=== PATIENT | male | born 1945 | race Caucasian/White ===

== ENCOUNTER 2021-11-28 20:03 | Inpatient (IN) ==
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
[2021-11-28] MEDS ORDERED: VANCOMYCIN 1,000 MG in 0.9 % SODIUM CHLORIDE 250 ML IV ONE (21:25)
[2021-11-28] MEDS ORDERED: cefTRIAXone 1 GM VIAL IV ONE (21:25)
[2021-11-28 22:46] LABS: Basophils # (Auto) 0.02 K/mcL (0.00-0.30); Basophils % (Auto) 0.3 % (0.0-2.0); Eosinophils # (Auto) 0 K/mcL (0.00-0.70); Eosinophils % (Auto) 0 % (0.0-7.0); Hematocrit 35.8 % (40.1-51.0); Hemoglobin 11.6 g/dL (13.7-17.5); Lymphocytes % (Auto) 8.4 % (15.5-49.0); Mean Corpuscular HGB Conc 32.4 g/dL (31.0-36.0); Mean Platelet Volume 10.3 fL (7.4-10.4); Monocytes # (Auto) 0.51 K/mcL (0.10-0.90); Monocytes % (Auto) 7.2 % (1.0-12.0); Neutrophils % (Auto) 84.1 % (38.0-78.0); Platelet Count 191 K/mcL (140-440); RBC 3.77 M/mcL (4.63-6.08); Red Cell Distribution Width 15.8 % (11.5-14.5); WBC 7.1 K/mcL (4.5-11.0)
[2021-11-28 23:06] LABS: ALT/SGPT 47 U/L (<40); AST/SGOT 50 U/L (<40); Albumin/Globulin Ratio 0.9 (1.0-2.3); Alkaline Phosphatase 73 U/L (39-117); Bilirubin,Total 0.8 mg/dL (0.1-1.0); Blood Urea Nitrogen 54 mg/dL (8-23); Calcium 9.2 mg/dL (8.6-10.4); Carbon Dioxide 27 mmol/L (22-30); Chloride 104 mmol/L (96-108); Globulin 3.5 gm/dL (2.2-3.7); Glomerular Filtration Rate 38; Glucose 123 mg/dL (70-105)
[2021-11-28] MEDS ORDERED: ONDANSETRON 4 MG/2 ML VIAL IV PRN (23:50)
[2021-11-28] MEDS ORDERED: ACETAMINOPHEN 325 MG TABLET PO PRN (23:50)
[2021-11-29] MEDS: 0.9 % SODIUM CHLORIDE 10 ML SYRINGE IV SCH ×5 (05:57→20:57)
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
[2021-11-29] MEDS ORDERED: POTASSIUM CHLORIDE 20 MEQ TABLET PO PRN ×2 (06:25)
[2021-11-29] MEDS ORDERED: ACETAMINOPHEN 325 MG TABLET PO PRN (06:25)
[2021-11-29] MEDS ORDERED: ONDANSETRON 4 MG/2 ML VIAL IV PRN (06:25)
[2021-11-29] MEDS ORDERED: SENNOSIDES 1 TABLET PO PRN (06:25)
[2021-11-29] MEDS ORDERED: VANCOMYCIN PER PHARMACY IV SCH (06:25)
[2021-11-29] MEDS ORDERED: MAGNESIUM SULFATE 2 GM/50 ML BAG IV PRN (06:25)
[2021-11-29] MEDS ORDERED: IPRATROPIUM/ALBUTEROL 3 ML AMPUL.NEB NEB PRN (06:25)
[2021-11-29] MEDS ORDERED: METOCLOPRAMIDE 10 MG/2 ML VIAL IV PRN (06:25)
[2021-11-29] MEDS ORDERED: morphine 4 MG/ML VIAL IV PRN (06:25)
[2021-11-29] MEDS ORDERED: POTASSIUM CHLORIDE 40 MEQ in DEXTROSE 5% IN WATER 500 ML IV PRN (06:25)
[2021-11-29] MEDS ORDERED: 0.9 % SODIUM CHLORIDE 1,500 ML IV ONE (06:27)
[2021-11-29] MEDS ORDERED: METOPROLOL TARTRATE 5 MG/5 ML VIAL IV PRN (06:30)
[2021-11-29] MEDS ORDERED: POLYETHYLENE GLYCOL 3350 17 GM PACKET PO SCH (06:30)
[2021-11-29 07:48] LABS: Hemoglobin A1C 5.5 % Hgb (4.0-6.0)
[2021-11-29 08:42] LABS: Anisocytosis 1+ (None Seen); Band Neutrophils % 1 % (0-10); Lymphocytes % 7 % (15-49); Monocytes % (Manual) 12 % (1-12); Platelet Estimate NORMAL (Normal); RBC Morphology ABNORMAL (Normal); Segmented Neutrophils % 80 % (38-78)
[2021-11-29] MEDS ORDERED: LEVOTHYROXINE SODIUM 175 MCG TABLET PO SCH (09:00)
[2021-11-29] MEDS: cefTRIAXone 2 GM in DEXTROSE 5% IN WATER 50 ML IV SCH (09:28)
[2021-11-29] MEDS: LACTOBACILLUS 1 CAPSULE PO SCH (09:32)
[2021-11-29] MEDS: DOCUSATE SODIUM 100 MG CAPSULE PO SCH ×2 (09:36→20:43)
[2021-11-29] MEDS: METOPROLOL SUCCINATE 50 MG TAB.XL.24H PO SCH (09:37)
[2021-11-29] MEDS: DILTIAZEM 240 MG CAP.XL.24H PO SCH (09:37)
[2021-11-29] MEDS: APIXABAN 5 MG TABLET PO SCH ×2 (09:37→20:43)
[2021-11-29] MEDS: LIDOCAINE PATCH TOPICAL SCH (09:37)
[2021-11-29] MEDS: LEVOTHYROXINE 150 MCG TABLET PO SCH (09:42)
[2021-11-29] MEDS: SIMVASTATIN 20 MG TABLET PO SCH (10:19)
[2021-11-29] MEDS: morphine 30 MG TAB.SR.12H PO SCH ×3 (10:27→20:43)
[2021-11-29] MEDS ORDERED: VANCOMYCIN 1,500 MG in 0.9 % SODIUM CHLORIDE 500 ML IV SCH (11:00)
[2021-11-29] MEDS: AMMONIUM LACTATE 12% TOPICAL SCH (11:17)
[2021-11-30] MEDS: 0.9 % SODIUM CHLORIDE 10 ML SYRINGE IV SCH ×5 (05:39→21:05)
[2021-11-30 05:57] LABS: Basophils # (Auto) 0.03 K/mcL (0.00-0.30); Basophils % (Auto) 0.5 % (0.0-2.0); Eosinophils # (Auto) 0.18 K/mcL (0.00-0.70); Eosinophils % (Auto) 2.9 % (0.0-7.0); Hematocrit 35.3 % (40.1-51.0); Hemoglobin 10.9 g/dL (13.7-17.5); Lymphocytes # (Auto) 0.91 K/mcL (1.50-4.80); Lymphocytes % (Auto) 14.7 % (15.5-49.0); Mean Cell Volume 95.4 fL (80.0-100.0); Mean Corpuscular HGB Conc 30.9 g/dL (31.0-36.0); Mean Platelet Volume 9.9 fL (7.4-10.4); Monocytes # (Auto) 0.55 K/mcL (0.10-0.90); Monocytes % (Auto) 8.9 % (1.0-12.0); Platelet Count 165 K/mcL (140-440); Red Cell Distribution Width 15.8 % (11.5-14.5); WBC 6.2 K/mcL (4.5-11.0)
[2021-11-30 06:27] LABS: ALT/SGPT 32 U/L (<40); AST/SGOT 23 U/L (<40); Albumin 2.7 gm/dL (3.2-5.2); Albumin/Globulin Ratio 0.9 (1.0-2.3); Alkaline Phosphatase 64 U/L (39-117); Bilirubin,Direct 0.3 mg/dL (<0.3); Bilirubin,Total 0.9 mg/dL (0.1-1.0); Blood Urea Nitrogen 18 mg/dL (8-23); Calcium 8.8 mg/dL (8.6-10.4); Carbon Dioxide 24 mmol/L (22-30); Chloride 109 mmol/L (96-108); Globulin 2.9 gm/dL (2.2-3.7); Glomerular Filtration Rate 87; Glucose 90 mg/dL (70-105); Lactate Dehydrogenase 131 U/L (135-225); Phosphorous 2.6 mg/dL (2.5-4.5); Triglycerides 52 mg/dL (<150); Uric Acid 5.5 mg/dL (2.5-8.0)
--- NOTE | 2021-11-30 07:22 | Internal Med Progress Note ---
SUBJECTIVE Subjective Patient information: Note initiated : 11/30/21 at 7:20 am Service Date, if different from initiated Date: [] Patient: Medardo Curry 76 y/o M admitted on 11/29/21 for oozing skin graft. Chief Complaint: [] Interval history: History of present illness: Mr. Curry is a 76 year old M Presents to the ED with redness of his left leg and clear liquid oozing from her recent skin graft placed yesterday. This was done by Dr. Herr who talked to ED provider. Patient says that after the procedure started developing some redness near his ankle. This did progress to increased swelling and redness and warmth. Given the appearance of cellulitis patient was started on IV antibiotics. In the ED was also found to have acute kidney injury. 11/30 No overnight event or new complaints. Continue IV antibiotics. Awaiting Dr. Herr recommendations. Review of Systems: denies headache/fever/chills/nausea/vomiting/chest or abdominal pain/cough/dyspnea/diarrhea. Otherwise see above. Constitutional Vitals: Vital Signs Temp Pulse Resp BP Pulse Ox 97.4 F 84 16 134/76 98 11/30/21 04:08 11/30/21 04:08 11/30/21 04:08 11/30/21 04:08 11/30/21 04:08 Period Temp Pulse Resp BP Sys/Estrada Pulse Ox Last 24 Hr 97.2 F-98.7 F 77-121 16-18 117-134/63-81 95-99 Intake and Output 11/29/21 11/30/21 11/30/21 21:59 05:59 13:59 Intake Total 1518 240 Output Total 650 450 Balance 868 -210 Weight 93.213 kg Intake & Output: Intake & Output 11/29/21 11/30/21 11/30/21 21:59 05:59 13:59 Intake Total 1518 240 Output Total 650 450 Balance 868 -210 Weight 93.213 kg Intake: IV 1418 Sodium Chloride 0.9% 1,500 ml @ 1418 175 mls/hr IV .[id number] ONE Rx#: [id number] Oral 100 240 Output: Void Amount 650 450 Other: Meal Dinner Percent of Meal Consumed 10 Feeding Ability Independent Urine Appearance Clear Clear Urine Color Dark Yellow Dark Mikki Urine Odor Normal Normal Exam: General: Alert, Awake, No acute Distress Eyes/N/T: EOMI, , Head/Neck: neck supple, CV: RRR, No murmurs, Pulm: Clear b/l, no wheezing/rhonchi/rales Abd: soft, nontender, +BS x4 Ext: no clubbing/cyanosis, mild chronic b/l LE edema. LLE with dressing in place, erythema from suarez to ankle and warmth - with some improvement. Neuro: Alert, no focal deficits, moves all extremities, Skin: warm/dry OBJ DATA Labs CBC & Chem 7: 11/30/21 05:19 11/30/21 05:19 Labs: Abnormal Lab Results 11/30/21 11/30/21 11/28/21 05:19 05:19 21:50 RBC 3.70 L Hgb 10.9 L Hct 35.3 L MCHC 30.9 L RDW 15.8 H Neut % (Auto) Lymph % (Auto) 14.7 L Lymph # (Auto) 0.91 L Seg Neutrophils % 80 H Lymphocytes % 7 L RBC Morphology Abnormal A Anisocytosis 1+ A Chloride 109 H Anion Gap BUN Creatinine Glucose Direct Bilirubin 0.3 H AST ALT Lactate Dehydrogenase 131 L Total Protein 5.6 L Albumin 2.7 L Albumin/Globulin Ratio 0.9 L 11/28/21 11/28/21 21:50 21:50 RBC 3.77 L Hgb 11.6 L Hct 35.8 L MCHC RDW 15.8 H Neut % (Auto) 84.1 H Lymph % (Auto) 8.4 L Lymph # (Auto) 0.60 L Seg Neutrophils % Lymphocytes % RBC Morphology Anisocytosis Chloride Anion Gap 7.0 L BUN 54 H Creatinine 1.7 H Glucose 123 H Direct Bilirubin AST 50 H ALT 47 H Lactate Dehydrogenase Total Protein Albumin 3.0 L Albumin/Globulin Ratio 0.9 L Meds: Medications Acetaminophen (Acetaminophen 325 Mg Tablet) 650 mg PO Q6HP PRN; Protocol PRN Reason: Per Pain Protocol/Fever > 101 Acetaminophen (Acetaminophen 325 Mg Tablet) 650 mg PO Q6HP PRN; Protocol PRN Reason: Per Pain Protocol/Fever > 101 Albuterol/Ipratropium (Ipratropium/Albuterol 3 Ml Ampul.Neb) 3 ml NEB Q4HP PRN PRN Reason: Shortness Of Breath Apixaban (Apixaban 5 Mg Tablet) 5 mg PO BID [facility] Last Admin: 11/29/21 20:43 Dose: 5 mg Documented by: Diltiazem HCl (Diltiazem 240 Mg Cap.Xl.24h) 240 mg PO QDAY [facility] Last Admin: 11/29/21 09:37 Dose: 240 mg Documented by: Docusate Sodium (Docusate Sodium 100 Mg Capsule) 100 mg PO BID [facility] Last Admin: 11/29/21 20:43 Dose: 100 mg Documented by: Potassium Chloride 40 meq/ (Dextrose) 520 mls @ 130 mls/hr IV UD PRN PRN Reason: Potassium < 3 Magnesium Sulfate (Magnesium Sulfate) 2 gm in 50 mls @ 50 mls/hr IV UD PRN PRN Reason: Magnesium </= 1.6 Ceftriaxone Sodium 2 gm/ (Dextrose) 50 mls @ 100 mls/hr IV Q24H [facility]; Protocol Last Infusion: 11/29/21 09:58 Dose: Infused Documented by: Lactobacillus Rhamnosus (Lactobacillus 1 Capsule) 1 cap PO QAM [facility] Last Admin: 11/29/21 09:32 Dose: 1 cap Documented by: Levothyroxine Sodium (Levothyroxine 150 Mcg Tablet) 150 mcg PO Q48H [facility] Last Admin: 11/29/21 09:42 Dose: 150 mcg Documented by: Lidocaine (Lidocaine Patch) 1 patch TOPICAL QDAY [facility] Last Admin: 11/29/21 09:37 Dose: 1 patch Documented by: Metoclopramide HCl (Metoclopramide 10 Mg/2 Ml Vial) 10 mg IV Q6HP PRN PRN Reason: Nausea And Vomiting Metoprolol Succinate (Metoprolol Succinate 50 Mg Tab.Xl.24h) 50 mg PO QDAY [facility] Last Admin: 11/29/21 09:37 Dose: 50 mg Documented by: Metoprolol Tartrate (Metoprolol Tartrate 5 Mg/5 Ml Vial) 5 mg IV Q2HP PRN PRN Reason: Tachyarrhythmias HR>110 Morphine Sulfate (Morphine 30 Mg Tab.Sr.12h) 60 mg PO TID [facility] Last Admin: 11/29/21 20:43 Dose: Not Given Documented by: Morphine Sulfate (Morphine 4 Mg/Ml Vial) 0 mg IV Q3HP PRN PRN Reason: Pain Ondansetron HCl (Ondansetron 4 Mg/2 Ml Vial) 4 mg IV Q4HP PRN; Protocol PRN Reason: Nausea And Vomiting Ondansetron HCl (Ondansetron 4 Mg/2 Ml Vial) 4 mg IV Q4HP PRN PRN Reason: Nausea And Vomiting Ammonium Lactate 12 (% Cream) 1 dose TOPICAL DAILY [facility] Last Admin: 11/29/21 11:17 Dose: Not Given Documented by: Polyethylene Glycol (Polyethylene Glycol 3350 17 Gm Packet) 17 gm PO DAILYP [facility] Potassium Chloride (Potassium Chloride 20 Meq Tablet) 40 meq PO UD PRN PRN Reason: Potssium is 3-3.5 Potassium Chloride (Potassium Chloride 20 Meq Tablet) 40 meq PO UD PRN PRN Reason: Potassium < 3 Senna (Sennosides 1 Tablet) 2 tab PO DAILYP PRN PRN Reason: Constipation Simvastatin (Simvastatin 20 Mg Tablet) 20 mg PO QDAY [facility] Last Admin: 11/29/21 10:19 Dose: 20 mg Documented by: Sodium Chloride (0.9 % Sodium Chloride 10 Ml Syringe) 10 ml IV Q8 [facility] Last Admin: 11/30/21 05:39 Dose: 10 ml Documented by: Sodium Chloride (0.9 % Sodium Chloride 10 Ml Syringe) 10 ml IV Q8 [facility] Last Admin: 11/30/21 05:46 Dose: Not Given Documented by: A/P Narrative A/P Narrative: A: *LLE Cellulitis around recent skin graft: *SHEREE on CKD III?: improved *chronic Afib: on apixaban, Dilt/BB *h/o CVA: on ASA/statin *h/o mod : follows with cardiology *Hypothyroidism: *Chronic pain: P: -Rocephin, pending cx's and MRSA screen neg -awaiting Dr. Hendrickson for further direction -s/p IVF, f/u renal fxn -cont home ASA/Apixaban/statin -cont home Dilt/BB -tele, clarify asa -pt/ot -ppx: apixaban Time Spent With Patient Time: Total time spent is greater than 50% in coordination of care (as documented) at patient's floor/unit and/or counseling patient: Total time spent with greater than 50% in coordination of care (as documented) at patient's floor/unit and/or counseling patient:: 25 - 35 minutes QUALITY VTE Deep Vein Thrombosis/Pulmonary Embolism Present on Admission: No
[2021-11-30] MEDS ORDERED: ASPIRIN 325 MG ENTERIC COATED TABLET PO SCH (09:00)
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
[2021-11-30] MEDS: DOCUSATE SODIUM 100 MG CAPSULE PO SCH ×2 (09:49→21:04)
[2021-11-30] MEDS: APIXABAN 5 MG TABLET PO SCH ×2 (09:49→21:04)
[2021-11-30] MEDS: LACTOBACILLUS 1 CAPSULE PO SCH (09:49)
[2021-11-30] MEDS: METOPROLOL SUCCINATE 50 MG TAB.XL.24H PO SCH (09:49)
[2021-11-30] MEDS: SIMVASTATIN 20 MG TABLET PO SCH (09:49)
[2021-11-30] MEDS: DILTIAZEM 240 MG CAP.XL.24H PO SCH (09:49)
--- OUTSIDE RECORDS SUMMARY | 2021-11-30 10:10 | External Medical Summary | Encounter Summary ---
:1945 Author Organization [facility] Address [address] [place] [id number] Care Team Providers Name Role Phone DE JESUSMALKAON Primary Care Provider Unavailable Insurance Providers: All historical and current Section Date Range: From patient's date of to the date document was created.This section includes the names of all active insurance providers for the patient. Insurance Type of Plan Start of End of Group Member Insurance Policy P atient's Provider Coverage Name Policy Policy Number ID Provider's Esteban's Relationship Coverage Coverage Telephone Name to Policy Number Esteban MEDICARE MEDICARE PART Dec 11, PART A [id number] DEONTE, PATIENT (WNR) (M) A [id number] [place] MEDICARE MEDICARE PART Dec 11, PART B [id number] DEONTE, PATIENT (WNR) (M) B [id number] [place] MEDICARE MEDICARE PART Dec 11, PART A [id number] [phone] LEMAST ER, PATIENT (WNR) (M) A [id number] 56A [id number] [place] MEDICARE MEDICARE PART Dec 11, PART B [id number] LEMAST ER, PATIENT (WNR) (M) B [id number] 56A [id number] [place] MEDICARE MEDICARE PART Dec 11, PART A [id number] [phone] LEMAST ER, PATIENT (WNR) (M) A 1995 227 RICHARD MEDICARE MEDICARE PART Dec 11, PART B [id number] [phone] LEMAST ER, PATIENT (WNR) (M) B [id number] [place] MEDICARE MEDICARE PART Apr 13, PART A [id number] DEONTE, PATIENT (WNR) (M) A [id number] [place] MEDICARE MEDICARE PART Apr 13, PART B [id number] DEONTE, PATIENT (WNR) (M) B [id number] [place] -FO [place] November 04, TFL [id number] [phone], PATIENT R-LIFE RE-FO [id number] CHELS[place] R-LIF E -FO [place] Dec 11, [id number] [phone] MERLY STER, PATIENT R-LIFE WNR RE-FO [id number] -[id number] [place] R-LIF FE E -FO [place] Jun 13, T[place] [id number] [phone], PATIENT R-LIFE WNR RE [id number] CHELS[place] FOR LIFE ZZWPS [place] Jun 09, STANDAR [id number] [phone] DEONTE , PATIENT TRIWEST RE 2001 [id number] CHELS[place] Selected Encounter This section includes the information on record at [place] for the Encounter. Date/Time Encounter Type Encounter Description Reason Provider Source Dec 09, 2020 10:06 Outpatient Encounter [facility] CONSULT IHE Encounter Template Text not used by CO Plan of Treatment: Future Appointments (+ 6 months) and Future Tests (+/- 45 days) The Plan of Treatment section includes future care activities for the patient from all [place] treatmentfacilities. This section includes future appointments and future orders which are active, pending orscheduled.Future Appointments This section includes appointments that were scheduled to occur 6 months from the date of the Encounter, up to a maximum of 20 appointments. The data comes from all [place] treatment facilities. Appointment Date/Time Appointment Type Appointment Facili ty Name Dec 30, 2020 10:30 AM AMBULATORY - MEDICINE [facility] Jan 08, 2021 11:00 AM AMBULATORY - MEDICINE [facility] Mar 05, 2021 11:30 AM AMBULATORY - MEDICINE [facility] Mar 05, 2021 12:00 PM AMBULATORY - MEDICINE [facility] Mar 12, 2021 01:00 PM AMBULATORY - MEDICINE [facility] Apr 02, 2021 11:00 AM AMBULATORY - MEDICINE [facility] ULLOA [facility] Apr 22, 2021 11:30 AM AMBULATORY - MEDICINE [facility] May 05, 2021 09:30 AM AMBULATORY - PSYCHIATRY SUNITA SALAS [facility] May 22, 2021 09:00 AM AMBULATORY - MEDICINE SUNITA ULLOA [facility] Active, Pending, and Scheduled Orders This section includes a listing of several types of active, pending, and scheduled orders, including clinic medications orders, diagnostic test orders, procedure orders and consult orders; where the start date of the order is 45 days before the date of the Encounter or 45 days after the date of the Encounter. The data comes from all [place] treatment facilities. Test Date/Time Test Type Test Details Facility Name Jan 07, 2021 03:46 PM Consult Order [facility] Guillaume [facility] Mold Injector's Choice Lab Results: +/- 30 days of the encounter This section includes the Chemistry and Hematology Lab Results on record with CO for the patient. Radiology Reports and Pathology Reports are provided separately, in subsequent sections.Lab Results This section contains the Chemistry/Hematology Results that were resulted 30 days before or 30 daysafter the date of the Encounter. Date/Time Source Result Type Result - Unit Interpretation Reference Range Comment Dec 30, 2020 10:38 [facility] THYROID STIMULATING Speci men Type: SERUM AM HORMONE No comment enter ed. Ordering Provid er: LG DE JESUS Report Released Date/Time: Dec 14, 2020 02:26 PM Reporting Lab: [facility] [address] [place] [address] Performing Lab: [facility] Guillaume [facility] [place] [address] THYROID STIMULATING HORMONE 16.6 H 0. 300-4.25 Social History: Smoking Status (Most current) and Tobacco Use (All prior to encounter date) This section includes the most current, and the historical, smoking and tobacco-related health factors from the [place] facility where the Encounter took place.Current Smoking Status This section includes the most current smoking, or tobacco-related health factor, from the [place] facility where the Encounter took place. Date/Time Current Smoking Status Comment Facility Sep 04, 2017 06:40 PM TOBACCO SCREEN COMPLETED Kapil DREW KatherineKadi [facility] 7 hrs Tobacco Use History This section includes a history of the smoking, or tobacco- related health factors, that were collected on or before the date of the Encounter. The data comes from the [facility] where the Encounter took place. Date/Time Smoking Status/Tobacco Use Comment [facility] Sep 04, 2017 06:40 PM TOBACCO SCREEN COMPLETED Kapil DREW Guillaume [facility] 7 hrs May 15, 2007 09:55 AM QUIT TOBACCO >7 YEARS AGO SUNITA Guillaume [facility] Feb 12, 1999 10:18 AM TOBACCO PRODUCTS USER (NO) SUNITA Guillaume [facility] Feb 14, 1998 01:00 AM TOBACCO PRODUCTS USER (NO) SUNITA Guillaume [facility] Dec 04, 1997 01:01 AM TOBACCO PRODUCTS USER (NO) SUNITA Guillaume [facility] Encounter Notes: All associated encounter notes This section contains the clinical notes associated to the Encounter. Date/Time Encounter Note(s) Provider Source Dec 09, 2020 10:06 ADMINISTRATIVE NOTE: KAUSHIK GUZMAN III, AM LOCAL TITLE: TELEPHONE CONTACT CALL CENTER [facility] STANDARD TITLE: ADMINISTRATIVE NOTE DATE OF NOTE: DEC 09, 2020@10:06:53 ENTRY DATE: DEC 09, 2020@10:09 AUTHOR: KAUSHIK GUZMAN III EXP COSIGNER: URGENCY: STATUS: COMPLETED The following identifiers were used to verify th is patient: . SSN. The patient, CHELSY CLEMONS ([phone]) called the call center. Contact Type of call: V20 PACT MSG. Comments: [facility] is requesting a return call to discuss b elow medication. LEVOTHYROXINE Demographics verified. Author: KAUSHIK GUZMAN III Evaluation/Management Code: HC PRO PHONE CALL 5- 10 MIN ([id number]). Starting at: 12/09/2020 @ 10:06:53 AM Ending at: 12/09/2020 @ 10:08:50 AM Length: 1 minutes. Caller Area: [address] Chief Complaint: Not applicable to call. Caller Response: V20 RETURN CALL Caller/[facility] verbalize understanding; acknowle dges message. Patient's Email Address: [email or web address] Class Code: Other specified counseling. /karen/ KAUSHIK GUZMAN III/GHASSAN Murphy 20 call center Signed: 12/09/2020 10:09 Receipt Acknowledged By: * AWAITING SIGNATURE * ERWIN JACOBSEN S
--- OUTSIDE RECORDS SUMMARY | 2021-11-30 10:10 | External Medical Summary | Continuity of Care Document ---
:1945 Author Organization [facility] Care Team Providers Name Role Phone [facility] Unavailable Unavailable Problems Combined list of problems from Department of Defense and Veterans Affairs facilities. It does not include entries that were removed or entered in error. Problem Status Onset Problem Date of Comments Source Date Type Resolution Difficulty walking completed Diagnosis 6 87 in room 022 Sunita Haley [facility] Well adult completed Diagnosis [id number] [facility] Ankle Active Condition Ambulatory instability(Confir 016 P harmacy med) Ankle instability Active Condition [facility] [address] Active Condition [address] Simmons fibrillation(Deoni 013 [place]<br/ >[facility] rmed)2 xysmal A fib controlled with diltiazem XL 240mg daily<br/&gt ;small PFO or ASD flow
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 Pharmacy intervertebral disc(Confirmed) OSTEOARTHROS Active Condition Ambulat ory NOS-PELVIS(Confirm P harmacy ed) Dystrophic Active Condition Ambulator y Toenails (ICD-9-CM P harmacy 735.8)(Confirmed) Hip Active Condition Ambulatory pain(Confirmed) Phar makayla Hyperlipidemia(Con Active Condition A mbulatory firmed) Pharmacy Hypothyroidism Active Condition Ambul atory (SNOMED CT Pharmacy [id number])(Confirme d) Ingrowing Active Condition Ambulatory Nail(Confirmed) Phar makayla Male sex hormones Active Condition Am bulatory low(Confirmed) Pharm acy MYOPIA(Confirmed) Active Condition Am bulatory Pharmacy Treatment Active Condition Ambulatory Compliance Problem P harmacy * (ICD-9-CM V62.6)(Confirmed) Onychomycosis(Conf Active Condition A mbulatory irmed) Pharmacy OSTEOARTHROS Active Condition Ambulat ory NOS-UNSPEC(Confirm P harmacy ed) Pain in left Active Condition Ambulat ory knee(Confirmed) Phar makayla Peripheral Active Condition 05/2015 NO Ambul atory vascular signficant PAD Pharm acy disease(Confirmed) right or le ft, 5 DENAE left 1.24
DENAE R pressures not measurable with extensive calcifications<b r/>R DENAE not calculated noncompressable veins
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 Iliac 2.5cm repeat US 10/24/12 Apr 25, 2014 Entered By: LG HICKEY Comment: left common iliac artery Benign essential Active Condition MARLEEN Guillaume hypertension WAINWRI GHT (SNOMED CT [facility] [id number]) Allred of toe Active Condition SUNITA MKadi [facility] Coronary Active Condition Jun 12, 2020 [facility] atherosclerosis Entered By: LG KRUSE Comment: 2006 60-70% RC narrowing and 50% LAD Degeneration of Active Condition [facility] lumbar [facility] intervertebral disc Dystrophia unguium Active Condition J DREW MurphyKadi [facility] History of Active Condition Aug 14, 2010 MARLEEN Guillaume colonoscopy En[facility]: [facility] Comment: Colonoscopy 02/2010 dr Mclain repeat 5 yrs Sep 20, 2019 Entered By: LG HICKEY Comment: colonoscopy 04/13/2017 diverticulosis no polyps repeat in 7-10 yrs [place] Hyperlipidemia Active Condition [facility] Hypothyroidism Active Condition KIMBERLY ORLIN MurphyKadi [facility] Hypothyroidism Active Condition KIMBELRY MurphyKadi (SNOMED CT [facility] T [id number]) [facility] Male sex hormones Active Condition [facility] low [facility] Onychomycosis Active Condition KIMBERLYAlexandre HARPER Markell [facility] Open wound of left Active Condition L [facility] lower leg CLINIC Osteoarthritis Active Condition NEVA ORLIN MurphyKadi [facility] Osteoarthritis of Active Condition Dec 07, 2 021 [facility] hip Entered By: LG WHELAN Comment: avascular necrosis right hip/ femur following service injury and infections OSTEOARTHROS Active Condition [facility] NOS-UNSPEC TAFF [facility] Pain in left knee Active Condition [facility] Peripheral Active Condition Aug 31, 2015 [facility] vascular disease Entered By: LG MORELAND Comment: 05/2015 NO signficant PAD right or left, DENAE left 1.24 Aug 31, 2015 Entered By: LG HICKEY Comment: DENAE R pressures not measurable with extensive calcifications Aug 31, 2015 Entered By: LG HICKEY Comment: R DENAE not calculated noncompressable veins Aug 31, 2015 Entered By: LG HICKEY Comment: [facility] MYOPIA Inactive Condition CYMRAES JEFFERSON ([facility] ) PRESBYOPIA Inactive Condition CYMRAES JEFFERSON ([facility] ) Diagnosis: active Diagnosis SUNITA Guillaume ICD-10-CM Z74.1 ANGELINE ULLOA Need for [facility] assistance with personal carewith Provider Comments: Need for Assistance with Personal Care Diagnosis: active Diagnosis [facility] ICD-10-CM Z71.9 CLIN IC Counseling, unspecifiedwith Provider Comments: Counseling, unspecified Diagnosis: active Diagnosis SUNITA Guillaume ICD-10-CM Z51.81 NADIA NWRIGHT Encounter for [facility] therapeutic drug level monitoringwith Provider Comments: Encounter for Therapeutic Drug Level Monitoring Diagnosis: active Diagnosis [facility] ICD-10-CM I73.9 CLIN IC Peripheral vascular disease, unspecifiedwith Provider Comments: Peripheral vascular disease ([facility] [id number]) Diagnosis: active Diagnosis SUNITA Guillaume ICD-10-CM M16.51 NADIA NWRIGHT Unilateral [facility] post-traumatic osteoarthritis, right hipwith Provider Comments: Unilateral Post-Traumatic Osteoarthritis, right Hip Diagnosis: active Diagnosis [facility] ICD-10-CM I73.9 CLIN IC Peripheral vascular disease, unspecifiedwith Provider Comments: Peripheral Vascular Disease, Unspecified Diagnosis: active Diagnosis [facility] ICD-10-CM Z71.9 CLIN IC Counseling, unspecifiedwith Provider Comments: Counseling,Unspec Diagnosis: active Diagnosis [facility] ICD-10-CM E03.9 CLIN IC Hypothyroidism, unspecifiedwith Provider Comments: Hypothyroidism, unspecified Diagnosis: active Diagnosis [facility] ICD-10-CM M16.9 CLIN IC Osteoarthritis of hip, unspecifiedwith Provider Comments: Osteoarthritis of hip ([facility] [id number]) Diagnosis: active Diagnosis [facility] ICD-10-CM M25.562 CL INIC Pain in left kneewith Provider Comments: Pain in left knee ([facility] [id number]) Diagnosis: active Diagnosis [facility] ICD-10-CM M19.90 CLI MITCHELL Unspecified osteoarthritis, unspecified sitewith Provider Comments: Osteoarthritis ([facility] [id number]) Diagnosis: active Diagnosis [place] [facility] ICD-10-CM E29.1 [facility] Testicular CENTER hypofunctionwith Provider Comments: Testicular Hypofunction Diagnosis: active Diagnosis [facility] ICD-10-CM M25.373 CL INIC Other instability, unspecified anklewith Provider Comments: Ankle instability ([facility] [id number]) Medications Combined list of outpatient medications from Department of Defense and Veterans Affairs facilities. Medications provided include 1) outpatient medications from the last 15 months, and 2) patient-reported medications. Medication Details Route Status Patient Prescription Prescription Last Ordering Order Source Instructions Expires Number Dispense Provider Date Date Ammonium APPLY A Discont 11/12/2021 [id number] HICKEY, 0 09/07/ [place] Lactate SMALL inued 2 2021 [place] (Lac-Hydrin [place] [facility] ) Cream 12% TO Topical AFFECTED AREA TWICE A DAY NEEDED FOR DRY CRACKED SKIN TO HANDS Ammonium APPLY A 11/12/2021 [id number] HICKEY, 0 11/11/ [place] Lactate SMALL 1 2020 [place] (Lac-Hydrin [facility] [facility] ) Cream 12% TO Topical AFFECTED AREA TWICE A DAY NEEDED FOR DRY CRACKED SKIN TO HANDS AMMONIUM Topica Discont 09/02/2017 Amb ulat LACTATE 12% Topical, BID, APPLY A SMALL AMOUNT TO AFFECTED AREA TWICE A DAY NEEDED FOR DRY CRACKED SKIN TO HANDS, 0 total refill(s), Physician Stop l (on inued ory CREAM the Pharmac skin) y AMMONIUM APPLY A TOPICA DISCONT 11/12/2021 [id number] DERECK HICKEY 11/11/ [place] LACTATE 12% SMALL L INUED 2 2020 N [facility] CREAM,TOP AMOUNT CLINIC TO AFFECTED AREA TWICE A DAY NEEDED FOR DRY CRACKED SKIN TO HANDS ammonium Discont 10/26/2021 Ambu lat lactate 12% See dose instructions in com ments, # 140 g, 2 total refill(s), Acute, GERSON [Not active] inued ory topical Pharmac cream y ammonium Topica Ordered Ambulat lactate 12% 1 application, Topical, BID, PRN dry skin, APPLY A SMALL AMOUNT TO AFFECTED AREA TWICE A DAY NEEDED FOR DRY CRACKED SKIN TO HANDS, # 385 g, 3 total refill(s), Maintenance, 1 application Topical BID,P l (on ory topical RN:dry skin,Instr:APPLY A SMALL AMOUNT TO AFFECT... the Pharmac cream skin) y APIXABAN 5 TAKE ONE Discont 10/17/2021 [id number] RUPERTO , 09/07/ [place] MG ORAL TAB TABLET inued 2 2021 [place] BY MOUTH [facility] TWICE A DAY DO NOT TAKE WITH WARFARIN , NOTIFY DOCTOR OF ANY SIGNS OF BLEEDING apixaban 5 Complet 10/14/2021 Am bulat mg oral 5 MG BY MOUTH TWICE A DAY, # 180 EA, 1 total refill(s), Acute, GERSON [Federal Rx: #180 last filled 08/07/21] ed ory tablet Pharmac y apixaban 5 Oral Ordered Ambulat mg oral 1 tab(s), Oral, BID, for str birgit prevention, do not take with warfarin, do not take with Motrin, Aleve or any other nonsteroidal medications, notify provider of any signs of bleeding as directed on packa (given ory tablet ge labeling, # 180 tab(s), 1 total refill(s), Ma... by Pharmac mouth) y APIXABAN Oral Complet 04/10/2020 Ambu lat 5MG TAB 5 mg, Oral, BID, TAKE ONE TA BLET BY MOUTH TWICE A DAY FOR 30 DAYS DO NOT TAKE WITH WARFARIN - NOTIFY DOCTOR OF ANY SIGNS OF BLEEDING, 0 total refill(s) (given ed ory by Pharmac mouth) y APIXABAN Oral Discont 09/02/2017 Ambu lat 5MG TAB 5 mg, Oral, BID, TAKE ONE TA BLET BY MOUTH TWICE A DAY DO NOT TAKE WITH WARFARIN, NOTIFY DOCTOR OF ANY SIGNS OF BLEEDING, 0 total refill(s), Physician Stop (given inued ory by Pharmac mouth) y APIXABAN TAKE ONE ORAL DISCONT 10/17/2021 [id number] DERECK HICKEY 10/17/ LANE 5MG TAB TABLET INUED 2 ION E 2020 N M. BY MOUTH [place] TWICE A GHT DAY DO [facility] NOT TAKE WITH WARFARIN , NOTIFY DOCTOR OF ANY SIGNS OF BLEEDING aspirin 81 Oral Ordered Ambulat mg oral 1 tab(s), Oral, Daily, # 90 tab(s), 3 total refill(s), Maintenance, 1 tab(s) Oral Daily, Pharmacy: [facility] [Federal Rx: #120 last filled 10/27/21] (given ory delayed by Pharmac release mouth) y tablet aspirin 81 Discont 10/26/2021 Am bulat mg oral See dose instructions in com ments, # 120 EA, 2 total refill(s), Acute, GERSON [Not active] inued ory delayed Pharmac release y tablet ASPIRIN TAKE ONE ORAL DISCONT 04/27/2022 [id number] ALIYAH HICKEY 04/27/ [place] 81MG TAB,EC TABLET INUED 1 ION E 2020 N [place] BY MOUTH CLINIC EVERY DAY DR MARTINEZ . TAKE WITH APIXABAN ASPIRIN EC TAKE ONE Discont 04/27/2022 [id number] RUPERTO , 09/07/ [place] (U/D) 81 MG TABLET inued 1 2021 [place] ORAL TBEC BY MOUTH [facility] EVERY DAY DR MARTINEZ . TAKE WITH APIXABAN carboxymeth INSTILL 08/19/2021 [id number] HICKEY , a ylcel 0.5% 1 DROP 1 2020 [place] EYE DROP [2 IN EACH [facility] X15ML] EYE FOUR TIMES A DAY NEEDED FOR DRY EYES CARBOXYMETH INSTILL OPHTHA 08/19/2021 [id number] SM ITH,MAR [place] YLCELLULOSE 1 DROP LMIC 1 2020 N [place] NA 0.5% IN EACH CLINIC (PF) EYE FOUR SOLN,OPH,0. TIMES A 4ML DAY NEEDED FOR DRY EYES CARBOXYMETH Complet 04/10/2020 A mbulat YLCELLULOSE EACH EYE, QID, INSTILL 1 SALAS P IN EACH EYE FOUR TIMES A DAY NEEDED FOR DRY EYES, 0 total refill(s) ed ory NA Pharmac 0.5%(PF)OP y [place] CARBOXYMETH Discont 09/02/2017 A mbulat YLCELLULOSE EACH EYE, QID, INSTILL 1 SALAS P IN EACH EYE FOUR TIMES A DAY NEEDED FOR DRY EYES, 0 total refill(s), Physician Stop inued ory NA Pharmac 0.5%(PF)OP y [place] cholecalcif Take 1 Active 10/26/2022 [id number] Ruperto , 200CRNR (VIT D3) tablet 2 2021 2,000 UNIT by mouth ORAL TAB daily cholecalcif TAKE ONE Discont 08/11/2022 [id number] ARIE H, 09/07/ [place] (VIT D3) TABLET inued 2 2021 [place] 2,000 UNIT BY MOUTH [facility] ORAL TAB EVERY DAY FOR VITAMIN D SUPPLEME NT CHOLECALCIF Oral Discont 10/26/2021 A mbulat 50MCG 50 mcg, Oral, Daily, TAKE ON E TABLET BY MOUTH EVERY DAY FOR VITAMIN D SUPPLEMENT, 0 total refill(s) (given inued ory (D3-2,000UN by Pharmac IT) TAB mouth) y cholecalcif Oral Discont 10/26/2021 A mbulat kayy 50 mcg 50 MCG, Oral, Daily, # 100 E A, 2 total refill(s), Acute, GERSON [Not active] (given inued ory (1999 intl by Pharmac units) oral mouth) y tablet cholecalcif Oral Ordered Ambula t kayy 50 mcg 50 MCG, Oral, Daily, # 100 t ab(s), 3 total refill(s), Maintenance, 50 MCG Oral Daily, Pharmacy: [facility] [Federal Rx: #100 last filled 11/12/21] (given ory (2000 intl by Pharmac units) oral mouth) y tablet CHOLECALCIF TAKE ONE ORAL DISCONT 08/11/2022 [id number] [facility],AUG 13/ [place] KAYY 50MCG TABLET INUED 2 ION E 2021 N [place] (2,000UNIT) BY MOUTH CLINI C TAB EVERY DAY FOR VITAMIN D SUPPLEME NT diclofenac Topica Ordered Ambula t 1% topical 4 g, Topical, QID, PRN pain (mild), APPLY 2-4 GRAMS DIRECTED TO AFFECTED AREA FOUR TIMES A DAY NEEDED FOR PAIN * LIMIT DAILY DOSE TO 8 GRAMS TO UPPER BODY AND 16 GRAMS TO LOWER BODY FOR JOINT PAIN l (on ory gel , # 100 g, 3 total refill(s), Maintenance, 4 g... the Pharmac skin) y DICLOFENAC Topica Discont 10/26/2021 A mbulat NA 1% TOP Topical, QID, APPLY 2-4 GRAM S DIRECTED TO AFFECTED AREA FOUR TIMES A DAY NEEDED FOR PAIN * LIMIT DAILY DOSE TO 8 GRAMS TO UPPER BODY AND 16 GRAMS TO LOWER BODY FOR JOINT PAIN, 0 total refill(s) l (on inued ory GEL the Pharmac skin) y DILTIAZEM TAKE ONE ORAL 07/09/2021 [id number] HICKEY ,AUG 13/ [place] (EQV-TIAZAC CAPSULE 1 ION E 2020 N [place] AB4) 240MG BY MOUTH CLINIC 24HR CAP AT BEDTIME TO LOWER BLOOD PRESURE AND FOR HEART DILTIAZEM Oral Discont 08/08/2018 Amb ulat (EQV-TIAZAC 240 mg, Oral, every day at b edtime, TAKE ONE CAPSULE BY MOUTH AT BEDTIME TO LOWER BLOOD PRESURE AND FOR HEART CHANGE DOSE DR MATTHEWS, 0 total refill(s), Physician Stop (given inued ory ) 240MG by Pharmac 24HR CAP mouth) y dilTIAZem Complet 07/06/2021 Amb ulat 240 mg/24 See dose instructions in com ments, # 90 EA, 0 total refill(s), Acute, GERSON [Not filled] ed ory hours oral Pharmac capsule, y extended release dilTIAZem Oral Ordered Ambulat 240 mg/24 240 mg, Oral, every day at b edtime, TAKE ONE CAPSULE BY MOUTH AT BEDTIME TO LOWER BLOOD PRESURE AND FOR HEART, # 90 tab(s), 3 total refill(s), Maintenance, 240 mg Oral every day at bedtime,Instr:TAKE ON (given ory hours oral E CAPSULE BY MOUTH AT BEDTIME TO LOWER BLOOD PRE... by Pharmac tablet, mouth) y extended release Diltiazem Dissolve Active 10/26/2022 [id number] Ruperto , CRNR Hydrochlori and 2 Lg 2021 de, 24 Hr drink 1 Capsule capful Extended (17g) of Release 240 powder mg Oral in 4 to 8 ounces of liquid once daily Diltiazem 1 daily Active 10/26/2022 [id number] Ruperto, CRNR Hydrochlori to 2 2021 de, 24 Hr administ Capsule er Extended testoste Release 240 shilpi mg Oral Diltiazem 1 daily Active 10/26/2022 [id number] Ruperto, 200CRNR Hydrochlori to draw 2 2021 de, 24 Hr up Capsule testoste Extended shilpi Release 240 mg Oral Diltiazem TAKE ONE Active 10/26/2022 [id number] Ruperto , 200CRNR Hydrochlori CAPSULE 2 2021 de, 24 Hr BY MOUTH Capsule EVERY Extended DAY FOR Release 240 STOMACH mg Oral ACID, TAKE ONE-HALF HOUR PRIOR TO MEAL TO REDUCE RISKOF GI BLEED WITH INTERMIT TENT IBUPROFE N USE Diltiazem Take 1 Active 10/26/2022 [id number] Hickey, CRNR Hydrochlori capsule 2 2021 de, 24 Hr by mouth Capsule at Extended bedtime Release 240 TO LOWER mg Oral BLOOD PRESURE and for heart Diltiazem 1 As Active 10/26/2022 [id number] Hickey, 0 200CRNR Hydrochlori Directed 2 2021 de, 24 Hr for Capsule testoste Extended shilpi Release 240 mg Oral Diltiazem TAKE ONE 07/09/2021 [id number] HICKEY, 07/12/ [place] Hydrochlori CAPSULE 1 2021 [place] de, 24 Hr BY MOUTH [facility] Capsule AT Extended BEDTIME Release 240 TO LOWER mg Oral BLOOD PRESURE AND FOR HEART DOXYCYCLINE Active [id number] DIA, 11/19 / Pharmac HYCLATE 1 2020 y Data (doxycyclin Transac e hyclate), tion 100 MG, Service CAPSULE, Facilit ORAL, y AMNEAL PHARMACE, 50 ea. BOTTLE FLUZONE Active [id number] ROTHFUSZ, 03/30/ Pharmac HIGH-DOSE 1 2020 y Data QUAD Transac tion (influenza Service virus Facilit vaccine y quadrival split (65 yr up)/PF), 240MCG/0.7, SYRINGE, INTRAMUSC, SANOFI-PAST EUR, .7 ml SYRINGE HYDROCODONE Active [id number] OZERAN, 07/01 / Pharmac -ACETAMINOP 2 2021 y Data HEN Transac (HYDROCODON tion E/ACETAMINO Service PHEN), Facilit 10MG-325MG, y TABLET, ORAL, M[place]OD T PH, 100 ea. BOTTLE HYDROCORTIS Topica Complet 04/10/2020 Ambulat ONE 2.5% Topical, BID, APPLY A SMALL AMOUNT TO AFFECTED AREA ONE TO TWO TIMES A DAY NEEDED TO LESIONS / AVOID EYES, 0 total refill(s) l (on ed ory OINT the Pharmac skin) y HYDROCORTIS Topica Discont 09/02/2017 Ambulat ONE 2.5% Topical, BID, APPLY A SMALL AMOUNT TO AFFECTED AREA ONE TO TWO TIMES A DAY NEEDED TO LESIONS / AVOID EYES, 0 total refill(s), Physician Stop l (on inued ory OINT the Pharmac skin) y IBUPROFEN Take one Active 10/26/2022 [id number] Ruperto , 200CRNR (U/D) 600 and 2 Lg 2022 MG ORAL TAB one-half tablets by mouth daily . Increase d dosage IBUPROFEN Take 1 Active 10/26/2022 [id number] Ruperto, 200CRNR (U/D) 600 tablet 2 Lg 2022 MG ORAL TAB by mouth daily IBUPROFEN Apply 2 Active 10/26/2022 [id number] Ruperto, 200CRNR (U/D) 600 to 4 2 Lg 2022 MG ORAL TAB grams on affected area topicall y four times a day as needed for pain (mild) LIMIT DAILY DOSE TO 8 GRAMS TO UPPER BODY AND 16 GRAMS TO LOWER BODY FOR JOINT PAIN IBUPROFEN Apply 1 Active 10/26/2022 [id number] Ruperto, 200CRNR (U/D) 600 patch 2 Lg 2022 MG ORAL TAB topicall y on affected area daily IBUPROFEN Apply a Active 10/26/2022 [id number] Ruperto, 200CRNR (U/D) 600 small 2 Lg 2022 MG ORAL TAB amount on affected area topicall y two times a day as needed for dry CRACKED SKIN TO HANDS IBUPROFEN Take 1 Active 10/26/2022 [id number] Ruperto, 200CRNR (U/D) 600 tablet 2 Lg 2022 MG ORAL TAB by mouth As Directed up to four times a day with food as needed for pain . DECREASE USE WHEN NOT IN PAIN. ibuprofen Oral Discont 11/02/2021 Amb ulat 600 mg oral 1 tab(s), Oral, As Directed, TAKE ONE TABLET BY MOUTH DIRECTED UP TO 4 TIMES DAILY FOR PAIN TAKE WITH FOOD DECREASE USE WHEN NOT IN PAIN., # 90 tab(s), 3 total refill(s), Maintenance, 1 (given inued ory tablet tab(s) Oral As Directed,Instr:TAKE ONE TABLET B... by Pharmac mouth) y IBUPROFEN Oral Discont 02/27/2018 Amb ulat 600MG TAB Oral, As Directed, TAKE ONE TABLET BY MOUTH DIRECTED UP TO 4 TIMES DAILY FOR PAIN TAKE WITH FOOD , 0 total refill(s), Physician Stop (given inued ory by Pharmac mouth) y levothyroxi Oral Ordered 05/05/2022 A mbulat ne 175 MCG, Oral, Daily, # 90 E A, 3 total refill(s), Hard Stop, GERSON [Federal Rx: #90 last filled 11/01/21] (given ory (Synthroid) by Pharmac 175 mcg mouth) y tablet LEVOTHYROXI Oral Complet 04/10/2020 A mbulat NE NA 0.137 mg, Oral, Daily, TAKE ONE TABLET BY MOUTH EVERY DAY FOR THYROID, 0 total refill(s) (given ed ory (SYNTHROID) by Pharmac 137MCG TAB mouth) y LEVOTHYROXI Oral Discont 10/03/2018 A mbulat NE NA 0.137 mg, Oral, Daily, TAKE ONE TABLET BY MOUTH EVERY DAY FOR THYROID, 0 total refill(s), Physician Stop (given inued ory (SYNTHROID) by Pharmac 137MCG TAB mouth) y LEVOTHYROXI TAKE ONE ORAL DISCONT 01/09/2022 [id number] S DERECK STONE 01/08/ [place] NE NA TABLET INUED 1 ION E 2020 N [place] 150MCG TAB BY MOUTH CLINIC (SYNTHROID) EVERY DAY FOR THYROID LEVOTHYROXI TAKE ONE ORAL DISCONT 03/13/2022 [id number] S DERECK STONE 03/13/ [place] NE NA TABLET INUE 1 ION E 2020 N [place] 175MCG TAB BY MOUTH CLINIC (SYNTHROID) EVERY DAY FOR THYROID LEVOTHYROXI TAKE ONE ORAL DISCONT 05/08/2022 [id number] DERECK HICKEY 06/01/ [place] NE NA TABLET INUED 1 ION E 2020 N [place] 175MCG TAB BY MOUTH CLINIC (SYNTHROID) EVERY DAY FOR THYROID Lidocaine APPLY 1 Discont 07/11/2022 [id number] RUPERTO 09/07/ Shaheed (Lidoderm PATCH TO inued 2 LG E 2021 [place] Eq.) SKIN [facility] Transdermal EVERY System 5% DAY (FOR Topical 12 HOURS ON, FOLLOWED BY 12 HOURS OFF) FOR PAIN FOR KNEE PAIN Lidocaine APPLY 1 Active 07/11/2022 [id number] HICKEY, 0 [place] (Lidoderm PATCH TO 2 LG E 2021 [place] Eq.) SKIN [facility] Transdermal EVERY System 5% DAY (FOR Topical 12 HOURS ON, FOLLOWED BY 12 HOURS OFF) FOR PAIN FOR KNEE PAIN Lidocaine APPLY 1 Discont 09/07/2021 [id number] HICKEY, [place] (Lidoderm PATCH TO inued 1 LG E 2021 [place] Eq.) SKIN [facility] Transdermal EVERY System 5% DAY (FOR Topical 12 HOURS ON, FOLLOWED BY 12 HOURS OFF) FOR PAIN FOR KNEE PAIN LIDOCAINE TransD Discont 10/26/2021 Am bulat 5% PATCH TransDermal, Daily, APPLY 1 PATCH TO SKIN EVERY DAY (FOR 12 HOURS ON, FOLLOWED BY 12 HOURS OFF) FOR PAIN FOR KNEE PAIN, 0 total refill(s) ermal inued ory (apply Pharmac on the y skin) LIDOCAINE APPLY 1 TRANSD DISCONT 09/07/2021 [id number] [facility],AUG 13/ [place] 5% PATCH PATCH TO ERMAL INUE 1 ION E 2020 N [place] SKIN CLINIC EVERY DAY (FOR 12 HOURS ON, FOLLOWED BY 12 HOURS OFF) FOR PAIN FOR KNEE PAIN LIDOCAINE APPLY 1 TRANSD DISCONT 07/11/2022 [id number] [facility],AUG 11/ [place] 5% PATCH PATCH TO ERMAL INUED 2 ION E 2021 N [place] SKIN CLINIC EVERY DAY (FOR 12 HOURS ON, FOLLOWED BY 12 HOURS OFF) FOR PAIN FOR KNEE PAIN lidocaine Topica Ordered Ambulat 5% topical 1 patch(es), Topical, Daily, # 60 patch(es), 3 total refill(s), Maintenance, 1 patch(es) Topical Daily, Pharmacy: [facility] [Federal Rx: #60 last filled 10/27/21] l (on ory film the Pharmac skin) y lidocaine Discont 10/26/2021 Amb ulat 5% topical See dose instructions in com ments, # 60 EA, 2 total refill(s), Acute, GERSON [Not active] inued ory film Pharmac y metoprolol TAKE ONE Active 04/30/2022 [id number] Arie h, 200CRNR succ (U/D) TABLET 1 2021 50 MG ORAL BY MOUTH TB24 EVERY DAY DR MARTINEZ HEART RATE CONTROL, ATRIAL FIB. MONITOR BLOOD PRESSURE /PULSE, BRING TO [facility] metoprolol TAKE ONE Discont 05/03/2022 [id number] HICKEY , 09/07/ [place] succ (U/D) TABLET inued 1 2021 [place] 50 MG ORAL BY MOUTH [facility] TB24 EVERY DAY [address] MARTINEZ HEART RATE CONTROL, ATRIAL FIB. MONITOR BLOOD PRESSURE /PULSE, BRING TO [facility] METOPROLOL Active [id number] MICHELLE, 03/18/ Pharmac SUCCINATE 2020 y Data (metoprolol Transac succinate), tion 50 MG, TAB Service ER 24H, Facilit ORAL, y [facility], 100 ea. BOTTLE metoprolol Oral Discont 10/26/2021 Am bulat succinate 50 MG, Oral, Daily, # 90 tab (s), 3 total refill(s), Maintenance, 50 MG Oral Daily, Pharmacy: [facility] [Not active] (given inued ory 50 mg oral by Pharmac tablet, mouth) y extended release metoprolol Oral Ordered Ambulat succinate 1 and 1/2 tablets, Oral, Melva ly, Increased dosage, # 135 tab(s), 3 total refill(s), Maintenance, 1 and 1/2 tablets Oral Daily,Instr:Increased dosage, Pharmacy: [facility] [Federal Rx: #135 last filled 10/27/21] (given ory 50 mg oral by Pharmac tablet, mouth) y extended release METOPROLOL TAKE ONE ORAL DISCONT 05/03/2022 [id number] ,AUG 21/ [place] SUCCINATE TABLET INUED 2020 N [place] 50MG TAB,SA BY MOUTH CLINI C EVERY DAY DR MARTINEZ HEART RATE CONTROL, ATRIAL FIB. MONITOR BLOOD PRESSURE /PULSE, BRING TO [facility] GIST metoprolol Oral Discont 10/26/2021 Am bulat succinate 50 MG, Oral, Daily, # 90 EA, 3 total refill(s), Hard Stop, GERSON [Not active] (given inued ory ER 50 mg/24 by Pharmac hour tablet mouth) y MORPHINE TAKE ONE ORAL ACTIVE HICKEY,AUG 20/ [place] SO4 60MG TABLET ION E 2019 N [place] TAB,SA,UD BY MOUTH CLINIC THREE TIMES A DAY MORPHINE Active [id number] OZERAN, 10/11/ P harmac SULFATE 2 2021 y Data (MORPHINE Transac SULFATE), tion 60MG, Service TABLET SA, Facilit ORAL, y [facility], 100 ea. BOTTLE MORPHINE Active [id number] OZERAN, 11/15/ P harmac SULFATE 2 2021 y Data (MORPHINE Transac SULFATE), tion 60MG, Service TABLET SA, Facilit ORAL, y [facility], 100 ea. BOTTLE MORPHINE Active [id number] OZERAN, P harmac SULFATE 2 2021 y Data (MORPHINE Transac SULFATE), tion 60MG, Service TABLET SA, Facilit ORAL, y [facility], 100 ea. BOTTLE MORPHINE Active [id number] OZERAN, P harmac SULFATE 2 2021 y Data (MORPHINE Transac SULFATE), tion 60MG, Service TABLET SA, Facilit ORAL, y [facility], 100 ea. BOTTLE MORPHINE Active [id number] OZERAN, P harmac SULFATE 2 2021 y Data (MORPHINE Transac SULFATE), tion 60MG, Service TABLET SA, Facilit ORAL, y [facility], 100 ea. BOTTLE MORPHINE Active [id number] OZERAN, 04/11/ P harmac SULFATE 1 2020 y Data (MORPHINE Transac SULFATE), tion 60MG, Service TABLET SA, Facilit ORAL, y [facility], 100 ea. BOTTLE MORPHINE Active [id number] OZERAN, 06/09/ P harmac SULFATE 1 2020 y Data (MORPHINE Transac SULFATE), tion 60MG, Service TABLET SA, Facilit ORAL, y [facility], 100 ea. BOTTLE MORPHINE Active [id number] OZERAN, 07/17/ P harmac SULFATE 1 2021 y Data (MORPHINE Transac SULFATE), tion 60MG, Service TABLET SA, Facilit ORAL, y [facility], 100 ea. BOTTLE MORPHINE Active [id number] OZERAN, harmac SULFATE 1 2020 y Data (MORPHINE Transac SULFATE), tion 60MG, Service TABLET SA, Facilit ORAL, y [facility], 100 ea. BOTTLE MORPHINE Active [id number] OZERAN, P harmac SULFATE 1 2020 y Data (MORPHINE Transac SULFATE), tion 60MG, Service TABLET SA, Facilit ORAL, y [facility], 100 ea. BOTTLE MORPHINE Active [id number] OZERAN, P harmac SULFATE 1 2020 y Data (MORPHINE Transac SULFATE), tion 60MG, Service TABLET SA, Facilit ORAL, y [facility], 100 ea. BOTTLE MORPHINE Active [id number] OZERAN, P harmac SULFATE 1 2020 y Data (MORPHINE Transac SULFATE), tion 60MG, Service TABLET SA, Facilit ORAL, y [facility], 100 ea. BOTTLE MORPHINE Active [id number] OZERAN, P harmac SULFATE 1 2020 y Data (MORPHINE Transac SULFATE), tion 60MG, Service TABLET SA, Facilit ORAL, y [facility], 100 ea. BOTTLE MORPHINE Active [id number] OZERAN, harmac SULFATE 1 2020 y Data (MORPHINE Transac SULFATE), tion 60MG, Service TABLET SA, Facilit ORAL, y [facility], 100 ea. BOTTLE MULTIVITAMI TAKE ONE ORAL ACTIVE ELIGIO JEWELL 03/16/ LANE [place] TABLET RA L R N 2005 N M. W/MINERALS BY MOUTH WAINWR I TAB EVERY T DAY [facility] NEEDLE 18G Complet 04/10/2020 Am bulat 1.5IN MISCELLANEOUS, every 2 wk, U SE 1 NEEDLE EVERY OTHER WEEK, 0 total refill(s) ed ory Pharmac y NEEDLE 18G Discont 07/13/2017 Am bulat 1.5IN MISCELLANEOUS, every 2 wk, U SE 1 NEEDLE EVERY OTHER WEEK, 0 total refill(s), Physician Stop inued ory Pharmac y needle 18g Not Ordered Ambulat 1in 1 EA, N/A, Daily, # 6 EA, 3 total refill(s), Maintenance, to draw up medication, Supply, [facility] [[facility] Rx: #6 last filled 10/28/21] Applic ory able Pharmac y NEEDLE 22G Discont 11/02/2021 Am bulat 1.5IN MISCELLANEOUS, every 2 wk, USE NEEDLE EV GADIEL OTHER WEEK, 0 total refill(s) inued ory Pharmac y NEEDLE 22G Complet 04/10/2020 Am bulat 1.5IN MISCELLANEOUS, every 2 wk, USE NEEDLE EV GADIEL OTHER WEEK, 0 total refill(s) ed ory Pharmac y needle 22g Not Ordered Ambulat 1in 1 EA, N/A, Daily, # 6 EA, 3 total refill(s), Maintenance, Supply, Route to [facility] [Federal Rx: #6 last filled 10/28/21] Applic ory able Pharmac y NO NON-VA USE NOT ACTIVE Stephanie DAVILA STO MEDICATION DIGESTIV APPLIC JOSÉ 2017 N V A MISCELLANEO E [facility] ENZYMES ONE CAPSULE EVERY DAY ocular Complet 08/16/2021 Ambula t lubricant See dose instructions in com ments, # 360 EA, 1 total refill(s), Acute, GERSON [Not filled] ed ory ophthalmic Pharmac solution y omeprazole Oral Ordered Ambulat 20 mg oral 20 mg, Oral, Daily, TAKE ONE CAPSULE BY MOUTH EVERY DAY FOR STOMACH ACID, TAKE ONE-HALF HOUR PRIOR TO MEAL TO REDUCE RISK OF GI BLEED WITH INTERMITTENT IBUPROFEN USE, # 90 tab(s), 3 total refill(s), Lucy (given ory delayed ntenance, 20 mg Oral Daily,Instr:TAKE ONE CAPSU... by Pharmac release mouth) y tablet OMEPRAZOLE Oral Discont 10/26/2021 Am bulat 20MG EC CAP 20 mg, Oral, Daily, TAKE ONE CAPSULE BY MOUTH EVERY DAY FOR STOMACH ACID, TAKE ONE-HALF HOUR PRIOR TO MEAL TO REDUCE RISK OF GI BLEED WITH INTERMITTENT IBUPROFEN USE, 0 total refill(s) (given inued ory by Pharmac mouth) y PFIZER Active [id number] ROTHFUSZ, harmac COVID-19 2020 y Data VACCINE Transac (EUA) tion (COVID-19 Service vaccine, Facilit mRNA, y [id number], LNP-S ([employer] [place])/PF ), 30 MCG/0.3, VIAL, INTRAMUSC, PFIZER MANUFACT, 1.8 ml VIAL PFIZER Active [id number] KIRA, 01/14/ Ph armac COVID-19 1 2020 y Data VACCINE Transac (EUA) tion (COVID-19 Service vaccine, Facilit mRNA, y [id number], LNP-S (Pfizer)/PF ), 30 MCG/0.3, VIAL, INTRAMUSC, PFIZER MANUFACT, 1.8 ml VIAL polyethylen Discont 10/17/2021 A mbulat e glycol See Instructions, Dissolve a nd drink 1 capful (17g) of powder in 4 to 8 ounces of liquid once daily, # 510 g, 1 total refill(s), Maintenance, 17 gm daily or adjust as needed, Service Connected, Dissolve inued ory 3350 oral and drink 1 capful (17g) of powder in 4 to 8 ou... Pharmac powder for y reconstitut ion polyethylen Complet 08/14/2021 A mbulat e glycol See dose instructions in com ments, # 476 g, 1 total refill(s), Acute, GERSON [Not filled] ed ory 3350 oral Pharmac powder for y reconstitut ion polyethylen Oral Ordered Ambula t e glycol 17 g, Oral, Daily, # 3,350 g , 3 total refill(s), Maintenance, 17 gm daily or adjust as needed, Service Connected, 17 g Oral Daily, Pharmacy: [facility] [Not filled] (given ory 3350 oral by Pharmac powder for mouth) y reconstitut ion POLYETHYLEN Oral Discont 08/15/2018 A mbulat E GLYCOL Oral, every day at bedtime, DISSOLVE 17 GRAMS (ONE MEASURE) IN LIQUID AND DRINK BY MOUTH AT BEDTIME, 0 total refill(s), Physician Stop (given in ued ory 3350 PDR by Pharmac (MIRALAX) mouth) y POLYETHYLEN DISSOLVE ORAL DISCONT 08/17/2021 [id number] DERECK HICKEY MAIKTO E GLYCOL 17 GRAMS INUE 1 ION E 2020 N [place] 3350 (ONE CLINIC PWDR,ORAL MEASURE) IN LIQUID AND DRINK BY MOUTH AT BEDTIME POLYETHYLEN DISSOLVE ORAL 08/17/2021 [id number] S MITH,MAR 01/28/ [place] E GLYCOL 17 GRAMS 2 ION E 2020 N [place] 3350 (ONE CLINIC PWDR,ORAL MEASURE) IN LIQUID AND DRINK BY MOUTH AT BEDTIME FOR CONSTIPA TION PRAVASTATIN TAKE ONE Active 06/27/2022 [id number] MARLEEN ES, 11/02/ 200CRNR 40 MG ORAL TABLET 2 2021 TAB BY MOUTH EVERY NIGHT FOR CHOLESTE ROL *DOSE INCREASE JUNE 2021. PRAVASTATIN TAKE ONE Discont 06/30/2022 [id number] ESTELLA S, 09/07/ [place] 40 MG ORAL TABLET inued 2 ELEAZAR T 2021 [place] TAB BY MOUTH [facility] EVERY NIGHT FOR CHOLESTE ROL *DOSE INCREASE JUNE 2021. PRAVASTATIN TAKE Active 05/03/2022 [id number] RUPERTO, 1 07/12/ [place] 40 MG ORAL ONE-HALF 1 LG E [address] [place] TAB TABLET [facility] BY MOUTH EACH EVENING FOR CHOLESTE ROL DR MARTINEZ CARDIOLO GY pravastatin Ordered 06/27/2022 A mbulat 40 mg See dose instructions in com [employer]s, # 90 EA, 3 total refill(s), Hard Stop, GERSON [Federal Rx: #90 last filled 10/30/21] ory tablet Pharmac y PRAVASTATIN TAKE ORAL DISCONT 05/03/2022 [id number] Katherine HICKEY AR 05/04/ [place] NA 40MG TAB ONE-HALF INUE 1 ION E 2020 N [place] TABLET CLINIC BY MOUTH EACH EVENING FOR CHOLESTE ROL DR MARTINEZ CARDIOLO GY PRAVASTATIN TAKE ONE ORAL DISCONT 06/30/2022 [id number] JEIMY LIU 07/02/ SUSH[place] NA 40MG TAB TABLET INUED 2 ID T 2021 N M. BY MOUTH WAINWRI EVERY GHT NIGHT [facility] FOR CHOLESTE ROL *DOSE INCREASE JUNE 2021. PRAVASTATIN Active [id number] JEIMY MARTINEZ / Pharmac SODIUM 1 ID 2020 y Data (PRAVASTATI Transac N SODIUM), tion 20 MG, Service TABLET, Facilit ORAL, y JAY, 1000 ea. BOTTLE PRAVASTATIN Active [id number] JEIMY MARTINEZ / Pharmac SODIUM 2 ID 2021 y Data (PRAVASTATI Transac N SODIUM), tion 20 MG, Service TABLET, Facilit ORAL, y AVKARE, 1000 ea. BOTTLE PRAVASTATIN Active [id number] MARTINEZ,JEIMY / Pharmac SODIUM 2 ID 2021 y Data (PRAVASTATI Transac N SODIUM), tion 20 MG, Service TABLET, Facilit ORAL, y AVKARE, 1000 ea. BOTTLE PRAVASTATIN Active [id number] MARTINEZ,JEIMY / Pharmac SODIUM 2 ID 2021 y Data (PRAVASTATI Transac N SODIUM), tion 20 MG, Service TABLET, Facilit ORAL, y AVKARE, 1000 ea. BOTTLE SO-PEG Dissolve Active 09/13/2022 [id number] Hickey, 0 200CRNR 3350-BOWEL and 2 Lg 2021 2,TWO PART drink 1 PREP--PO SO capful (17g) of powder in 4 to 8 ounces of liquid by mouth once daily. May adjust as needed as directed for bowel movement s SO-PEG Dissolve Active 09/13/2022 [id number] Hickey, 0 09/14/ 200CRNR 3350-BOWEL and 2 Lg 2021 2,TWO PART drink 1 PREP--PO SO capful (17g) of powder in 4 to 8 ounces of liquid by mouth once daily. May adjust as needed as directed for bowel movement s SO-PEG DISSOLVE 08/17/2021 [id number] RUPERTO, / [place] 3350-BOWEL 17 GRAMS 2 LG2021 [place] 2,TWO PART (ONE [facility] PREP--PO SO MEASURE) IN LIQUID AND DRINK BY MOUTH AT BEDTIME FOR CONSTIPA TION SYRINGE Discont 11/02/2021 Ambul at 2.5-3ML MISCELLANEOUS, As Directed, USE 1 SYRINGE DIRECTED, 0 total refill(s) inued ory LUER LOCK Pharmac TIP y SYRINGE Complet 04/10/2020 Ambul at 2.5-3ML MISCELLANEOUS, As Directed, USE 1 SYRINGE DIRECTED, 0 total refill(s) ed ory LUER LOCK Pharmac TIP y syringe Not Ordered Ambulat luer lock 1 EA, N/A, As Directed, # 6 EA, 3 total refill(s), Maintenance, Supply, [facility] [Federal Rx: #6 last filled 10/28/21] Applic ory tip 2.5-3ml able Pharmac y TESTOSTERON IntraM Discont 11/02/2021 Ambulat E CYP IntraMuscular, every 2 wk, I NJECT 200MG (1ML) INTRAMUSCULARLY EVERY 2 WEEKS FOR SUPPLEMENT, 0 total refill(s) uscula inued ory 200MG/ML r (in Pharmac 1ML IN a y OIL muscle ) TESTOSTERON IntraM Complet 04/10/2020 Ambulat E CYP IntraMuscular, every 2 wk, I NJECT 200MG (1ML) INTRAMUSCULARLY EVERY 2 WEEKS FOR SUPPLEMENT, 0 total refill(s) uscula ed ory 200MG/ML r (in Pharmac 1ML IN a y OIL muscle ) testosteron IntraM Ordered Ambul at e cypionate 1 mL, IntraMuscular, every 2 wk, # 2 mL, 5 total refill(s), Maintenance, 1 mL IntraMuscular every 2 wk, Pharmacy: [facility] [Federal Rx: #2 last filled 11/16/21] uscula ory 200 mg/mL r (in Pharmac intramuscul a y ar solution muscle ) Testosteron Inject Active 04/24/2022 [id number] Ruperto , 200CRNR e Cypionate 1mL 2 2021 200mg/mL, intramus Injection cularly every 2 weeks. Testosteron Inject Active 04/24/2022 [id number] Ruperto , 200CRNR e Cypionate 1mL 2 2021 200mg/mL, intramus Injection cularly every 2 weeks. ZOLPIDEM TAKE ORAL ACTIVE ISMA LOW TO TARTRATE 10MG BY CARMEN Seals 2019 N [place] 10MG TAB MOUTH AT CLINIC BEDTIME Allergies, Adverse Reactions, Alerts Combined list of allergies from Department of Defense and Veterans Affairs facilities. It does not include entries that were removed or entered in error. Substance Category Reaction Severity Reaction Status Date Comments S ource type Reported ATORVASTATIN Propensity Muscle Propensity active SUNITA to adverse pain to adverse 2 M. reactions reactions WAIN WRIG to drug to drug [facility] (finding) (finding) atorvastatin Drug Muscle <not Drug Active Amb ulato allergy pain entered> allergy ry (finding) Pharma cy Atorvastatin Drug Myalgias Drug active [facility] Calcium allergy allergy 2 [facility] Immunizations Combined list of available immunizations from the Department of Defense and Veterans Affairs facilities. 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 [facility] influenza, 03/26/ AMINTASZ, () Not infl uenza DoD high-dose, 2020 Given , quadrivalent high-do se , quadrival ent COVID-19, 01/26/ [facility], Pfizer Not COVI D-19, DoD mRNA, LNP-S, 2020 Manufacturing Given mRNA, PF, 30 [place] LNP-S, mcg/0.3 mL (PFR) PF, 30 dose mcg/0.3 mL dose COVID-19 2 complet SUSHIL NATHA (PFIZER), 2020 ed N M. MRNA, LNP-S, W AINWRI PF, 30 GHT MCG/0.3 ML VAM C DOSE COVID-19, 01/05/ [place], Pfizer Not COVID -19, DoD mRNA, LNP-S, 2020 Manufacturing Given mRNA, PF, 30 [place] LNP-S, mcg/0.3 mL (PFR) PF, 30 dose mcg/0.3 mL dose COVID-19 1 complet SUSHIL NATHA (PFIZER), 2020 ed N M. MRNA, LNP-S, W AINWRI PF, 30 GHT MCG/0.3 ML VAM C DOSE Influenza 02/19/ FREDY, () Not Influ kristian DoD vaccine, 2019 Given vaccine, quadrivalent, armen kodak adjuvanted ent, adjuvante d Tdap AMINTASPauline, () Not Tdap DoD 2019 Given INFLUENZA, complet JONATHA UNSPECIFIED 2019 ed N [place]. [place] IN[facility] influenza complet Result Ambulat virus 2018 ed Comment: orSunil wu inactivated s y INFLUENZA, complet Triston SHERMAN UNSPECIFIED 2019 ed s N M. [facility] Influenza, 02/05/ APPERSON, () Not Infl uenza DoD high dose 2019 Given , high seasonal dose seasonal zoster 03/09/ LYON, () Not zoster DoD recombinant 2018 Given recombin a nt influenza complet Result Ambulat virus 2018 ed Comment: ory vaccine, Ronaldo-On Phar mac inactivated Pharmacy y INFLUENZA, complet Ronaldo-On JONATHA UNSPECIFIED 2017 ed Pharmacy N M. [facility] zoster 09/20/ KADI CARDOZA () Not zost er [facility] recombinant 2018 LL Given recombin a nt influenza complet influen za Ambulat virus 2016 ed virus ory vaccine, vaccine, Ph armac inactivated inactiva t y ed INFLUENZA, complet JONATHA UNSPECIFIED 2016 ed N M. [facility] Influenza, 03/07/ MIKEY MALONE () Not Influenza DoD high dose 2017 Given , high seasonal dose seasonal pneumococcal complet pneu mococ Ambulat polysaccharid 2017 ed freddy ory e, 23 valent polysac ch Pharmac aride, 23 y valent PNEUMOCOCCAL complet JONATHA POLYSACCHARID 2017 ed N M. E PPV23 [facility] influenza complet influen za Ambulat virus 2015 ed virus ory vaccine, vaccine, Ph armac inactivated inactiva t y ed INFLUENZA, complet JONATHA UNSPECIFIED 2015 ed N [facility] Influenza, 03/08/ KIRA, () Not Influ kristian DoD high dose 2014 Given , high seasonal dose seasonal Pneumococcal , () Not Pne umococ DoD conjugate PCV 2014 Given freddy 13 conjugate PCV 13 influenza complet Result Ambulat virus 2014 ed Comment: ory vaccine, sunil P harmac inactivated 's y pneumococcal complet Resu lt Ambulat 13-valent 2014 ed Comment: o ry conjugate Pt will Ph armac (PCV13) obtain y records FLU,3 YRS complet nathen on JONATHA (HISTORICAL) 2014 ed 's N [facility] PNEUMOCOCCAL complet Pt w ill JONATHA CONJUGATE PCV 2014 ed obtain N M. 13 records WAINWR I [facility] INFLUENZA, complet JONATHA SEASONAL, 2013 ed N M. INJECTABLE, [place] [facility] G HT FREE [facility] influenza, complet influe nza Ambulat seasonal, 2013 ed , ory injectable-pf season al, Pharmac injectabl y e-pf FLU,3 YRS complet L [place] (HISTORICAL) 2012 ed N [facility] INFLUENZA, complet [place] SEASONAL, 2012 ed [place] INJECTABLE, CL INIC PRESERVATIVE FREE influenza complet influen za Ambulat virus 2012 ed virus ory vaccine, vaccine, Ph armac inactivated inactiva t y ed influenza, complet influe nza Ambulat seasonal, 2012 ed , ory injectable-pf season al, Pharmac injectabl y e-pf FLU,3 YRS complet L EWIST[place] (HISTORICAL) 2011 ed N [facility] TDAP complet MAIK TO 2011 ed N [facility] tetanus, complet tetanus, Ambulat diphtheria, 2011 ed diphther i ory acellular a, Phar mac pertu is acellular y pertussis influenza complet influen za Ambulat virus 2011 ed virus ory vaccine, vaccine, Ph armac inactivated inactiva t y ed influenza complet influen za Ambulat virus 2010 ed virus ory vaccine, vaccine, Ph armac inactivated inactiva t y ed INFLUENZA complet J ONATHA VACCINE 2010 ed N M. (HISTORICAL) W AINWRI [facility] influenza complet influen za Ambulat virus 2008 ed virus ory vaccine, vaccine, Ph armac inactivated inactiva t y ed INFLUENZA, complet JONATHA UNSPECIFIED 2008 ed N [facility] influenza complet influen za Ambulat virus 2007 ed virus ory vaccine, vaccine, Ph armac inactivated inactiva t y ed INFLUENZA, complet JONATHA UNSPECIFIED 2007 ed N [facility] zoster 1 01/16/ Unknown, [id number] 121 Merck (MSD) complet z jessie [facility] vaccine, live 2008 Provider ed vac cine, live influenza complet influen za Ambulat virus 2007 ed virus ory vaccine, vaccine, Ph armac inactivated inactiva t y ed INFLUENZA, complet JONATHA UNSPECIFIED 2006 ed N [facility] influenza complet influen za Ambulat virus 2005 ed virus ory vaccine, vaccine, Ph armac inactivated inactiva t y ed FLU,3 YRS complet J ONATHA (HISTORICAL) 2005 ed N M[facility] FLU,3 YRS 04/05/ MANDO VIEIRA R 88 complet JONATHA (HISTORICAL) 2004 R N ed N M[facility] influenza complet influen za Ambulat virus 2004 ed virus ory vaccine, vaccine, Ph armac inactivated inactiva t y ed FLU,3 YRS 04/01/ RAMESH HICKS 88 complet JONATHA (HISTORICAL) 2003 EE M ed N M[facility] influenza complet influen za Ambulat virus 2003 ed virus ory vaccine, vaccine, Ph armac inactivated inactiva t y ed pneumococcal complet pneu mococ Ambulat vaccine, 2001 ed freddy ory unspecified vaccine, Pharmac unspecifi y ed PNEUMOCOCCAL, complet JONATHA UNSPECIFIED 2001 ed N [facility] FLU,3 YRS 04/03/ RADHA DEJESUS R 88 complet [place] (HISTORICAL) 2001 ed N [facility] influenza complet influen za Ambulat virus 2001 ed virus ory vaccine, vaccine, Ph armac inactivated inactiva t y ed pneumococcal complet pneu mococ Ambulat vaccine, 2001 ed freddy ory unspecified vaccine, Pharmac unspecifi y ed PNEUMOCOCCAL, complet loc al JONATHA UNSPECIFIED 2001 ed N [facility] FLU,3 YRS 04/06/ SANTHOSH JEWELL L 88 complet JONATHA (HISTORICAL) 1999 R N ed N M[facility] influenza complet influen za Ambulat virus 1999 ed virus ory vaccine, vaccine, Ph armac inactivated inactiva t y ed influenza complet influen za Ambulat virus 1996 ed virus ory vaccine, vaccine, Ph armac inactivated inactiva t y ed INFLUENZA, complet JONATHA UNSPECIFIED 1996 ed N [facility] Td(adult) complet Td(adul t) Ambulat unspecified 1989 ed unspecif i ory formulation ed Ph armac formulati y on TD(ADULT) complet J ONATHA UNSPECIFIED 1989 ed N [facility] Td(adult) complet Td(adul t) Ambulat unspecified 1988 ed unspecif i ory formulation ed Ph armac formulati y on TD(ADULT) complet J ONATHA UNSPECIFIED 1988 ed N [facility] Results Combined list of recent chemistry, hematology and other laboratory results from Department of Defense and Veterans Affairs, ranging from 15 months to all on record, depending upon the facility. Order Results Value Reference Date Interpretation Specimen Commen ts Source Name Range Chemistr PSA Total 1.550 0.000 - 10/19 N Ambul ator y ng/mL 4.000 /2021 y Pharmacy Chemistr LDL Direct 81 mg/dL 0 - 129 10/19 N Amb ulator y /2021 y Pharmacy Chemistr Vitamin 571 232 - 1245 10/19 N Result Ambu lator y B12 pg/mL /2021 Comment: y High doses Pharm acy of Biotin supplements (>5 mg/day) may falsely increase result. Test specimens should be collected at least 8 hrs after last ingestion of high dose biotin. Chemistr Magnesium 2.2 1.6 - 2.6 / N Amb ulator y Lvl mg/dL /2021 y Pharmacy Chemistr Ur Creat 77.3 40.0 - 05 N Ambula tor y mg/dL 278.0 /2021 y Pharmacy Chemistr Ur 3.7 10/19 Ambulat or y Microalbum mg/dL /2021 y in Pharmacy Chemistr Ur 47.9 0.0 - 30.0 05/ H Ambu lator y Microalb/U mg/gCr /2021 y r Creat Pharmacy Ratio Chemistr ProBNP 2637 0 - 124 05/09 H Result Ambulat or y pg/mL /2021 Comment: y High doses Pharm acy of Biotin supplements (>5 mg/day) may falsely decrease result. Test specimens should be collected at least 8 hours after the last ingestion of high dose biotin. Chemistr Glucose 99 mg/dL 71 - 109 05/ N Ambul ator y Lvl /2021 Pharmacy Chemistr BUN 20 mg/dL 7 - 23 05/ N Ambula tor y /2021 Pharmacy Chemistr Sodium 142 131 - 142 05/ N Ambul ator y mmol/L /2021 Pharmacy Chemistr Potassium 4.2 3.6 - 5.4 05/ N Amb ulator y Lvl mmol/L /2021 Pharmacy Chemistr Chloride 104 95 - 108 05/ N Ambul ator y mmol/L /2021 Pharmacy Chemistr CO2 25 21 - 32 05/ N Ambulat or y mmol/L /2021 Pharmacy Chemistr AGAP 17 7 - 21 05/ N Ambulat or y mmol/L /2021 Pharmacy Chemistr Creatinine 0.9 0.7 - 1.2 05/ N Am bulator y Level mg/dL /2021 Pharmacy Chemistr Calcium 9.6 8.4 - 10.5 05/ N Ambu lator y mg/dL /2021 Pharmacy Chemistr ALT 15 U/L 9 - 57 05/ N Ambulat or y /2021 Pharmacy Chemistr AST 21 U/L 14 - 44 05/ N Ambulat or y Pharmacy Chemistr Bilirubin 0.9 0.2 - 1.3 05/ N Amb ulator y Total mg/dL /2021 Pharmacy Chemistr Alk Phos 90 U/L 45 - 129 05/ N Ambul ator y /2021 Pharmacy Chemistr Albumin 4.1 g/dL 3.8 - 5.2 05/ N Ambu lator y /2021 Pharmacy Chemistr Protein 6.9 g/dL 5.8 - 7.9 05/ N Ambu lator y Total /2021 Pharmacy Chemistr Globulin 2.8 g/dL 1.5 - 3.2 05/ N Amb ulator y Pharmacy Chemistr Cholestero 142 05/ N Ambu lator y l Total mg/dL /2022 y Pharmacy Chemistr HDL 51 mg/dL 10/19 N Ambula tor y Cholestero /2021 y l Pharmacy Chemistr Triglyceri 53 mg/dL 10/19 N Amb ulator y yordan /2021 y Pharmacy Chemistr Non-HDL 91 mg/dL 10/19 N Ambula tor y Cholestero /2021 y l Pharmacy Chemistr Hemoglobin 5.7 % 0.0 - 5.6 / H Am bulator y A1c /2021 y Pharmacy Chemistr TSH 1.590 0.300 - 10/19 N Ambulat or y m[iU]/mL 4.250 /2021 y Pharmacy Chemistr Vitamin D 45 ng/mL 30 - 100 10/19 N Result Amb ulator y 25 OH /2021 Comment: y High doses Pharm acy of Biotin supplements (>5 mg/day) may falsely increase result. Test specimens should be collected at least 8 hrs after last ingestion of high dose biotin. Chemistr eGFR CKD 89 10/19 L Ambula tor y EPI mL/min/ y .73m2 Pharmacy Hematolo Differenti Manual 10/19 N Ambu lator gy al? (10/19/21 1:33 PM) /2021 y Pharmacy Hematolo WBC 6.5 3.0 - 10.6 10/19 N Ambu lator gy K/mcL /2021 y Pharmacy Hematolo RBC 4.01 3.86 - 10/19 N Ambulat or gy x10^6/mc 5.79143 /2021 y L Pharmacy Hematolo Hemoglobin 12.0 11.8 - 10/19 N Ambu lator gy g/dL 17.1 /2021 y Pharmacy Hematolo Hematocrit 37.1 % 36.0 - 10/19 N Ambu lator gy 51.0 /2021 y Pharmacy Hematolo MCV 92.5 fL 81.0 - 10/19 N Ambulat or gy 102.0 /2021 y Pharmacy Hematolo MCH 29.9 pg 27.0 - 10/19 N Ambulat or gy 31.0 /2021 y Pharmacy Hematolo MCHC 32.3 32.0 - 10/19 N Ambulat or gy g/dL 36.0 /2021 y Pharmacy Hematolo RDW CV 13.8 % 11.2 - 10/19 N Ambulat or gy 16.2 /2021 y Pharmacy Hematolo Platelets 159 150 - 400 10/19 N Amb ulator gy K/mcL /2021 y Pharmacy Hematolo RBC Morph Normal / N Ambul ator gy (10/19/21 1:33 PM) /2021 Pharmacy Hematolo PLT Adequate / N Ambula tor gy Estimate (10/19/21 1:33 PM) /2021 Pharmacy Hematolo Segs Man 76 % 40 - 74 05/ H Ambula tor gy /2021 y Pharmacy Hematolo Band Man 0 % 0 - 9 05/ N Ambula tor gy /2021 y Pharmacy Hematolo Lymph Man 18 % 15 - 42 05/09 N Ambul ator gy /2021 y Pharmacy Hematolo [place] Man 5 % 4 - 13 05/ N Ambula tor gy /2021 y Pharmacy Hematolo Eos Man 1 % 0 - 7 05/ N Ambulat or gy /2021 y Pharmacy Hematolo Neut Abs 4.9 1.2 - 7.0 / N Ambu lator gy Man K/mcL /2021 y Pharmacy Hematolo Lymph Abs 1.2 0.6 - 3.4 10/19 N Amb ulator gy Man K/mcL /2021 y Pharmacy Hematolo [place] Abs 0.3 0.2 - 1.0 05/ N Ambu lator gy Man K/mcL /2021 y Pharmacy Hematolo Eos Abs 0.1 0.0 - 0.5 05 N Ambul ator gy Man K/mcL /2021 y Pharmacy Urinalys UA Glucose Negative 10/19 N Amb ulator is (10/19/21 1:33 PM) /2021 Pharmacy Urinalys UA Protein 10 mg/dL 10/19 A Amb ulator is /2021 Pharmacy Urinal[facility] UA Bili Negative 10/19 N Ambula tor is (10/19/21 1:33 PM) /2021 Pharmacy Urinalys UA Normal 10/19 N Ambulat or is Urobilinog (10/19/21 1:33 PM) /2021 en Pharmacy Urinalys UA pH 6.0 10/19 N Ambulat or is (10/19/21 1:33 PM) /2021 Pharmacy Urinalys UA Blood 3+ 10/19 A Ambula tor is *ABN* /2021 y (10/19/21 1:33 PM) Pharmacy Urinal[facility] UA Ketones Negative 10/19 N Amb ulator is (10/19/21 1:33 PM) /2021 Pharmacy Ur[facility] UA Nitrite Negative 10/19 N Amb ulator is (10/19/21 1:33 PM) /2021 Pharmacy Ur[facility] UA Leuk Negative 10/19 N Ambula tor is Esterase (10/19/21 1:33 PM) /2021 Pharmacy [facility] UA Clarity Clear 10/19 N Ambu lator is (10/19/21 1:33 PM) /2021 Pharmacy Ur[facility] UA Spec 1.017 1.003 - 10/19 N Ambulat or is [place] 1.030 /2021 Pharmacy Urinalys UA Color Yellow 10/19 N Ambula tor is (10/19/21 1:33 PM) /2021 Pharmacy Urinal[facility] UA RBC 165 /HPF 0 - 3 05/09 H Ambula tor is /2021 Pharmacy Urinalys UA WBC 3 /HPF 0 - 4 10/19 N Ambulat or is /2021 Pharmacy Urinalys UA None 10/19 N Ambulat or is Bacteria (10/19/21 1:33 PM) /2021 Pharmacy Ur[facility] UA Epi <1 /HPF 0 - 4 10/19 N Ambulat or is Squam /2021 Pharmacy Urinalys UA Mucous Rare 10/19 N Ambul ator is (10/19/21 1:33 PM) /2021 Pharmacy Urinalys UA Ca Ox Few 10/19 N Ambula tor is Crystal (10/19/21 1:33 PM) /2021 Pharmacy BNP, NATRIURETI 1926 0 - 124 03/05 H Specimen Type : SERUM LEWISTON NT-PRO C pg/mL /2020 Comment: High d oses of Biotin supplements (>5 mg/day) may falsely decrease Total PSA, Free PSA, Pro-BNP, AFP, C-Peptide and Ferritin results. Test specimens should be collected at least 8 hours [facility] PEPTIDE.B after the last ingestion of high dose biotin. CAUTION REGARDING BNP, NT-PRO: This is an N-Terminal ProBNP assay. While csf-O-Gogpnmer BNP assays have roughly the same predictive power for accessing hear PROHORMONE t failure, re ference ranges are different and results obtained between the two assays cannot be used interchangeably. N-TERMINAL Ordering Pro vider: LG HICKEY [MASS/VOLU Report Relea sed Date/Time: Jan 10, 2021 10:40 PM ME] IN Reporting Lab: SUNITA Guillaume [facility] SERUM OR [address] [facility] [address] PLASMA Performing Lab: SUNITA Guillaume [address] [facility] NONA HOSPITALZoey [place] [facility] [address] CBC & LEUKOCYTES 6.4 3.0 - 10.6 03/05 Specimen T ype: BLOOD GIL MORPHOLO [#/VOLUME] /2020 No comment e ntered. [facility] GY (WITH IN BLOOD Ordering Prov ider: LG HICKEY DIFF) BY Report Released Date/Time: Jan 10, 2021 10:40 PM AUTOMATED Reporting Lab : SUNITA Guillaume [facility] COUNT [address] [place] [address] NOELLE [place] [facility] [address] Performing Lab: SUNITA Guillaume [address] [place] [facility] [address] CBC & ERYTHROCYT 4.45 3.86 - 03/05 Specimen Type : BLOOD LEWISTON MORPHOLO ES 5.70 /2020 No comment ente red. [facility] GY (WITH [#/VOLUME] Ordering Pr ovider: LG HICKEY DIFF) IN BLOOD Report Release d Date/Time: Jan 10, 2021 10:40 PM BY Reporting Lab: SUNITA Guillaume [facility] AUTOMATED [address] [place] [address] COUNT Performing Lab: SUNITA Guillaume [address] [facility] NOELLE [place] [facility] [address] CBC & HEMOGLOBIN 13.6 11.8 - 03/05 Specimen Type : BLOOD LEWISTON MORPHOLO [MASS/VOLU g/dL 17.1 /2020 No comment e ntered. [facility] GY (WITH ME] IN Ordering Provi vasu: LG HICKEY) BLOOD Report Released Date/Time: Jan 10, 2021 10:40 PM Reporting Lab: SUNITA Guillaume [address] [place] [facility] [address] Performing Lab: SUNITA Guillaume [address] [place] [address] CBC & HEMATOCRIT 43.1 36 - 51 03/05 Specimen Type : BLOOD LEWISTON MORPHOLO [VOLUME /2020 No comment ente red. [facility] GY (WITH FRACTION] Ordering Pro vider: LG HICKEY) OF BLOOD Report Release d Date/Time: Jan 10, 2021 10:40 PM BY Reporting Lab: SUNITA Guillaume [facility] AUTOMATED [address] [place] [address] [place] [address] COUNT Performing Lab: SUNITA Guillaume [address] [place] [address] CBC & MCV 96.9 fL 81 - 102 03/05 Specimen Type: BLOOD LEWISTON MORPHOLO [ENTITIC /2020 No comment ent ered. [facility] GY (WITH VOLUME] BY Ordering Pr ovider: LG HICKEY) AUTOMATED Report Releas ed Date/Time: Jan 10, 2021 10:40 PM COUNT Reporting Lab: SUNITA Guillaume [address] Madhavi [facility] [address] Performing Lab: SUNITA Guillaume [address] NOELLE [facility] [address] CBC & MCH 30.6 pg 27 - 31 03/05 Specimen Type: B LOOD GIL MORPHOLO [ENTITIC /2020 No comment ent ered. [facility] GY (WITH MASS] BY Ordering Prov ider: LG HICKEY) AUTOMATED Report Releas ed Date/Time: Jan 10, 2021 10:40 PM COUNT Reporting Lab: SUNITA Guillaume [address] Madhavi [facility] [address] Performing Lab: SUNITA Guillaume [address] [place] [facility] [address] CBC & MCHC 31.6 32 - 36 03/05 L Specimen Type: B LOOD LEWISTON MORPHOLO [MASS/VOLU g/dL /2020 No comment e ntered. [facility] GY (WITH ME] BY Ordering Provi vasu: HICKEY,LG E DIFF) AUTOMATED Report Releas ed Date/Time: Jan 10, 2021 10:40 PM COUNT Reporting Lab: SUNITA Guillaume [address] [facility] [address] Performing Lab: SUNITA Guillaume [address] [facility] [address] CBC & PLATELETS 157 150 - 400 03/05 Specimen Typ e: BLOOD LEWISTON MORPHOLO [#/VOLUME] /2020 No comment e ntered. [facility] GY (WITH IN BLOOD Ordering Prov ider: LG HICKEY DIFF) BY Report Released Date/Time: Jan 10, 2021 10:40 PM AUTOMATED Reporting Lab : SUNITA Guillaume [facility] COUNT [facility] D NOELLE [place] [facility] [address] Performing Lab: SUNITA Guillaume [address]WRHCA [address] [facility] NON[facility] HOSPITALZoey [facility] [address] CBC & ERYTHROCYT 13.9 11.2 - 03/05 Specimen Type : BLOOD LEWISTON MORPHOLO E 16.2 No comment ente red. [facility] GY (WITH DISTRIBUTI Ordering Pr ovider: LG HICKEY E DIFF) ON WIDTH Report Release d Date/Time: Jan 10, 2021 10:40 PM [RATIO] BY Reporting La b: SUNITA Guillaume [facility] AUTOMATED [address] AMANUEL [facility] [address] COUNT Performing Lab: SUNITA Guillaume [address] [place]ELLE [place] [facility] [address] CBC & NEUTROPHIL 74.8 44 - 74 03/05 H Specimen Type : BLOOD LEWISTON MORPHOLO S/100 /2020 No comment ente red. [facility] GY (WITH LEUKOCYTES Ordering Pr ovider: LG HICKEY E DIFF) IN BLOOD Report Release d Date/Time: Jan 10, 2021 10:40 PM BY Reporting Lab: SUNITA Guillaume [facility] AUTOMATED [address] AMANUEL [facility] [address] COUNT Performing Lab: SUNITA Guillaume [place] [address] [place] [facility]ENTERZ[facility]ey [facility] [address] CBC & LYMPHOCYTE 17.1 15 - 42 03/05 Specimen Type : BLOOD LEWISSUSAN MORPHOLO S/ No comment ente red. [facility] G[facility] (WITH LEUKOCYTES Ordering Pr ovider: HICKEY,LG E DIFF) IN BLOOD Report Release d Date/Time: Jan 10, 2021 10:40 PM BY Reporting Lab: SUNITA Guillaume [facility] AUTOMATED [address] [facility] [address] COUNT Performing Lab: SUNITA Guillaume [address] [facility] [address] CBC & MONOCYTES/ 6.5 4 - 13 03/05 Specimen Type : BLOOD LEWISTON MORPHOLO No comment ente red. [facility] GY (WITH LEUKOCYTES Ordering Pr ovider: HICKEY,LG E DIFF) IN BLOOD Report Release d Date/Time: Jan 10, 2021 10:40 PM BY Reporting Lab: SUNITA Guillaume [place] [facility] AUTOMATED [facility]BEJaeger [facility] [address] COUNT Performing Lab: SUNITA Guillaume [address] [facility] [address] CBC & EOSINOPHIL 0.3 0 - 7 03/05 Specimen Type : BLOOD LEWISSUSAN MORPHOLO No comment ente red. [facility] GY (WITH LEUKOCYTES Ordering Pr ovider: HICKEYLG E DIFF) IN BLOOD Report Release d Date/Time: Jan 10, 2021 10:40 PM BY Reporting Lab: SUNITA Guillaume [facility] AUTOMATED [facility] TRIBEJaeger [facility] [address] COUNT Performing Lab: SUNITA Guillaume [address] [facility] [address] CBC & BASOPHILS/ 0.8 0 - 2 03/05 Specimen Type : BLOOD LEWISTON MORPHOLO No comment ente red. [facility] GY (WITH LEUKOCYTES Ordering Pr ovider: HICKEY,LG E DIFF) IN BLOOD Report Release d Date/Time: Jan 10, 2021 10:40 PM BY Reporting Lab: SUNITA Guillaume [facility] AUTOMATED [address] [facility] [address] COUNT Performing Lab: SUNITA Guillaume [place] [address] [address] [address] Madhavi [facility] [address] CBC & NEUTROPHIL 4.8 1.2 - 7.0 03/05 Specimen Ty pe: BLOOD LEWISTON MORPHOLO S No comment ente red. [facility] GY (WITH [#/VOLUME] Ordering Pr ovider: LG HICKEY DIFF) IN BLOOD Report Release d Date/Time: Jan 10, 2021 10:40 PM BY Reporting Lab: SUNITA Guillaume [facility] AUTOMATED [address] [place]HE[place] [facility] [address] COUNT Performing Lab: SUNITA Guillaume [address] [place]ELLE [place] [facility] [address] CBC & LYMPHOCYTE 1.1 0.6 - 3.4 03/05 Specimen Ty pe: BLOOD LEWISTON MORPHOLO No comment ente red. [facility] GY (WITH [#/VOLUME] Ordering Pr ovider: LG HICKEY DIFF) IN BLOOD Report Release d Date/Time: Jan 10, 2021 10:40 PM BY Reporting Lab: SUNITA Guillaume [facility] AUTOMATED [address] [facility] SHAHEED [facility] [address] COUNT Performing Lab: SUNITA Guillaume [address] [place] [facility] [address] CBC & MONOCYTES 0.4 0.2 - 1.0 03/05 Specimen Typ e: BLOOD LEWISTON MORPHOLO [#/VOLUME] /2020 No comment e ntered. [facility] GY (WITH IN BLOOD Ordering Prov ider: LG HICKEY DIFF) BY Report Released Date/Time: Jan 10, 2021 10:40 PM AUTOMATED Reporting Lab : SUNITA Guillaume [facility] COUNT [address] Madhavi [facility] [address] Performing Lab: SUNITA Guillaume [address] [place] [facility] [address] CBC & EOSINOPHIL 0.0 0.0 - 0.5 03/05 Specimen Ty pe: BLOOD LEWISTON MORPHOLO No comment ente red. [facility] GY (WITH [#/VOLUME] Ordering Pr ovider: HICKEY,LG E DIFF) IN BLOOD Report Release d Date/Time: Jan 10, 2021 10:40 PM BY Reporting Lab: SUNITA Guillaume [facility] AUTOMATED [address] [place] [address] COUNT Performing Lab: SUNITA Guillaume [facility] [address] [place] [address] CBC & BASOPHILS 0.1 0.0 - 0.2 03/05 Specimen Typ e: BLOOD LEWISTON MORPHOLO [#/VOLUME] /2020 No comment e ntered. [facility] GY (WITH IN BLOOD Ordering Prov ider: HICKEY,LG E DIFF) BY Report Released Date/Time: Jan 10, 2021 10:40 PM AUTOMATED Reporting Lab : SUNITA Guillaume [facility] COUNT [address] Madhavi [facility] [address] Performing Lab: SUNITA Guillaume [facility] [address] [place] [facility] [address] CBC & IMMATURE 0.5 0 - 0.9 03/05 Specimen Type: BLOOD LEWISTON MORPHOLO GRANULOCYT /2020 No comment e ntered. [facility] GY (WITH ES/100 Ordering Provi vasu: HICKEY,LG E DIFF) LEUKOCYTES Report Relea sed Date/Time: Jan 10, 2021 10:40 PM IN BLOOD Reporting Lab: SUNITA Guillaume [facility] BY [address] [place] [facility] [address] AUTOMATED Performing La b: SUNITA Guillaume [facility] COUNT [address] Madhavi [facility] [address] CBC & IMMATURE 0.03 0 - 0.07 03/05 Specimen Type: BLOOD LEWISTON MORPHOLO GRANULOCYT /2020 No comment e ntered. [facility] GY (WITH ES Ordering Provi vasu: HICKEY,LG E DIFF) [#/VOLUME] Report Relea sed Date/Time: Jan 10, 2021 10:40 PM IN BLOOD Reporting Lab: SUNITA Guillaume [facility] BY [address] [place] [facility] [address] AUTOMATED Performing La b: SUNITA KatherineKadi [facility] COUNT [facility] [place] [address] COMPREHE GLUCOSE 137 71 - 109 03/05 H Specimen Type: SERUM LEWISTON NSIVE [MASS/VOLU mg/dL /2020 No comment en tered. [facility] ME] IN Ordering Provi vasu: LG HICKEY PANEL SERUM OR Report Release d Date/Time: Jan 10, 2021 10:40 PM PLASMA Reporting Lab: SUNITA KatherineKadi [address] [place] [address] Performing Lab: SUNITA Guillaume [address] [place] [place] [address] COMPREHE UREA 29 mg/dL 7 - 23 H Specimen Type: SERUM [place] NSIVE NITROGEN /2020 No comment ente red. [facility] [MASS/VOLU Ordering Pr ovider: LG HICKEY PANEL ME] IN Report Released Date/Time: Jan 10, 2021 10:40 PM SERUM OR Reporting Lab: SUNITA KatherineKadi [address] [place] [address] Performing Lab: SUNITA Guillaume [address] [place] [address] COMPREHE CREATININE 1.2 .7 - 1.2 03/05 Specimen Ty pe: SERUM LEWISTON NSIVE [MASS/VOLU mg/dL /2020 No comment en tered. [facility] ME] IN Ordering Provi vasu: LG HICKEY PANEL SERUM OR Report Release d Date/Time: Jan 10, 2021 10:40 PM PLASMA Reporting Lab: SUNITA KatherineKadi [address] [place] [address] Performing Lab: SUNITA Guillaume [address] [place] [address] COMPREHE SODIUM 145 131 - 142 03/05 H Specimen Type : SERUM LE[place]ISTON NSIVE [MOLES/VOL mmol/L /2020 No comment en tered. [facility] UME] IN Ordering Provi vasu: LG HICKEY PANEL SERUM OR Report Release d Date/Time: Jan 10, 2021 10:40 PM PLASMA Reporting Lab: SUNITA Guillaume [address] [place] [facility] [address] Performing Lab: SUNITA Guillaume [address] [place] [facility] [address] COMPREHE POTASSIUM 4.6 3.6 - 5.4 03/05 Specimen Ty pe: SERUM LEWISTON NSIVE [MOLES/VOL mmol/L /2020 No comment en tered. [facility] METABOLI UME] IN Ordering Provi vasu: LG HICKEY PANEL SERUM OR Report Release d Date/Time: Jan 10, 2021 10:40 PM PLASMA Reporting Lab: SUNITA Guillaume [address] [place] [facility] [address] Performing Lab: SUNITA Guillaume [address] [place] [facility] [address] COMPREHE CHLORIDE 107 95 - 108 03/05 Specimen Type : SERUM LEWISTON NSIVE [MOLES/VOL mmol/L /2020 No comment en tered. [facility] METABOLI UME] IN Ordering Provi vasu: LG HICKEY PANEL SERUM OR Report Release d Date/Time: Jan 10, 2021 10:40 PM PLASMA Reporting Lab: SUNITA Guillaume [address] [place] [facility] [address] Performing Lab: SUNITA Guillaume [address] [place] [address] COMPREHE CARBON 28 21 - 32 03/05 Specimen Type: SERUM LEWISTON NSIVE DIOXIDE, mmol/L /2020 No comment ente red. [facility] METABOLI TOTAL Ordering Provi vasu: LG HICKEY PANEL [MOLES/VOL Report Relea sed Date/Time: Jan 10, 2021 10:40 PM UME] IN Reporting Lab: SUNITA Guillaume [facility] SERUM OR [address] [place] [address] SHAHE[place] [facility] [address] PLASMA Performing Lab: SUNITA Guillaume [address] [place] [address] COMPREHE CALCIUM 9.7 8.4 - 10.5 03/05 Specimen Typ e: SERUM LEWISTON NSIVE [MASS/VOLU mg/dL /2020 No comment en tered. [facility] METABOLI ME] IN Ordering Provi vasu: LG HICKEY PANEL SERUM OR Report Release d Date/Time: Jan 10, 2021 10:40 PM PLASMA Reporting Lab: SUNITA Guillaume [address] [place] [address] Performing Lab: SUNITA Guillaume [address] [place] [address] COMPREHE PROTEIN 7.0 g/dL 5.8 - 7.9 03/05 Specimen Typ e: SERUM LEWISTON NSIVE [MASS/VOLU /2020 No comment en tered. [facility] METABOLI [place]] IN Ordering Provi vasu: LG HICKEY PANEL SERUM OR Report Release d Date/Time: Jan 10, 2021 10:40 PM PLASMA Reporting Lab: SUNITA Guillaume [address] [place] [address] Performing Lab: SUNITA Guillaume [address] [place] [address] COMPREHE ALBUMIN 4.1 g/dL 3.8 - 5.2 03/05 Specimen Typ e: SERUM LEWISTON NSIVE [MASS/VOLU /2020 No comment en tered. [facility] METABOLI UT] IN Ordering Provi vasu: LG HICKEY PANEL SERUM OR Report Release d Date/Time: Jan 10, 2021 10:40 PM PLASMA Reporting Lab: SUNITA Guillaume [address] [place] [address] Performing Lab: SUNITA Guillaume [address] [place] [place] [address] COMPREHE GLOBULIN 2.9 g/dL 1.5 - 3.2 03/05 Specimen Ty pe: SERUM LEWISTON NSIVE [MASS/VOLU /2020 No comment en tered. [facility] ME] IN Ordering Provi vasu: LG HICKEY PANEL SERUM Report Released Date/Time: Jan 10, 2021 10:40 PM Reporting Lab: SUNITA Guillaume [address] [address] Performing Lab: SUNITA Guillaume [address] [address] COMPREHE ASPARTATE 22 U/L 14 - 44 03/05 Specimen Type : SERUM LEWISTON NSIVE AMINOTRANS /2020 No comment en tered. [facility] METABOLI FERASE Ordering Provi vasu: LG HICKEY PANEL [ENZYMATIC Report Relea sed Date/Time: Jan 10, 2021 10:40 PM ACTIVITY/V Reporting La b: SUNITA Guillaume [facility] OLUME] IN [address] [place] [address] SERUM OR Performing Lab : SUNITA Guillaume [facility] PLASMA [address] [place] [address] COMPREHE ALANINE 14 U/L 9 - 57 03/05 Specimen Type: SERUM LE[place]ISTON NSIVE AMINOTRANS /2020 No comment en tered. [facility] METABOLI FERASE Ordering Provi vasu: LG HICKEY PANEL [ENZYMATIC Report Relea sed Date/Time: Jan 10, 2021 10:40 PM ACTIVITY/V Reporting La b: SUNITA Guillaume [facility] OLUME] IN [address] [place] [address] SERUM OR Performing Lab : SUNITA Guillaume [facility] PLASMA [address] [place] [address] COMPREHE ALKALINE 82 U/L 45 - 129 03/05 Specimen Type : SERUM LE[place]IST[place] NSIVE PHOSPHATAS No comment en tered. [facility] E Ordering Provi vasu: LG HICKEY PANEL [ENZYMATIC Report Relea sed Date/Time: Jan 10, 2021 10:40 PM ACTIVITY/V Reporting La b: SUNITA Guillaume [facility] OLUME] IN [address] [place] [address] SERUM OR Performing Lab : SUNITA KatherineKadi [facility] PLASMA [address] [facility]SM[facility]LE[facility] [place] [facility] [address] COMPREHE BILIRUBIN. 0.8 0.2 - 1.3 03/05 Specimen T ype: SERUM LEWISTON NSIVE TOTAL mg/dL /2020 No comment enter ed. [facility] METABOLI [MASS/VOLU Ordering Pr ovider: LG HICKEY PANEL ME] IN Report Released Date/Time: Jan 10, 2021 10:40 PM SERUM OR Reporting Lab: SUNITA Guillaume [facility] PLASMA [address] [facility] [place] [facility] [address] Performing Lab: SUNITA Guillaume [address] [place] [facility] [address] COMPREHE GLOMERULAR 59.2 60 03/05 L Specimen Typ e: SERUM LEWISTON NSIVE FILTRATION mL/min/{ /2020 No comment e ntered. [facility] METABOLI RATE/1.73 1.73_m2} Ordering Pr ovider: LG HICKEY PANEL SQ Report Released Date/Time: Jan 10, 2021 10:40 PM HAYLEY Reporting La b: SUNITA Guillaume [facility] D [VOLUME [address] [facility] [address] RATE/AREA] Performing L ab: SUNITA Guillaume [facility] IN SERUM [address] [facility] [address] OR PLASMA BY CREATININE -BASED FORMULA (MDRD) COMPREHE ANION GAP 15 7 - 21 03/05 Specimen Type : SERUM [place] NSIVE 4 IN SERUM mmol/L /2020 No comment en tered. [facility] METABOLI OR PLASMA Ordering Pro vider: LG HICKEY PANEL Report Released Date/Time: Jan 10, 2021 10:40 PM Reporting Lab: SUNITA Guillaume [address] NOELLE SKELTON [facility] [address] Performing Lab: SUNITA Guillaume [address] [facility] [address] COMPREHE GLOMERULAR 59 90 03/05 L Specimen Typ e: SERUM [place] NSIVE FILTRATION mL/min/{ /2020 No comment e ntered. [facility] MET[place]I RATE/1.73 1.73_m2} Ordering Pr ovider: LG HICKEY PANEL SQ Report Released Date/Time: Jan 10, 2021 10:40 PM [place] Reporting La b: SUNITA M. [facility] D [VOLUME [address] [facility] [address] RATE/AREA] Performing L ab: SUNITA MKadi [facility] IN SERUM, [address] [place] [id number] PLASMA OR BLOOD BY CREATININE -BASED FORMULA (CKD-EPI) THYROID THYROTROPI 10.7 0.300 - 03/05 H Specimen Type : SERUM [place] STIMULAT N 4. No comment ente red. [facility] ING [UNITS/VOL Ordering Pro vider: LG HICKEY HORMONE UME] IN Report Released Date/Time: Jan 10, 2021 10:40 PM SERUM OR Reporting Lab: SUNITA MKadi [facility] PLASMA [address] [place], [place] [address] [facility] [address] Performing Lab: SUNITA KatherineKadi [address] [address] THYROID THYROTROPI 16.6 0.300 - 12/30 H Specimen Type : SERUM [place] STIMULAT N 4. No comment ente red. [facility] ING [UNITS/VOL Ordering Pro vider: LG HICKEY HORMONE UME] IN Report Released Date/Time: Dec 14, 2020 02:26 PM SERUM OR Reporting Lab: SUNITA KatherineKadi [facility] PLASMA [address] [place], [place] [address] [facility] [address] Performing Lab: SUNITA KatherineKadi [address] [address] INTERPAT ERYTHROCYT 4 mm/h 0 - 15 10/17 Specimen Typ e: BLOOD [place] H E /2020 No comment enter ed. [facility] SEDIMENT SEDIMENTAT Ordering Pr ovider: JOHN COOLEY ATION ION RATE Report Release d Date/Time: October 17, 2020 11:14 AM RATE BY Reporting Lab: SUNITA Guillaume [facility] JAREDINHAN [place] [phone] METHOD Performing Lab: SUNITA Guillaume [facility] ; [place] [address] MAGNESIU MAGNESIUM 2.2 1.6 - 2.6 10/17 Specimen Ty pe: SERUM [place] M [MASS/VOLU mg/dL /2020 Comment: Hig h doses of Biotin supplements (>5 mg/day) may falsely increase Vitamin B-12, Vitamin D (25OH), Free T4, and Folate results. Test specimens should be collected at least 8 hrs after [facility] CLINIC UT] IN st ingestion of high dose biotin. High doses of Biotin supplements (>5 mg/day) may falsely decrease Total PSA, Free PSA, Pro-BNP, AFP, C-Peptide and Ferritin results. Test specimens should be col SERUM OR lected at least 8 hours after the last ingestion of high dose biotin. CAUTION REGARDING BNP, NT-PRO: This is an N-Terminal ProBNP assay. While ngc-T-Drgpyszj BNP assays have roughly the same predictive PLASMA power for access ing heart failure, reference ranges are different and results obtained between the two assays cannot be used interchangeably. Significantly decreased CRP values may be obtained from samp les taken from p atients who have been treated with carboxypenicillines. LDL Direct Adult Reference Range: Optimal <100 mg/dL Near optimal/above optimal 100-129 mg/dL Borderline high 130-159 mg/dL High 160-189 mg /dL Very High 190 mg/dL Note that non-fasting results may be slightly lower than fasting results. Ordering Provid er: LG HICKEY Report Released Date/Time: Oct 05, 2020 10:52 PM Reporting Lab: SUNITA [address] Madhavi [place] [address] Performing Lab: SUNITA Guillaume [address] [place] [address] PSA WITH PROSTATE 3.39 0 - 4.00 10/17 Specimen Type : SERUM [place] FREE PSA SPECIFIC ng/mL /2020 Comment: High doses of Biotin supplements (>5 mg/day) may falsely increase Vitamin B-12, Vitamin D (25OH), Free T4, and Folate results. Test specimens should be collected at least 8 hrs after la [facility] st ingestion of high dose biotin. High doses of Biotin supplements (>5 mg/day) may falsely decrease Total PSA, Free PSA, Pro-BNP, AFP, C-Peptide and Ferritin results. Test specimens should be col [MASS/VOLU lected at adelina st 8 hours after the last ingestion of high dose biotin. CAUTION REGARDING BNP, NT-PRO: This is an N-Terminal ProBNP assay. While kqu-F-Fshzeyvp BNP assays have roughly the same predictive ME] IN power for access ing heart failure, reference ranges are different and results obtained between the two assays cannot be used interchangeably. Significantly decreased CRP values may be obtained from samp SERUM OR les taken from patients who have been treated with carboxypenicillines. LDL Direct Adult Reference Range: Optimal <100 mg/dL Near optimal/above optimal 100-129 mg/dL Borderline high 130-159 mg/dL PLASMA High 160-189 mg /dL Very High 190 mg/dL Note that non-fasting results may be slightly lower than fasting results. Ordering Provid er: LG HICKEY Report Released Date/Time: Oct 05, 2020 10:52 PM Reporting Lab: SUNITA COLEMAN[address] [facility] [address] Performing Lab: SUNITA Guillaume [address] [facility] [address] VITAMIN COBALAMIN 465 150 - 4472 10/17 Specimen Ty pe: SERUM [place] B-12 (VITAMIN pg/mL /2020 Comment: High doses of Biotin supplements (>5 mg/day) may falsely increase Vitamin B-12, Vitamin D (25OH), Free T4, and Folate results. Test specimens should be collected at least 8 hrs after last ingestion of high dose biotin. [facility] B12) Ordering Provid er: LG HICKEY [MASS/VOLU Report Relea sed Date/Time: Oct 05, 2020 10:52 PM ME] IN Reporting Lab: SUNITA Guillaume [facility] SERUM OR [address] [place] [address] SHAHEED [facility] [address] PLASMA Performing Lab: SUNITA Guillaume [address] [place] [address] VITAMIN 25-HYDROXY 31.8 30.0 - 100 10/17 Specimen T ype: SERUM [place] D VITAMIN D3 ng/mL /2020 Comment: Hig h doses of Biotin supplements (>5 mg/day) may falsely increase Vitamin B-12, Vitamin D (25OH), Free T4, and Folate results. Test specimens should be collected at least [address] [facility] (25-HYDR [MASS/VOLU st ingestion of high dose biotin. High doses of Biotin supplements (>5 mg/day) may falsely decrease Total PSA, Free PSA, Pro-BNP, AFP, C-Peptide and Ferritin results. Test specimens should be col OXY) ME] IN lected at least 8 hours after the last ingestion of high dose biotin. CAUTION REGARDING BNP, NT-PRO: This is an N-Terminal ProBNP assay. While sko-Z-Rjwlbeyp BNP assays have roughly the same predictive SERUM OR power for acces sing heart failure, reference ranges are different and results obtained between the two assays cannot be used interchangeably. Significantly decreased CRP values may be obtained from samp PLASMA les taken from p atients who have been treated with carboxypenicillines. LDL Direct Adult Reference Range: Optimal <100 mg/dL Near optimal/above optimal 100-129 mg/dL Borderline high 130-159 mg/dL High 160-189 mg /dL Very High 190 mg/dL Note that non-fasting results may be slightly lower than fasting results. Ordering Provid er: LG HICKEY Report Released Date/Time: Oct 05, 2020 10:52 PM Reporting Lab: SUNITA Guillaume [address] [place] [address] Performing Lab: SUNITA Guillaume [address] [place] [address] Vital Signs Combined list of inpatient and outpatient Vital Signs from Department of Defense and Veterans Affairs, ranging from 12 months to all on record, depending upon the facility. Vital Sign Value Date Comments Source Systolic Blood Pressure 119mm[Hg] 10/26/2021 [facility] 20:[facility]:00 Diastolic Blood Pressure 80mm[Hg] 10/26/2021 [facility] 20:[facility]:00 Mean Arterial Pressure, 93mm[Hg] 10/26/2021 [facility] Cuff 20:34:00 Peripheral Pulse Rate 89bpm 10/26/2021 [facility] 20:34:00 Respiratory Rate 16br/min 10/26/2021 [facility] 20:34:00 Temperature Temporal 37Cel 10/26/2021 [facility] Artery 20:34:00 BP Site 10/26/2021 [facility]ulatory [facility] makayla 20:34:00 Blood Pressure Manual 10/26/2021 [facility] 20:34:00 Systolic Blood Pressure 128mm[Hg] 09/29/2018 [facility] 20:31:25 Diastolic Blood Pressure 79mm[Hg] 09/29/2018 [facility] 20:31:25 Systolic Blood Pressure 138mm[Hg] 04/21/2011 [facility] 18:45:16 Diastolic Blood Pressure 71mm[Hg] 04/21/2011 [facility] 18:45:16 Systolic Blood Pressure 106mm[Hg] 06/04/2013 [facility] 22:29:03 Diastolic Blood Pressure 63mm[Hg] 06/04/2013 [facility] 22:29:03 Systolic Blood Pressure 137mm[Hg] 04/26/2012 [facility] 20:52:52 Diastolic Blood Pressure 78mm[Hg] 04/26/2012 [facility] 20:52:52 Systolic Blood Pressure 125mm[Hg] 08/17/2016 [facility] 18:02:13 Diastolic Blood Pressure 74mm[Hg] 08/17/2016 [facility] 18:02:13 Systolic Blood Pressure 114mm[Hg] 08/05/2015 [facility] 20:53:22 Diastolic Blood Pressure 76mm[Hg] 08/05/2015 [facility] 20:53:22 Systolic Blood Pressure 108mm[Hg] 06/17/2014 [facility] 18:30:55 Diastolic Blood Pressure 70mm[Hg] 06/17/2014 [facility] 18:30:55 Systolic Blood Pressure 151mm[Hg] 08/24/2019 [facility] 19:37:24 Diastolic Blood Pressure 88mm[Hg] 08/24/2019 [facility] 19:37:24 Systolic Blood Pressure 137mm[Hg] 09/02/2017 [facility] 21:08:31 Diastolic Blood Pressure 73mm[Hg] 09/02/2017 [facility] 21:08:31 SYSTOLIC BLOOD PRESSURE 134 04/22/2021 [facility] [place] [facility] 11:35:35 DIASTOLIC BLOOD PRESSURE 75 04/22/2021 [facility] [place] [facility] 11:35:35 PULSE OXIMETRY 95% 04/22/2021 [facility] 11:35:35 PAIN 7 04/22/2021 [facility] [place] 11:35:35 HEIGHT 76 04/22/2021 [facility] [place] 11:35:35 TEMPERATURE 97.1 04/22/2021 [facility] [place] 11:35:35 PULSE 93 04/22/2021 [facility] [place] 11:35:35 RESPIRATION 16 04/22/2021 [facility] [place] 11:35:35 Encounters Combined list of: 1) Encounters from Department of Veterans Affairs facilities going back up to the last 18 months, not all VA inpatient encounters are included; 2) Encounters from the Department of [facility] facilities going back up to 280 months. Location Location Encounter Encounter Reason Attending ADM [place] Stat us Disposition Source Details Type Number For Provider Date Date Visit Outpatient [id number]/[id number] CARL YULISSA Encounter [id number] [place] [facility] Outpatient 76612-9.06/07 CARL YULISSA Encounter [id number] [place] [facility] Outpatient 66156-306/07 CARL YULISSA Encounter [id number] /2019 [place] [facility] Outpatient [id number] 07/11 CARL YULISSA Encounter [id number] [place] [facility] Outpatient [id number] 07/15 CARL YULISSA Encounter [id number] [place] [facility] Outpatient 13724-0.68 08/26 CARL YULISSA Encounter [id number] [place] [facility] Outpatient [id number] 10/05 CARL YULISSA En[facility] [id number] [facility] 76373-0.10/14 CARL YULISSA Encounter [id number] [place] [facility] Outpatient 71567-810/28 CARL YULISSA Encounter [id number] [place] [facility] Outpatient 80312-3.10/29 CARL YULISSA Encounter [id number] N Makrell [facility] OFFICE O/P 17930-6 Diagnos HICKEYMALKA 10/29 [place] EST [place] [id number] is: ON E N [place] 40-54 MIN 7 ICD-10- CLINIC CM M16.9 Osteoar thritis of hip, unspeci fied
with Provide r Comment s: Osteoar thritis of hip ([facility] [id number] 02) CASE 27570-5 Tootie FRAUSTO,[facility] 10/29 [place] MANAGEMENT [id number] is: ELIZABETH A N [place] 6 ICD-10- CLINIC CM M25.373 Other instabi lity, unspeci fied ankle<b r/>with Provide r Comment s: Ankle instabi lity ([facility] [id number]) Outpatient 88719-010/30 CARL YULISSA Encounter [id number] N Markell [facility] Outpatient 52335-6. 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
with Provide r Comment s: Osteoar thritis ([facility] [id number] 06) HC PRO [id number] Diagnos JETT,[facility] 11/07 L [place] PHONE CALL [id number] is: ELIZABETH A N VA 21-30 MIN 0 ICD-10- CLINIC CM I73.9 Periphe ral vascula r disease , unspeci fied
with Provide r Comment s: Periphe ral vascula r disease (SCT [id number] 06) Outpatient [id number] 11/11 CARL YULISSA Encounter [id number] [facility] 74308-8.68 11/13 CARL YULISSA Encounter [id number] N Markell [facility] Outpatient 98959-2.11/13 CARL YULISSA Encounter [id number] /2021 N Markell [facility] CASE 67026-6 ASHLEY Lauren 11/14 [place] MANAGEMENT [id number] is: ELIZABETH N [place] 8 ICD-10- CLINIC CM M25.562 Pain in left knee
with Provide r Comment s: Pain in left knee ([facility] [id number] 2) Outpatient 59773-0.11/17 CARL YULISSA Encounter [id number] N Markell [facility] Outpatient 33637-9 MALKA Tran 12/04 [place] Encounter [id number] is: ON N [place] 48 ICD-10- CLINIC CM M16.9 Osteoar thritis of hip, unspeci fied
with Provide r Comment s: Osteoar thritis of hip (SCT [id number] 02) Outpatient 05428-3.12/09 CRAL YULISSA Encounter [id number] N Markell [facility] 46557-7.68 12/10 CARL YULISSA Encounter [id number] N Markell [facility] Outpatient 51960-3.12/14 CARL YULISSA Encounter [id number] N Markell [facility] 39158-3.68 01/05 CARL YULISSA Encounter [id number] N [facility] 65835-6. Diagnos MALKA HICKEY 01/08 [place] Encounter [id number] is: ON N [place] 25 ICD-10- CLINIC CM E03.9 Hypothy roidism , unspeci fied
with Provide r Comment s: Hypothy roidism , unspeci fied Outpatient 96949-001/26 CARL YULISSA Encounter [id number] N M. WAINWRI T [facility] Outpatient 21375-001/27 CARL YULISSA Encounter [id number] N Markell COLEMANINWRI T [facility] Outpatient 06084-7 Diagnos RAMSEY, 01/29 JONATHA Encounter [id number] is: ROSELYN /2020 N M . ICD-10- WAINWRI CM GHT Z74.1 [facility] Need for assista nce with persona l care
with Provide r Comment s: Need for Assista nce with Persona l Care Outpatient 05680-6.68 Diagnos RAMSEY, 01/29 JONATHA Encounter [id number] is: ROSELYN /2020 N M . ICD-10- WAINWRI CM GHT Z74.1 [facility] Need for assista nce with persona l care
with Provide r Comment s: Need for Assista nce with Persona l Care Outpatient 56760-0.68 Diagnos RAMSEY, 01/31 JONAT Encounter [id number] is: ROSELYN N M . ICD-10- WAINWRI CM GHT Z74.1 [facility] Need for assista nce with persona l care
with Provide r Comment s: Need for Assista nce with Persona l Care Outpatient 38852-302/24 CARL YULISSA Encounter [id number] N Katherine. 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
with Provide r Comment s: Director Employee Safety And Health ing,Uns pec Outpatient 93310-803/10 CARL YULISSA Encounter [id number] N Markell COLEMANMUKUND [facility] Outpatient 11129-2 Diagnos MALKA HICKEY 03/12 [place] Encounter [id number] is: ON N [place] 19 ICD-10- CLINIC CM I73.9 Periphe ral vascula r disease , unspeci fied
with Provide r Comment s: Periphe ral Vascula r Disease , Unspeci fied Outpatient 20987-503/13 CARL YULISSA Encounter [id number] N Markell COLEMANMUKUND [facility] Outpatient 08397-203/16 CARL YULISSA Encounter [id number] N Markell COLEMANMUKUND [facility] Outpatient 74878-804/01 CARL YULISSA Encounter [id number] N Markell [facility] 97651-604/02 CARL YULISSA Encounter [id number] N Markell [facility] PT EVAL 91593-3 Diagnos MARIELATRACY 04/02 JONATHA HIGH [id number] is: E N M. COMPLEX 45 ICD-10- WAINWRI MIN CM GHT M16.51 [facility] Unilate ral post-tr aumatic osteoar thritis , right hip<br/ >with Provide r Comment s: Unilate ral Post-Tr aumatic Osteoar thritis , right Hip Outpatient 20616-704/07 CARL YULISSA Encounter [id number] N Markell [facility] Outpatient 62917-804/20 CARL YULISSA Encounter [id number] N Markell COCO [facility] OFFICE O/P 32612-9 Diagnos MALKA HICKEY 04/22 [place] [id number] is: ON N [place] 40-54 MIN 20 ICD-10- CLINIC CM I73.9 Periphe ral vascula r disease , unspeci fied
with Provide r Comment s: Periphe ral vascula r disease (SCT [id number] 06) HC PRO 30980-7.68 Diagnos MARIA ELENA FRAIRE 04/24 J ONATHA PHONE CALL [id number] is: GRACY N N M . 5-10 MIN ICD-10- WAINWRI CM GHT Z51.81 [facility] Encount er for therape utic drug level monitor ing<br/ >with Provide r Comment s: Encount er for Therape utic Drug Level Monitor ing Outpatient 04/30 CARL YULISSA Encounter [id number] N M. WAINWRI T [facility] Outpatient Diagnos ROXY, 05/01 JONATHA Encounter [id number] is: ROSELYN N M . ICD-10- WAINWRI CM T Z74.1 [facility] Need for assista nce with persona l care
with Provide r Comment s: Need for Assista nce with Persona l Care Outpatient 05/02 CARL YULISSA Encounter [id number] N KatherineKadi WAINWRI T [facility] Outpatient Diagnos ROXY, 05/04 JONATHA Encounter [id number] is: ROSELYN N M . ICD-10- WAINWRI CM T Z74.1 [facility] Need for assista nce with persona l care
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
with Provide r Comment s: Need for Assista nce with Persona l Care Outpatient 24924-505/22 CARL YULISSA Encounter [id number] [place] Guillaume [facility] Outpatient 15497-005/26 CARL YULISSA Encounter [id number] [place] Guillaume [facility] Outpatient 60678-606/29 CARL YULISSA Encounter [id number] [place] Guillaume [facility] Outpatient 59865-3.68 08/10 CARL YULISSA Encounter [id number] Austin Guillaume [facility] Between [id number] 10/17 10/16 Discharge [id number] Visit /2021 Disposition: [place] [facility] Between [id number] Other 10/19 10/19 Discharge 687GB Visit specifi /2021 Disposition: Maik to ed Home or Self n ID [place] health Care Clinic status Between [id number] Difficu 10/28 10/28 Discharge 687 Visit lty in /2021 Disposition: Jonath a walking Home or Self n M , not Care Ndmukund [facility] Between [id number] 11/02 11/02 Discharge 687 Visit /2021 Disposition: Jonatha Home or Self n M Care Ndinwri t [facility] Between [id number] 11/05 11/05 Discharge 687 Visit /2021 Disposition: Jonatha Home [facility] Procedures Combined list of: 1) Procedures from Department of Veterans Affairs facilities going back up to the last 18 months, not all VA non-surgical procedures are included; 2) All procedures from the Department of Defense facilities. Procedure Procedure Type Code Date Perfomer Comments Sourc e No data available [facility] Pharmacy for this section Social History Combined list of available smoking, tobacco, and other social history from Department of Defense andVeterans Affairs facilities. Social History Type Response Date Comment Source Tobacco smoking VA-TOBACCO FORMER 10/29/2020 [facility] NHIS USER History of tobacco VA-TOBACCO QUIT 15 10/29/2020 [facility] use YRS OR MORE History of tobacco VA-TOBACCO FORMER 09/29/2018 [facility] use USER History of tobacco TOBACCO SCREEN 09/04/2017 7 hrs JODARBY COLEMANINWRIGHT use COMPLETED [facility] History of tobacco TOBACCO SCREEN 09/02/2017 [facility] use COMPLETED History of tobacco QUIT TOBACCO >7 YEARS 05/15/2007 SUNITAESTUARDO COLEMANINWRIGHT use AGO [facility] History of tobacco TOBACCO PRODUCTS USER 02/12/1999 SUNITA Markell [facility] use (NO) [facility] History of tobacco TOBACCO PRODUCTS USER 02/14/1998 SUNITA COLEMANINWRIGHT use (NO) [facility] History of tobacco TOBACCO PRODUCTS USER 12/04/1997 SUNITA Markell [place] use (NO) [facility] This section is an [facility] empty social history section. Never-cigarette user Never-cigarette user Ambulatory Pharmacy Cigarette use:. Cigarette use:. Never-other tobacco Never-other tobacco user (not cigarettes) user (not cigarettes) Other Tobacco use:. Other Tobacco use:. Assessment and Plan Combined list of future care activities from Department of Defense and Veterans Affairs facilities (e.g., assessment and plan notes, appointments, orders, and referrals). Additional future care activities may be listed in the Plan of Care section. 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 Low testosterone restart testosterone [id number] week F/U l ab Ordered: needle 22g 1in(needle 22g 1 in), 1 EA, N/A, Daily, # 6 EA, 3 total refill(s), Maintenance, Supply, [facility] [Not filled] Orders: Follow Up - [facility] - Ordered -- 10/26/2021 13:25:32 PDT, 10/26/2021 13:25:3 2 PDT, 6 MONTH FOLLOW UP Future Appointments Appointment Date: 04/21/2022 04:00:00 PM Scheduled Provider: Location: 687 Lab Appointment Type: Lab Visit Appointment Date: 04/28/2022 04:00:00 PM Scheduled Provider: Lg Hickey NP Location: 687GB PC Appointment Type: PC Established Patient Future Scheduled TestsLabora toryTestosterone, Total, Free and Bioavailable, and SHBG VAPS 04/28/22CBC w/ Diff 04/28/22CBC w/ Diff 10/26/21Comprehensive Metabolic Panel 04/28/22Comprehensive Metabolic Panel 10/26/21Patient CareFollow Up - [facility] 04/28/22 Functional Status Combined list of recent functional and cognitive assessments recorded at Department of Defense and Veterans Affairs (VA).VA Functional Eddy Measurement (FIM) Scale: 1 = Total Assistance (Subject = 0% +), 2 = Maximal Assistance (Subject = 25% +), 3 = Moderate Assistance (Subject = 50% +), 4 = Mi nimal Assistance (Subject = 75% +), 5 = Supervision, 6 = Modified Eddy (Device), 7 = Complete Eddy (Timely, Safely). Assessment Source Assessment Type Assessment Assessment Assessmen t Date/Time Skill Score Details No data available for this section
--- OUTSIDE RECORDS SUMMARY | 2021-11-30 10:10 | External Medical Summary | Encounter Summary ---
:1945 Author Organization [facility] Address [address] [place] [address] [id number] Care Team Providers Name Role Phone LG DE JESUS Primary Care Provider Unavailable Insurance Providers: All [...] MEDICARE MEDICARE PART Dec 11, PART A [id number] DEONTE, PATIENT (WNR) (M) A [id number] [place] MEDICARE MEDICARE PART Dec 11, PART B [id number] DEONTE, PATIENT (WNR) (M) B [id number] [id number] [place] MEDICARE MEDICARE PART Dec 11, PART A [id number] [phone] LEMAST ER, PATIENT (WNR) (M) A 1995 [id number] 227 [place] MEDICARE MEDICARE PART Dec 11, PART B [id number] LEMAST ER, PATIENT (WNR) (M) B 1995 [id number] 227 [place] MEDICARE MEDICARE PART Dec 11, PART A [id number] [phone] LEMAST ER, PATIENT (WNR) (M) A [id number] [place] MEDICARE MEDICARE PART Dec 11, PART B [id number] [phone] LEMAST ER, PATIENT (WNR) (M) B 1995 [id number] [place] MEDICARE MEDICARE PART Apr 13, PART A [id number] DEONTE, PATIENT (WNR) (M) A 1982 56A [id number] [place] MEDICARE MEDICARE PART Apr 13, PART B [id number] DEONTE, PATIENT (WNR) (M) B [id number] [id number] [place] -FO [place] November 04, TFL [id number] [phone], PATIENT R-LIFE RE-FO 2014 56 404 CHELYS R-LIF E -FO [place] Dec 11, [id number] [phone] MERLY STER, PATIENT R-LIFE WNR RE-FO 2014 -FORLI 56 404 [place] R-LIF FE E -FO [place] Jun 13, TFL [id number] [phone], PATIENT R-LIFE WNR RE 2000 56 [id number] [place] FOR LIFE ZZWPS [place] Jun 09, STANDAR [id number] [phone] DEONTE , PATIENT TRIWEST RE 2001 D [id number] 378 [place] Selected Encounter This section includes the information on record at [place] for the Encounter. Date/Time Encounter Type Encounter Reason Provider Source Description Dec 04, 2020 Outpatient TELEPHONE ICD-10-CM M16.9 LG DE JESUS 10:30 AM Encounter PRIMARY CARE Osteoarthritis of E hip, unspecified with Provider Comments: Osteoarthritis of hip ([facility] [id number]) IHE Encounter Template Text not used by [place] Assessments - Encounter Diagnoses This section includes the primary and secondary diagnoses documented for the Encounter. Date/Time Primary/Secondary Diagnosis Name Provider Source Diagnosis Dec 04, 2020 PRIMARY Osteoarthritis of LG DE JESUS [place] 10:30 AM hip, unspecified CLINIC Dec 04, 2020 SECONDARY Other instability, LG DE JESUS N [place] 10:30 AM unspecified ankle CLINIC Dec 04, 2020 SECONDARY Peripheral vascular [place]US [place] 10:30 AM disease, unspecified CLINIC Plan of Treatment: Future Appointments (+ 6 months) and Future Tests (+/- 45 days) The Plan of Treatment section includes future care activities for the patient from all [place] treatment[place]. This section includes future appointments and future orders which are active, pending orscheduled.Future Appointments This section includes appointments that were scheduled to occur 6 months from the date of the Encounter, up to a maximum of 20 appointments. The data comes from all [facility]. Appointment Date/Time Appointment Type Appointment Facili ty Name Dec 30, 2020 10:30 AM [facility]ORY [facility] Jan 08, 2021 11:00 AM [facility]ORY [facility] Mar 05, 2021 11:30 AM [facility] Mar 05, 2021 12:00 PM [facility] Mar 12, 2021 01:00 PM [facility] Apr 02, 2021 11:00 AM AMBULATORY - MEDICINE [facility] ULLOA [facility] Apr 22, 2021 11:30 AM [facility] May 05, 2021 09:30 AM AMBULATORY - PSYCHIATRY SUNITA SALAS [facility] May 22, 2021 09:00 AM AMBULATORY - MEDICINE SUNITA ULLOA [facility] Active, Pending, and Scheduled Orders This section includes a listing of several types of active, pending, and scheduled orders, including clinic medications orders, diagnostic test orders, procedure orders and consult orders; where the start date of the order is 45 days before the date of the Encounter or 45 days after the date of the Encounter. The data comes from all [facility]. Test Date/Time Test Type Test Details Facility Name Jan 07, 2021 03:46 PM Consult Order COMMUNITY CARE-DENTAL CARL SEO [facility] Apprentice [employer] Lab Results: +/- 30 days of the encounter This section includes the Chemistry and Hematology Lab Results on record with [place] for the patient. Radiology Reports and Pathology Reports are provided separately, in subsequent sections.Lab Results This section contains the Chemistry/Hematology Results that were resulted 30 days before or 30 daysafter the date of the Encounter. Date/Time Source Result Type Result - Unit Interpretation Reference Range Comment Dec 30, 2020 10:38 [facility] THYROID STIMULATING Speci men Type: SERUM AM HORMONE No comment enter ed. Ordering Provid er: LG DE JESUS Report Released Date/Time: Dec 14, 2020 02:26 PM Reporting Lab: [facility] SEO [facility] [address] [place] [address] Performing Lab: SUNITA SEO [address] [place] [address] THYROID STIMULATING HORMONE 16.6 H 0. 300-4.25 Social History: Smoking Status (Most current) and Tobacco Use (All prior to encounter date) This section includes the most current, and the historical, smoking and tobacco-related health factors from the [place] facility where the Encounter took place.Current Smoking Status This section includes the most current smoking, or tobacco-related health factor, from the [facility] where the Encounter took place. Date/Time Current Smoking Status Comment Facility October 29, 2020 01:30 PM [place]-TOBACCO FORMER USER [facility] Tobacco Use History This section includes a history of the smoking, or tobacco- related health factors, that were collected on or before the date of the Encounter. The data comes from the [place] facility where the Encounter took place. Date/Time Smoking Status/Tobacco Use Comment [facility] October 29, 2020 01:30 PM [place]-TOBACCO QUIT 15 YRS OR MORE [facility] Sep 29, 2018 01:32 PM VA-TOBACCO FORMER USER [facility] Sep 29, 2018 01:32 PM VA-TOBACCO QUIT 15 YRS OR MORE [facility] Sep 02, 2017 02:13 PM QUIT TOBACCO >7 YEARS AGO [facility] Sep 02, 2017 02:13 PM TOBACCO SCREEN COMPLETED [facility] Encounter Notes: All associated encounter notes This section contains the clinical notes associated to the Encounter. Date/Time Encounter Note(s) Provider Source Dec 04, 2020 10:30 TELEPHONE ENCOUNTER NOTE: LG DE JESUS [facility] LOCAL TITLE: TELEPHONE NOTE STANDARD TITLE: TELEPHONE ENCOUNTER NOTE DATE OF NOTE: DEC 04, 2020@10:30 ENTRY DATE: DEC 07, 2020@16:46:25 AUTHOR: LG DE JESUS EXP COSIGNER: URGENCY: STATUS: COMPLETED DEC 07, 2020 Patient identification is confirmed by full name , date of and social security number prior to interview and examinati on. 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 Respiratory: Denies: shortness of breath, cough, hemoptysis, sputum production, painful breathing or wheezing. 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 2) APIXABAN 5MG TAB TAKE ONE TABLET BY MOUTH TWI CE A DAY ACTIVE DO NOT TAKE WITH WARFARIN, NOTIFY DOCTOR OF A [place] SIGNS OF BLEEDING 3) CARBOXYMETHYLCELLULOSE NA 0.5%(PF)OP CLIFFORD INST ILL 1 ACTIVE DROP IN EACH EYE FOUR TIMES A DAY NEEDED FOR DRY EYES 4) DILTIAZEM (EQV-TIAZAC) 240MG 24HR CAP TAKE ON E ACTIVE CAPSULE BY MOUTH AT BEDTIME TO LOWER BLOOD PRES URE AND FOR HEART 5) LIDOCAINE 5% PATCH APPLY 1 PATCH TO SKIN EVER Y DAY ACTIVE (FOR 12 HOURS ON, FOLLOWED BY 12 HOURS OFF) FOR PAIN FOR KNEE PAIN 6) NEEDLE 18G 1.5IN USE 1 NEEDLE EVERY OTHER WEE K ACTIVE 7) NEEDLE 22G 1.5IN USE NEEDLE EVERY OTHER WEEK ACTIVE 8) POLYETHYLENE GLYCOL 3350 PDR (MIRALAX) DISSOL VE 17 ACTIVE GRAMS (ONE MEASURE) IN LIQUID AND DRINK BY MOUT H AT BEDTIME Active Non-VA Medications Status 1) Non-VA LEVOTHYROXINE NA (SYNTHROID) 150MCG TA B 150MCG ACTIVE BY MOUTH EVERY DAY 2) Non-VA MORPHINE SO4 60MG TAB,SA,UD 60MG BY MO [facility] ACTIVE THREE TIMES A DAY 3) Non-VA MULTIVITAMIN/MINERALS THERAPEUT CAP/TA B 1 ACTIVE TABLET BY MOUTH EVERY DAY 4) Non-VA NO NON-VA MEDICATION MISCELLANEOUS DIG ESTIVE ACTIVE ENZYMES ONE CAPSULE EVERY DAY 5) Non-VA ZOLPIDEM TARTRATE 10MG TAB 10MG BY OPAL TH AT ACTIVE BEDTIME 13 Total Medications ALLERGIES: ATORVASTATIN ASSESSMENT: Medication Reconciliation done and Med list/teac kath document given to patient All recent labs and radiology reports were revie wed with the patient, copy of all labs provided and all questions answ ered. Patient demonstrated good understanding. Reviewed patient's life goals. Visit Diagnoses/Plan: osteoarthritis and avascular degeneration right hip/ femur prosthetic consult boots reorder Follow-up visit in 04/2021 30 min /karen/ Lg PARKER Nurse Practitioner Signed: 12/07/2020 16:51
--- OUTSIDE RECORDS SUMMARY | 2021-11-30 10:10 | External Medical Summary | Encounter Summary ---
:1945 Author Organization [facility] Address [address] [place] [id number] Care Team Providers Name Role Phone DE [...] MEDICARE MEDICARE PART Dec 11, PART A [id number] DEONTE, PATIENT (WNR) (M) A [id number] [place] MEDICARE MEDICARE PART Dec 11, PART B [id number] DEOTNE, PATIENT (WNR) (M) B 1995 [id number] 8431 [place] MEDICARE MEDICARE PART Dec 11, PART A [id number] [phone] LEMAST ER, PATIENT (WNR) (M) A 1995 56A 227 [place] MEDICARE MEDICARE PART Dec 11, PART B [id number] LEMAST ER, PATIENT (WNR) (M) B [id number] 56A 227 [place] MEDICARE MEDICARE PART Dec 11, PART A [id number] [phone] LEMAST ER, PATIENT (WNR) (M) A 1995 227 [place] MEDICARE MEDICARE PART Dec 11, PART B [id number] [phone] LEMAST ER, PATIENT (WNR) (M) B [id number] [place] MEDICARE MEDICARE PART Apr 13, PART A [id number] DEONTE, PATIENT (WNR) (M) A [id number] [id number] [place] MEDICARE MEDICARE PART Apr 13, PART B [id number] DEONTE, PATIENT (WNR) (M) B [id number] [id number] [place] -FO [place] November 04, TFL [id number] [phone], PATIENT R-LIFE RE-FO 2014 56 [id number] [place] R-LIF E -FO [place] Dec 11, [id number] [phone] MERLY STER, PATIENT R-LIFE WNR RE-FO 2014 -FORLI 56 404 [place] R-LIF FE E -FO [place] Jun 13, TFL [id number] [phone], PATIENT R-LIFE WNR RE 2000 56 404 [place] FOR LIFE ZZWPS [place] Jun 09, STANDAR [id number] [phone] DEONTE , PATIENT TRIWEST RE 2001 D [id number] 378 [place] Selected Encounter This section includes the information on record at [place] for the Encounter. Date/Time Encounter Type Encounter Description Reason Provider Source Dec 10, 2020 12:31 Outpatient Encounter COMMUNITY CARE PM CONSULT IHE Encounter Template Text not used by [place] Plan of Treatment: Future Appointments (+ 6 months) and Future Tests (+/- 45 days) The Plan of Treatment section includes future care activities for the patient from all [place] treatmentfacilities. This section includes future appointments and future orders which are active, pending orscheduled.Future Appointments This section includes appointments that were scheduled to occur 6 months from the date of the Encounter, up to a maximum of 20 appointments. The data comes from all [place] treatment facilities. Appointment Date/Time Appointment Type Appointment Facili ty Name Dec 30, 2020 10:30 AM AMBULATORY - MEDICINE [facility] Jan 08, 2021 11:00 AM AMBULATORY - MEDICINE [facility] Mar 05, 2021 11:30 AM AMBULATORY - MEDICINE [facility] Mar 05, 2021 12:00 PM AMBULATORY - MEDICINE [facility] Mar 12, 2021 01:00 PM AMBULATORY - MEDICINE [facility] Apr 02, 2021 11:00 AM AMBULATORY - MEDICINE SUNITA ULLOA [facility] Apr 22, 2021 11:30 AM AMBULATORY - MEDICINE [facility] CL[facility] IC May 05, 2021 09:30 AM AMBULATORY - PSYCHIATRY SUNITA SALAS [facility] May 22, 2021 09:00 AM AMBULATORY - MEDICINE SUNITA ULLOA [facility] Active, Pending, and Scheduled Orders This section includes a listing of several types of active, pending, and scheduled orders, including clinic medications orders, diagnostic test orders, procedure orders and consult orders; where the start date of the order is 45 days before the date of the Encounter or 45 days after the date of the Encounter. The data comes from all [place] treatment facilities. Test Date/Time Test Type Test Details Facility Name Jan 07, 2021 03:46 PM Consult Order COMMUNITY [facility]-DENTAL CARL Guillaume [facility] Steel [employer] Lab Results: +/- 30 days of the encounter This section includes the Chemistry and Hematology Lab Results on record with [place] for the patient. Radiology Reports and Pathology Reports are provided separately, in subsequent sections.Lab Results This section contains the Chemistry/Hematology Results that were resulted 30 days before or 30 daysafter the date of the Encounter. Date/Time Source Result Type Result - Unit Interpretation Reference Range Comment Dec 30, 2020 10:38 [facility] THYROID STIMULATING Speci men Type: SERUM AM HORMONE No comment enter ed. Ordering Provid er: LG DE JESUS Report Released Date/Time: Dec 14, 2020 02:26 PM Reporting Lab: SUNITA MCCALL[address] [place] [address] Performing Lab: SUNITA Guillaume [place] [place] [address] THYROID STIMULATING HORMONE 16.6 H 0. 300-4.25 Social History: Smoking Status (Most current) and Tobacco Use (All prior to encounter date) This section includes the most current, and the historical, smoking and tobacco-related health factors from the [place] facility where the Encounter took place.Current Smoking Status This section includes the most current smoking, or tobacco-related health factor, from the [place] facility where the Encounter took place. Date/Time Current Smoking Status Comment Facility Sep 04, 2017 06:40 PM TOBACCO SCREEN COMPLETED Kapil Guillaume [facility] 7 hrs Tobacco Use History This section includes a history of the smoking, or tobacco- related health factors, that were collected on or before the date of the Encounter. The data comes from the [facility] where the Encounter took place. Date/Time Smoking Status/Tobacco Use Comment [facility] Sep 04, 2017 06:40 PM TOBACCO SCREEN COMPLETED Kapil Guillaume [place] [facility] [facility] 7 hrs May 15, 2007 09:55 AM QUIT TOBACCO >7 YEARS AGO SUNITA SEO [facility] Feb 12, 1999 10:18 AM TOBACCO PRODUCTS USER (NO) SUNITA SEO [facility] Feb 14, 1998 01:00 AM TOBACCO PRODUCTS USER (NO) SUNITA SEO [facility] Dec 04, 1997 01:01 AM TOBACCO PRODUCTS USER (NO) SUNITA Guillaume [facility] Encounter Notes: All associated encounter notes This section contains the clinical notes associated to the Encounter. Date/Time Encounter Note(s) Provider Source Dec 10, 2020 12:31 PM TEAM TELEPHONE ENCOUNTER NOTE: ERWIN JACOBSEN LOCAL TITLE: CARE MANAGEMENT TELEPHONE NOTE [facility] STANDARD TITLE: TEAM TELEPHONE ENCOUNTER NOTE DATE OF NOTE: DEC 10, 2020@12:31 ENTRY DATE: DEC 10, 2020@12:31:23 AUTHOR: ERWIN JACOBSEN EXP COSIGNER: URGENCY: STATUS: COMPLETED call to vet see prev note vet states, recent talk with brittany jama what she wanted me to do with the levothyroxine, keep taking or not and a t what dose? advised did not see anything about this in her note, will send to her for review and recommendation. /karen/ ERWIN JACOBSEN RN Signed: 12/10/2020 12:32 Receipt Acknowledged By: * AWAITING SIGNATURE * LG DE JESUS
--- OUTSIDE RECORDS SUMMARY | 2021-11-30 10:10 | External Medical Summary | Encounter Summary ---
:1945 Author Organization [facility] Address [address] [place] [address] Care Team Providers Name Role Phone HICKEYMALKAON Primary Care Provider Unavailable Insurance Providers: All [...] MEDICARE MEDICARE PART Dec 11, PART A [id number] DEONTE, PATIENT (WNR) (M) A 1995 [id number] 8431 [place] MEDICARE MEDICARE PART Dec 11, PART B [id number] DEONTE, PATIENT (WNR) (M) B 1996 56A 8431 [place] MEDICARE MEDICARE PART Dec 11, PART A [id number] [phone] LEMAST ER, PATIENT (WNR) (M) A 1995 56A 227 [place] MEDICARE MEDICARE PART Dec 11, PART B [id number] LEMAST ER, PATIENT (WNR) (M) B 1996 56A 227 [place] MEDICARE MEDICARE PART Dec 11, PART A [id number] [phone] LEMAST ER, PATIENT (WNR) (M) A 1996 227 RICHARD MEDICARE MEDICARE PART Dec 11, PART B [id number] [phone] LEMAST ER, PATIENT (WNR) (M) B 1996 227 [place] MEDICARE MEDICARE PART Apr 13, PART A [id number] [phone] DEONTE, PATIENT (WNR) (M) A 1983 56A 1213 [place] MEDICARE MEDICARE PART Apr 13, PART B [id number] DEONTE, PATIENT (WNR) (M) B 1983 56A 1213 [place] -FO TRICA November 04, TFL [id number] [phone], PATIENT R-LIFE RE-FO 2014 56 404 CHELS[place] R-LIF E -FO TR[place] Dec 11, [id number] [phone] MERLY STER, PATIENT R-LIFE WNR RE-FO 2014 -FORLI 56 404 [place] R-LIF FE E -FO TRICA Jun 13, TFL [id number] [phone], PATIENT R-LIFE WNR RE 2000 56 404 CHELS[place] FOR LIFE ZZWPS TRICA Jun 09, STANDAR [id number] [phone] DEONTE , PATIENT TRIWEST RE 2001 D 56 378 [place] Selected Encounter This section includes the information on record at [place] for the Encounter. Date/Time Encounter Type Encounter Description Reason Provider Source Dec 14, 2020 02:18 Outpatient Encounter PRIMARY CARE/MEDICINE PM IHE Encounter Template Text not used by MA Plan of Treatment: Future Appointments (+ 6 months) and Future Tests (+/- 45 days) The Plan of Treatment section includes future care activities for the patient from all MA treatmentfacilities. This section includes future appointments and future orders which are active, pending orscheduled.Future Appointments This section includes appointments that were scheduled to occur 6 months from the date of the Encounter, up to a maximum of 20 appointments. The data comes from all MA treatment facilities. Appointment Date/Time Appointment Type Appointment Facili ty Name Dec 30, 2020 10:30 AM AMBULATORY - MEDICINE [facility] Jan 08, 2021 11:00 AM AMBULATORY - MEDICINE [facility] Mar 05, 2021 11:30 AM AMBULATORY - MEDICINE [facility] Mar 05, 2021 12:00 PM AMBULATORY - MEDICINE [facility] Mar 12, 2021 01:00 PM AMBULATORY - MEDICINE [facility] Apr 02, 2021 11:00 AM AMBULATORY - MEDICINE SUNITA ULLOA [facility] Apr 22, 2021 11:30 AM AMBULATORY - MEDICINE [facility] May 05, 2021 09:30 AM AMBULATORY - PSYCHIATRY SUNITA SALAS [facility] May 22, 2021 09:00 AM AMBULATORY - MEDICINE SUNITA ULLOA [facility] Active, Pending, and Scheduled Orders This section includes a listing of several types of active, pending, and scheduled orders, including clinic medications orders, diagnostic test orders, procedure orders and consult orders; where the start date of the order is 45 days before the date of the Encounter or 45 days after the date of the Encounter. The data comes from all MA treatment facilities. Test Date/Time Test Type Test Details Facility Name Jan 07, 2021 03:46 PM Consult Order [facility] Lab Results: +/- 30 days of the encounter This section includes the Chemistry and Hematology Lab Results on record with MA for the patient. Radiology Reports and Pathology Reports are provided separately, in subsequent sections.Lab Results This section contains the Chemistry/Hematology Results that were resulted 30 days before or 30 daysafter the date of the Encounter. Date/Time Source Result Type Result - Unit Interpretation Reference Range Comment Dec 30, 2020 10:38 [facility] THYROID STIMULATING Speci men Type: SERUM AM HORMONE No comment enter ed. Ordering Provid er: LG HICKEY Report Released Date/Time: Dec 14, 2020 02:26 PM Reporting Lab: SUNITA MCCALL[address] [place] [address] Performing Lab: SUNITA MARCUS[address] [place] [address] THYROID STIMULATING HORMONE 16.6 H 0. 300-4.25 Social History: Smoking Status (Most current) and Tobacco Use (All prior to encounter date) This section includes the most current, and the historical, smoking and tobacco-related health factors from the [place] facility where the Encounter took place.Current Smoking Status This section includes the most current smoking, or tobacco-related health factor, from the [place] facility where the Encounter took place. Date/Time Current Smoking Status Comment Facility Sep 04, 2017 06:40 PM TOBACCO SCREEN COMPLETED Kapil Guillaume [facility] 7 hrs Tobacco Use History This section includes a history of the smoking, or tobacco- related health factors, that were collected on or before the date of the Encounter. The data comes from the [place] facility where the Encounter took place. Date/Time Smoking Status/Tobacco Use Comment Paola rojas Sep 04, 2017 06:40 PM TOBACCO SCREEN COMPLETED Kapil Guillaume [facility] 7 hrs May 15, 2007 09:55 AM QUIT TOBACCO >7 YEARS AGO SUNITA Guillaume [facility] Feb 12, 1999 10:18 AM TOBACCO PRODUCTS USER (NO) SUNITA Guillaume [facility] Feb 14, 1998 01:00 AM TOBACCO PRODUCTS USER (NO) SUNITA Guillaume [facility] Dec 04, 1997 01:01 AM TOBACCO PRODUCTS USER (NO) SUNITA Guillaume [facility] Encounter Notes: All associated encounter notes This section contains the clinical notes associated to the Encounter. Date/Time Encounter Note(s) Provider Source Dec 14, 2020 02:19 PM TELEPHONE ENCOUNTER NOTE: LG HICKEY [facility] LOCAL TITLE: TELEPHONE NOTE STANDARD TITLE: TELEPHONE ENCOUNTER NOTE DATE OF NOTE: DEC 14, 2020@14:19 ENTRY DATE: DEC 14, 2020@14:19:46 AUTHOR: LG HICKEY EXP COSIGNER: URGENCY: STATUS: COMPLETED TELEPHONE NOTE Has ADDENDA Patient Telephone call to ID name/per day. Reviewed TSH level. He states Chantelle Hickey had increased levothyroxine to 150 mcg daily about 3 months ago. He has not had a repeat TSH. He would like to have levothyroxin e ordered through the [place]. Reviewed endocrinology consu lt with risks and recommendation for possible lower dose testosterone if having increased fatigue. Plan repeat TSH and adjust or [facility] But will call if increased fatigue for l ower dose testosterone. Letter sent to that for review /karen/ Lg PARKER Nurse Practitioner Signed: 12/14/2020 14:22 12/14/2020 ADDENDUM STATUS: COMPLETED Please set up lab nonfasting TSH and tele visit following week of 12/16/2020 if possible /es/ Lg PARKER Nurse Practitioner Signed: 12/14/2020 14:23 Receipt Acknowledged By: * AWAITING SIGNATURE * CAGLEVIRGINIE Dec 14, 2020 02:18 PM PHYSICIAN LETTERS: LG HICKEY [facility] LOCAL TITLE: PHYSICIAN LETTER STANDARD TITLE: PHYSICIAN LETTERS DATE OF NOTE: DEC 14, 2020@14:18 ENTRY DATE: DEC 14, 2020@14:18:14 AUTHOR: LG HICKEY EXP COSIGNER: URGENCY: STATUS: COMPLETED PHYSICIAN LETTER Has ADDENDA [place] [facility] [address] [place] [address] DEC 14, 2020 CHELSY CLEMONS [address], [place] [address] Dear CHELSY CLEMONS: The results of your recent tests have been revie wed. The purpose of this letter is to share those results and the provide r's recommendations with you. This was the letter we discussed. Call if increa sed fatigue for possible starting lower dosage testosterone REMOTE R ESULTS MARLEN Document from: [facility] Associated on: November 03, 2020@16:46:51 LOCAL TITLE: NON-VISIT CONSULT REPORT STANDARD TITLE: E & M NOTE DATE OF NOTE: NOVEMBER 03, 2020@15:57 ENTRY DATE: NOVEMBER 03, 2020@15:57:18 AUTHOR: XOCHITL ARCHER EXP COSIGNER: AMBAR ROSENTHAL URGENCY: STATUS: COMPLETED Non-face to face medical consultative discussion and review (21-30 minutes) BEGINNING NARRATIVE: My medical opinion is based upon a review of e medical record and information provided to me by the velasquez dang provider. It does not include a personal examination of t he patient. REASON FOR REQUEST / CHIEF COMPLAINT: Etta has been [facility] inj [facility] ( possibly longer not sure. 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 Thrombosis risk or not? Last level 7.0 see previous levels fluctuate. Cu rrnelty 200mcg eveyr 2 weeks, do need updated lab. REVIEW: 75yo man with above described comorbidities 10/2020 PSA 3.39 (inc from 1.6 2013, 2.2 2017, 2.7 2019) Hgb 15.2 Hct 46.3% (ranged 44-49% since 2013; was 53% in 2012) RECOMMENDATION: Benefits and risks of testosterone replacement t herapy must be considered for each patient. The primary risk of T replacement is erythrocyto sis. We recommend ensuring patients are not smoking and are fully treated for LICO when giving testosterone therapy. If hct is >54%, the endocrine society says to hold Testosterone therapy and restart at lower dose once hct has lowered ( we aim for <48%). In this patient, with numerous vascular comorbidities, m ay want to keep hct <50% to reduce viscosity and risk of occlusion. Risk of erythroctosis can be reduced by using a lower dose of T, either 100 mg q2w or 50 mg IM weekly. The risk of DVT/VTE is debated, as this was initially though t to correlate with degree of erythrocytosis; however, there have been reports of DVT/PE without erythrocytosis. In one study 39/40 men had undia gnosed hypercoagulable condition. Therefore, family history of VTE is i mportant when considering risk/benefit of T therapy. Cardiovascular risk in older men treated with te stosterone therapy remains unclear, pending larger stud ies. Villisca-analysis has not shown clear increased CVD risk and TEAAM trial (308 men >=60) show ed no increase in carotid intima-media thickness and CAC scores in those treate d with 3 years gel vs placeo; however, some smaller studies (Testosterone trials, 788 m en, JONNATHAN study, retrospective studies) have shown increase d risk. The absolute increased risk in these studies (reported as ~5 events per 1000 patient years) h as not generally changed practice of prescribing testosterone replacement in men who have DOCUMENTED hypogonadism. We do hold melanie tosterone around CVD events for at least 6 months or wait this long to initiate following an event. PCP should discuss these ris ks with patient. Could certainly trial 100mg IM q2w or 50mg IM weekly to see if he notices any diffe rence in fatigue and sexual function, as these doses wou ld be associated with lower risk of erythrocytosis. Notably, his PSA has also ri sen while on therapy. Should have prostate exam and discuss possible risk of prostate cancer with T replacement therapy. Continue annual PSA and hold Testosterone with r eferral to urology if >4 and would check hct every 6 months in this p atient with multiple comorbidities and hold Testosterone if Hct >50% and reduce dose wh en restarting. SUMMARY - discuss above risks/benefits with patient - discuss trial of lower dose testosterone repla cement - monitor PSA annually - monitor HCT q6m, ensure not smoking and using CPAP if indicated Please do not addend or comm ent on this consult, as it will be missed. Instead, place another consult if additional questions. This consult was discussed w [facility] attending filer and sander, Dr. Cueva. I spent 30 minutes reviewing this chart and disc ussing the case with the attending. /karen/ Xochitl Archer M.D. Fellow, Endocrinology Signed: 11/03/2020 15:59 /karen/ Ambar Cueva M.D. Endocrinology Attending Cosigned: 11/03/2020 16:46 Thank you AARTI Ross [facility] [address] [place] [address] /karen/ Lg PARKER Nurse Practitioner Signed: 12/14/2020 14:19 Receipt Acknowledged By: 12/16/2020 11:35 /karen/ VIRGINIE BRAR 12/16/2020 ADDENDUM STATUS: COMPLETED Printed letter, put into outgoing interoffice geeta gonzalez for Shaheed [place] to apply postage. /karen/ VIRGINIE BRAR Signed: 12/16/2020 11:35
--- OUTSIDE RECORDS SUMMARY | 2021-11-30 10:10 | External Medical Summary | Encounter Summary ---
:1945 Author Organization [facility] rs Address [address] [place] [id number] Care Team Providers Name Role Phone LG [...] MEDICARE MEDICARE PART Dec 11, PART A [id number] DEONTE, PATIENT (WNR) (M) A 1995 56A 8431 [place] MEDICARE MEDICARE PART Dec 11, PART B [id number] DEONTE, PATIENT (WNR) (M) B 1996 56A 8431 [place] MEDICARE MEDICARE PART Dec 11, PART A [id number] LEMAST ER, PATIENT (WNR) (M) A 1995 56A 227 [place] MEDICARE MEDICARE PART Dec 11, PART B [id number] LEMAST ER, PATIENT (WNR) (M) B 1996 56A 227 [place] MEDICARE MEDICARE PART Dec 11, PART A [id number] LEMAST ER, PATIENT (WNR) (M) A [id number] 227 RICHARD MEDICARE MEDICARE PART Dec 11, PART B [id number] [phone] LEMAST ER, PATIENT (WNR) (M) B [id number] 227 [place] MEDICARE MEDICARE PART Apr 13, PART A [id number] DEONTE, PATIENT (WNR) (M) A 1983 56A 1213 [place] MEDICARE MEDICARE PART Apr 13, PART B [id number] DEONTE, PATIENT (WNR) (M) B 1983 56A 1213 [place] -FO TRICA November 04, TFL [id number] [phone], PATIENT R-LIFE RE-FO 2014 56 404 [place] R-LIF E -FO [place] Dec 11, [id number] [phone] MERLY STER, PATIENT R-LIFE WNR RE-FO 2014 -FOR-LI 56 404 [place] R-LIF FE E -FO TR[place] Jun 13, TFL [id number] [phone], PATIENT R-LIFE WNR RE 2000 56 404 [place] FOR LIFE ZZWPS [place] Jun 09, STANDAR [id number] [phone] DEONTE , PATIENT TRIWEST RE 2001 D 56 378 [place] Selected Encounter This section includes the information on record at [place] for the Encounter. Date/Time Encounter Type Encounter Description Reason Provider Source IHE Encounter Template Text not used by [place]
--- OUTSIDE RECORDS SUMMARY | 2021-11-30 10:11 | External Medical Summary | Encounter Summary ---
:1945 [facility] Address [address] [place] [address] Care Team Providers Name Role Phone LG [...] MEDICARE MEDICARE PART Dec 11, PART A [id number] DEONTE, PATIENT (WNR) (M) A 1995 56A 8431 [place] MEDICARE MEDICARE PART Dec 11, PART B [id number] DEONTE, PATIENT (WNR) (M) B 1995 56A 8431 [place] MEDICARE MEDICARE PART Dec 11, PART A [id number] [phone] LEMAST ER, PATIENT (WNR) (M) A 1995 56A 227 [place] MEDICARE MEDICARE PART Dec 11, PART B [id number] LEMAST ER, PATIENT (WNR) (M) B 1995 56A 227 [place] MEDICARE MEDICARE PART Dec 11, PART A [id number] LEMAST ER, PATIENT (WNR) (M) A 1996 227 RICHARD MEDICARE MEDICARE PART Dec 11, PART B [id number] [phone] LEMAST ER, PATIENT (WNR) (M) B 1996 227 [place] MEDICARE MEDICARE PART Apr 13, PART A [id number] DEONTE, PATIENT (WNR) (M) A 1982 56A 1213 [place] MEDICARE MEDICARE PART Apr 13, PART B [id number] DEONTE, PATIENT (WNR) (M) B 1983 56A 1213 [place] -FO TRICA November 04, TFL [id number] [phone], PATIENT R-LIFE RE-FO 2014 56 404 [place] R-LIF E -FO [place] Dec 11, [id number] [phone] MERLY STER, PATIENT R-LIFE WNR RE-FO 2014 -FORLI 56 404 [place] R-LIF FE E -FO TR[place] Jun 13, TFL [id number] [phone], PATIENT R-LIFE WNR RE 2000 56 404 CHELS[place] FOR LIFE ZZWPS [place] Jun 09, STANDAR [id number] [phone] DEONTE , PATIENT TRIWEST RE 2001 D 56 378 [place] Selected Encounter This section includes the information on record at [place] for the Encounter. Date/Time Encounter Type Encounter Description Reason Provider Source Jan 27, 2021 03:09 Outpatient Encounter [facility] CONSULT PM CLINIC IHE Encounter Template Text not used by ND Plan of Treatment: Future Appointments (+ 6 months) and Future Tests (+/- 45 days) The Plan of Treatment section includes future care activities for the patient from all [place] treatmentfacilities. This section includes future appointments and future orders which are active, pending orscheduled.Future Appointments This section includes appointments that were scheduled to occur 6 months from the date of the Encounter, up to a maximum of 20 appointments. The data comes from all [place] treatment facilities. Appointment Date/Time Appointment Type Appointment Facili ty Name Mar 05, 2021 11:30 AM AMBULATORY - MEDICINE [facility] Mar 05, 2021 12:00 PM AMBULATORY - MEDICINE [facility] Mar 12, 2021 01:00 PM AMBULATORY - MEDICINE [facility] Apr 02, 2021 11:00 AM AMBULATORY - MEDICINE SUNITA ULLOA [facility] Apr 22, 2021 11:30 AM AMBULATORY - MEDICINE [facility] May 05, 2021 09:30 AM AMBULATORY - PSYCHIATRY [facility]ITA [facility]MAN [facility] May 22, 2021 09:00 AM AMBULATORY - MEDICINE SUNITA [facility] Jun 29, 2021 08:00 AM AMBULATORY - NONE SUNITA MCCALL [facility] Active, Pending, and Scheduled Orders This section includes a listing of several types of active, pending, and scheduled orders, including clinic medications orders, diagnostic test orders, procedure orders and consult orders; where the start date of the order is 45 days before the date of the Encounter or 45 days after the date of the Encounter. The data comes from all [place] treatment facilities. Test Date/Time Test Type Test Details Facility Name Jan 07, 2021 03:46 PM Consult Order [facility] CARL KAPADIA Cons [facility] Hair Spring Winder's Choice Mar 06, 2021 12:00 AM Laboratory - Chemistry EXPANDED URINE DRUG [facility] Order SCREEN URINE SP Mar 06, 2021 12:00 AM Laboratory - Chemistry ND OPIATE PANEL WIT H [facility] Order NALOXONE URINE SP Mar 06, 2021 12:00 AM Laboratory - Chemistry URINALYSIS (IRIS) L [facility] Order URINE SP Lab Results: +/- 30 days of the encounter This section includes the Chemistry and Hematology Lab Results [facility] with [facility] for [facility]. Radiology Reports and Pathology Reports are provided separately, in subsequent sections.Lab Results This section contains the Chemistry/Hematology Results that were resulted 30 days before or 30 daysafter the date of the Encounter. Date/Time Source Result Type Result - Unit Interpretation Reference Range Comment Dec 30, 2020 10:38 [facility] THYROID STIMULATING Speci men Type: SERUM AM HORMONE No comment enter ed. Ordering Provid er: LG DE JESUS Report Released Date/Time: Dec 14, 2020 02:26 PM Reporting Lab: SUNITA Guillaume [address] [place] [address] Performing Lab: SUNITA Guillaume [address] [place] [address] THYROID STIMULATING HORMONE 16.6 H 0. 300-4.25 Social History: Smoking Status (Most current) and Tobacco Use (All prior to encounter date) This section includes the most current, and the historical, smoking and tobacco-related health factors from the [place] facility where the Encounter took place.Current Smoking Status This section includes the most current smoking, or tobacco-related health factor, from the [place] facility where the Encounter took place. Date/Time Current Smoking Status Comment Facility Sep 04, 2017 06:40 PM TOBACCO SCREEN COMPLETED Kapil Guillaume [facility] 7 hrs Tobacco Use History This section includes a history of the smoking, or tobacco- related health factors, that were collected on or before the date of the Encounter. The data comes from the [place] facility where the Encounter took place. Date/Time Smoking Status/Tobacco Use Comment [facility] Sep 04, 2017 06:40 PM TOBACCO SCREEN COMPLETED Kapil SEO [facility] 7 hrs May 15, 2007 09:55 AM QUIT TOBACCO >7 YEARS AGO SUNITA COLEMANINWRIGHT [facility] Feb 12, 1999 10:18 AM TOBACCO PRODUCTS USER (NO) SUNITA SEO [facility] Feb 14, 1998 01:00 AM TOBACCO PRODUCTS USER (NO) SUNITA SEO [facility] Dec 04, 1997 01:01 AM TOBACCO PRODUCTS USER (NO) SUNITA Guillaume [facility] Encounter Notes: All associated encounter notes This section contains the clinical notes associated to the Encounter. Date/Time Encounter Note(s) Provider Source Jan 27, 2021 03:09 PM [facility] CONSULT: JAZMIN GOODRICH LOCAL TITLE: GERIATRIC CARE CONSULTATION NOTE [facility] STANDARD TITLE: GEC CONSULT DATE OF NOTE: JAN 27, 2021@15:09 ENTRY DATE: JAN 27, 2021@15:10:03 AUTHOR: JAZMIN GOODRICH EXP COSIGNER: URGENCY: STATUS: COMPLETED CHELSY CLEMONS is a 75 year old, Eligibility: SERVICE CONNECTED 50% to 100% VERIF IED Total S/C %: 80 LIMITED FLEXION OF KNEE 10% S/C TRAUMATIC ARTHRITIS 10% S/C TRAUMATIC ARTHRITIS 10% S/C SHORTENING OF BONE IN LOWER LEG 60% S/C TINNITUS 10% S/C IMPAIRED HEARING 0% S/C TENDON INFLAMMATION 10% S/C OSTEOMYELITIS 10% S/C PRIORITY GROUP 1 referred for reconsideration of the foll owing programs/services: (see See addendum by H/MANAGER LOCAL Coordinator to [facility] Consult note on 01/23/2021 for details to this reconsideration request): HOMEMAKER/HOME HEALTH AIDE PROGRAM RESPITE The Home & Community Based Service Interdiscipli nary Team (HCBS/IT) Disciplines present at meeting: GEM Coordinator [facility] Coordinator/Geriatric Hair [facility]/Purchased Skilled/VD-HCBS Coordinator Respite and Homemaker/Home Health Aide Coordina tor (H/MANAGER LOCAL) Student Admissions Clerk ResidentialDiaphragm Builder The 's record including problem list; act juventino medications; recent labs, consults, and notes including the ([facility]) Geriatri c and Extended Care referral were reviewed on 01/27/2021. Based upon this info rmation the HCBS/IT is in agreement with the reconsideration request: HOMEMAKER/HOME HEALTH AIDE: The meets criteria for the program. A c onsult will be placed. RESPITE: The meets criteria for the program. A c onsult will be placed. Flagging PCP/NCM and participating HCBS/IT graham rs. /es/ JAZMIN WHITESIDE Clinical Classified Ad Taker Signed: 01/27/2021 15:14
--- OUTSIDE RECORDS SUMMARY | 2021-11-30 10:12 | External Medical Summary | Encounter Summary ---
:1945 Author Organization [facility] Address [address] [place] [address] 89[address] Care Team Providers Name Role Phone DE [...] MEDICARE MEDICARE PART Dec 11, PART A [id number] DEONTE, PATIENT (WNR) (M) A [id number] [id number] [place] MEDICARE MEDICARE PART Dec 11, PART B [id number] DEONTE, PATIENT (WNR) (M) B 1996 56A [id number] [place] MEDICARE MEDICARE PART Dec 11, PART A [id number] [phone] LEMAST ER, PATIENT (WNR) (M) A 1995 56A 227 [place] MEDICARE MEDICARE PART Dec 11, PART B [id number] LEMAST ER, PATIENT (WNR) (M) B 1996 56A 227 [place] MEDICARE MEDICARE PART Dec 11, PART A [id number] [phone] LEMAST ER, PATIENT (WNR) (M) A 1996 227 RICHARD MEDICARE MEDICARE PART Dec 11, PART B [id number] [phone] LEMAST ER, PATIENT (WNR) (M) B [id number] [place] MEDICARE MEDICARE PART Apr 13, PART A [id number] DEONTE, PATIENT (WNR) (M) A 1983 56A [id number] [place] MEDICARE MEDICARE PART Apr 13, PART B [id number] DEONTE, PATIENT (WNR) (M) B [id number] [id number] [place] -FO [place] November 04, TFL [id number] [phone], PATIENT R-LIFE RE-FO 2014 56 404 [place] R-LIF E -FO [place] Dec 11, [id number] [phone] MERLY STER, PATIENT R-LIFE WNR RE-FO 2014 -FORLI 56 404 [place] R-LIF FE E -FO [place] Jun 13, TFL [id number] [phone], PATIENT R-LIFE WNR RE 2000 56 404 [place] FOR LIFE ZZWPS [place] Jun 09, STANDAR [id number] [phone] DEONTE , PATIENT TRIWEST RE 2001 D [id number] [place] Selected Encounter This section includes the information on record at PA for the Encounter. Date/Time Encounter Type Encounter Description Reason Provider Source Feb 24, 2021 03:01 Outpatient Encounter TELEPHONE/ANCILLARY PM IHE Encounter Template Text not used by PA Plan of Treatment: Future Appointments (+ 6 months) and Future Tests (+/- 45 days) The Plan of Treatment section includes future care activities for the patient from all PA treatmentfacilities. This section includes future appointments and future orders which are active, pending orscheduled.Future Appointments This section includes appointments that were scheduled to occur 6 months from the date of the Encounter, up to a maximum of 20 appointments. The data comes from all PA treatment facilities. Appointment Date/Time Appointment Type Appointment Facili ty Name Mar 05, 2021 11:30 AM AMBULATORY - MEDICINE [facility] Mar 05, 2021 12:00 PM AMBULATORY - MEDICINE [facility] Mar 12, 2021 01:00 PM AMBULATORY - MEDICINE [facility] Apr 02, 2021 11:00 AM AMBULATORY - MEDICINE SUNITA ULLOA [facility] Apr 22, 2021 11:30 AM AMBULATORY - MEDICINE [facility] May 05, 2021 09:30 AM AMBULATORY - PSYCHIATRY SUNITA SALAS [facility] May 22, 2021 09:00 AM AMBULATORY - MEDICINE SUNITA ULLOA [facility] Jun 29, 2021 08:00 AM AMBULATORY - NONE SUNITA GUNTER [facility] Active, Pending, and Scheduled Orders This section includes a listing of several types of active, pending, and scheduled orders, including clinic medications orders, diagnostic test orders, procedure orders and consult orders; where the start date of the order is 45 days before the date of the Encounter or 45 days after the date of the Encounter. The data comes from all PA treatment facilities. Test Date/Time Test Type Test Details Facility Name Mar 06, 2021 12:00 AM Laboratory - Chemistry EXPANDED URINE DRUG [facility] Order SCREEN URINE SP Mar 06, 2021 12:00 AM Laboratory - Chemistry PA OPIATE PANEL WIT H [facility] Order NALOXONE URINE SP Mar 06, 2021 12:00 AM Laboratory - Chemistry URINALYSIS (IRIS) L [facility] Order URINE SP Lab Results: +/- 30 days of the encounter This section includes the Chemistry and Hematology Lab Results on record with PA for the patient. Radiology Reports and Pathology Reports are provided separately, in subsequent sections.Lab Results This section contains the Chemistry/Hematology Results that were resulted 30 days before or 30 daysafter the date of the Encounter. Date/Time Source Result Type Result - Unit Interpretation Reference Range Comment Mar 05, 2021 11:27 AM [facility] BNP, NT-PRO Specim en Type: SERUM Comment: High d oses of Biotin supplements (>5 mg/day) may falsely decrease Total PSA, Free PSA, Pro-BNP, AFP, C-Peptide and Ferritin results. Test specimens should be collected at least 8 hours afte r the last inges tion of high dose biotin. CAUTION REGARDING BNP, NT-PRO: This is an N-Terminal ProBNP assay. While txy-G-Fiecaiio BNP assays have roughly the same predictive power for accessing heart fa ilure, reference ranges are different and results obtained between the two assays cannot be used interchangeably. Ordering Provid er: LG DE JEUSS Report Released Date/Time: Jan 10, 2021 10:40 PM Reporting Lab: SUNITA [address] [place] [address] Performing Lab: SUNITA GUNTER[address] [place] [address] BNP, NT-PRO 1926 pg/mL H 0-124 Mar 05, 2021 11:27 [facility] CBC & MORPHOLOGY (WITH Sp ecimen Type: BLOOD AM DIFF) No comment enter ed. Ordering Provid er: LG DE JESUS Report Released Date/Time: Jan 10, 2021 10:40 PM Reporting Lab: SUNITA GUNTER[address] [place] [address] Performing Lab: SUNITA Guillaume [address] [place] [address] WBC (TOTAL WBC COUNT) 6.4 3.0-10.6 RBC 4.45 3.86-5.70 HEMOGLOBIN 13.6 g/dL 11.8-17.1 HCT 43.1 36-51 MCV 96.9 fL 81-102 MCH 30.6 pg 27-31 MCHC 31.6 g/dL L 32-36 PLT 157 150-400 RDW 13.9 11.2-16.2 NEUT % 74.8 H 44-74 LYMP % 17.1 15-42 MONO % 6.5 4-13 EOS % 0.3 0-7 BASO % 0.8 0-2 NEUTROPHILS, ABSOLUTE 4.8 1.2-7.0 LYMPHOCYTES, ABSOLUTE 1.1 0.6-3.4 MONOCYTES, ABSOLUTE 0.4 0.2-1.0 EOSINOPHILS, ABSOLUTE 0.0 0.0-0.5 BASOPHILS, ABSOLUTE 0.1 0.0-0.2 IMMATURE GRANULOCYTE % 0.5 0-0.9 IMMATURE GRANULOCYTES, ABSOLUTE 0.03 0-0.07 Mar 05, 2021 11:27 [facility] THYROID STIMULATING Speci men Type: SERUM AM HORMONE No comment enter ed. Ordering Provid er: LG DE JESUS Report Released Date/Time: Jan 10, 2021 10:40 PM Reporting Lab: SUNITA Guillaume [address] [place] [address] Performing Lab: SUNITA [place] [address] [place] [address] THYROID STIMULATING HORMONE 10.7 H 0. 300-4.25 Mar 05, 2021 [facility] COMPREHENSIVE METABOLIC Spec imen Type: SERUM 11:27 AM PANEL No comment enter ed. Ordering Provid er: LG DE JESUS Report Released Date/Time: Jan 10, 2021 10:40 PM Reporting Lab: [facility] [place] [address] [place] [address] Performing Lab: [facility] [place] [address] [place] [address] GLUCOSE 137 mg/dL H 71-109 BUN/UREA (BLOOD UREA NITROGEN) 29 mg/dL H 7-23 CREATININE, SERUM 1.2 mg/dL .7-1.2 SODIUM 145 mmol/L H 131-142 POTASSIUM 4.6 mmol/L 3.6-5.4 CHLORIDE 107 mmol/L 95-108 CARBON DIOXIDE 28 mmol/L 21-32 CALCIUM 9.7 mg/dL 8.4-10.5 TOTAL PROTEIN 7.0 g/dL 5.8-7.9 ALBUMIN 4.1 g/dL 3.8-5.2 GLOBULIN 2.9 g/dL 1.5-3.2 AST/SGOT 22 U/L 14-44 ALT/SGPT 14 U/L 9-57 ALKALINE PHOSPHATASE 82 U/L 45-129 TOTAL BILIRUBIN 0.8 mg/dL 0.2-1.3 GFR ESTIMATION 59.2 mL/min/{1.73_m2} L >60 ANION GAP 15 mmol/L 7-21 GFR ESTIMATION (CKD-EPI) 59 mL/min/{1.73_m2} L >90 Social History: Smoking Status (Most current) and Tobacco Use (All prior to encounter date) This section includes the most current, and the historical, smoking and tobacco-related health factors from the PA facility where the Encounter took place.Current Smoking Status This section includes the most current smoking, or tobacco-related health factor, from the PA facility where the Encounter took place. Date/Time Current Smoking Status Comment Facility Sep 04, 2017 06:40 PM TOBACCO SCREEN COMPLETED J DREW [facility] 7 hrs Tobacco Use History This section includes a history of the smoking, or tobacco- related health factors, that were collected on or before the date of the Encounter. The data comes from the PA facility where the Encounter took place. Date/Time Smoking Status/Tobacco Use Comment Paola veronica Sep 04, 2017 06:40 PM TOBACCO SCREEN COMPLETED Kapil DREW KatherineKadi [facility] 7 hrs May 15, 2007 09:55 AM QUIT TOBACCO >7 YEARS AGO SUNITA Guillaume [facility] Feb 12, 1999 10:18 AM TOBACCO PRODUCTS USER (NO) [facility] Feb 14, 1998 01:00 AM TOBACCO PRODUCTS USER (NO) [facility] Dec 04, 1997 01:01 AM TOBACCO PRODUCTS USER (NO) SUNITA Guillaume [facility] Encounter Notes: All associated encounter notes This section contains the clinical notes associated to the Encounter. Date/Time Encounter Note(s) Provider Source Feb 24, 2021 03:05 PM PHARMACY LETTERS: RAFIQ ORTA LOCAL TITLE: ANTICOAGULATION LETTER [facility] STANDARD TITLE: PHARMACY LETTERS DATE OF NOTE: FEB 24, 2021@15:05 ENTRY DATE: FEB 24, 2021@15:05:55 AUTHOR: RAFIQ ORTA EXP COSIGNER: URGENCY: STATUS: COMPLETED [facility] [address] [place] [address] [place] [address] CHELSY CLEMONS [address], [place] [address] Dear CHELSY CLEMONS, You are prescribed the blood thinner APIXABAN (E liquis). Our records show you are more than four weeks lat e for a refill. This medication must be taken twice a day. Not taking this medication as pre scribed can leave you at a higher risk of stroke and/or life-threatening blood clots. [facility] call the [facility] if you have questions about your blood thinner. Our clinic phone hunter gonzalez is [phone]. If your provider has taken you off your blood thinner, please let us know. You can order refills by calling , select option 1 for pharmacy and then press 1 for refill/renew. You will need your prescription number. Please report any changes to your APIXABAN presc ription or any planned interruptions in therapy (e.g. surgery). Sincerely, [facility] Cli harriet [address] [place] [address] ; Call 911 for UNCONTROLLABLE bleeding, head injur y or fall. Call 911 for any signs of a stroke (weakness on one side of your body, facial droop, slurred speech). Report signs of bleeding to a [facility] Nurse at , press option 1 for primary care. /karen/ RAFIQ ORTA Clinical workforce development program director Anticoagulation Signed: 02/24/2021 15:06
--- OUTSIDE RECORDS SUMMARY | 2021-11-30 10:12 | External Medical Summary | Encounter Summary ---
:1945 Author Organization [facility] Address [address] [place] [address] Care Team Providers Name Role Phone LG [...] MEDICARE MEDICARE PART Dec 11, PART A [id number] DEONTE, PATIENT (WNR) (M) A 1995 56A [id number] [place] MEDICARE MEDICARE PART Dec 11, PART B [id number] DEONTE, PATIENT (WNR) (M) B 1996 56A 8431 [place] MEDICARE MEDICARE PART Dec 11, PART A [id number] [phone] LEMAST ER, PATIENT (WNR) (M) A 1995 56A 227 [place] MEDICARE MEDICARE PART Dec 11, PART B [id number] LEMAST ER, PATIENT (WNR) (M) B 1995 56A 227 [place] MEDICARE MEDICARE PART Dec 11, PART A [id number] [phone] LEMAST ER, PATIENT (WNR) (M) A 1996 227 [place] MEDICARE MEDICARE PART Dec 11, PART B [id number] [phone] LEMAST ER, PATIENT (WNR) (M) B 1996 227 [place] MEDICARE MEDICARE PART Apr 13, PART A [id number] DEONTE, PATIENT (WNR) (M) A 1982 56A 1213 [place] MEDICARE MEDICARE PART Apr 13, PART B [id number] DEONTE, PATIENT (WNR) (M) B [id number] 56A 1213 [place] -FO [place]ICA November 04, TFL [id number] [phone], PATIENT R-LIFE RE-FO 2014 56 404 [place] R-LIF E -FO [place] Dec 11, [id number] [phone] MERLY STER, PATIENT R-LIFE WNR RE-FO 2014 -FORLI 56 404 [place] R-LIF FE E -FO [place] Jun 13, TFL [id number] [phone], PATIENT R-LIFE WNR RE 2000 56 404 [place] FOR LIFE ZZWPS [place] Jun 09, STANDAR [id number] [phone] DEONTE , PATIENT TRIWEST RE 2001 D [id number] [place] Selected Encounter This section includes the information on record at NE for the Encounter. Date/Time Encounter Type Encounter Reason Provider Source Description Jan 31, 2021 Outpatient TELEPHONE/GERIATR ICD-10-CM Z74.1 Caden RAMSEY LBE 12:23 PM Encounter ICS Need for RTO assistance with personal care with Provider Comments: Need for Assistance with Personal Care IHE Encounter Template Text not used by [facility] Assessments - Encounter Diagnoses This section includes the primary and secondary diagnoses documented for the Encounter. Date/Time Primary/Secondary Diagnosis Name Provider Source Diagnosis Jan 31, 2021 PRIMARY Need for EMIR RAMSEY 12:23 PM assistance with RTO GABBI Beard [facility] [place] Plan of Treatment: Future Appointments (+ 6 [...] 20 appointments. The data comes from all NE treatment [facility]. Appointment Date/Time Appointment Type Appointment Facili ty Name Mar 05, 2021 11:30 AM AMBULATORY - MEDICINE [facility] Mar 05, 2021 12:00 PM AMBULATORY - MEDICINE [facility] Mar 12, 2021 01:00 PM AMBULATORY - MEDICINE [facility] Apr 02, 2021 11:00 AM AMBULATORY - MEDICINE SUNITA MARCUS [facility] Apr 22, 2021 11:30 AM AMBULATORY - MEDICINE [facility] May 05, 2021 09:30 AM AMBULATORY - PSYCHIATRY SUNITA SALAS [facility] May 22, 2021 09:00 AM AMBULATORY - MEDICINE SUNITA ULLOA [facility] Jun 29, 2021 08:00 AM AMBULATORY - NONE SUNITA [facility] Active, Pending, and Scheduled Orders This section includes a listing of several types of active, pending, and scheduled orders, including clinic medications orders, diagnostic test orders, procedure orders and consult orders; where the start date of the order is 45 days before the date of the Encounter or 45 days after the date of the Encounter. The data comes from all [facility]. Test Date/Time Test Type Test Details Facility Name Jan 07, 2021 03:46 PM Consult Order COMMUNITY CARE-DENTAL CARL Loza [facility] Auditor In Charge's Choice Mar 06, 2021 12:00 AM Laboratory - Chemistry EXPANDED URINE DRUG [facility] Order SCREEN URINE SP Mar 06, 2021 12:00 AM Laboratory - Chemistry [facility] OPIATE PANEL WIT H [facility] Order NALOXONE URINE SP Mar 06, 2021 12:00 AM Laboratory - Chemistry URINALYSIS (IRIS) L [facility] Order URINE SP Social History: Smoking Status (Most current) and Tobacco Use (All prior to encounter date) This section includes the most current, and the historical, smoking and tobacco-related health factors from the NE facility where the Encounter took place.Current Smoking Status This section includes the most current smoking, or tobacco-related health factor, from the NE facility where the Encounter took place. Date/Time Current Smoking Status Comment Facility Sep 04, 2017 06:40 PM TOBACCO SCREEN COMPLETED Kapil Guillaume [facility] 7 hrs Tobacco Use History This section includes a history of the smoking, or tobacco- related health factors, that were collected on or before the date of the Encounter. The data comes from the NE facility where the Encounter took place. Date/Time Smoking Status/Tobacco Use Comment Paola veronica Sep 04, 2017 06:40 PM TOBACCO SCREEN COMPLETED Kapil RUSSELL Markell SEO [facility] 7 hrs May 15, 2007 09:55 AM QUIT TOBACCO >7 YEARS AGO SUNITA SEO [facility] Feb 12, 1999 10:18 AM TOBACCO PRODUCTS USER (NO) SUNITA SEO [facility] Feb 14, 1998 01:00 AM TOBACCO PRODUCTS USER (NO) SUNITA SEO [facility] Dec 04, 1997 01:01 AM TOBACCO PRODUCTS USER (NO) SUNITA Guillaume [facility] Encounter Notes: All associated encounter notes This section contains the clinical notes associated to the Encounter. Date/Time Encounter Note(s) Provider Source Jan 31, 2021 12:23 PM HOME HEALTH NOTE: ROSELYN RAMSEY LOCAL TITLE: HOMEMAKER HOME HEALTH AIDE NOTE [facility] STANDARD TITLE: HOME HEALTH NOTE DATE OF NOTE: JAN 31, 2021@12:23 ENTRY DATE: JAN 31, 2021@12:23:54 AUTHOR: ROSELYN RAMSEY EXP COSIGNER: URGENCY: STATUS: COMPLETED O AND M SUPERVISOR Coordinator contacted the [place] at the [facility] [place] number listed on file. The [place]'s spouse, Micheline Curry, identified apple Bolandan by SSN & Date of . The spouse of the declined O AND M SUPERVISOR & Respite care Services at this time. The geriatric social worker informed the spouse of apple bolandan about the two community care consults. The spouse appreciated the outreach and clearly explaining the program but at this time she is a ssistance with all ADL'S and IADL for the [place]. The sp ouse said, "maybe in the future but for right now I am doing that for him." The geriatric social worker did in solange the 's spouse to consider O AND M SUPERVISOR and Respite in the future due to th e [place]'s health concerns. The spouse did express interest in skilled nursi ng and wound care. The geriatric social worker explained that contacting the PACT Team w ould be the best course of action for that. The geriatric social worker did also prov cody information on the Home Based Primary Care Program. The spouse expressed interest in the recieving healthcare services in the home due to limited mobility. Plan: Cancel Care in the Com mmunity Homemaker/Home Health Aide and Respite Care Consult. /karen/ Roselyn Ramsey LMSW-Clinical H/DAMASO [place] Hydraulic Press Operator Signed: 01/31/2021 12:29
--- OUTSIDE RECORDS SUMMARY | 2021-11-30 10:12 | External Medical Summary | Encounter Summary ---
:1945 Author Organization [facility] Address [address] [place] [address] [id number] Care Team Providers Name Role Phone LG [...] MEDICARE MEDICARE PART Dec 11, PART A [id number] DEONTE, PATIENT (WNR) (M) A [id number] [place] MEDICARE MEDICARE PART Dec 11, PART B [id number] DEONTE, PATIENT (WNR) (M) B [id number] [id number] [place] MEDICARE MEDICARE PART Dec 11, PART A [id number] LEMAST ER, PATIENT (WNR) (M) A 1995 [id number] 227 [place] MEDICARE MEDICARE PART Dec 11, PART B [id number] L[place] ER, PATIENT (WNR) (M) B [id number] 227 [place] MEDICARE MEDICARE PART Dec 11, PART A [id number] [phone] LEM[place] ER, PATIENT (WNR) (M) A [id number] [place] MEDICARE MEDICARE PART Dec 11, PART B [id number] [phone] LEMAST ER, PATIENT (WNR) (M) B [id number] [place] MEDICARE MEDICARE PART Apr 13, PART A [id number] DEONTE, PATIENT (WNR) (M) A [id number] [id number] [place] MEDICARE MEDICARE PART Apr 13, PART B [id number] DEONTE, PATIENT (WNR) (M) B [id number] [id number] [place] -FO [place] November 04, T[place] [id number] [phone], PATIENT R-LIFE RE-FO 2014 56 404 [place] R-LIF E -FO [place] Dec 11, [id number] [phone] MERLY STER, PATIENT R-LIFE WNR RE-FO 2014 -FORLI 56 404 [place] R-LIF FE E -FO [place] Jun 13, TFL [id number] [phone], PATIENT R-LIFE WNR RE 2000 56 404 [place] FOR LIFE ZZWPS [place]ICA Jun 09, STANDAR [id number] [phone] DEONTE , PATIENT TRIWEST RE 2001 D [id number] [place] Selected Encounter This section includes the information on record at OR for the Encounter. Date/Time Encounter Type Encounter Reason Provider Source Description Mar 05, 2021 OFFICE O/P EST PRIMARY ICD-10-CM Z71.9 ERWIN JACOBSEN 12:00 PM MINIMAL PROB CARE/MEDICINE Counseling, unspecified with Provider Comments: Counseling,Unspec IHE Encounter Template Text not used by OR Assessments - Encounter Diagnoses This section includes the primary and secondary diagnoses documented for the Encounter. Date/Time Primary/Secondary Diagnosis Name Provider Source Diagnosis Mar 05, 2021 PRIMARY CounselingANN-MARIE SHERRI S [facility] 11:31 AM unspecified CLINIC Plan of Treatment: Future Appointments (+ 6 months) and Future Tests (+/- 45 days) The Plan of Treatment section includes future care activities for the patient from all OR treatmentfacilities. This section includes future appointments and future orders which are active, pending orscheduled.Future Appointments This section includes appointments that were scheduled to occur 6 months from the date of the Encounter, up to a maximum of 20 appointments. The data comes from all OR treatment facilities. Appointment Date/Time Appointment Type Appointment Facili ty Name Mar 12, 2021 01:00 PM AMBULATORY - MEDICINE [facility] Apr 02, 2021 11:00 AM AMBULATORY - MEDICINE [facility]ITA ULLOA [facility] Apr 22, 2021 11:30 AM AMBULATORY - MEDICINE [facility] May 05, 2021 09:30 AM AMBULATORY - PSYCHIATRY SUNITA Guillaume JARED SALAS [facility] May 22, 2021 09:00 AM AMBULATORY - MEDICINE SUNITAORLIN ULLOA [facility] Jun 29, 2021 08:00 AM AMBULATORY - NONE [facility] Active, Pending, and Scheduled Orders This section includes a listing of several types of active, pending, and scheduled orders, including clinic medications orders, diagnostic test orders, procedure orders and consult orders; where the start date of the order is 45 days before the date of the Encounter or 45 days after the date of the Encounter. The data comes from all [facility]. Test Date/Time Test Type Test Details Facility Name Mar 06, 2021 12:00 AM Laboratory - Chemistry EXPANDED URINE DRUG [facility] Order SCREEN URINE SP Mar 06, 2021 12:00 AM Laboratory - Chemistry OR OPIATE PANEL WIT H [facility] Order NALOXONE URINE SP Mar 06, 2021 12:00 AM Laboratory - Chemistry URINALYSIS (IRIS) [facility] Order URINE SP Lab Results: +/- 30 [...] Range Comment Mar 05, 2021 11:27 AM [facility] BNP, NT-PRO Specim en Type: SERUM Comment: High d oses of Biotin supplements (>5 mg/day) may falsely decrease Total PSA, Free PSA, Pro-BNP, AFP, C-Peptide and Ferritin results. Test specimens should be collected at least 8 hours afte r the last inges tion of high dose biotin. CAUTION REGARDING BNP, NT-PRO: This is an N-Terminal ProBNP assay. While tcn-E-Lcmyoeft BNP assays have roughly the same predictive power for accessing heart fa ilure, reference ranges are different and results obtained between the two assays cannot be used interchangeably. Ordering Provid er: LG DEJ ESUS Report Released Date/Time: Jan 10, 2021 10:40 PM Reporting Lab: SUNITA Guillaume [address] [place] [address] Performing Lab: SUNITA Guillaume [address] [place] [address] BNP, NT-PRO 1926 pg/mL H 0-124 Mar 05, 2021 11:27 [facility] CBC & MORPHOLOGY (WITH Sp ecimen Type: BLOOD AM DIFF) No comment enter ed. Ordering Provid er: LG DE JESUS Report Released Date/Time: Jan 10, 2021 10:40 PM Reporting Lab: SUNITA Guillaume [address] [place] [address] Performing Lab: SUNITA Guillaume [address] [place] [address] WBC (TOTAL WBC COUNT) 6.4 3.0-10.6 RBC [...] ABSOLUTE 0.03 0-0.07 Mar 05, 2021 11:27 [facility] THYROID STIMULATING Speci men Type: SERUM AM HORMONE No comment enter ed. Ordering Provid er: LG DE JESUS Report Released Date/Time: Jan 10, 2021 10:40 PM Reporting Lab: SUNITA SEO [address] [address] [place] [address] Performing Lab: SUNITA COLEMAN[address] [place] [address] THYROID STIMULATING HORMONE 10.7 H 0. 300-4.25 Mar 05, 2021 [facility] COMPREHENSIVE METABOLIC Spec imen Type: SERUM 11:27 AM PANEL No comment enter ed. Ordering Provid er: LG DE JESUS Report Released Date/Time: Jan 10, 2021 10:40 PM Reporting Lab: SUNITA SEO [address] [place] [address] [place] [address] Performing Lab: SUNITA MCCALL[address] [place] [address] GLUCOSE 137 mg/dL H 71-109 BUN/UREA (BLOOD [...] smoking and tobacco-related health factors from the OR facility where the Encounter took place.Current Smoking Status This section includes the most current smoking, or tobacco-related health factor, from the OR facility where the Encounter took place. Date/Time Current Smoking Status Comment Facility October 29, 2020 01:30 PM VA-TOBACCO FORMER USER [facility] Tobacco Use History This section includes a history of the smoking, or tobacco- related health factors, that were collected on or before the date of the Encounter. The data comes from the OR facility where the Encounter took place. Date/Time Smoking Status/Tobacco Use Comment [facility] it October 29, 2020 01:30 PM VA-TOBACCO QUIT 15 YRS OR MORE [facility] Sep 29, 2018 01:32 PM VA-TOBACCO FORMER USER [facility] Sep 29, 2018 01:32 PM VA-TOBACCO QUIT 15 YRS OR MORE [facility] Sep 02, 2017 02:13 PM QUIT TOBACCO >7 YEARS AGO [facility] Sep 02, 2017 02:13 PM TOBACCO SCREEN COMPLETED Stephanie [facility] Encounter Notes: All associated encounter notes This section contains the clinical notes associated to the Encounter. Date/Time Encounter Note(s) Provider Source Mar 05, 2021 11:30 AM CARE MANAGEMENT NOTE: ERWIN JACOBSEN [facility] LOCAL TITLE: CARE MANAGEMENT NOTE STANDARD TITLE: CARE MANAGEMENT NOTE DATE OF NOTE: MAR 05, 2021@11:30 ENTRY DATE: MAR 05, 2021@11:30:13 AUTHOR: ERWIN JACOBSEN EXP COSIGNER: URGENCY: STATUS: COMPLETED spoke with vet, advised he will actually need to have a podiatry consult to evaluate for his boots. vet agrees. consult placed and held for sig. /karen/ ERWIN JACOBSEN RN Signed: 03/05/2021 11:31
--- OUTSIDE RECORDS SUMMARY | 2021-11-30 10:12 | External Medical Summary | Encounter Summary ---
:1945 Author Organization [facility] Address [address] [place] [address] [id number] Care Team Providers Name Role Phone LG [...] MEDICARE MEDICARE PART Dec 11, PART A [id number] DEONTE, PATIENT (WNR) (M) A 1995 [id number] [id number] [place] MEDICARE MEDICARE PART Dec 11, PART A [id number] L[place] ER, PATIENT (WNR) (M) A 1995 [id number] 227 [place] MEDICARE MEDICARE PART Dec 11, PART B [id number] L[place] ER, PATIENT (WNR) (M) B 1995 56A 227 [place] MEDICARE MEDICARE PART Dec 11, PART A [id number] [place] ER, PATIENT (WNR) (M) A [id number] [place] MEDICARE MEDICARE PART Dec 11, PART B [id number] DEONTE, PATIENT (WNR) (M) B 1995 56A [id number] [place] MEDICARE MEDICARE PART Dec 11, PART B [id number] [phone] LEM[place] ER, PATIENT (WNR) (M) B [id number] [place] MEDICARE MEDICARE PART Apr 13, PART A [id number] DEONTE, PATIENT (WNR) (M) A 1982 56A 1213 [place] MEDICARE MEDICARE PART Apr 13, PART B [id number] DEONTE, PATIENT (WNR) (M) B [id number] 56A 1213 [place] -FO [place] November 04, T[place] [id number] [phone], PATIENT R-LIFE RE-FO 2014 56 404 [place] R-LIF E -FO [place] Dec 11, [id number] [phone] MERLY STER, PATIENT R-LIFE WNR RE-FO 2014 -FORLI 56 404 [place] R-LIF FE E -FO [place] Jun 13, TFL [id number] [phone], PATIENT R-LIFE WNR RE 2000 56 404 [place] FOR LIFE ZZWPS [place] Jun 09, STANDAR [id number] [phone] DEONTE , PATIENT TRIWEST RE 2001 D 56 378 [place] Selected Encounter This section includes the information on record at [place] for the Encounter. Date/Time Encounter Type Encounter Description Reason Provider Source Feb 27, 2021 11:40 Outpatient Encounter [facility] CONSULT IHE Encounter Template Text not used by [place] Plan of Treatment: Future Appointments (+ 6 months) and Future Tests (+/- 45 days) The Plan of Treatment section includes future care activities for the patient from all [place] treatmentfacilities. This section includes future appointments and future orders which are active, pending orscheduled.Future Appointments This section includes appointments that were scheduled to occur 6 months from the date of the Encounter, up to a maximum of 20 appointments. The data comes from all [place] treatment facilities. Appointment Date/Time Appointment Type Appointment Facili ty Name Mar 05, 2021 11:30 AM AMBULATORY - MEDICINE [facility] Mar 05, 2021 12:00 PM AMBULATORY - MEDICINE [facility] Mar 12, 2021 01:00 PM AMBULATORY - MEDICINE [facility] Apr 02, 2021 11:00 AM AMBULATORY - MEDICINE SUNITA ULLOA [facility] Apr 22, 2021 11:30 AM AMBULATORY - MEDICINE [facility] May 05, 2021 09:30 AM AMBULATORY - PSYCHIATRY SUNITA SALAS [facility] May 22, 2021 09:00 AM AMBULATORY - MEDICINE SUNITA ULLOA [facility] Jun 29, 2021 08:00 AM AMBULATORY - NONE SUNITA MCCALL [facility] Active, Pending, and Scheduled Orders This section includes a listing of several types of active, pending, and scheduled orders, including clinic medications orders, diagnostic test orders, procedure orders and consult orders; where the start date of the order is 45 days before the date of the Encounter or 45 days after the date of the Encounter. The data comes from all [place] treatment facilities. Test Date/Time Test Type Test Details Facility Name Mar 06, 2021 12:00 AM Laboratory - Chemistry EXPANDED URINE DRUG [facility] Order SCREEN URINE SP Mar 06, 2021 12:00 AM Laboratory - Chemistry [place] OPIATE PANEL WIT H [facility] Order NALOXONE URINE SP Mar 06, 2021 12:00 AM Laboratory - Chemistry URINALYSIS (IRIS) [facility] Order URINE SP Lab Results: +/- 30 days of the encounter This section includes the Chemistry and Hematology Lab Results on record with [place] for the patient. Radiology Reports and Pathology Reports are provided separately, in subsequent sections.Lab Results This section contains the Chemistry/Hematology Results that were resulted 30 days before or 30 daysafter the date of the Encounter. Date/Time Source Result Type Result - Unit Interpretation Reference Range Comment Mar 05, 2021 11:27 AM [facility] BNP, NT-PRO Specim en Type: SERUM Comment: High d oses of Biotin supplements (>5 mg/day) may falsely decrease Total PSA, Free PSA, Pro-BNP, AFP, C-Peptide and Ferritin results. Test specimens should be collected at least 8 hours afte r the last inges tion of high dose biotin. CAUTION REGARDING BNP, NT-PRO: This is an N-Terminal ProBNP assay. While esc-P-Zyyfmoao BNP assays have roughly the same predictive power for accessing heart fa ilure, reference ranges are different and results obtained between the two assays cannot be used interchangeably. Ordering Provid er: LG DE JESUS Report Released Date/Time: Jan 10, 2021 10:40 PM Reporting Lab: SUNITA M. [address] [place] [address] Performing Lab: SUNITA MCCALL[address] [place] [address] BNP, NT-PRO 1926 pg/mL H 0-124 Mar 05, 2021 11:27 [facility] CBC & MORPHOLOGY (WITH Sp ecimen Type: BLOOD AM DIFF) No comment enter ed. Ordering Provid er: LG DE JESUS Report Released Date/Time: Jan 10, 2021 10:40 PM Reporting Lab: SUNITA MCCALL[address] [place] [address] Performing Lab: SUNITA Guillaume [address] [place] [address] WBC (TOTAL WBC COUNT) 6.4 3.0-10.6 RBC [...] ABSOLUTE 0.03 0-0.07 Mar 05, 2021 11:27 [facility] THYROID STIMULATING Speci men Type: SERUM AM HORMONE No comment enter ed. Ordering Provid er: LG DE JESUS Report Released Date/Time: Jan 10, 2021 10:40 PM Reporting Lab: SUNITA Guillaume [address] [place] [address] Performing Lab: SUNITA SEO [address] [address] [place] [address] THYROID STIMULATING HORMONE 10.7 H 0. 300-4.25 Mar 05, 2021 [facility] COMPREHENSIVE METABOLIC Spec imen Type: SERUM 11:27 AM PANEL No comment enter ed. Ordering Provid er: LG DE JESUS Report Released Date/Time: Jan 10, 2021 10:40 PM Reporting Lab: [facility] SEO [address] [address] [place] [address] Performing Lab: SUNITA SEO [place] [address] [place] [address] GLUCOSE 137 mg/dL H 71-109 BUN/UREA (BLOOD [...] smoking and tobacco-related health factors from the [place] facility where the Encounter took place.Current Smoking Status This section includes the most current smoking, or tobacco-related health factor, from the [place] facility where the Encounter took place. Date/Time Current Smoking Status Comment Facility Sep 04, 2017 06:40 PM TOBACCO SCREEN COMPLETED J DREW [facility] 7 hrs Tobacco Use History This section includes a history of the smoking, or tobacco- related health factors, that were collected on or before the date of the Encounter. The data comes from the [place] facility where the Encounter took place. Date/Time Smoking Status/Tobacco Use Comment Paola veronica Sep 04, 2017 06:40 PM TOBACCO SCREEN COMPLETED Kapil ANTHONYDESIRAE MurphyKadi [facility] 7 hrs May 15, 2007 09:55 AM QUIT TOBACCO >7 YEARS AGO SUNITA COLEMANINWRIGHT [facility] Feb 12, 1999 10:18 AM TOBACCO PRODUCTS USER (NO) [facility] Feb 14, 1998 01:00 AM TOBACCO PRODUCTS USER (NO) SUNITA SEO [facility] Dec 04, 1997 01:01 AM TOBACCO PRODUCTS USER (NO) [facility] Encounter Notes: All associated encounter notes This section contains the clinical notes associated to the Encounter. Date/Time Encounter Note(s) Provider Source Feb 27, 2021 11:40 AM ADMINISTRATIVE NOTE: SWETA MACKAY LOCAL TITLE: TELEPHONE CONTACT CALL CENTER [facility] STANDARD TITLE: ADMINISTRATIVE NOTE DATE OF NOTE: FEB 27, 2021@11:40:40 ENTRY DATE: FEB 27, 2021@11:47:06 AUTHOR: SWETA MACKAY EXP COSIGNER: URGENCY: STATUS: COMPLETED TELEPHONE CONTACT CALL CENTER ADMIN Has ADD ENDA The following identifiers were used to verify th is patient: . SSN. The patient, CHELSY CLEMONS ([id number]) called the call center. Contact Type of call: 0 PACT MSG. Comments: request C/B to see if the reques t for boots was turned into [employer] so he can pick them up in [place], [place]. Author: SWETA MACKAY Evaluation/Management Code: HC PRO PHONE CALL 5- 10 MIN ([id number]). Starting at: 02/27/2021 @ 11:40:40 AM Ending at: 02/27/2021 @ 11:46:35 AM Length: 5 minutes. Caller Area: [address] Chief Complaint: Not applicable to call. Caller Response: V20 RETURN CALL Caller/[place] verbalize understanding; acknowle dges message. Patient's Email Address: [email or web address] Class Code: Other specified counseling. /karen/ SWETA MACKAY MSA [facility] CENTER Signed: 02/27/2021 11:47 Receipt Acknowledged By: 02/27/2021 15:33 /karen/ Madhavi SOTO MSA 02/27/2021 ADDENDUM STATUS: COMPLETED [place] scheduled for foot exam. /karen/ Madhavi SOTO MSA Signed: 02/27/2021 15:34
--- OUTSIDE RECORDS SUMMARY | 2021-11-30 10:13 | External Medical Summary | Encounter Summary ---
:1945 Author Organization [facility] Address [address] [place] [address] 309[address] Care Team Providers Name Role Phone LG [...] MEDICARE MEDICARE PART Dec 11, PART A [id number] DEONTE, PATIENT (WNR) (M) A [id number] [id number] [place] MEDICARE MEDICARE PART Dec 11, PART B [id number] DEONTE, PATIENT (WNR) (M) B [id number] 56A 8431 [place] MEDICARE MEDICARE PART Dec 11, PART A [id number] [phone] LEMAST ER, PATIENT (WNR) (M) A 1995 56A 227 [place] MEDICARE MEDICARE PART Dec 11, PART B [id number] LEMAST ER, PATIENT (WNR) (M) B 1996 56A 227 [place] MEDICARE MEDICARE PART Dec 11, PART A [id number] [phone] LEMAST ER, PATIENT (WNR) (M) A 1996 [id number] 227 [place] MEDICARE MEDICARE PART Dec 11, PART B [id number] [phone] LEMAST ER, PATIENT (WNR) (M) B 1996 [id number] 227 [place] MEDICARE MEDICARE PART Apr 13, PART A [id number] DEONTE, PATIENT (WNR) (M) A 1982 56A 1213 [place] MEDICARE MEDICARE PART Apr 13, PART B [id number] DEONTE, PATIENT (WNR) (M) B [id number] 56A [id number] [place] -FO TRICA November 04, TFL [id number] [phone], PATIENT R-LIFE RE-FO 2014 56 404 [place] R-LIF E -FO [place] Dec 11, [id number] [phone] MERLY STER, PATIENT R-LIFE WNR RE-FO 2014 -FORLI 56 404 [place] R-LIF FE E -FO TR[place] Jun 13, TFL [id number] [phone], PATIENT R-LIFE WNR RE 2000 56 404 [place] FOR LIFE ZZWPS [place] Jun 09, STANDAR [id number] [phone] DEONTE , PATIENT TRIWEST RE 2001 D [id number] 378 [place] Selected Encounter This section includes the information on record at [place] for the Encounter. Date/Time Encounter Type Encounter Reason Provider Source Description Jan 08, 2021 Outpatient TELEPHONE PRIMARY ICD-10-CM E03.9 TEN DE JESUS 11:00 AM Encounter CARE Hypothyroidism, E unspecified with Provider Comments: Hypothyroidism, unspecified IHE Encounter Template Text not used by [place] Assessments - Encounter Diagnoses This section includes the primary and secondary diagnoses documented for the Encounter. Date/Time Primary/Secondary Diagnosis Name Provider Source Diagnosis Jan 08, 2021 PRIMARY Hypothyroidism, LG DE JESUS A 11:00 AM unspecified CLINIC Jan 08, 2021 SECONDARY Osteoarthritis of LG DE JESUS [place] 11:00 AM hip, unspecified CLINIC Plan of Treatment: Future Appointments [...] 20 appointments. The data comes from all [facility]. Appointment Date/Time Appointment Type Appointment Facili ty Name Mar 05, 2021 11:30 AM AMBULATORY - MEDICINE [facility] Mar 05, 2021 12:00 PM AMBULATORY - MEDICINE [facility] Mar 12, 2021 01:00 PM AMBULATORY - MEDICINE [facility] Apr 02, 2021 11:00 AM AMBULATORY - MEDICINE SUNITA ULLOA [facility] Apr 22, 2021 11:30 AM AMBULATORY - MEDICINE [facility] May 05, 2021 09:30 AM AMBULATORY - PSYCHIATRY SUNITA SALAS [facility] May 22, 2021 09:00 AM AMBULATORY - MEDICINE SUNITA ULLOA [facility] Jun 29, 2021 08:00 AM AMBULATORY - NONE SUNITA MCCALL [facility] Active, Pending, and Scheduled Orders This section includes a listing of several types of active, pending, and scheduled orders, including clinic medications orders, diagnostic test orders, procedure orders and consult orders; where the start date of the order is 45 days before the date of the Encounter or 45 days after the date of the Encounter. The data comes from all [facility]. Test Date/Time Test Type Test Details Facility Name Jan 07, 2021 03:46 PM Consult Order COMMUNITY CARE-DENTAL CARL SEO [facility] Disability Advocate's Choice Lab Results: +/- 30 days of the encounter This section includes the Chemistry and Hematology Lab Results on record with [place] for the patient. Radiology Reports and Pathology Reports are provided separately, in subsequent sections.Lab Results This section contains the Chemistry/Hematology Results that were resulted 30 days before or 30 daysafter the date of the Encounter. Date/Time Source Result Type Result - Unit Interpretation Reference Range Comment Dec 30, 2020 10:38 [facility] THYROID STIMULATING Speci men Type: SERUM AM HORMONE No comment enter ed. Ordering Provid er: LG DE JESUS Report Released Date/Time: Dec 14, 2020 02:26 PM Reporting Lab: SUNITA SEO [place] [address] GABBI COLE[place] [id number] Performing Lab: [facility] [place] [address] G[place]LE[place] [id number] THYROID STIMULATING HORMONE 16.6 H 0. 300-4.25 Social History: Smoking Status (Most current) and Tobacco Use (All prior to encounter date) This section includes the most current, and the historical, smoking and tobacco-related health factors from the [facility] where the Encounter took place.Current Smoking Status This section includes the most current smoking, or tobacco-related health factor, from the [place] facility where the Encounter took place. Date/Time Current Smoking Status Comment Facility October 29, 2020 01:30 PM VA-TOBACCO FORMER USER [facility] Tobacco Use History This section includes a history of the smoking, or tobacco- related health factors, that were collected on or before the date of the Encounter. The data comes from the [facility] where the Encounter took place. Date/Time Smoking Status/Tobacco Use Comment [facility] October 29, 2020 01:30 PM VA-TOBACCO QUIT 15 YRS OR MORE [facility] Sep 29, 2018 01:32 PM VA-TOBACCO FORMER USER [facility] Sep 29, 2018 01:32 PM VA-TOBACCO QUIT 15 YRS OR MORE [facility] Sep 02, 2017 02:13 PM QUIT TOBACCO >7 YEARS AGO [facility] Sep 02, 2017 02:13 PM TOBACCO SCREEN COMPLETED [facility] Encounter Notes: All associated encounter notes This section contains the clinical notes associated to the Encounter. Date/Time Encounter Note(s) Provider Source Jan 06, 2021 10:00 TELEPHONE ENCOUNTER NOTE: LG DE JESUS [facility] PM LOCAL TITLE: TELEPHONE NOTE STANDARD TITLE: TELEPHONE ENCOUNTER NOTE DATE OF NOTE: JAN 06, 2021@22:00 ENTRY DATE: JAN 10, 2021@22:26:58 AUTHOR: LG DE JESUS EXP COSIGNER: URGENCY: STATUS: COMPLETED JAN 10, 2021 Patient identification is confirmed by full name , date of and social security number prior to interview and examinati on. tele visit CC/HPI SUBJECTIVE: Laurel is a 75 year old MALE who pr esents with TSH 16.6 states he was taking her 50 mcg pill re assessment but had run out of medications States has not heard about caregiver services th rough [facility]. Consult placed and awarded 6 to 8 hours/week but that had declined. States he did not understand services involved. 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 Cardiovascular: Denies: Chest pain, orthopnea, paroxysmal noctu rnal dyspnea, palpitations, syncope, dizziness, or edema. C/O: Heart disease dyspnea with exertion atrial fibrillation Respiratory: Denies: shortness of breath, cough, hemoptysis, sputum production, painful breathing or wheezing. Musculoskeletal: Denies: Stiffness, weakness, swollen/painful jhony ints, trauma, muscle aches or cramping. C/O: Severe right hip pain with severe degenera tion and necrosis hip joint transfers only from wheelchair Skin: Denies: Rash, bruising, itching, dryness, new o r changing moles, lesions or hair or nail changes. 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 09/12/2019 DERECK DE JESUS Pain in left knee M25.562 08/26/2019 TEN DE JESUS Degeneration of lumbar intervertebr 09/04/2017 LG WHITNEY Osteoarthritis of hip M16.9 12/07/2020 DERECK DE JESUS Ankle instability M25.373, Onset 01 10/29/2020 ROSANA HEREDIA Peripheral vascular disease I73.9 08/31/2015 [facility] LG LARSON Hyperlipidemia E78.5 08/05/2015 LG DE JESUS Coronary atherosclerosis I25.10 06/12/2020 LG DE JESUS 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 2) APIXABAN 5MG [...] BLOOD PRES URE AND FOR HEART 5) LEVOTHYROXINE NA (SYNTHROID) 150MCG TAB TAKE ONE ACTIVE TABLET BY MOUTH EVERY DAY FOR THYROID 6) LIDOCAINE 5% PATCH APPLY 1 PATCH TO SKIN EVER Y DAY ACTIVE (FOR 12 HOURS ON, FOLLOWED BY 12 HOURS OFF) FOR PAIN FOR KNEE PAIN 7) NEEDLE 18G 1.5IN USE 1 NEEDLE EVERY OTHER WEE K ACTIVE 8) NEEDLE 22G 1.5IN USE NEEDLE EVERY OTHER WEEK ACTIVE 9) POLYETHYLENE GLYCOL 3350 PDR (MIRALAX) DISSOL VE 17 ACTIVE (S) GRAMS (ONE MEASURE) IN LIQUID AND DRINK BY MOUT H AT BEDTIME Active Non-VA Medications Status 1) Non-VA LEVOTHYROXINE NA (SYNTHROID) 150MCG TA B 150MCG ACTIVE BY MOUTH EVERY DAY 2) Non-VA MORPHINE SO4 60MG TAB,SA,UD 60MG BY MO UT ACTIVE THREE TIMES A DAY 3) Non-VA MULTIVITAMIN/MINERALS THERAPEUT CAP/TA B 1 ACTIVE TABLET BY MOUTH EVERY DAY 4) Non-VA NO NON-VA MEDICATION MISCELLANEOUS DIG ESTIVE ACTIVE ENZYMES ONE CAPSULE EVERY DAY 5) Non-VA ZOLPIDEM TARTRATE 10MG TAB 10MG BY OPAL TH AT ACTIVE BEDTIME 14 Total Medications ALLERGIES: ATORVASTATIN ASSESSMENT: Medication Reconciliation done and Med list/teac kath document given to patient All recent labs and radiology reports were revie wed with the patient, copy of all labs provided and all questions answ ered. Patient demonstrated good understanding. Reviewed patient's life goals. Visit Diagnoses/Plan: Hypothyroid restart levothyroxine 150 mcg daily repeat lab in 2 months Right hip degeneration Caregiver services recement caregiver knee Follow-up visit in 2 months 20 min visit Laurel is now wanting to start homemaker home h ealth aide services and respite as soon as possible. Teaching given rela jayy to services and is in need please contact and set up. GEC was complete d. Let me know if additional orders are needed to restart care he had declined services previously in November 2020. /karen/ Lg PARKER Nurse Practitioner Signed: 01/10/2021 22:37 Receipt Acknowledged By: * AWAITING SIGNATURE * DEVIN ROMERO
--- OUTSIDE RECORDS SUMMARY | 2021-11-30 10:13 | External Medical Summary | Encounter Summary ---
:1945 Author Organization [facility] Address [address] [place] [address] 58778 Care Team Providers Name Role Phone LG [...] MEDICARE MEDICARE PART Dec 11, PART A [id number] DEONTE, PATIENT (WNR) (M) A 1995 56A 8431 [place] MEDICARE MEDICARE PART Dec 11, PART B [id number] DEONTE, PATIENT (WNR) (M) B 1996 56A 8431 [place] MEDICARE MEDICARE PART Dec 11, PART A [id number] [phone] LEMAST ER, PATIENT (WNR) (M) A 1995 56A 227 [place] MEDICARE MEDICARE PART Dec 11, PART B [id number] LEMAST ER, PATIENT (WNR) (M) B 1995 56A 227 [place] MEDICARE MEDICARE PART Dec 11, PART A [id number] LEMAST ER, PATIENT (WNR) (M) A 1996 227 [place] MEDICARE MEDICARE PART Dec 11, PART B [id number] [phone] LEMAST ER, PATIENT (WNR) (M) B 1996 227 [place] MEDICARE MEDICARE PART Apr 13, PART A [id number] DEONTE, PATIENT (WNR) (M) A 1982 56A 1213 [place] MEDICARE MEDICARE PART Apr 13, PART B [id number] DEONTE, PATIENT (WNR) (M) B 1983 56A 1213 [place] -FO TRICA November 04, TFL [id number] [phone], PATIENT R-LIFE RE-FO 2014 56 404 [place] R-LIF E -FO [place] Dec 11, [id number] [phone] MERLY STER, PATIENT R-LIFE WNR RE-FO 2014 -FORLI 56 404 [place] R-LIF FE E -FO [place] Jun 13, TFL [id number] [phone], PATIENT R-LIFE WNR RE 2000 56 404 [place] FOR LIFE ZZWPS [place] Jun 09, STANDAR [id number] [phone] DEONTE , PATIENT TRIWEST RE 2001 D [id number] 378 [place] Selected Encounter This section includes the information on record at [place] for the Encounter. Date/Time Encounter Type Encounter Reason Provider Source Description Jan 29, 2021 Outpatient SHERINE PROB CONSULT ICD-10-CM Z74.1 Caden RAMSEY 11:11 AM Encounter CLINIC Need for RTO assistance with personal care with Provider Comments: Need for Assistance with Personal Care IHE Encounter Template Text not used by [facility] Assessments - Encounter Diagnoses This section includes the primary and secondary diagnoses documented for the Encounter. Date/Time Primary/Secondary Diagnosis Name Provider Source Diagnosis Jan 29, 2021 PRIMARY Need for EMIR RAMSEY 11:11 AM assistance with RTO ALAKANUK Kisha [facility] personal care Plan of Treatment: Future Appointments [...] The data comes from all [place] treatment [facility]. Appointment Date/Time Appointment Type Appointment Facili ty Name Mar 05, 2021 11:30 AM AMBULATORY - MEDICINE [facility] Mar 05, 2021 12:00 PM AMBULATORY - MEDICINE [facility] Mar 12, 2021 01:00 PM AMBULATORY - MEDICINE [facility] Apr 02, 2021 11:00 AM AMBULATORY - MEDICINE SUNITA MARCUS [facility] Apr 22, 2021 11:30 AM AMBULATORY - MEDICINE [facility] May 05, 2021 09:30 AM AMBULATORY - PSYCHIATRY SUNITA SALAS [facility] May 22, 2021 09:00 AM AMBULATORY - MEDICINE SUNITA ULLOA [facility] Jun 29, 2021 08:00 AM AMBULATORY - NONE SUNITA MCCALL [facility] Active, Pending, and Scheduled Orders This section includes a listing of several types of active, pending, and scheduled orders, including clinic medications orders, diagnostic test orders, procedure orders and consult orders; where the start date of the order is 45 days before the date of the Encounter or 45 days after the date of the Encounter. The data comes from all [facility]. Test Date/Time Test Type Test Details Facility Name Jan 07, 2021 03:46 PM Consult Order COMMUNITY CARE-DENTAL CARL Loza [facility] Inspector Rough Castings's Choice Mar 06, 2021 12:00 AM Laboratory - Chemistry EXPANDED URINE DRUG [facility] Order SCREEN URINE SP Mar 06, 2021 12:00 AM Laboratory - Chemistry VA OPIATE PANEL WIT H [facility] Order NALOXONE URINE SP Mar 06, 2021 12:00 AM Laboratory - Chemistry URINALYSIS (IRIS) L [facility] Order URINE SP Social History: Smoking Status [...] TOBACCO SCREEN COMPLETED Kapil Guillaume [facility] 7 hrs Tobacco Use History This section includes a history of the smoking, or tobacco- related health factors, that were collected on or before the date of the Encounter. The data comes from the [place] facility where the Encounter took place. Date/Time Smoking Status/Tobacco Use Comment Paola veronica Sep 04, 2017 06:40 PM TOBACCO SCREEN COMPLETED Kapil SEO [facility] 7 hrs May 15, 2007 09:55 AM QUIT TOBACCO >7 YEARS AGO SUNITA SEO [facility] Feb 12, 1999 10:18 AM TOBACCO PRODUCTS USER (NO) SUNITA SEO [facility] Feb 14, 1998 01:00 AM TOBACCO PRODUCTS USER (NO) SUNITA SEO [facility] Dec 04, 1997 01:01 AM TOBACCO PRODUCTS USER (NO) SUNITA SEO [facility] Encounter Notes: All associated encounter notes This section contains the clinical notes associated to the Encounter. Date/Time Encounter Note(s) Provider Source Jan 29, 2021 11:16 AM HOME HEALTH NOTE: ROSELYN RAMSEY LOCAL TITLE: HOMEMAKER HOME HEALTH AIDE NOTE [facility] STANDARD TITLE: HOME HEALTH NOTE DATE OF NOTE: JAN 29, 2021@11:16 ENTRY DATE: JAN 29, 2021@11:16:34 AUTHOR: ROSELYN RAMSEY EXP COSIGNER: URGENCY: STATUS: COMPLETED January 29, 2021 [address]TE [address] [place] [address] Dear Mr. Curry, Our records indicate that your primary c are provider newly referred you to the Homemaker Home Health Aide (H/BLANKER PRESS OPERATOR) and Respite C are Program. We attempted to contact you by telephone on 2020 to confirm your interest and discuss admissions into the H/BLANKER PRESS OPERATOR a nd Respite Care programs. Please contact us during office hours of Tuesday through Tuesday 8:00 a.m. to 4:30 p.m. at ext. [phone] o r ext. [phone] (closed on federal holidays) if you are still interested in H-BLANKER PRESS OPERATOR and Respite Care services. If we do not hear from you by 2020, you must re-apply by contacting your primary care provider for a n ew H-BLANKER PRESS OPERATOR and Respite Care referral. Sincerely, Roselyn Ramsey LMSW Community Health Coordinator Homemaker Home Health Aide - Respite Care Progr macie /karen/ Roselyn Ramsey LMSW-Clinical H/BLANKER PRESS OPERATOR Roaster Helper Signed: 01/29/2021 11:17
--- OUTSIDE RECORDS SUMMARY | 2021-11-30 10:13 | External Medical Summary | Encounter Summary ---
:1945 Author Organization [facility] Address [address] [place] [address] 21369 Care Team Providers Name Role Phone LG [...] MEDICARE MEDICARE PART Dec 11, PART A [id number] DEONTE, PATIENT (WNR) (M) A 1995 56A [id number] [place] MEDICARE MEDICARE PART Dec 11, PART B [id number] DEONTE, PATIENT (WNR) (M) B 1995 56A 8431 [place] MEDICARE MEDICARE PART Dec 11, PART A [id number] [phone] LEMAST ER, PATIENT (WNR) (M) A 1995 56A 227 [place] MEDICARE MEDICARE PART Dec 11, PART B [id number] LEMAST ER, PATIENT (WNR) (M) B 1995 56A 227 [place] MEDICARE MEDICARE PART Dec 11, PART A [id number] [phone] LEMAST ER, PATIENT (WNR) (M) A 1996 227 [place] MEDICARE MEDICARE PART Dec 11, PART B [id number] [phone] LEMAST ER, PATIENT (WNR) (M) B 1996 227 [place] MEDICARE MEDICARE PART Apr 13, PART A [id number] DEONTE, PATIENT (WNR) (M) A 1982 56A 1213 [place] MEDICARE MEDICARE PART Apr 13, PART B [id number] DEONTE, PATIENT (WNR) (M) B 1982 56A 1213 [place] -FO TRICA November 04, TFL [id number] [phone], PATIENT R-LIFE RE-FO 2014 56 404 [place] R-LIF E -FO [place] Dec 11, [id number] [phone] MERLY STER, PATIENT R-LIFE WNR RE-FO 2014 -FORLI 56 404 [place] R-LIF FE E -FO [place] Jun 13, TFL [id number] [phone], PATIENT R-LIFE WNR RE 2000 56 404 [place] FOR LIFE ZZWPS [place] Jun 09, STANDAR [id number] [phone] DEONTE , PATIENT TRIWEST RE 2001 D [id number] 378 [place] Selected Encounter This section includes the information on record at [place] for the Encounter. Date/Time Encounter Type Encounter Reason Provider Source Description Jan 29, 2021 Outpatient TELEPHONE/GERIATR ICD-10-CM Z74.1 Caden RAMSEY LBE 11:11 AM Encounter ICS Need for RTO assistance with personal care with Provider Comments: Need for Assistance with Personal Care IHE Encounter Template Text not used by [facility] Assessments - Encounter Diagnoses This section includes the primary and secondary diagnoses documented for the Encounter. Date/Time Primary/Secondary Diagnosis Name Provider Source Diagnosis Jan 29, 2021 PRIMARY Need for EMIR RAMSEY 11:11 AM assistance with RTO GABBI Beard [facility] personal care Plan of Treatment: Future Appointments [...] 20 appointments. The data comes from all [place] treatment [facility]. Appointment Date/Time Appointment Type Appointment Facili ty Name Mar 05, 2021 11:30 AM AMBULATORY - MEDICINE [facility] Mar 05, 2021 12:00 PM AMBULATORY - MEDICINE [facility] Mar 12, 2021 01:00 PM AMBULATORY - MEDICINE [facility] Apr 02, 2021 11:00 AM AMBULATORY - MEDICINE SUNITA MARCUS [facility] Apr 22, 2021 11:30 AM AMBULATORY - MEDICINE [facility] May 05, 2021 09:30 AM AMBULATORY - PSYCHIATRY SUNITA SALAS [facility] May 22, 2021 09:00 AM AMBULATORY - MEDICINE SUNITA ULLOA [facility] Jun 29, 2021 08:00 AM AMBULATORY - NONE SUNITA MCCALL [facility] Active, Pending, and Scheduled Orders This section includes a listing of several types of active, pending, and scheduled orders, including clinic medications orders, diagnostic test orders, procedure orders and consult orders; where the start date of the order is 45 days before the date of the Encounter or 45 days after the date of the Encounter. The data comes from all [facility]. Test Date/Time Test Type Test Details Facility Name Jan 07, 2021 03:46 PM Consult Order COMMUNITY CARE-DENTAL CARL Loza [facility] Small Engine Trainer's Choice Mar 06, 2021 12:00 AM Laboratory - Chemistry EXPANDED URINE DRUG [facility] Order SCREEN URINE SP Mar 06, 2021 12:00 AM Laboratory - Chemistry VA OPIATE PANEL WIT H [facility] Order NALOXONE URINE SP Mar 06, 2021 12:00 AM Laboratory - Chemistry URINALYSIS (IRIS) L [facility] Order URINE SP Social History: Smoking Status (Most current) and Tobacco Use (All prior to encounter date) This section includes the most current, and the historical, smoking and tobacco-related health factors from the [place] facility where the Encounter took place.Current Smoking Status This section includes the most current smoking, or tobacco-related health factor, from the [place] facility where the Encounter took place. Date/Time Current Smoking Status Comment Facility Sep 04, 2017 06:40 PM TOBACCO SCREEN COMPLETED Kapil Guillaume [facility] 7 hrs Tobacco Use History This section includes a history of the smoking, or tobacco- related health factors, that were collected on or before the date of the Encounter. The data comes from the [place] facility where the Encounter took place. Date/Time Smoking Status/Tobacco Use Comment Paola rojasy Sep 04, 2017 06:40 PM TOBACCO SCREEN COMPLETED Kapil Guillaume [place] [facility] 7 hrs May 15, 2007 09:55 AM QUIT TOBACCO >7 YEARS AGO SUNITA SEO [facility] Feb 12, 1999 10:18 AM TOBACCO PRODUCTS USER (NO) SUNITA SEO [facility] Feb 14, 1998 01:00 AM TOBACCO PRODUCTS USER (NO) SUNITA SEO [facility] Dec 04, 1997 01:01 AM TOBACCO PRODUCTS USER (NO) SUNITA Guillaume [facility] Encounter Notes: All associated encounter notes This section contains the clinical notes associated to the Encounter. Date/Time Encounter Note(s) Provider Source Jan 29, 2021 11:11 AM HOME HEALTH NOTE: THANG RAMSEY [place] LOCAL TITLE: HOMEMAKER HOME HEALTH AIDE NOTE [facility] STANDARD TITLE: HOME HEALTH NOTE DATE OF NOTE: JAN 29, 2021@11:11 ENTRY DATE: JAN 29, 2021@11:11:39 AUTHOR: THANG RAMSEY EXP COSIGNER: URGENCY: STATUS: COMPLETED ANIMAL PATHOLOGY TEACHER [employer] Faculty Member contacted at phone number listed on file regarding ANIMAL PATHOLOGY TEACHER services. Real Estate Services Coordinator left HIPAA complaint message. Plan: Follow up with regarding ANIMAL PATHOLOGY TEACHER Servi allison and Case Mix Index Tool. /karen/ Thang Ramsey LMSW-Clinical H/ANIMAL PATHOLOGY TEACHER [employer] Faculty Member Signed: 01/29/2021 11:13
--- OUTSIDE RECORDS SUMMARY | 2021-11-30 10:14 | External Medical Summary | Encounter Summary ---
:1945 Author Organization [facility] Address [address] [place] [address] 35787 Care Team Providers Name Role Phone DE [...] MEDICARE MEDICARE PART Dec 11, PART A [id number] DEONTE, PATIENT (WNR) (M) A [id number] [place] MEDICARE MEDICARE PART Dec 11, PART B [id number] DEONTE, PATIENT (WNR) (M) B 1996 56A 8431 [place] MEDICARE MEDICARE PART Dec 11, PART A [id number] [phone] LEMAST ER, PATIENT (WNR) (M) A 1995 56A 227 [place] MEDICARE MEDICARE PART Dec 11, PART B [id number] LEMAST ER, PATIENT (WNR) (M) B 1996 56A 227 [place] MEDICARE MEDICARE PART Dec 11, PART A [id number] [phone] LEMAST ER, PATIENT (WNR) (M) A 1996 227 RICHARD MEDICARE MEDICARE PART Dec 11, PART B [id number] [phone] LEMAST ER, PATIENT (WNR) (M) B [id number] [place] MEDICARE MEDICARE PART Apr 13, PART A [id number] DEONTE, PATIENT (WNR) (M) A 1982 56A 1213 [place] MEDICARE MEDICARE PART Apr 13, PART B [id number] DEONTE, PATIENT (WNR) (M) B [id number] 56A [id number] [place] -FO TRICA November 04, TFL [id number], PATIENT R-LIFE RE-FO 2014 56 404 [place] R-LIF E -FO TRICA Dec 11, [id number] [phone] [address], PATIENT R-LIFE WNR RE-FO 2014 -FORLI 56 404 [place] R-LIF FE E -FO TRICA Jun 13, TFL [id number] [phone], PATIENT R-LIFE WNR RE 2000 56 404 [place] FOR LIFE ZZWPS TRICA Jun 09, STANDAR [id number] [phone] DEONTE , PATIENT TRIWEST RE 2001 D [id number] 378 [place] Selected Encounter This section includes the information on record at [place] for the Encounter. Date/Time Encounter Type Encounter Description Reason Provider Source Mar 10, 2021 11:24 Outpatient Encounter [facility] Encounter Template Text not used by [place] Plan of Treatment: Future Appointments (+ 6 months) and Future Tests (+/- 45 days) The Plan of Treatment section includes future care activities for the patient from all [place] treatmentfacilities. This section includes future appointments and future orders which are active, pending orscheduled.Future Appointments This section includes appointments that were scheduled to occur 6 months from the date of the Encounter, up to a maximum of 20 appointments. The data comes from all [place] treatment facilities. Appointment Date/Time Appointment Type Appointment Facili ty Name Mar 12, 2021 01:00 PM AMBULATORY - MEDICINE [facility] Apr 02, 2021 11:00 AM AMBULATORY - MEDICINE SUNITA ULLOA [facility] Apr 22, 2021 11:30 AM AMBULATORY - MEDICINE [facility] May 05, 2021 09:30 AM AMBULATORY - PSYCHIATRY SUNITA SALAS [facility] May 22, 2021 09:00 AM AMBULATORY - MEDICINE SUNITA KatherineKadi LULOA [facility] Jun 29, 2021 08:00 AM AMBULAT[facility] - NONE [facility] Active, Pending, and Scheduled Orders This section includes a listing of several types of active, pending, and scheduled orders, including clinic medications orders, diagnostic test orders, procedure orders and consult orders; where the start date of the order is 45 days before the date of the Encounter or 45 days after the date of the Encounter. The data comes from all [place] treatment facilities. Test Date/Time Test Type Test Details Facility Name Mar 06, 2021 12:00 AM Laboratory - Chemistry EXPANDED URINE DRUG [facility] Order SCREEN URINE SP Mar 06, 2021 12:00 AM Laboratory - Chemistry [place] OPIATE PANEL WIT H [facility] Order NALOXONE URINE SP Mar 06, 2021 12:00 AM Laboratory - Chemistry URINALYSIS (IRIS) L [facility] Order URINE SP Lab Results: +/- 30 days of the encounter This section includes the Chemistry and Hematology Lab Results on record with [place] for the patient. Radiology Reports and Pathology Reports are provided separately, in subsequent sections.Lab Results This section contains the Chemistry/Hematology Results that were resulted 30 days before or 30 daysafter the date of the Encounter. Date/Time Source Result Type Result - Unit Interpretation Reference Range Comment Mar 05, 2021 11:27 AM [facility] BNP, NT-PRO Specim en Type: SERUM Comment: High d oses of Biotin supplements (>5 mg/day) may falsely decrease Total PSA, Free PSA, Pro-BNP, AFP, C-Peptide and Ferritin results. Test specimens should be collected at least 8 hours afte r the last inges tion of high dose biotin. CAUTION REGARDING BNP, NT-PRO: This is an N-Terminal ProBNP assay. While qvt-L-Jpgilypx BNP assays have roughly the same predictive power for accessing heart fa ilure, reference ranges are different and results obtained between the two assays cannot be used interchangeably. Ordering Provid er: LG DE JESUS Report Released Date/Time: Jan 10, 2021 10:40 PM Reporting Lab: SUNITA SEO [facility] [address] [place] [address] Performing Lab: SUNITA M. [address] [place] [address] BNP, NT-PRO 1926 pg/mL H 0-124 Mar 05, 2021 11:27 [facility] CBC & MORPHOLOGY (WITH Sp ecimen Type: BLOOD AM DIFF) No comment enter ed. Ordering Provid er: LG DE JESUS Report Released Date/Time: Jan 10, 2021 10:40 PM Reporting Lab: SUNITA CO[address]INWR[address] [address] Performing Lab: SUNITA MCCALL[address] [address] WBC (TOTAL WBC COUNT) 6.4 3.0-10.6 RBC [...] ABSOLUTE 0.03 0-0.07 Mar 05, 2021 11:27 [facility] THYROID STIMULATING Speci men Type: SERUM AM HORMONE No comment enter ed. Ordering Provid er: LG DE JESUS Report Released Date/Time: Jan 10, 2021 10:40 PM Reporting Lab: SUNITA Guillaume [address] [place] [address] Performing Lab: SUNITA Guillaume [address] [place] [address] THYROID STIMULATING HORMONE 10.7 H 0. 300-4.25 Mar 05, 2021 [facility] COMPREHENSIVE METABOLIC Spec imen Type: SERUM 11:27 AM PANEL No comment enter ed. Ordering Provid er: LG DE JESUS Report Released Date/Time: Jan 10, 2021 10:40 PM Reporting Lab: SUNITA COLEMANINWR[address] [place] [address] Performing Lab: SUNITA [address]ARCUS[address] [place] [address] GLUCOSE 137 mg/dL H 71-109 BUN/UREA (BLOOD [...] smoking and tobacco-related health factors from the [place] facility where the Encounter took place.Current Smoking Status This section includes the most current smoking, or tobacco-related health factor, from the [place] facility where the Encounter took place. Date/Time Current Smoking Status Comment Facility Sep 04, 2017 06:40 PM TOBACCO SCREEN COMPLETED J DREW Guillaume [facility] 7 hrs Tobacco Use History This section includes a history of the smoking, or tobacco- related health factors, that were collected on or before the date of the Encounter. The data comes from the [place] facility where the Encounter took place. Date/Time Smoking Status/Tobacco Use Comment Paola veronica Sep 04, 2017 06:40 PM TOBACCO SCREEN COMPLETED Kapil MurphyKadi [facility] 7 hrs May 15, 2007 09:55 AM QUIT TOBACCO >7 YEARS AGO [facility] Guillaume [facility] Feb 12, 1999 10:18 AM TOBACCO PRODUCTS USER (NO) [facility] Guillaume [facility] Feb 14, 1998 01:00 AM TOBACCO PRODUCTS USER (NO) SUNITA KatherineKadi [facility] Dec 04, 1997 01:01 AM TOBACCO PRODUCTS USER (NO) USNITA Guillaume [facility] Encounter Notes: All associated encounter notes This section contains the clinical notes associated to the Encounter. Date/Time Encounter Note(s) Provider Source Mar 10, 2021 11:24 ADMINISTRATIVE NOTE: VIOLETTE RODRÍGUEZ AM LOCAL TITLE: TELEPHONE CONTACT CALL CENTER [facility] STANDARD TITLE: ADMINISTRATIVE NOTE DATE OF NOTE: MAR 10, 2021@11:24:06 ENTRY DATE: MAR 10, 2021@11:25:18 AUTHOR: VIOLETTE RODRÍGUEZ EXP COSIGNER: URGENCY: STATUS: COMPLETED TELEPHONE CONTACT CALL CENTER ADMIN Has ADD ENDA The following identifiers were used to verify th is patient: . SSN. The patient, CHELSY CLEMONS ([phone]) called the call center. Contact Type of call: V20 PACT MSG. Comments: is requesting a c/b to discuss getting a new electric wheelchair. Thank You. Author: NICOLE RODRÍGUEZ Evaluation/Management Code: HC PRO PHONE CALL 5- 10 MIN ([id number]). Starting at: 03/10/2021 @ 11:24:06 AM Ending at: 03/10/2021 @ 11:24:47 AM Length: 0 minutes. Caller Area: [address] Chief Complaint: Not applicable to call. Caller Response: V20 RETURN CALL Caller/ verbalize understanding; acknowle dges message. Patient's Email Address: [email or web address] Class Code: Other specified counseling. /karen/ NICOLE LORENZO 20 CALL CENTER Signed: 03/10/2021 11:25 Receipt Acknowledged By: 03/10/2021 15:26 /karen/ ERWIN JACOBSEN RN 03/10/2021 ADDENDUM STATUS: COMPLETED FWD TO [facility] TO PLEASE SCHEDULE A NCM TELE APPT TO DISCUSS NEED FOR NEW WHEEL CHAIR. /karen/ ERWIN JACOBSEN RN Signed: 03/10/2021 15:35 03/12/2021 ADDENDUM STATUS: COMPLETED ignore above. per schedule vet is schedu led to see pcp already. ncm not needed /zachery JACOBSEN RN Signed: 03/12/2021 15:14
--- OUTSIDE RECORDS SUMMARY | 2021-11-30 10:14 | External Medical Summary | Encounter Summary ---
:1945 Author Organization [facility] Address [address] [place] [address] 36738 Care Team Providers Name Role Phone DE [...] MEDICARE MEDICARE PART Dec 11, PART A [id number] DEONTE, PATIENT (WNR) (M) A 1995 [id number] [id number] [place] MEDICARE MEDICARE PART Dec 11, PART B [id number] DEONTE, PATIENT (WNR) (M) B 1996 56A 8431 [place] MEDICARE MEDICARE PART Dec 11, PART A [id number] [phone] LEMAST ER, PATIENT (WNR) (M) A 1995 56A 227 [place] MEDICARE MEDICARE PART Dec 11, PART B [id number] LEMAST ER, PATIENT (WNR) (M) B 1995 56A 227 [place] MEDICARE MEDICARE PART Dec 11, PART A [id number] [phone] LEMAST ER, PATIENT (WNR) (M) A 1996 227 RICHARD MEDICARE MEDICARE PART Dec 11, PART B [id number] [phone] LEMAST ER, PATIENT (WNR) (M) B [id number] [place] MEDICARE MEDICARE PART Apr 13, PART A [id number] DEONTE, PATIENT (WNR) (M) A 1982 56A 1213 [place] MEDICARE MEDICARE PART Apr 13, PART B [id number] DEONTE, PATIENT (WNR) (M) B [id number] 56A 1213 [place] -FO TRICA November 04, TFL [id number], PATIENT R-LIFE RE-FO 2014 56 [id number] [place] R-LIF E -FO [place] Dec 11, [id number] [address]ER, PATIENT R-LIFE WNR RE-FO 2014 -FORLI 56 404 [place] R-LIF FE E -FO [place] Jun 13, TFL [id number] [phone], PATIENT R-LIFE WNR RE 2000 56 404 [place] FOR LIFE ZZWPS [place] Jun 09, STANDAR [id number] [phone] DEONTE , PATIENT TRIWEST RE 2001 D 56 378 [place] Selected Encounter This section includes the information on record at [place] for the Encounter. Date/Time Encounter Type Encounter Description Reason Provider Source Mar 13, 2021 04:29 Outpatient Encounter PRIMARY CARE/MEDICINE PM [facility] Encounter Template Text not used by [place] Plan of Treatment: Future Appointments (+ 6 months) and Future Tests (+/- 45 days) The Plan of Treatment section includes future care activities for the patient from all [place] treatmentfacilities. This section includes future appointments and future orders which are active, pending orscheduled.Future Appointments This section includes appointments that were scheduled to occur 6 months from the date of the Encounter, up to a maximum of 20 appointments. The data comes from all [place] treatment facilities. Appointment Date/Time Appointment Type Appointment Facili ty Name Apr 02, 2021 11:00 AM AMBULATORY - MEDICINE SUNITA ULLOA [facility] Apr 22, 2021 11:30 AM AMBULATORY - MEDICINE [facility] May 05, 2021 09:30 AM AMBULATORY - PSYCHIATRY SUNITA SALAS [facility] May 22, 2021 09:00 AM AMBULATORY - MEDICINE SUNITA ULLOA [facility] Jun 29, 2021 08:00 AM AMBULATORY - NONE [facility] Active, Pending, and Scheduled Orders This section includes a listing of several types of active, pending, and scheduled orders, including clinic medications orders, diagnostic test orders, procedure orders and consult orders; where the start date of the order is 45 days before the date of the Encounter or 45 days after the date of the Encounter. The data comes from all [place] treatment facilities. Test Date/Time Test Type Test Details Facility Name Mar 06, 2021 12:00 AM Laboratory - Chemistry EXPANDED URINE DRUG [facility] Order SCREEN URINE SP Mar 06, 2021 12:00 AM Laboratory - Chemistry [place] OPIATE PANEL WIT H [facility] Order NALOXONE URINE SP Mar 06, 2021 12:00 AM Laboratory - Chemistry URINALYSIS (IRIS) L [facility] Order URINE SP Lab Results: +/- 30 days of the encounter This section includes the Chemistry and Hematology Lab Results on record with [place] for the patient. Radiology Reports and Pathology Reports are provided separately, in subsequent sections.Lab Results This section contains the Chemistry/Hematology Results that were resulted 30 days before or 30 daysafter the date of the Encounter. Date/Time Source Result Type Result - Unit Interpretation Reference Range Comment Mar 05, 2021 11:27 AM [facility] BNP, NT-PRO Specim en Type: SERUM Comment: High d oses of Biotin supplements (>5 mg/day) may falsely decrease Total PSA, Free PSA, Pro-BNP, AFP, C-Peptide and Ferritin results. Test specimens should be collected at least 8 hours afte r the last inges tion of high dose biotin. CAUTION REGARDING BNP, NT-PRO: This is an N-Terminal ProBNP assay. While igk-G-Tlsshqov BNP assays have roughly the same predictive power for accessing heart fa ilure, reference ranges are different and results obtained between the two assays cannot be used interchangeably. Ordering Provid er: LG DE JESUS Report Released Date/Time: Jan 10, 2021 10:40 PM Reporting Lab: SUNITA SEO [address] [place] [address] Performing Lab: SUNITA SEO [address] [place] [address] BNP, NT-PRO 1926 pg/mL H 0-124 Mar 05, 2021 11:27 [facility] CBC & MORPHOLOGY (WITH Sp ecimen Type: BLOOD AM DIFF) No comment enter ed. Ordering Provid er: LG DE JESUS Report Released Date/Time: Jan 10, 2021 10:40 PM Reporting Lab: SUNITA SEO [place] [address] [place] [address] Performing Lab: SUNITA MCCALL[address] [place] [address] WBC (TOTAL WBC COUNT) 6.4 3.0-10.6 RBC [...] ABSOLUTE 0.03 0-0.07 Mar 05, 2021 11:27 [facility] THYROID STIMULATING Speci men Type: SERUM AM HORMONE No comment enter ed. Ordering Provid er: LG DE JESUS Report Released Date/Time: Jan 10, 2021 10:40 PM Reporting Lab: SUNITA MCCALL[address] [place] [address] Performing Lab: SUNITA [place] [address] [place] [address] THYROID STIMULATING HORMONE 10.7 H 0. 300-4.25 Mar 05, 2021 [facility] COMPREHENSIVE METABOLIC Spec imen Type: SERUM 11:27 AM PANEL No comment enter ed. Ordering Provid er: LG DE JESUS Report Released Date/Time: Jan 10, 2021 10:40 PM Reporting Lab: SUNITA COLEMAN[address] [place] [address] Performing Lab: SUNITA Guillaume [place] [address] GLUCOSE 137 mg/dL H 71-109 BUN/UREA (BLOOD [...] smoking and tobacco-related health factors from the [facility] where the Encounter took place.Current Smoking Status This section includes the most current smoking, or tobacco-related health factor, from the [place] facility where the Encounter took place. Date/Time Current Smoking Status Comment Facility Sep 04, 2017 06:40 PM TOBACCO SCREEN COMPLETED Kapil Guillaume [facility] 7 hrs Tobacco Use History This section includes a history of the smoking, or tobacco- related health factors, that were collected on or before the date of the Encounter. The data comes from the [place] facility where the Encounter took place. Date/Time [...] USER (NO) SUNITA Guillaume [facility] Dec 04, 1997 01:01 AM TOBACCO PRODUCTS USER (NO) SUNITA MKadi [facility] Encounter Notes: All associated encounter notes This section contains the clinical notes associated to the Encounter. Date/Time Encounter Note(s) Provider Source Mar 13, 2021 04:29 PM [facility] SHOW [facility] NO SHOW NOTE STANDARD TITLE: NO SHOW NOTE DATE OF NOTE: MAR 13, 2021@16:29 ENTRY DATE: MAR 13, 2021@16:29:53 AUTHOR: DANN ZHONG EXP COSIGNER: URGENCY: STATUS: COMPLETED NO SHOW NOTE Has ADDENDA Pt was a no-call, no-show for scheduled appt. Th is HT waited 20 minutes past appt time. Will forward to [facility] and provider for further evaluation. /zachery ZHONG HT/Scribe Signed: 03/13/2021 16:30 Receipt Acknowledged By: 03/16/2021 09:29 /karen/ LEO DIAZ [facility] 03/16/2021 ADDENDUM STATUS: COMPLETED Called [place] to reschedule No-Show, he states that he had a TELEPHONE appt with Lg. /zachery DIAZ [facility]SA Signed: 03/16/2021 09:32 Receipt Acknowledged By: * AWAITING SIGNATURE * ERWIN JACOBSEN 03/16/2021 10:08 /zachery BOLAÑOS/Scribe 03/16/2021 ADDENDUM STATUS: COMPLETED I conversed with provider as to the nature of the visit on 03/13/21, as pt just had a telephone visit 03/12/21. Pt was to come i nto clinic for face to face appointment as provider need ed to do a foot exam to be able to finish DM consult for shoes/boots. /es/ DANN BOLAÑOS/Makenzie Signed: 03/16/2021 10:11 03/16/2021 ADDENDUM STATUS: COMPLETED please contact and reschedule FTF week o f 04/06/2021 for complete foot exam to order boots with PVD. If week is full then sched ule week following. /es/ Lg PARKER Nurse Practitioner Signed: 03/16/2021 22:23 Receipt Acknowledged By: 03/17/2021 13:18 /karen/ STEVENSON [employer]AND [employer]ING MANAGER FLOAT for CONSTANTINE Murphy BRITTANY 03/17/2021 ADDENDUM STATUS: COMPLETED LEFT MESSAGE TO SCHEDULE FOR F/U APPT [facility] POLICE RECORDS CLERK /karen/ TSEVENSON RAND [employer]ER[employer] LEASING MANAGER FLOAT Signed: 03/17/2021 13:19
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
--- OUTSIDE RECORDS SUMMARY | 2021-11-30 10:19 | External Medical Summary | Encounter Summary ---
:1945 Author Organization [facility] Address [address] [place] [address] Care Team Providers Name Role Phone DE [...] MEDICARE MEDICARE PART Dec 11, PART A [id number] DEONTE, PATIENT (WNR) (M) A [id number] [place] MEDICARE MEDICARE PART Dec 11, PART B [id number] DEONTE, PATIENT (WNR) (M) B [id number] 8431 [place] MEDICARE MEDICARE PART Dec 11, PART A [id number] [phone] LEMAST ER, PATIENT (WNR) (M) A 1995 56A 227 [place] MEDICARE MEDICARE PART Dec 11, PART B [id number] LEM[place] ER, PATIENT (WNR) (M) B 1995 56A 227 [place] MEDICARE MEDICARE PART Dec 11, PART A [id number] [phone] LEM[place] ER, PATIENT (WNR) (M) A 1995 227 [place] MEDICARE MEDICARE PART Dec 11, PART B [id number] [phone] LEMAST ER, PATIENT (WNR) (M) B [id number] [place] MEDICARE MEDICARE PART Apr 13, PART A [id number] DEONTE, PATIENT (WNR) (M) A [id number] [id number] [place] MEDICARE MEDICARE PART Apr 13, PART B [id number] DEONTE, PATIENT (WNR) (M) B [id number] 1213 [place] -FO [place] November 04, T[place] [id number] [phone], PATIENT R-LIFE RE-FO 2014 56 404 [place] R-LIF E -FO [place] Dec 11, [id number] [phone] MERLY STER, PATIENT R-LIFE WNR RE-FO 2014 -FORLI 56 404 [place] R-LIF FE E -FO [place] Jun 13, TFL [id number] [phone], PATIENT R-LIFE WNR RE 2000 56 404 [place] FOR LIFE ZZWPS [place] Jun 09, STANDAR [id number] [phone] DEONTE , PATIENT TRIWEST RE 2001 D 56 378 [place] Selected Encounter This section includes the information on record at [place] for the Encounter. Date/Time Encounter Type Encounter Description Reason Provider Source Apr 01, 2021 01:45 Outpatient Encounter [facility]ITY [facility]ARE PM CONSULT IHE Encounter Template Text not used by [place] Plan of Treatment: Future Appointments (+ 6 months) and Future Tests (+/- 45 days) The Plan of Treatment section includes future care activities for the patient from all [place] treatmentfacilities. This section includes future appointments and future orders which are active, pending orscheduled.Future Appointments This section includes appointments that were scheduled to occur 6 months from the date of the Encounter, up to a maximum of 20 appointments. The data comes from all [place] treatment facilities. Appointment Date/Time Appointment Type Appointment Facili ty Name Apr 02, 2021 11:00 AM AMBULATORY - MEDICINE SUNITA ULLOA [facility] Apr 22, 2021 11:30 AM AMBULATORY - MEDICINE [facility] May 05, 2021 09:30 AM AMBULATORY - PSYCHIATRY SUNITA SALAS [facility] May 22, 2021 09:00 AM AMBULATORY - MEDICINE SUNITA KatherineKadi ULLOA [facility] Jun 29, 2021 08:00 AM AMBULATORY - NONE [facility] Sep 15, 2021 12:00 PM AMBULATORY - NONE SUNITA MCCALL [facility] Active, Pending, and Scheduled Orders This section includes a listing of several types of active, pending, and scheduled orders, including clinic medications orders, diagnostic test orders, procedure orders and consult orders; where the start date of the order is 45 days before the date of the Encounter or 45 days after the date of the Encounter. The data comes from all [place] treatment facilities. Test Date/Time Test Type Test Details Facility Name Mar 06, 2021 12:00 AM Laboratory - Chemistry EXPANDED URINE DRUG [facility] Order SCREEN URINE SP Mar 06, 2021 12:00 AM Laboratory - Chemistry [place] OPIATE PANEL WIT H [facility] Order NALOXONE URINE SP Mar 06, 2021 12:00 AM Laboratory - Chemistry [facility]IRIS[facility] Order URINE SP Lab Results: +/- 30 days of the encounter This section includes the Chemistry and Hematology Lab Results on record with [place] for the patient. Radiology Reports and Pathology Reports are provided separately, in subsequent sections.Lab Results This section contains the Chemistry/Hematology Results that were resulted 30 days before or 30 daysafter the date of the Encounter. Date/Time Source Result Type Result - Unit Interpretation Reference Range Comment Mar 05, 2021 11:27 AM [facility] BNP, NT-PRO Specim en Type: SERUM Comment: High d oses of Biotin supplements (>5 mg/day) may falsely decrease Total PSA, Free PSA, Pro-BNP, AFP, C-Peptide and Ferritin results. Test specimens should be collected at least 8 hours afte r the last inges tion of high dose biotin. CAUTION REGARDING BNP, NT-PRO: This is an N-Terminal ProBNP assay. While gcf-R-Iuuuqyxc BNP assays have roughly the same predictive power for accessing heart fa ilure, reference ranges are different and results obtained between the two assays cannot be used interchangeably. Ordering Provid er: LG DE JESUS Report Released Date/Time: Jan 10, 2021 10:40 PM Reporting Lab: SUNITA SEO [facility] [address] [place] [address] Performing Lab: SUNITA MCCALL[address] [place] [address] BNP, NT-PRO 1926 pg/mL H 0-124 Mar 05, 2021 11:27 [facility] CBC & MORPHOLOGY (WITH Sp ecimen Type: BLOOD AM DIFF) No comment enter ed. Ordering Provid er: LG DE JESUS Report Released Date/Time: Jan 10, 2021 10:40 PM Reporting Lab: SUNITA SEO [address] [place] [address] Performing Lab: SUNITA [place] [address] [place] [address] WBC (TOTAL WBC COUNT) 6.4 3.0-10.6 RBC [...] ABSOLUTE 0.03 0-0.07 Mar 05, 2021 11:27 [facility] THYROID STIMULATING Speci men Type: SERUM AM HORMONE No comment enter ed. Ordering Provid er: LG DE JESUS Report Released Date/Time: Jan 10, 2021 10:40 PM Reporting Lab: SUNITA MCCALL[address] [place] [address] Performing Lab: SUNITA Guillaume [address] [place] [address] THYROID STIMULATING HORMONE 10.7 H 0. 300-4.25 Mar 05, 2021 [facility] COMPREHENSIVE METABOLIC Spec imen Type: SERUM 11:27 AM PANEL No comment enter ed. Ordering Provid er: LG DE JESUS Report Released Date/Time: Jan 10, 2021 10:40 PM Reporting Lab: SUNITA Guillaume [address] [place] [address] Performing Lab: SUNITA Guillaume [address] [place] [address] GLUCOSE 137 mg/dL H 71-109 BUN/UREA (BLOOD [...] smoking and tobacco-related health factors from the [place] facility where the Encounter took place.Current Smoking Status This section includes the most current smoking, or tobacco-related health factor, from the [place] facility where the Encounter took place. Date/Time Current Smoking Status Comment Facility Sep 04, 2017 06:40 PM TOBACCO SCREEN COMPLETED Kapil Guillaume [facility] 7 hrs Tobacco Use History This section includes a history of the smoking, or tobacco- related health factors, that were collected on or before the date of the Encounter. The data comes from the [place] facility where the Encounter took place. Date/Time Smoking Status/Tobacco Use Comment Paola veronica Sep 04, 2017 06:40 PM TOBACCO SCREEN COMPLETED Kapil DREW MurphyKadi [facility] 7 hrs May 15, 2007 09:55 AM QUIT TOBACCO >7 YEARS AGO SUNITA Guillaume [facility] Feb 12, 1999 10:18 AM TOBACCO PRODUCTS USER (NO) SUNITA Guillaume [facility] Feb 14, 1998 01:00 AM TOBACCO PRODUCTS USER (NO) SUNITA Guillaume [facility] Dec 04, 1997 01:01 AM TOBACCO PRODUCTS USER (NO) SUNITA Guillaume [facility] Encounter Notes: All associated encounter notes This section contains the clinical notes associated to the Encounter. Date/Time Encounter Note(s) Provider Source Apr 01, 2021 01:45 PM ADMINISTRATIVE NOTE: STEVENSON RAND [facility] LOCAL TITLE: ADMINISTRATIVE NOTE [facility] STANDARD TITLE: ADMINISTRATIVE NOTE DATE OF NOTE: APR 01, 2021@13:45 ENTRY DATE: APR 01, 2021@13:45:09 AUTHOR: STEVENSON RAND EXP COSIGNER: URGENCY: STATUS: COMPLETED Called and spoke with vetera n to confirm appointment with [facility] on APRIL 02, 2021. Have you had COVID 19 or are you awaiting test r esults? NO Do you have a fever? NO Do you have a cough or shortness of breath? NO Do you have flu-like symptoms? NO Do you have a new onset of nausea, vomiting or d iarrhea? NO Have you had a change in taste or smell? NO Have you had a new headache? NO Have you been in close contact with someone who is suspected of or diagnosed with coronavirus? NO IF ANY 'YES' ANSWERS: Patient advised NO T to attend their appointment and call their local [facility] Dept or emergency room for further guidance. Patient informed they can al so call their primary care (PACT)team to notify and seek nurses' association counselor. Let know that they will be screened agai n while on station, both entrances to the [place] are now open. Face covering is required while on station. Demographics Verified /karen/ STEVENSON RAND [employer] PROFESSOR FLOAT Signed: 04/01/2021 13:47
--- OUTSIDE RECORDS SUMMARY | 2021-11-30 10:19 | External Medical Summary | Encounter Summary ---
:1945 Author Organization [facility] rs Address [address] [place] [id number] Care Team Providers Name Role Phone LG [...] MEDICARE MEDICARE PART Dec 11, PART A [id number] DEONTE, PATIENT (WNR) (M) A [id number] CHELS[place] MEDICARE MEDICARE PART Dec 11, PART B [id number] DEONTE, PATIENT (WNR) (M) B 1996 56A 8431 [place] MEDICARE MEDICARE PART Dec 11, PART A [id number] [phone] LEMAST ER, PATIENT (WNR) (M) A 1995 56A 227 [place] MEDICARE MEDICARE PART Dec 11, PART B [id number] LEMAST ER, PATIENT (WNR) (M) B 1996 56A 227 [place] MEDICARE MEDICARE PART Dec 11, PART A [id number] LEMAST ER, PATIENT (WNR) (M) A 1996 227 RICHARD MEDICARE MEDICARE PART Dec 11, PART B [id number] [phone] LEMAST ER, PATIENT (WNR) (M) B 1996 227 [place] MEDICARE MEDICARE PART Apr 13, PART A [id number] DEONTE, PATIENT (WNR) (M) A 1983 56A 1213 [place] MEDICARE MEDICARE PART Apr 13, PART B [id number] DEONTE, PATIENT (WNR) (M) B 1983 56A 1213 [place] -FO TRICA November 04, TFL [id number] [phone], PATIENT R-LIFE RE-FO 2014 56 404 [place] R-LIF E -FO TRICA Dec 11, [id number] [phone], PATIENT R-LIFE WNR RE-FO 2014 -FORLI 56 404 [place] R-LIF FE E -FO TRICA Jun 13, TFL [id number] [phone], PATIENT R-LIFE WNR RE 2000 56 404 [place] FOR LIFE ZZWPS TRICA Jun 09, STANDAR [id number] [phone] DEONTE , PATIENT TRIWEST RE 2001 D [id number] 378 [place] Selected Encounter This section includes the information on record at [place] for the Encounter. Date/Time Encounter Type Encounter Description Reason Provider Source Apr 30, 2021 11:34 Outpatient Encounter SHERINE PROB CONSULT AM CLINIC IHE Encounter Template Text not used by [place] Plan of Treatment: Future Appointments (+ 6 months) and Future Tests (+/- 45 days) The Plan of Treatment section includes future care activities for the patient from all [place] treatmentfacilities. This section includes future appointments and future orders which are active, pending orscheduled.Future Appointments This section includes appointments that were scheduled to occur 6 months from the date of the Encounter, up to a maximum of 20 appointments. The data comes from all [place] treatment facilities. Appointment Date/Time Appointment Type Appointment Facili ty Name May 05, 2021 09:30 AM AMBULATORY - PSYCHIATRY SUNITA SALAS [facility] May 22, 2021 09:00 AM AMBULATORY - MEDICINE SUNITA ULLOA [facility] Jun 29, 2021 08:00 AM AMBULATORY - NONE SUNITA MCCALL [facility] Sep 15, 2021 12:00 PM AMBULATORY - NONE SUNITA MCCALL [facility] October 19, 2021 01:00 PM AMBULATORY - MEDICINE [facility] IC October 26, 2021 01:30 PM AMBULATORY - MEDICINE [facility] IC Social History: Smoking Status (Most current) and Tobacco Use (All prior to encounter date) This section includes the most current, and the historical, smoking and tobacco-related health factors from the [place] facility where the Encounter took place.Current Smoking Status This section includes the most current smoking, or tobacco-related health factor, from the [place] facility where the Encounter took place. Date/Time Current Smoking Status Comment Facility Sep 04, 2017 06:40 PM TOBACCO SCREEN COMPLETED [facility] 7 [facility] Tobacco Use History This section includes a history of the smoking, or tobacco- related health factors, that were collected on or before the date of the Encounter. The data comes from the [place] facility where the Encounter took place. Date/Time Smoking Status/Tobacco Use Comment [facility] Sep 04, 2017 06:40 PM TOBACCO SCREEN COMPLETED Kapil SEO [facility] 7 hrs May 15, 2007 09:55 AM QUIT TOBACCO >7 YEARS AGO SUNITA SEO [facility] Feb 12, 1999 10:18 AM TOBACCO PRODUCTS USER (NO) SUNITA SEO [facility] Feb 14, 1998 01:00 AM TOBACCO PRODUCTS USER (NO) SUNITA SEO [facility] Dec 04, 1997 01:01 AM TOBACCO PRODUCTS USER (NO) SUNITA SEO [facility] Encounter Notes: All associated encounter notes This section contains the clinical notes associated to the Encounter. Date/Time Encounter Note(s) Provider Source Apr 30, 2021 11:35 AM GEC CONSULT: JAZMIN GOODRICH LOCAL TITLE: GERIATRIC CARE CONSULTATION NOTE [facility] STANDARD TITLE: GEC CONSULT DATE OF NOTE: APR 30, 2021@11:35 ENTRY DATE: APR 30, 2021@11:35:20 AUTHOR: JAZMIN GOODRICH EXP COSIGNER: URGENCY: STATUS: COMPLETED CHELSY CLEMONS is a 76 year old, Eligibility: SERVICE CONNECTED 50% to 100% VERIF IED Total S/C %: 80 SHORTENING OF BONE IN LOWER LEG 60% S/C TINNITUS 10% S/C IMPAIRED HEARING 0% S/C TENDON INFLAMMATION 10% S/C TRAUMATIC ARTHRITIS 10% S/C TRAUMATIC ARTHRITIS 10% S/C LIMITED FLEXION OF KNEE 10% S/C OSTEOMYELITIS 10% S/C PRIORITY GROUP 1 referred for reconsideration of the [facility] programs/services: (see 04/22/2021 Primary Care note by PCP for details to this reconsideration request): HOMEMAKER/HOME HEALTH AIDE PROGRAM RESPITE The Home & Community Based Service Interdiscipli nary Team (HCBS/IT) Disciplines present at meeting: GEM/Memory Caseworker C Coordinator/Geriatric Nurse Anesthetist Hospice/Purchased Skilled/VD-HCBS Coordinator Respite and Homemaker/Home Health Aide Coordina tor (H/CITIZENSHIP INSTRUCTOR) Swimming Pool Servicer Care Home/[facility] Coordinator Care Home/Adult Day Health Care/SCI Coordina tor Caregiver Support Road Equipment Operator Home Based Primary Engineering Operations Leader The 's record including problem list; act juventino medications; recent labs, consults, and notes including the ([facility]) Geriatri c and Extended Care referral were reviewed on 04/30/2021. Based upon this inf ormation the HCBS/IT is in agreement with the reconsideration request: HOMEMAKER/HOME HEALTH AIDE: The [facility] IDT concur with referring Providerelan meeting preliminary criteria for the program. A consult will be placed. RESPITE: The [facility] IDT concur with referring Providerelan meeting preliminary criteria for the program A consult w ill be placed. Flagging PCP/NCM and participating HCBS/IT graham rsKadi /karen/ JAZMIN GOODRICH [facility] Clinical Lead Pressman Signed: 04/30/2021 11:41 Receipt Acknowledged By: * AWAITING SIGNATURE * KARLY CHU * AWAITING SIGNATURE * SYDNI PEDERSEN * AWAITING SIGNATURE * ROSELYN RAMSEY * AWAITING SIGNATURE * WOLFGANG FUENTES * AWAITING SIGNATURE * SAMIA MCLAUGHLIN * AWAITING SIGNATURE * CARTER FERNANDEZ * AWAITING SIGNATURE * LG DE JESUS * AWAITING SIGNATURE * SHAWN DE JESUS
--- OUTSIDE RECORDS SUMMARY | 2021-11-30 10:19 | External Medical Summary | Encounter Summary ---
:1945 Author Organization [facility] rs Address [address] [place] [id number] Care Team Providers Name Role Phone LG [...] MEDICARE MEDICARE PART Dec 11, PART A [id number] DEONTE, PATIENT (WNR) (M) A 1995 [id number] [id number] [place] MEDICARE MEDICARE PART Dec 11, PART B [id number] DEONTE, PATIENT (WNR) (M) B 1995 56A 8431 [place] MEDICARE MEDICARE PART Dec 11, PART A [id number] [phone] LEMAST ER, PATIENT (WNR) (M) A 1995 56A 227 [place] MEDICARE MEDICARE PART Dec 11, PART B [id number] LEMAST ER, PATIENT (WNR) (M) B 1995 56A 227 [place] MEDICARE MEDICARE PART Dec 11, PART A [id number] LEMAST ER, PATIENT (WNR) (M) A 1996 227 RICHARD MEDICARE MEDICARE PART Dec 11, PART B [id number] [phone] LEMAST ER, PATIENT (WNR) (M) B 1996 227 [place] MEDICARE MEDICARE PART Apr 13, PART A [id number] DEONTE, PATIENT (WNR) (M) A 1982 56A 1213 [place] MEDICARE MEDICARE PART Apr 13, PART B [id number] DEONTE, PATIENT (WNR) (M) B 1983 56A 1213 [place] -FO TRICA November 04, TFL [id number] [phone], PATIENT R-LIFE RE-FO 2014 56 404 [place] R-LIF E -FO [place] Dec 11, [id number] [phone] MERLY STER, PATIENT R-LIFE WNR RE-FO 2014 -FORLI 56 404 [place] R-LIF FE E -FO [place] Jun 13, TFL [id number] [phone], PATIENT R-LIFE WNR RE 2000 56 404 [place] FOR LIFE ZZWPS [place] Jun 09, STANDAR [id number] [phone] DEONTE , PATIENT TRIWEST RE 2001 D 56 378 [place] Selected Encounter This section includes the information on record at [place] for the Encounter. Date/Time Encounter Type Encounter Description Reason Provider Source May 22, 2021 03:01 Outpatient Encounter SHERINE PROB CONSULT PM CLINIC IHE Encounter Template Text not used by [place] Plan of Treatment: Future Appointments (+ 6 months) and Future Tests (+/- 45 days) The Plan of Treatment section includes future care activities for the patient from all [place] treatmentfacilities. This section includes future appointments and future orders which are active, pending orscheduled.Future Appointments This section includes appointments that were scheduled to occur 6 months from the date of the Encounter, up to a maximum of 20 appointments. The data comes from all [place] treatment facilities. Appointment Date/Time Appointment Type Appointment Facili ty Name Jun 29, 2021 08:00 AM AMBULATORY - NONE SUNITA MCCALL [facility] Sep 15, 2021 12:00 PM AMBULATORY - NONE SUNITA MCCALL [facility] October 19, 2021 01:00 PM AMBULATORY - MEDICINE [facility] IC October 26, 2021 01:30 PM AMBULATORY - MEDICINE [facility] IC Social History: Smoking Status (Most current) and Tobacco Use (All prior to encounter date) This section includes the most current, and the historical, smoking and tobacco-related health factors from the [place] facility where the Encounter took place.Current Smoking Status This section includes the most current smoking, or tobacco-related health factor, from the [place] facility where the Encounter took place. Date/Time Current Smoking Status Comment Facility Sep 04, 2017 06:40 PM TOBACCO SCREEN COMPLETED Kapil Guillaume [facility] 7 hrs Tobacco Use History This section includes a history of the smoking, or tobacco- related health factors, that were collected on or before the date of the Encounter. The data comes from the [place] facility where the Encounter took place. Date/Time Smoking Status/Tobacco Use Comment [facility] Sep 04, 2017 06:40 PM TOBACCO SCREEN COMPLETED Kapil Guillaume [facility] 7 hrs May 15, 2007 09:55 AM QUIT TOBACCO >7 YEARS AGO SUNITA Guillaume [facility] Feb 12, 1999 10:18 AM TOBACCO PRODUCTS USER (NO) SUNITA Guillaume [facility] Feb 14, 1998 01:00 AM TOBACCO PRODUCTS USER (NO) SUNITA Guillaume [facility] Dec 04, 1997 01:01 AM TOBACCO PRODUCTS USER (NO) SUNITA Guillaume [facility] Encounter Notes: All associated encounter notes This section contains the clinical notes associated to the Encounter. Date/Time Encounter Note(s) Provider Source May 22, 2021 03:12 PM RESPITE NOTE: ROSELYN RAMSEY LOCAL TITLE: RESPITE NOTE [facility] STANDARD TITLE: RESPITE NOTE DATE OF NOTE: MAY 22, 2021@15:12 ENTRY DATE: MAY 22, 2021@15:12:41 AUTHOR: ROSELYN RAMSEY EXP COSIGNER: URGENCY: STATUS: COMPLETED REVIEWED RESPITE CARE SERVICE CONSULT WITH Mr. Stephanie ORDAZ WHO IS A(N) 76 YEAR-OLD %80 SERVICE-CONNECTED ([place]) V ETERAN REQUIRING ASSISTANCE OF A CAREGIVER DUE TO: caregiver fatigue RESPITE SERVICES ARE APPROVED UP TO 30 DAYS PER CALENDER YEAR 6 HOURS IS EQUIVALENT TO ONE DAY. Yes:RESPITE PROGRAM EXPLAINED TO Mrs. CLEMONS. Yes:Mrs. CLEMONS WAS INFORMED THAT RENEWAL FOR SERVICES ARE DONE ANNUALLY. Yes:Mrs. CLEMONS WAS INFORMED TO FILL OUT AND SUBMIT [id number] FROM UPON RECEIVING RENEWAL F OR SERVICES ARE DONE ANNUALLY. Yes:Mrs. CLEMONS WAS INFORMED TO CONTACT THE HOME AND COMMUNITY BASED SERVICE DEPARTMENT AT [place]T [id number] FOR REQUESTING/AUTHORIZATION OF RESPITE DAYS OF SERVICE. COMMUNITY PROVIDER SELECTED: Home Care agency: Judith [facility] Home Address: [address] [place] [address] Tax ID#: [id number] Phone number: Fax number: automotive parts counterperson: Patience COMMUNITY PROVIDERS E-MAIL ADDRESSES FOR CARE IN THE COMMUNITY RESPITE SERVICE AUTHORIZATION: [email or web address] [facility]; [email or web address]; [email or web address] IS CLINICIAL ELIGIBLE FOR RESPITE CARE [facility] FOR THE FOLLOWING REFERENCE PERIOD: AUTHORIZATION PERIOD: May TO May IS APPROVED FOR UP TO 30 DAYS OF RESPITE SERIVCES EVERY YEAR 6 HOURS IS EQUIALENT TO ONE DAY. /karen/ Roselyn Ramsey LMSW-Clinical H/APPLICATION PENETRATION TESTER Mixing Plant Dumper Signed: 05/22/2021 15:16 May 22, 2021 03:01 PM HOME HEALTH NOTE: ROSELYN RAMSEY LOCAL TITLE: HOMEMAKER HOME HEALTH AIDE NOTE [facility] STANDARD TITLE: HOME HEALTH NOTE DATE OF NOTE: MAY 22, 2021@15:01 ENTRY DATE: MAY 22, 2021@15:01:36 AUTHOR: ROSELYN RAMSEY EXP COSIGNER: URGENCY: STATUS: COMPLETED REVIEWED HOMEMAKER/HOME HEALTH AIDE CONSULT WITH Mr. CHELSY CLEMONS WHO IS A(N) 76 YEAR-OLD %80 SERVICE-CONNECTED (SC) REQUIRING ASSISTANCE WITH ACTIVITES OF DAILY TJ ING (ADL) AND INDEPENDENT ACTIVITIES OF DAILY LIVING (IADL ) SUPPORT DUE TO: health decline of the [place]. HOMEMAKER/HOME HEALTH SERVICES ARE APPROVED TO H ELP THE MAINTAIN HEALTH STATUS. Yes: PROGRAM WAS EXPLAINED TO Mrs. CLEMONS. DATE OF MOST RECENT CASE MIX INDEX TOOL COMPLETION: Apr COMMUNITY PROVIDER SELECTED: Home Care agency: Judith Eli Home Address: [address] [place] [address], [place] [address] Tax ID#: [id number] Phone number: Fax number: automotive parts counterperson: Patience COMMUNITY PROVIDERS E-MAIL ADDRESSES FOR CARE IN THE COMMUNITY HOMEMAKER/HOME HEALTH AIDE CARE SERVICE AUTHORIZ ATION: [email or web address] [facility]; [email or web address]; [email or web address] IS CLINICIALLY ELIGIBLE FOR HOMEMAKER/[facility] HEALTH AIDE SERVICES FOR THE FOLLOWING REFERENCE PERIOD: AUTHORIZATION PERIOD: May TO May HOMEMAKER/HOME HEALTH AIDE HOURS/WEEK: 7 HOMEMAKER/HOME HEALTH AIDE PRINT DEVELOPER AUTOMATIC W ILL REVIEW IN 365 DAYS OR SOONER IF NEEDED. /karen/ Roselyn Ramsey LMSW-Clinical H/APPLICATION PENETRATION TESTER Mixing Plant Dumper Signed: 05/22/2021 15:17
--- OUTSIDE RECORDS SUMMARY | 2021-11-30 10:19 | External Medical Summary | Encounter Summary ---
:1945 Author Organization [facility] Address [address] [place] [id number] Care Team Providers Name Role Phone DE [...] MEDICARE MEDICARE PART Dec 11, PART A [id number] DEONTE, PATIENT (WNR) (M) A 1995 56A [id number] [place] MEDICARE MEDICARE PART Dec 11, PART B [id number] DEONTE, PATIENT (WNR) (M) B 1996 56A 8431 [place] MEDICARE MEDICARE PART Dec 11, PART A [id number] [phone] LEMAST ER, PATIENT (WNR) (M) A 1995 56A 227 [place] MEDICARE MEDICARE PART Dec 11, PART B [id number] LEM[place] ER, PATIENT (WNR) (M) B 1995 56A 227 [place] MEDICARE MEDICARE PART Dec 11, PART A [id number] [phone] LEM[place] ER, PATIENT (WNR) (M) A [id number] 227 RICHARD MEDICARE MEDICARE PART Dec 11, PART B [id number] [phone] LEMAST ER, PATIENT (WNR) (M) B [id number] [place] MEDICARE MEDICARE PART Apr 13, PART A [id number] DEONTE, PATIENT (WNR) (M) A 1982 56A 1213 [place] MEDICARE MEDICARE PART Apr 13, PART B [id number] DEONTE, PATIENT (WNR) (M) B 1982 56A 1213 [place] -FO TRICA November 04, TFL [id number] [phone], PATIENT R-LIFE RE-FO 2014 56 404 [place] R-LIF E -FO TRICA Dec 11, [id number] [phone] MERLY STER, PATIENT R-LIFE WNR RE-FO 2014 -FORLI 56 404 [place] R-LIF FE E -FO TRICA Jun 13, TFL [id number] [phone], PATIENT R-LIFE WNR RE 2000 56 404 [place] FOR LIFE ZZWPS TRICA Jun 09, STANDAR [id number] [phone] DEONTE , PATIENT TRIWEST RE 2001 D 56 378 [place] Selected Encounter This section includes the information on record at [place] for the Encounter. Date/Time Encounter Type Encounter Description Reason Provider Source May 26, 2021 02:27 Outpatient Encounter TELEPHONE/ANCILLARY PM IHE Encounter Template Text not used by [place] Plan of Treatment: Future Appointments (+ 6 months) and Future Tests (+/- 45 days) The Plan of Treatment section includes future care activities for the patient from all [place] treatmentfacilities. This section includes future appointments and future orders which are active, pending orscheduled.Future Appointments This section includes appointments that were scheduled to occur 6 months from the date of the Encounter, up to a maximum of 20 appointments. The data comes from all [place] treatment facilities. Appointment Date/Time Appointment Type Appointment Facili ty Name Jun 29, 2021 08:00 AM AMBULATORY - NONE SUNITA MCCALL [facility] Sep 15, 2021 12:00 PM AMBULATORY - NONE SUNITA MCCALL [facility] October 19, 2021 01:00 PM AMBULATORY - MEDICINE [facility] October 26, 2021 01:30 PM AMBULATORY - MEDICINE [facility] Social History: Smoking Status (Most current) and Tobacco Use (All prior to encounter date) This section includes the most current, and the historical, smoking and tobacco-related health factors from the [place] facility where the Encounter took place.Current Smoking Status This section includes the most current smoking, or tobacco-related health factor, from the [place] facility where the Encounter took place. Date/Time Current Smoking Status Comment Facility Sep 04, 2017 06:40 PM TOBACCO SCREEN COMPLETED Kapil Guillaume [facility] 7 hrs Tobacco Use History This section includes a history of the smoking, or tobacco- related health factors, that were collected on or before the date of the Encounter. The data comes from the [place] facility where the Encounter took place. Date/Time Smoking Status/Tobacco Use Comment [facility] crystal Sep 04, 2017 06:40 PM TOBACCO SCREEN COMPLETED [facility] 7 hrs May 15, 2007 09:55 AM QUIT TOBACCO >7 YEARS AGO SUNITA SEO [facility] Feb 12, 1999 10:18 AM TOBACCO PRODUCTS USER (NO) SUNITA SEO [facility] Feb 14, 1998 01:00 AM TOBACCO PRODUCTS USER (NO) SUNITA SEO [facility] Dec 04, 1997 01:01 AM TOBACCO PRODUCTS USER (NO) [facility] Encounter Notes: All associated encounter notes This section contains the clinical notes associated to the Encounter. Date/Time Encounter Note(s) Provider Source May 26, 2021 02:27 PM E & M OF ANTICOAGULATION NOTE: DERECK ORTA LOCAL TITLE: ANTICOAGULATION NOTE [facility] STANDARD TITLE: E & M OF ANTICOAGULATION NOTE DATE OF NOTE: MAY 26, 2021@14:27 ENTRY DATE: MAY 26, 2021@14:27:33 AUTHOR: RAFIQ ORTA COSIGNER: URGENCY: STATUS: COMPLETED DOAC MONITORING REPORT ALERT: GREATER THAN FOUR WEEKS OVERDUE FOR REFILL CHELSY CLEMONS contacted at: . Patient identification is confirm ed by full name and date of prior to interview. Patient interview 1. [facility] records indicate you are prescribed the an ticoagulant or blood thinning medication, Apixaban that was last lesley led on 10/21/20 for a 90 day supply. Are you still taking this medication? [ x ] YES --REFER TO ACT PROVIDER IF THE OPTION BELOW I S SELECTED [ ] NO, inquire when, by whom, and for what gabriel son the medication was stopped. 2. How much of Apixaban are you taking and how o ften? [ x ] Taking the prescribed dose and frequency: --REFER TO ACT PROVIDER IF OPTION BELOW IS SE LECTED [ ] Taking medication at a different dose/frequ ency than prescribed: - Inquire when, by whom, and for what reason th e medication dose or frequency was changed. 3. How often do you miss a dose of Apixaban? [ x ] Never or rarely [ ] Multiple times per month --REFER TO ACT PROVIDER IF THE OPTIONS BELOW IS SELECTED [ ] Multiple times per week 4. Are you getting Apixaban from someplace else? (i.e., non-VA pharmacy, hospital, assistive living facility, rehabilitation) [ ] Yes - if so where and do you need to receiv e this medication from the [facility] now? [ x ] No 5. How much supply of Apixaban do you have remceline israel at home? Quantity: working on last bottle, placing a ref ill PLAN: [ ] PROVIDER FOLLOW-UP NEEDED [ ] Patient is no longer taking a DOAC - request records when indicated [ ] Patient is taking a DOAC differently than p rescribed - request records when indicated [ ] Patient is missing multiple doses of DOAC w eekly [ x ] NO PROVIDER FOLLOW-UP NEEDED [ x ] Patient consistently taking DOAC as presc ribed. [ ] Patient is receiving DOAC from another sour ce. - prescription discontinued and added as non-VA medication EDUCATION: Taking your blood thinning medication every day as instructed lowers your risk for developing blood clots and strokes. /karen/ RAFIQ ORTA Clinical electronic maintenance supervisor Anticoagulation Signed: 05/26/2021 14:34
--- OUTSIDE RECORDS SUMMARY | 2021-11-30 10:19 | External Medical Summary | Encounter Summary ---
:1945 Author Organization Department [facility] rs Address [address] [place] [address] 19888 Care Team Providers Name Role Phone LG [...] MEDICARE MEDICARE PART Dec 11, PART A [id number] DEONTE, PATIENT (WNR) (M) A 1996 [id number] [id number] [place] MEDICARE MEDICARE PART Dec 11, PART B [id number] DEONTE, PATIENT (WNR) (M) B 1996 56A 8431 [place] MEDICARE MEDICARE PART Dec 11, PART A [id number] LEMAST ER, PATIENT (WNR) (M) A 1996 56A 227 [place] MEDICARE MEDICARE PART Dec 11, PART B [id number] LEMAST ER, PATIENT (WNR) (M) B 1996 56A 227 [place] MEDICARE MEDICARE PART Dec 11, PART A [id number] LEMAST ER, PATIENT (WNR) (M) A 1996 227 [place] MEDICARE MEDICARE PART Dec 11, PART B [id number] [phone] LEMAST ER, PATIENT (WNR) (M) B 1996 227 [place] MEDICARE MEDICARE PART Apr 13, PART A [id number] DEONTE, PATIENT (WNR) (M) A 1983 56A 1213 [place] MEDICARE MEDICARE PART Apr 13, PART B [id number] DEONTE, PATIENT (WNR) (M) B [id number] 56A 1213 [place] -FO TRICA November 04, TFL [id number], PATIENT R-LIFE RE-FO 2014 56 404 [place] R-LIF E -FO [place] Dec 11, [id number] [phone] [address]ER, PATIENT R-LIFE WNR RE-FO 2014 -FOR-LI 56 404 [place] R-LIF FE E -FO [place] Jun 13, TFL [id number] [phone], PATIENT R-LIFE WNR RE 2000 56 404 [place] FOR LIFE ZZWPS [place] Jun 09, STANDAR [id number] [phone] DEONTE , PATIENT TRIWEST RE 2001 D 56 378 [place] Selected Encounter This section includes the information on record at [place] for the Encounter. Date/Time Encounter Type Encounter Description Reason Provider Source May 06, 2021 09:29 Outpatient Encounter ADMIN [facility]IVT[facility] Encounter Template Text not used by AL Plan of Treatment: Future Appointments (+ 6 months) and Future Tests (+/- 45 days) The Plan of Treatment section includes future care activities for the patient from all [place] treatmentfacilities. This section includes future appointments and future orders which are active, pending orscheduled.Future Appointments This section includes appointments that were scheduled to occur 6 months from the date of the Encounter, up to a maximum of 20 appointments. The data comes from all AL treatment facilities. Appointment Date/Time Appointment Type Appointment Facili ty Name May 22, 2021 09:00 AM AMBULATORY - MEDICINE SUNITA ULLOA [facility] Jun 29, 2021 08:00 AM AMBULATORY - NONE SUNITA MCCALL [facility] Sep 15, 2021 12:00 PM AMBULATORY - NONE SUNITA MCCALL IGHT [facility] October 19, 2021 01:00 PM AMBULATORY - MEDICINE [facility] October 26, 2021 01:30 PM AMBULATORY - MEDICINE [facility] Social History: Smoking Status (Most current) and Tobacco Use (All prior to encounter date) This section includes the most current, and the historical, smoking and tobacco-related health factors from the AL facility where the Encounter took place.Current Smoking Status This section includes the most current smoking, or tobacco-related health factor, from the AL facility where the Encounter took place. Date/Time Current Smoking Status Comment Facility Sep 04, 2017 06:40 PM TOBACCO SCREEN COMPLETED Kapil SEO [facility] 7 hrs Tobacco Use History This section includes a history of the smoking, or tobacco- related health factors, that were collected on or before the date of the Encounter. The data comes from the AL facility where the Encounter took place. Date/Time Smoking Status/Tobacco Use Comment [facility] Sep 04, 2017 06:40 PM TOBACCO SCREEN COMPLETED Kapil SEO [facility] 7 hrs May 15, 2007 09:55 AM QUIT TOBACCO >7 YEARS AGO SUNITA SEO [facility] Feb 12, 1999 10:18 AM TOBACCO PRODUCTS USER (NO) SUNITA SEO [facility] Feb 14, 1998 01:00 AM TOBACCO PRODUCTS USER (NO) SUNITA SEO [facility] Dec 04, 1997 01:01 AM TOBACCO PRODUCTS USER (NO) SUNITA SEO [facility] Encounter Notes: All associated encounter notes This section contains the clinical notes associated to the Encounter. Date/Time Encounter Note(s) Provider Source May 06, 2021 09:29 AM PHARMACY NOTE: ISELA TIPTON LOCAL TITLE: PHARMACY NOTE [facility] STANDARD TITLE: PHARMACY NOTE DATE OF NOTE: MAY 06, 2021@09:29 ENTRY DATE: MAY 06, 2021@09:29:09 AUTHOR: ISELA TIPTON EXP COSIGNER: URGENCY: STATUS: COMPLETED Note to team: The pharmacy has received an elect ronic prescription from a non-VA provider. Upon review it appears that the patient does not have a valid [place] or [facility] authorization for this categ ory of care. Medication copied from eRx: eRx Patient: CHELSY CLEMONS : 46 eRx Provider Primary Telephone: [phone] eRx Provider: CHASTITY DE JESUS eRx Drug: levothyroxine 175 mcg tablet eRx Qty: 90 eRx Refills: 3 eRx Days Supply: 90 eRx Written Date: MAY 05, 2021 eRx Si mcg PO QAM [place] Provider: CHASTITY DE JESUS Address: [address] [place] [address] A / R: 1. PCP / team notified. Provider to assess medic ation request as appropriate. /karen/ Isela Tipton [facility] PHARMACIST Signed: 05/06/2021 09:31 Receipt Acknowledged By: * AWAITING SIGNATURE * ERWIN JACOBSEN * AWAITING SIGNATURE * LG DE JESUS
--- OUTSIDE RECORDS SUMMARY | 2021-11-30 10:19 | External Medical Summary | Encounter Summary ---
:1945 Author Organization [facility] rs Address [address] [place] [address] Care Team Providers Name Role Phone LG [...] MEDICARE MEDICARE PART Dec 11, PART A [id number] DEONTE, PATIENT (WNR) (M) A 1995 56A [id number] [place] MEDICARE MEDICARE PART Dec 11, PART B [id number] DEONTE, PATIENT (WNR) (M) B 1996 56A 8431 [place] MEDICARE MEDICARE PART Dec 11, PART A [id number] [phone] LEMAST ER, PATIENT (WNR) (M) A 1996 56A 227 [place] MEDICARE MEDICARE PART Dec 11, PART B [id number] LEM[place] ER, PATIENT (WNR) (M) B 1996 56A 227 [place] MEDICARE MEDICARE PART Dec 11, PART A [id number] [phone] LEM[place] ER, PATIENT (WNR) (M) A 1996 227 [place]ICH[place] MEDICARE MEDICARE PART Dec 11, PART B [id number] [phone] LEMAST ER, PATIENT (WNR) (M) B 1996 227 [place] MEDICARE MEDICARE PART Apr 13, PART A [id number] DEONTE, PATIENT (WNR) (M) A 1983 56A 1213 [place] MEDICARE MEDICARE PART Apr 13, PART B [id number] DEONTE, PATIENT (WNR) (M) B 1983 56A 1213 [place] -FO [place] November 04, TFL [id number] [phone], PATIENT R-LIFE RE-FO 2014 56 404 [place] R-LIF E -FO [place] Dec 11, [id number] [phone] MERLY STER, PATIENT R-LIFE WNR RE-FO 2014 -FORLI 56 404 [place] R-LIF FE E -FO [place] Jun 13, TFL [id number] [phone], PATIENT R-LIFE WNR RE 2000 56 404 [place] FOR LIFE ZZWPS [place] Jun 09, STANDAR [id number] [phone] DEONTE , PATIENT TRIWEST RE 2001 D 56 378 [place] Selected Encounter This section includes the information on record at ID for the Encounter. Date/Time Encounter Type Encounter Reason Provider Source Description May 22, 2021 Outpatient TELEPHONE/GERIATR ICD-10-CM Z74.1 Caden RAMSEY LBE 02:54 PM Encounter ICS Need for RTO assistance with personal care with Provider Comments: Need for Assistance with Personal Care IHE Encounter Template Text not used by [facility] Assessments - Encounter Diagnoses This section includes the primary and secondary diagnoses documented for the Encounter. Date/Time Primary/Secondary Diagnosis Name Provider Source Diagnosis May 22, 2021 PRIMARY Need for EMIR RAMSEY 02:54 PM assistance with RTO GABBI Beard [facility] [place] Plan of Treatment: Future Appointments [...] 20 appointments. The data comes from all ID treatment facilities. Appointment Date/Time Appointment Type Appointment Facili ty Name Jun 29, 2021 08:00 AM AMBULATORY - NONE SUNITA MCCALL [facility] Sep 15, 2021 12:00 PM AMBULATORY - NONE SUNITA MCCALL [facility] October 19, 2021 01:00 PM AMBULATORY - MEDICINE [facility] October 26, 2021 01:30 PM AMBULATORY - MEDICINE [facility] Social History: Smoking Status (Most current) and Tobacco Use (All prior to encounter date) This section includes the most current, and the historical, smoking and tobacco-related health factors from the ID facility where the Encounter took place.Current Smoking Status This section includes the most current smoking, or tobacco-related health factor, from the ID facility where the Encounter took place. Date/Time Current Smoking Status Comment Facility Sep 04, 2017 06:40 PM TOBACCO SCREEN COMPLETED [facility] Tobacco Use History This section includes a history of the smoking, or tobacco- related health factors, that were collected on or before the date of the Encounter. The data comes from the ID facility where the Encounter took place. Date/Time Smoking Status/Tobacco Use Comment [facility] Sep 04, 2017 06:40 PM TOBACCO SCREEN COMPLETED Kapil SEO [facility] 7 hrs May 15, 2007 09:55 AM QUIT TOBACCO >7 YEARS AGO SUNITA SEO [facility] Feb 12, 1999 10:18 AM TOBACCO PRODUCTS USER (NO) SUNITA SEO [facility] Feb 14, 1998 01:00 AM TOBACCO PRODUCTS USER (NO) SUNITA SEO [facility] Dec 04, 1997 01:01 AM TOBACCO PRODUCTS USER (NO) SUNITA SEO [facility] Encounter Notes: All associated encounter notes This section contains the clinical notes associated to the Encounter. Date/Time Encounter Note(s) Provider Source May 22, 2021 02:54 PM HOME HEALTH NOTE: THANG RAMSEY LOCAL TITLE: HOMEMAKER HOME HEALTH AIDE NOTE [facility] STANDARD TITLE: HOME HEALTH NOTE DATE OF NOTE: MAY 22, 2021@14:54 ENTRY DATE: MAY 22, 2021@14:54:50 AUTHOR: THANG RAMSEY EXP COSIGNER: URGENCY: STATUS: COMPLETED TRAINING AND DEVELOPMENT HEAD Business Development Coordinator contacted [facility] and spoke with Patience. Patience confirmed there is an available c aregiver to provide care and agreed to accept referral. Plan: Authorize TRAINING AND DEVELOPMENT HEAD & Respite Services /es/ Thang Ramsey LMSW-Clinical H/TRAINING AND DEVELOPMENT HEAD Transition Rn Signed: 05/22/2021 14:57
--- OUTSIDE RECORDS SUMMARY | 2021-11-30 10:20 | External Medical Summary | Encounter Summary ---
:1945 Author Organization [facility] rs Address [address] [place] [address] Care Team Providers Name Role Phone LG [...] MEDICARE MEDICARE PART Dec 11, PART A [id number] DEONTE, PATIENT (WNR) (M) A 1995 56A 8431 [place] MEDICARE MEDICARE PART Dec 11, PART B [id number] DEONTE, PATIENT (WNR) (M) B 1996 56A 8431 [place] MEDICARE MEDICARE PART Dec 11, PART A [id number] [phone] LEMAST ER, PATIENT (WNR) (M) A 1996 56A 227 [place] MEDICARE MEDICARE PART Dec 11, PART B [id number] LEM[place] ER, PATIENT (WNR) (M) B 1996 56A 227 [place] MEDICARE MEDICARE PART Dec 11, PART A [id number] [phone] L[place] ER, PATIENT (WNR) (M) A 1996 227 [place]ARD MEDICARE MEDICARE PART Dec 11, PART B [id number] [phone] LEM[place] ER, PATIENT (WNR) (M) B [id number] 227 [place] MEDICARE MEDICARE PART Apr 13, PART A [id number] DEONTE, PATIENT (WNR) (M) A 1983 56A 1213 [place] MEDICARE MEDICARE PART Apr 13, PART B [id number] DEONTE, PATIENT (WNR) (M) B 1983 56A 1213 [place] -FO TRICA November 04, TFL [id number] [id number], PATIENT R-LIFE RE-FO 2014 56 404 [place] R-LIF E -FO [place] Dec 11, [id number] [phone], PATIENT R-LIFE WNR RE-FO 2014 -FORLI 56 404 [place] R-LIF FE E -FO [place] Jun 13, TFL [id number] [phone], PATIENT R-LIFE WNR RE 2000 56 404 [place] FOR LIFE ZZWPS [place] Jun 09, STANDAR [id number] [phone] DEONTE , PATIENT TRIWEST RE 2001 D 56 378 [place] Selected Encounter This section includes the information on record at [place] for the Encounter. Date/Time Encounter Type Encounter Description Reason Provider Source May 05, 2021 03:19 Outpatient Encounter TELEPHONE/GERIATRICS PM IHE Encounter Template Text not used [...] 09:00 AM AMBULATORY - MEDICINE SUNITA ULLOA [facility] Jun 29, 2021 08:00 AM AMBULATORY - NONE SUNITA MCCALL [facility] Sep 15, 2021 12:00 PM AMBULATORY - NONE SUNITA MCCALL [facility] October 19, 2021 01:00 PM AMBULATORY - MEDICINE [facility] October 26, 2021 01:30 PM AMBULATORY - MEDICINE [facility] Social History: Smoking Status (Most current) and Tobacco Use (All prior to encounter date) This section includes the most current, and the historical, smoking and tobacco-related health factors from the [facility] where the Encounter took place.Current Smoking Status This section includes the most current smoking, or tobacco-related health factor, from the [place] facility where the Encounter took place. Date/Time Current Smoking Status Comment Facility Sep 04, 2017 06:40 PM TOBACCO SCREEN COMPLETED Kapil Guillaume [facility] 7 hrs Tobacco Use History This section includes a history of the smoking, or tobacco- related health factors, that were collected on or before the date of the Encounter. The data comes from the [facility] where the Encounter took place. Date/Time Smoking Status/Tobacco Use Comment [facility] Sep 04, 2017 06:40 PM TOBACCO SCREEN COMPLETED Kapil Guillaume [facility] 7 hrs May 15, 2007 09:55 AM QUIT TOBACCO >7 YEARS AGO [facility] Feb 12, 1999 10:18 AM TOBACCO PRODUCTS USER (NO) [facility] Feb 14, 1998 01:00 AM TOBACCO PRODUCTS USER (NO) [facility] Dec 04, 1997 01:01 AM TOBACCO PRODUCTS USER (NO) SUNITA Guillaume [facility] Encounter Notes: All associated encounter notes This section contains the clinical notes associated to the Encounter. Date/Time Encounter Note(s) Provider Source May 05, 2021 03:20 RESPITE NOTE: THANG RAMSEY LOCAL TITLE: RESPITE NOTE [facility] STANDARD TITLE: RESPITE NOTE DATE OF NOTE: MAY 05, 2021@15:20 ENTRY DATE: MAY 05, 2021@15:20:12 AUTHOR: THANG RAMSEY EXP COSIGNER: URGENCY: STATUS: COMPLETED ZARIT BURDEN SCALE 4-ITEM Do you feel that because of the time you spend w ith your relative(s) that you don't have time for yourself? 2 = Sometimes Do you feel stressed between caring for your rel ative and trying to meet other responsibilities (work/family)? 2 = Sometimes Do you feel strained when you are around your re lative(s)? 2 = Sometimes Do you feel uncertain about what to do concernin g your relatives? 3 = Quite frequently A score of 8 or more reflects HIGH BURDEN and re quires follow-up by the Caregiver Spiral Winding Machine Helper or a prompt referr al. Scores range from 0-16, with a higher score indicating more caregi hyacinth burden. Total score: 9 Zarit [place] Interview (Caregiver burden scale), copyright 1990 by Musa Dumont and Shania Dumont, with perm ission to use. [facility] Wireless Communications Engineer was contacted by Mrs Kadi Rod. Mrs. Rod identified by full name and date of hortencia cristina /karen/ Thang Ramsey LMSW-Clinical /[facility] Wireless Communications Engineer Signed: 05/05/2021 15:26
--- OUTSIDE RECORDS SUMMARY | 2021-11-30 10:20 | External Medical Summary | Encounter Summary ---
:1945 Author Organization [facility] Address [address] [place] [id number] Care Team Providers Name Role Phone LG BURKS Primary Care Provider Unavailable Insurance Providers: All [...] MEDICARE MEDICARE PART Dec 11, PART A [id number] DEONTE, PATIENT (WNR) (M) A [id number] [place] MEDICARE MEDICARE PART Dec 11, PART B [id number] DEONTE, PATIENT (WNR) (M) B [id number] 56A 8431 [place] MEDICARE MEDICARE PART Dec 11, PART A [id number] [phone] LEMAST ER, PATIENT (WNR) (M) A 1995 56A 227 [place] MEDICARE MEDICARE PART Dec 11, PART B [id number] LEMAST ER, PATIENT (WNR) (M) B 1996 56A 227 [place] MEDICARE MEDICARE PART Dec 11, PART A [id number] [phone] LEMAST ER, PATIENT (WNR) (M) A 1996 227 RICHARD MEDICARE MEDICARE PART Dec 11, PART B [id number] [phone] LEMAST ER, PATIENT (WNR) (M) B [id number] [place] MEDICARE MEDICARE PART Apr 13, PART A [id number] DEONTE, PATIENT (WNR) (M) A [id number] 56A [id number] [place] MEDICARE MEDICARE PART Apr 13, PART B [id number] DEONTE, PATIENT (WNR) (M) B [id number] [id number] [place] -FO TRICA November 04, TFL [id number] [phone], PATIENT R-LIFE RE-FO 2014 56 404 [place] R-LIF E -FO [place] Dec 11, [id number] [phone] MERLY STER, PATIENT R-LIFE WNR RE-FO 2014 -FORLI 56 404 [place] R-LIF FE E -FO [place] Jun 13, TFL [id number] [phone], PATIENT R-LIFE WNR RE 2000 56 404 [place] FOR LIFE ZZWPS [place] Jun 09, STANDAR [id number] [phone] DEONTE , PATIENT TRIWEST RE 2001 D [id number] 378 [place] Selected Encounter This section includes the information on record at [place] for the Encounter. Date/Time Encounter Type Encounter Reason Provider Source Description Apr 22, 2021 OFFICE O/P EST PRIMARY ICD-10-CM I73.9 LG BURKS 11:30 AM HI 40-54 MIN CARE/MEDICINE Peripheral vascular disease, unspecified with Provider Comments: Peripheral vascular disease ([facility] [id number]) IHE Encounter Template Text not used by [place] Assessments - Encounter Diagnoses This section includes the primary and secondary diagnoses documented for the Encounter. Date/Time Primary/Secondary Diagnosis Name Provider Source Diagnosis Apr 26, 2021 PRIMARY Peripheral LG BURKS [place] 11:51 AM vascular disease, CLINIC unspecified Apr 26, 2021 SECONDARY Chronic atrial LG BURKS [place] 11:51 AM fibrillation, CLINIC unspecified Apr 26, 2021 SECONDARY Unspecified open LG BURKS [place] 11:51 AM wound, left lower CLINIC leg, sequela Plan of Treatment: Future Appointments (+ 6 [...] AMBULATORY - PSYCHIATRY SUNITA SALAS [facility] May 22, 2021 09:00 AM AMBULATORY - MEDICINE SUNITA MARCUS [facility] Jun 29, 2021 08:00 AM AMBULATORY - NONE SUNITA MCCALL [facility] Sep 15, 2021 12:00 PM AMBULATORY - NONE SUNITA MCCALL [facility] October 19, 2021 01:00 PM AMBULATORY - MEDICINE [facility] IC Vital Signs: All taken on the encounter date This section contains inpatient and outpatient Vital Signs collected on the date of the Encounter. Date/Time Temperature Pulse Blood Respiratory SP02 Pain Height Weight Iain dy Source Pressure Rate Mass Index Apr 22, 97.1 F 93 134/75 16 /min 95 % 7 76 in [facility] 2020 11:35 /min mm[Hg] N [facility] Social History: Smoking Status (Most current) and [...] 29, 2020 01:30 PM VA-TOBACCO FORMER USER [facility] Tobacco Use History This section includes a history of the smoking, or tobacco- related health factors, that were collected on or before the date of the Encounter. The data comes from the [place] facility where the Encounter took place. Date/Time Smoking Status/Tobacco Use Comment [facility] October 29, 2020 01:30 PM VA-TOBACCO QUIT 15 YRS OR MORE [facility] Sep 29, 2018 01:32 PM VA-TOBACCO FORMER USER [facility] Sep 29, 2018 01:32 PM [place]-TOBACCO QUIT 15 YRS OR MORE [facility] Sep 02, 2017 02:13 PM QUIT TOBACCO >7 YEARS AGO [facility] Sep 02, 2017 02:13 PM TOBACCO SCREEN COMPLETED L [facility] Encounter Notes: All associated encounter notes This section contains the clinical notes associated to the Encounter. Date/Time Encounter Note(s) Provider Source Apr 22, 2021 01:32 ADMINISTRATIVE NOTE: [facility] LOCAL TITLE: AFTER VISIT SUMMARY STANDARD TITLE: ADMINISTRATIVE NOTE DICT DATE: APR 22, 2021@13:32:39 ENTRY DATE: NO 2020@13:32:40 DICTATED BY: LG BURKS COSIGNER: URGENCY: STATUS: COMPLETED The patient was provided with a copy of an after -visit summary at the conclusion of the visit. The after-visit summary includes information per taining to the patient's encounter, including diagnoses, vital signs, med ications, and new orders, as well as a list of any any upcoming appointmen ts and information regarding the patient's ongoing care. The patient's medications were reviewed with the patient by the provider and were provided to the patient as an updated l ist of medications. The patient was instructed to inform the provider of any medication changes or discrepancies that were noted. Otherwise, the patient was instructed to continue the medications as prescribed. A copy of the after-visit summary provided to e patient is available in [facility]. SCANNED DOCUMENT SIGNATURE NOT REQUIRED Electronically Filed: 04/22/2021 by: Lg PARKER Nurse Practitioner Apr 22, 2021 01:14 PRIMARY CARE E & M NOTE: LG BURKS [facility] LOCAL TITLE: PRIMARY CARE PROVIDER NOTE STANDARD TITLE: PRIMARY CARE E & M NOTE DATE OF NOTE: APR 22, 2021@13:14 ENTRY DATE: APR 22, 2021@13:14:41 AUTHOR: LG BURKS EXP CLARKIGNER: URGENCY: STATUS: COMPLETED PRIMARY CARE PROVIDER NOTE Has ADDENDA CHELSY CLEMONS is a 75 year old MALE. Patient identification is confirmed by full name , date of and social security number prior to interview and examinati on. Hand washing is completed prior to interview and examination. 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 . PVD chronic ulcerations left lower l eg sees Dr Ortiz hr advisor and [facility] routine. a fib on apixaban anticoag to assess dosage taki ng 2.5mg BID currently CVA 07/[address] Leyva cardiology W/C bound transfers only Needs CG services ready to start HPI/PMH: 75 year old MALE [place] C/O Active Outpatient Medications (including Supplie s): Active Outpatient Medications Status 1) AMMONIUM LACTATE 12% CREAM APPLY A SMALL AMOU NT TO ACTIVE AFFECTED AREA TWICE A DAY NEEDED FOR DRY PLASTER APPLICATOR CKED SKIN TO HANDS 2) APIXABAN 5MG TAB TAKE ONE TABLET BY MOUTH TWI CE A DAY ACTIVE DO NOT TAKE WITH WARFARIN, NOTIFY DOCTOR OF A [place] SIGNS OF BLEEDING 3) CARBOXYMETHYLCELLULOSE NA 0.5%(PF)OP CLIFFORD INST ILL 1 ACTIVE DROP IN EACH EYE FOUR TIMES A DAY NEEDED FOR DRY EYES 4) DILTIAZEM (EQV-TIAZAC) 240MG 24HR CAP TAKE ON E ACTIVE (S) CAPSULE BY MOUTH AT BEDTIME TO LOWER BLOOD PRES URE AND FOR HEART 5) LEVOTHYROXINE NA (SYNTHROID) 175MCG TAB TAKE ONE ACTIVE TABLET BY MOUTH [...] AND DRINK BY MOUT H AT BEDTIME FOR CONSTIPATION Active Non-VA Medications Status 1) Non-VA LEVOTHYROXINE NA (SYNTHROID) 150MCG TA B 150MCG ACTIVE BY MOUTH EVERY DAY 2) Non-VA MORPHINE SO4 60MG TAB,SA,UD 60MG BY [facility] ACTIVE THREE TIMES A DAY 3) Non-VA MULTIVITAMIN/MINERALS THERAPEUT CAP/TA B 1 ACTIVE TABLET BY MOUTH EVERY DAY 4) Non-VA NO NON-VA MEDICATION MISCELLANEOUS DIG ESTIVE ACTIVE ENZYMES ONE CAPSULE EVERY DAY 5) Non-VA ZOLPIDEM TARTRATE 10MG TAB 10MG BY OPAL AT ACTIVE BEDTIME 14 Total Medications Notes: Medication reconciliation was completed at this visit. ROS: Constitutional: No fever, chills, sweats or christiano ght loss. HEENT: No changes in vision or hearing, no head aches. SCANNING SUPERVISOR: No chronic headaches, dizziness of faintin g spells. CVS: No chest pain, no orthopnea or leg edema Resp: No SOB, no chronic cough or phlegm, no he moptysis GI: No chronic diarrhea or constipation, colono scopy: see reminder : No frequency, urgency, hesitancy, dysuria, hematuria or incontinence. MUSK:sever left hip and leg pain transfers only PVD chronic left lower leg ulcer Neuro: loss of sensation to lower legs and feet Psychiatric: No changes in mood, depression or anxiety. Reproductive: ED, OBJECTIVE: CURRENT VITAL: Temperature: 97.1 F [36.2 C] (04/22/2021 11:35) Respirations: 16 (04/22/2021 11:35) Pulse: 93 (04/22/2021 11:35) Blood Pressure: 134/75 (04/22/2021 11:35) Weight: 214 lb [97.3 kg] (10/29/2020 13:12) Height: 76 in [193.0 cm] (04/22/2021 11:35) BMI: BMI: 26 SAO2: 95% DATE: Apr@11:36:30 Pain: 7 (04/22/2021 11:35) GA - alert, oriented x3, well developed, in no d istress, mentally clear and cooperative Skin - no rash, petechiae, or moles HEENT - normal cephalic Eyes - no pallor or icterus, pupils equal and ro und, normal light reflex Ears - TM intact Nose - no perforated septum Mouth - no lesions Throat - clear pharynx Neck - thyroid normal, no adenopathy, carotids: full, no JVD Chest - clear to auscultation bilaterally Heart - atrial fibrillation HR 93 Abdomen- obese, no organomegaly, active bowel so unds, no masses, no tenderness Extremities -skin brown pink color musc pain right leg ankle minimal wt bearing exc ept transferes. multiple surgical scars to right femor and ankle ANNUAL DIABETES FOOT EXAM: Dorsalis pedis pulses not palpable, no sensatio n to monofilament to entire feet. left mid lower leg chr onic ulcer 1.5x1.5cm , blister left foot second toe. 0.5x0.5cm. feet brown color cold to touch, fragl e flakey skin . SCANNING SUPERVISOR - cranial nerves II - XII intact, motor inta ct 5/5 in all 4 limbs. DTR:normal Gait wheel chair transfers Assessment and Plan: atrial fibrillation vet taking apixaban 2.5mg BI D anticoag to clarify dosage PVD new boot custom reorder podiatry consult Dr Ortiz 04/27/2021 at [facility] sees routine with wound center . Requested he send notes and recommendat ions to [facility] Wound right lower leg 1.5cm and blister second t oe left foot F/U podiatry [facility] wound center Caregiver and respite support Contact I will contact Cristy martinez to reinstate caregivers for assist Lg burks PCP Cardiology Dr Leyva change to community care F/U 6 months 45 min I reviewed patient's plan of care with patient w ho verbalized understanding of recommendations and any/all changes as detail ed in plan above. I have reviewed all imported/copied information, recent labs and radiology reports and it is up to date, accurate and relev ant to today's visit. I reviewed medication list with patient, it is u p to date as of this appointment, a printed copy will be givento the patient/caregiver and the patient/caregiver understood my instructions. The above was discussed with the who sta melanie understanding and agreement with current plan. Questions sought an d answered. Total time in direct care/ counseling Cristy Martinez please reinstate caregivers persona l care and ADL assist. and respite services for when is gone for medic al or other appts. needing assist to care for vet, he now agre es to care /es/ Lg PARKER Nurse Practitioner Signed: 04/26/2021 11:51 Receipt Acknowledged By: * AWAITING SIGNATURE * JAZMIN MARTINEZ 04/26/2021 ADDENDUM STATUS: COMPLETED correction left lower leg ulcer above /es/ Lg PARKER Nurse Practitioner Signed: 04/26/2021 11:52 Apr 22, 2021 11:39 PRIMARY CARE NURSING NOTE: DANN ZHONG [facility] TITLE: INFORMATION TECHNOLOGY COORDINATOR NURSING NOTE (T) STANDARD TITLE: PRIMARY CARE NURSING NOTE DATE OF NOTE: APR 22, 2021@11:39 ENTRY DATE: APR 22, 2021@11:39:26 AUTHOR: DANN ZHONG EXP COSIGNER: URGENCY: STATUS: COMPLETED Patient identification is confirmed by full name , date of and social security number prior to interview and examinati on. Hand washing is completed prior to interview and examination. Age:75 Height:76 in [193.0 cm] (04/22/2021 11:35) Weight:214 lb [97.3 kg] (10/29/2020 13:12) VITALS Temperature:97.1 F [36.2 C] (04/22/2021 11:35) BP:134/75 (04/22/2021 11:35) Pulse:93 (04/22/2021 11:35) Resp:16 (04/22/2021 11:35) SpO2:95% DATE: Apr@11:36:30; [X]On room air [ ]On L/min. 02 BMI:26 PAIN (scale 0-10):7 (04/22/2021 11:35) Is this pain level tolerable? Pain Location: CC:foot assessment, 6m f/u Allergies/ADR: ATORVASTATIN Allergy list correct (if no, update)? Clinical Reminders Done Today COVID-19 Immunization: Pfizer COVID-19 Vaccine given previously Patient received a prior dose of the Pfizer COV ID-19 Vaccine. Date: January 05, 2021 Location: [facility] Patient received a prior dose of the Pfizer COV ID-19 Vaccine. Date: January 26, 2021 Location: [facility] CHF/Weight: Education and instruction for monitoring weight and what to do with weight changes was discussed with the patient. Patient was advised to weigh daily, to keep a record, and to contact his/her provider about significant weight changes of >2-3 lbs overnight or >3-5 lb s in the course of a week. Dry weight has been established and the patient has been advised to have a scale at home. Level of Understanding: Good Herpes Zoster (Shingles) Vaccine: Prior Herpes Zoster vaccination The patient has been vaccinated in the past but written documentation of vaccination is not available today. Patient instructed to obtain a written record o f the prior vaccine and bring it to the next appointment. Influenza Immunization: The patient has received the seasonal influenza vaccine for the current season at another location. Date: April 07, 2021 Location: [facility] Health & Safety Screen: [employer] SAFETY SCREEN ENVIRONMENTAL SAFETY CHECK: Screening is not completed at this time due to: Another adult is present. Travel and Symptom Screen: The patient indicated that they and their close contacts have not traveled outside of the [place] in the past 21 day s. The patient reports the following symptoms: No symptoms present The patient is not immunocompromised. The patient does not report having a history of Multi Drug Resistant Organism (MDRO) within the last five years. The patient does not report having been exposed to measles, chickenpox, or zoster in last 30 days. /karen/ DANN BOLAÑOS/Makenzie Signed: 04/22/2021 11:43
--- OUTSIDE RECORDS SUMMARY | 2021-11-30 10:20 | External Medical Summary | Encounter Summary ---
:1945 Author Organization [facility] Address [address] [place] [address] Care Team Providers Name Role Phone LG [...] MEDICARE MEDICARE PART Dec 11, PART A [id number] DEONTE, PATIENT (WNR) (M) A [id number] [id number] [place] MEDICARE MEDICARE PART Dec 11, PART B [id number] DEONTE, PATIENT (WNR) (M) B [id number] [id number] [place] MEDICARE MEDICARE PART Dec 11, PART A [id number] [phone] LEMAST ER, PATIENT (WNR) (M) A 1995 [id number] 227 [place] MEDICARE MEDICARE PART Dec 11, PART B [id number] LEMAST ER, PATIENT (WNR) (M) B [id number] 56A 227 [place] MEDICARE MEDICARE PART Dec 11, PART A [id number] [phone] LEMAST ER, PATIENT (WNR) (M) A [id number] 227 [place] MEDICARE MEDICARE PART Dec 11, PART B [id number] [phone] LEMAST ER, PATIENT (WNR) (M) B [id number] 227 [place] MEDICARE MEDICARE PART Apr 13, PART A [id number] DEONTE, PATIENT (WNR) (M) A [id number] 56A [id number] [place] MEDICARE MEDICARE PART Apr 13, PART B [id number] DEONTE, PATIENT (WNR) (M) B [id number] 56A 1213 [place] -FO TRICA November 04, TFL [id number] [phone], PATIENT R-LIFE RE-FO 2014 56 404 [place] R-LIF E -FO [place] Dec 11, [id number] [phone] MERLY STER, PATIENT R-LIFE WNR RE-FO 2014 -FORLI 56 404 [place] R-LIF FE E -FO [place] Jun 13, TFL [id number] [phone], PATIENT R-LIFE WNR RE 2000 56 404 [place] FOR LIFE ZZWPS [place] Jun 09, STANDAR [id number] [phone] DEONTE , PATIENT TRIWEST RE 2001 D 56 378 [place] Selected Encounter This section includes the information on record at [place] for the Encounter. Date/Time Encounter Type Encounter Reason Provider Source Description May 05, 2021 HC PRO PHONE TELEPHONE PRIMARY ICD-10-CM Z71.9 AAKASH FINN 09:30 AM CALL 21-30 MIN CARE Counseling, unspecified with Provider Comments: Counseling, unspecified IHE Encounter Template Text not used by [facility] Assessments - Encounter Diagnoses This section includes the primary and secondary diagnoses documented for the Encounter. Date/Time Primary/Secondary Diagnosis Name Provider Source Diagnosis May 05, 2021 PRIMARY Counseling, CHUN FINN [place] 09:30 AM unspecified CLINIC Plan of Treatment: Future Appointments (+ 6 months) and Future Tests (+/- 45 days) The Plan of Treatment section includes future care activities for the patient from all [place] treatmentfacilities. This section includes future appointments and future orders which are active, pending orscheduled.Future Appointments This section includes appointments that were scheduled to occur 6 months from the date of the Encounter, up to a maximum of 20 appointments. The data comes from all [place] treatment facilities. Appointment Date/Time Appointment Type Appointment Facili ty Name May 22, 2021 09:00 AM AMBULATORY - MEDICINE SUNITA KatherineKadi [facility] Jun 29, 2021 08:00 AM AMBULATORY - NONE SUNITA Guillaume [facility] Sep 15, 2021 12:00 PM AMBULATORY - NONE SUNITA CO[facility]SE [facility] October 19, 2021 01:00 PM AMBULATORY - MEDICINE [facility] October 26, 2021 01:30 PM AMBULATORY - MEDICINE [facility] Social History: Smoking Status (Most current) and Tobacco Use (All prior to encounter date) This section includes the most current, and the historical, smoking and tobacco-related health factors from the [place] facility where the Encounter took place.Current Smoking Status This section includes the most current smoking, or tobacco-related health factor, from the [place] facility where the Encounter took place. Date/Time Current Smoking Status Comment Facility October 29, 2020 01:30 PM VA-TOBACCO FORMER USER [facility] Tobacco Use History This section includes a history of the smoking, or tobacco- related health factors, that were collected on or before the date of the Encounter. The data comes from the [place] facility where the Encounter took place. Date/Time Smoking Status/Tobacco Use Comment Facil it October 29, 2020 01:30 PM VA-TOBACCO QUIT 15 YRS OR MORE [facility] Sep 29, 2018 01:32 PM VA-TOBACCO FORMER USER [facility] Sep 29, 2018 01:32 PM VA-TOBACCO QUIT 15 YRS OR MORE [facility] Sep 02, 2017 02:13 PM QUIT TOBACCO >7 YEARS AGO [facility] Sep 02, 2017 02:13 PM [address]CO SCREEN COMPLETED [facility] Encounter Notes: All associated encounter notes This section contains the clinical notes associated to the Encounter. Date/Time Encounter Note(s) Provider Source May 05, 2021 03:23 PM SOCIAL WORK NOTE: CHUN FINN [facility] LOCAL TITLE: SOCIAL WORK NOTE STANDARD TITLE: SOCIAL WORK NOTE DATE OF NOTE: MAY 05, 2021@15:23 ENTRY DATE: MAY 05, 2021@15:23:34 AUTHOR: CHUN FINN EXP COSIGNER: URGENCY: STATUS: COMPLETED Social Work Triage Assessment (Please do not dane nge title of note) 1. Referral source o Providerxxx o CCNP/Health Tech o RN o Patient o Gimp Tacker o Family o External agency o Patient advocate o Other 2. Presenting Issues o Housing o Access to Care o Transportation o Financial issues o Employment Assistance o Functional limitations o Legal issues o Abuse/neglect/exploitation o Emotional distress o Advance directives o Caregiver distress o Retirement or computer terminal operator Care Placement o Need for in home support servicesxxxxx o Other 3. Brief Summary: 4. Case management is recommended o Yesxxxx o No o Declined case management 5. Social Work Interventions and Plan 1. Vet had previousl complet radha ARREDONDO. Vet needs to contact Thang at [phone] to re-activate home health care. 2. Mailed application for [employer] /karen/ CHUN FINN Pit Supervisor Signed: 05/05/2021 15:27
--- OUTSIDE RECORDS SUMMARY | 2021-11-30 10:20 | External Medical Summary | Encounter Summary ---
:1945 Author Organization [facility] rs Address [address] [place] [address] 64[address] Care Team Providers Name Role Phone LG [...] MEDICARE MEDICARE PART Dec 11, PART A [id number] DEONTE, PATIENT (WNR) (M) A 1995 [id number] [id number] [place] MEDICARE MEDICARE PART Dec 11, PART B [id number] DEONTE, PATIENT (WNR) (M) B 1996 56A 8431 [place] MEDICARE MEDICARE PART Dec 11, PART A [id number] [phone] LEMAST ER, PATIENT (WNR) (M) A 1995 56A 227 [place] MEDICARE MEDICARE PART Dec 11, PART B [id number] LEM[place] ER, PATIENT (WNR) (M) B 1996 56A 227 [place] MEDICARE MEDICARE PART Dec 11, PART A [id number] [phone] LEMAST ER, PATIENT (WNR) (M) A 1996 227 [place] MEDICARE MEDICARE PART Dec 11, PART B [id number] [phone] LEMAST ER, PATIENT (WNR) (M) B [id number] 227 [place] MEDICARE MEDICARE PART Apr 13, PART A [id number] DEONTE, PATIENT (WNR) (M) A 1983 56A 1213 [place] MEDICARE MEDICARE PART Apr 13, PART B [id number] DEONTE, PATIENT (WNR) (M) B 1983 56A 1213 [place] -FO [place] November 04, TFL [id number], PATIENT R-LIFE RE-FO 2014 56 404 [place] R-LIF E -FO [place] Dec 11, [id number] [id number] MERLY STER, PATIENT R-LIFE WNR RE-FO 2014 -FORLI 56 404 [place] R-LIF FE E -FO [place] Jun 13, TFL [id number] [phone], PATIENT R-LIFE WNR RE 2000 56 404 [place] FOR LIFE ZZWPS [place] Jun 09, STANDAR [id number] [phone] DEONTE , PATIENT TRIWEST RE 2001 D 56 378 [place] Selected Encounter This section includes the information on record at [place] for the Encounter. Date/Time Encounter Type Encounter Reason Provider Source Description May 04, 2021 Outpatient TELEPHONE/GERIATR ICD-10-CM Z74.1 Caden RAMSEY LBE 11:55 AM Encounter ICS Need for RTO assistance with personal care with Provider Comments: Need for Assistance with Personal Care IHE Encounter Template Text not used by [facility] Assessments - Encounter Diagnoses This section includes the primary and secondary diagnoses documented for the Encounter. Date/Time Primary/Secondary Diagnosis Name Provider Source Diagnosis May 04, 2021 PRIMARY Need for EMIR RAMSEY 11:55 AM assistance with RTO GABBI Beard [facility] personal care Plan of Treatment: Future Appointments [...] 20 appointments. The data comes from all [place] treatment facilities. Appointment Date/Time Appointment Type Appointment Facili ty Name May 05, 2021 09:30 AM AMBULATORY - PSYCHIATRY SUNITA SALAS [facility] May 22, 2021 09:00 AM AMBULATORY - MEDICINE SUNITA ULLOA [facility] Jun 29, 2021 08:00 AM AMBULATORY - NONE SUNITA MCCALL [facility] Sep 15, 2021 12:00 PM AMBULATORY - NONE SUNITA MCCALL [facility] October 19, 2021 01:00 PM AMBULATORY - MEDICINE [facility] October 26, 2021 01:30 PM AMBULATORY - MEDICINE [facility] Social History: Smoking Status (Most current) and Tobacco Use (All prior to encounter date) This section includes the most current, and the historical, smoking and tobacco-related health factors from the [place] facility where the Encounter took place.Current Smoking Status This section includes the most current smoking, or tobacco-related health factor, from the [place] facility where the Encounter took place. Date/Time Current Smoking Status Comment Facility Sep 04, 2017 06:40 PM TOBACCO SCREEN COMPLETED Kapil Guillaume [facility] 7 hrs Tobacco Use History This section includes a history of the smoking, or tobacco- related health factors, that were collected on or before the date of the Encounter. The data comes from the [place] facility where the Encounter took place. Date/Time Smoking Status/Tobacco Use Comment [facility] Sep 04, 2017 06:40 PM TOBACCO SCREEN COMPLETED [facility]il [facility] 7 hrs May 15, 2007 09:55 AM QUIT TOBACCO >7 YEARS AGO SUNITA SEO [facility] Feb 12, 1999 10:18 AM TOBACCO PRODUCTS USER (NO) SUNITA SEO [facility] Feb 14, 1998 01:00 AM TOBACCO PRODUCTS USER (NO) SUNITA SEO [facility] Dec 04, 1997 01:01 AM TOBACCO PRODUCTS USER (NO) [facility] Encounter Notes: All associated encounter notes This section contains the clinical notes associated to the Encounter. Date/Time Encounter Note(s) Provider Source May 04, 2021 11:55 AM HOME HEALTH NOTE: THANG RAMSEYWRIGHT LOCAL TITLE: HOMEMAKER HOME HEALTH AIDE NOTE [facility] STANDARD TITLE: HOME HEALTH NOTE DATE OF NOTE: MAY 04, 2021@11:55 ENTRY DATE: MAY 04, 2021@11:55:14 AUTHOR: THANG RAMSEY COSIGNER: URGENCY: STATUS: COMPLETED DENTAL INSURANCE BILLER Sprinkler Truck Driver contacted [place] regarding DENTAL INSURANCE BILLER & Respite Services. [place] identified self by full name & Date of B irth. [place] states he would like his spouse to be included in the CM Tool. Kisha damian reports is "in town" and will be available later this afternoon. [place] requested return phone call by social work msw. Plan: Contact [place] regarding services later t his afternoon. /karen/ Thang Ramsey LMSW-Clinical H/DENTAL INSURANCE BILLER Sprinkler Truck Driver Signed: 05/04/2021 11:58
--- OUTSIDE RECORDS SUMMARY | 2021-11-30 10:20 | External Medical Summary | Encounter Summary ---
:1945 Author Organization [facility] Address [address] [place] [address] 46[address] Care Team Providers Name Role Phone BURKSMALKAON Primary Care Provider Unavailable Insurance Providers: All [...] MEDICARE MEDICARE PART Dec 11, PART A [id number] DEONTE, PATIENT (WNR) (M) A 1996 56A 8431 [place] MEDICARE MEDICARE PART Dec 11, PART B [id number] DEONTE, PATIENT (WNR) (M) B 1996 56A 8431 [place] MEDICARE MEDICARE PART Dec 11, PART A [id number] [phone] LEMAST ER, PATIENT (WNR) (M) A 1995 56A 227 [place] MEDICARE MEDICARE PART Dec 11, PART B [id number] L[place] ER, PATIENT (WNR) (M) B 1996 56A 227 [place] MEDICARE MEDICARE PART Dec 11, PART A [id number] [phone] L[place] ER, PATIENT (WNR) (M) A 1996 227 [place] MEDICARE MEDICARE PART Dec 11, PART B [id number] [phone] LEMAST ER, PATIENT (WNR) (M) B [id number] 227 [place] MEDICARE MEDICARE PART Apr 13, PART A [id number] [phone] DEONTE, PATIENT (WNR) (M) A 1983 56A 1213 [place] MEDICARE MEDICARE PART Apr 13, PART B [id number] DEONTE, PATIENT (WNR) (M) B 1983 56A 1213 [place] -FO [place] November 04, TFL [id number] [phone], PATIENT R-LIFE RE-FO 2014 56 404 [place] R-LIF E -FO [place] Dec 11, [id number] [phone] MERLY STER, PATIENT R-LIFE WNR RE-FO 2014 -FORLI 56 404 [place] R-LIF FE E -FO [place] Jun 13, TFL [id number] [phone], PATIENT R-LIFE WNR RE 2000 56 404 [place] FOR LIFE ZZWPS [place] Jun 09, STANDAR [id number] [phone] DEONTE , PATIENT TRIWEST RE 2001 D 56 378 [place] Selected Encounter This section includes the information on record at [place] for the Encounter. Date/Time Encounter Type Encounter Description Reason Provider Source May 02, 2021 12:52 Outpatient Encounter PRIMARY CARE/MEDICINE PM IHE Encounter Template Text not used by [place] Plan of Treatment: Future Appointments (+ 6 months) and Future Tests (+/- 45 days) The Plan of Treatment section includes future care activities for the patient from all [place] treatmentfacilities. This section includes future appointments and future orders which are active, pending orscheduled.Future Appointments This section includes appointments that were scheduled to occur 6 months from the date of the Encounter, up to a maximum of 20 appointments. The data comes from all [place] treatment facilities. Appointment Date/Time Appointment Type Appointment Facili ty Name May 05, 2021 09:30 AM AMBULATORY - PSYCHIATRY SUNITA SALAS [facility] May 22, 2021 09:00 AM AMBULATORY - MEDICINE SUNITA ULLOA [facility] Jun 29, 2021 08:00 AM AMBULATORY - NONE SUNITA [facility]ALL [facility] Sep 15, 2021 12:00 PM AMBULATORY - NONE [facility]ITA [facility] October 19, 2021 01:00 PM AMBULATORY - MEDICINE [facility] October 26, 2021 01:30 PM AMBULATORY - MEDICINE [facility] Social History: Smoking Status (Most current) and Tobacco Use (All prior to encounter date) This section includes the most current, and the historical, smoking and tobacco-related health factors from the [place] facility where the Encounter took place.Current Smoking Status This section includes the most current smoking, or tobacco-related health factor, from the [place] facility where the Encounter took place. Date/Time Current Smoking Status Comment Facility Sep 04, 2017 06:40 PM TOBACCO SCREEN COMPLETED Kapil Guillaume [facility] 7 hrs Tobacco Use History This section includes a history of the smoking, or tobacco- related health factors, that were collected on or before the date of the Encounter. The data comes from the [place] facility where the Encounter took place. Date/Time Smoking Status/Tobacco Use Comment [facility] Sep 04, 2017 06:40 PM TOBACCO SCREEN COMPLETED Kapil Guillaume [facility] 7 hrs May 15, 2007 09:55 AM QUIT TOBACCO >7 YEARS AGO [facility] Feb 12, 1999 10:18 AM TOBACCO PRODUCTS USER (NO) [facility] Feb 14, 1998 01:00 AM TOBACCO PRODUCTS USER (NO) [facility] Dec 04, 1997 01:01 AM TOBACCO PRODUCTS USER (NO) SUNITA Guillaume [facility] Encounter Notes: All associated encounter notes This section contains the clinical notes associated to the Encounter. Date/Time Encounter Note(s) Provider Source May 02, 2021 01:10 PM TELEPHONE ENCOUNTER NOTE: [facility] TITLE: TELEPHONE NOTE STANDARD TITLE: TELEPHONE ENCOUNTER NOTE DATE OF NOTE: MAY 02, 2021@13:10 ENTRY DATE: MAY 02, 2021@13:10:25 AUTHOR: LG BURKS EXP COSIGNER: URGENCY: STATUS: COMPLETED TELEPHONE NOTE Has ADDENDA Patient Call to id name BD releated to new med from Dr Leyva pravasattin 20mg and metoprolol 50mg they wish [place] to add and will monitor BP and pulse and bring to Dr Leyva at 3 mo F/U see BUSINESS SUPPORT note 10/19/2020 matilde is needing a van servi ce that will allow electric wheel chair transport. He is wanting to drive but should not be since CVA. She will contact Chantelle burks BUSINESS SUPPORT related to driving issue. Julia please contact if available resources in area for WC tr ansport. . They now want CG services si nce had a CVA and increased right hip pain unable to ambulation minimal and mainly transfers. They missed call from Cristy machuca or BUSINESS SUPPORT in [place]. I told to call back on tuesday05/04/2021. /es/ Lg PARKER Nurse Practitioner Signed: 05/02/2021 13:16 Receipt Acknowledged By: 05/04/2021 07:32 /es/ ROSANA FRAUSTO CLINICAL MANTEL CRAFTSMAN - LINEN AIDE 05/04/2021 ADDENDUM STATUS: COMPLETED Request PACT SW contact Rossy dangelo to help him set up wheelchair transport in local area. Special Mobility Service and Dial-A-Ride P aratransit Service are some available options. /karen/ ROSANA FRAUSTO CLINICAL MANTEL CRAFTSMAN - LINEN AIDE Signed: 05/04/2021 07:44 Receipt Acknowledged By: * AWAITING SIGNATURE * CHUN FINN
--- OUTSIDE RECORDS SUMMARY | 2021-11-30 10:20 | External Medical Summary | Encounter Summary ---
:1945 Author Organization [facility] Address [address] [place] [address] 40953 Care Team Providers Name Role Phone DE [...] MEDICARE MEDICARE PART Dec 11, PART A [id number] DEONTE, PATIENT (WNR) (M) A 1995 56A 8431 [place] MEDICARE MEDICARE PART Dec 11, PART B [id number] DEONTE, PATIENT (WNR) (M) B 1996 56A 8431 [place] MEDICARE MEDICARE PART Dec 11, PART A [id number] [phone] LEMAST ER, PATIENT (WNR) (M) A 1995 56A 227 [place] MEDICARE MEDICARE PART Dec 11, PART B [id number] L[place] ER, PATIENT (WNR) (M) B 1996 56A 227 [place] MEDICARE MEDICARE PART Dec 11, PART A [id number] [phone] [place] ER, PATIENT (WNR) (M) A [id number] 227 [place] MEDICARE MEDICARE PART Dec 11, PART B [id number] [phone] L[place] ER, PATIENT (WNR) (M) B [id number] 227 [place] MEDICARE MEDICARE PART Apr 13, PART A [id number] DEONTE, PATIENT (WNR) (M) A 1983 56A 1213 [place] MEDICARE MEDICARE PART Apr 13, PART B [id number] DEONTE, PATIENT (WNR) (M) B 1983 56A 1213 [place] -FO [place] November 04, TFL [id number], PATIENT R-LIFE RE-FO 2014 56 404 [place] R-LIF E -FO [place] Dec 11, [id number] [phone] MERLY STER, PATIENT R-LIFE WNR RE-FO 2014 -FORLI 56 404 [place] R-LIF FE E -FO [place] Jun 13, TFL [id number] [phone], PATIENT R-LIFE WNR RE 2000 56 404 [place] FOR LIFE ZZWPS [place] Jun 09, STANDAR [id number] [phone] DEONTE , PATIENT TRIWEST RE 2001 D 56 378 [place] Selected Encounter This section includes the information on record at [place] for the Encounter. Date/Time Encounter Type Encounter Reason Provider Source Description Apr 24, 2021 PRO PHONE TELEPHONE/ANCILLA ICD-10-CM Z51.81 ADONIS FRAIRE 12:35 PM CALL 5-10 MIN RY Encounter for N therapeutic drug level monitoring with Provider Comments: Encounter for Therapeutic Drug Level Monitoring IHE Encounter Template Text not used by [place] Assessments - Encounter Diagnoses This section includes the primary and secondary diagnoses documented for the Encounter. Date/Time Primary/Secondary Diagnosis Name Provider Source Diagnosis Apr 24, 2021 PRIMARY Encounter for SUSANNA FRAIRE 12:35 PM therapeutic drug Y [place] [facility] level monitoring Apr 24, 2021 SECONDARY Chronic atrial SUSANNA FRAIRE 12:35 PM fibrillation, Y [place] [facility] unspecified Apr 24, 2021 SECONDARY correction (current) SUSANNA FRAIRE 12:35 PM use of Y N [facility] anticoagulants Plan of Treatment: Future Appointments (+ 6 [...] 09:30 AM AMBULATORY - PSYCHIATRY [facility]ITA [facility]AS [facility] May 22, 2021 09:00 AM AMBULATORY - MEDICINE [facility]ITA ULLOA [facility] Jun 29, 2021 08:00 AM AMBULATORY - NONE SUNITA MCCALL [facility] Sep 15, 2021 12:00 PM AMBULATORY - NONE SUNITA MCCALL [facility] October 19, 2021 01:00 PM AMBULATORY - MEDICINE [facility] IC Social History: Smoking Status (Most [...] 06:40 PM TOBACCO SCREEN COMPLETED Kapil Guillaume [facility] 7 hrs Tobacco Use History This section includes a history of the smoking, or tobacco- related health factors, that were collected on or before the date of the Encounter. The data comes from the [place] facility where the Encounter took place. Date/Time Smoking Status/Tobacco Use Comment [facility] Sep 04, 2017 06:40 PM TOBACCO SCREEN COMPLETED Kapil [facility] 7 hrs May 15, 2007 09:55 AM QUIT TOBACCO >7 YEARS AGO [facility] Feb 12, 1999 10:18 AM TOBACCO PRODUCTS USER (NO) SUNITA SEO [facility] Feb 14, 1998 01:00 AM TOBACCO PRODUCTS USER (NO) [facility] Dec 04, 1997 01:01 AM TOBACCO PRODUCTS USER (NO) [facility] Encounter Notes: All associated encounter notes This section contains the clinical notes associated to the Encounter. Date/Time Encounter Note(s) Provider Source Apr 24, 2021 12:35 PM NURSING OUTPATIENT E & M OF ANTICOAGUL ATION NOTE: ADONIS FRAIRE LOCAL TITLE: ANTICOAGULATION TELEPHONE NOTE [facility] STANDARD TITLE: NURSING OUTPATIENT E & M OF ANTI COAGULATION NOTE DATE OF NOTE: APR 24, 2021@12:35 ENTRY DATE: APR 24, 2021@12:35:53 AUTHOR: ADONIS FRAIRE EXP COSIGNER: URGENCY: STATUS: COMPLETED ANTICOAGULATION TELEPHONE NOTE Has ADDENDA CHELSY CLEMONS contacted at: Patient identification is confirmed by full name and date of prior to interview. ------ - Patient reports taking api xaban 2.5 mg twice daily after he developed a stroke in 07/2020. - Based on his age, weight, and renal function h e is eligible for full dose apixaban 5 mg twice daily. - Reviewed office visit note from [facility] (Dr. Leyva) 03/16/21: - Recommended to continue apixaban 5 twice lor y for thromboembolic prophylaxis and to add aspirin 81 mg daily due to stroke while on apixaban. - Explained rationale and Dr Kadi Leyva (cardiology) recommendations for increasing apixaban dose back up to 5 mg twice pari ly to prevent recurrent strokes and he is willing to increase the dose back to 5 mg tw ice daily. He denies being concerned with bleeding symptoms and shares he is tolerating apixaban well. - He confirms he is taking aspirin 81 mg daily P: 1). Increase apixaban to [address] daily [address] roke prevention. 2). Monitoring tracked via DOAC PMT. Time: 9 minutes Clinical Reminders Done Today PBM PharmD Pharmacotherapy Rem V8: ASSESSMENT AND PLAN: ANTICOAGULATION THERAPY DIRECT ORAL ANTICOAGULANT (DOAC) MANAGEMENT Adjust dose or frequency of medication (e.g. re nal changes or drug interactions) /karen/ ADONIS FRAIRE ANTICOAGULATION CLINICAL PHARMACIST PROVIDER Signed: 04/24/2021 12:40 Receipt Acknowledged By: 04/26/2021 11:39 /es/ Lg PARKER Nurse Practitioner 05/08/2021 ADDENDUM STATUS: COMPLETED Received and reviewed progre ss note from Dotty PARKER ([facility]) DOS 08/06/20 - Noted he was off apixaban and placed on enoxap mark after admission at [facility] (07/20 - 07/24/20 for intracranial hemorrhage) - non-VA PCP conferred with Dr. Mcfadden who recommended restarting apixaban 2.5 mg BID. Most recent cardiology recommendations from 03/16 are to take apixaban 5 mg BID (appropriate dose based on age, wt, and SCr) . ACT batch room technician: please req uest copy of discharge summary from [facility] admission on 07/20 - 07/24/20) relating to intracranial hemor rhbettina /karen/ ADONIS FRAIRE ANTICOAGULATION CLINICAL PHARMACIST PROVIDER Signed: 05/08/2021 16:14 Receipt Acknowledged By: 05/11/2021 08:37 /es/ RAFIQ ORTA Clinical apartment groundskeeper Anticoagulation 05/22/2021 ADDENDUM STATUS: COMPLETED Received and reviewed records from [facility] (07/20 - 07/24/20) - admission for spontaneous intracranial hemorrh age on anticoagulation with apixaban - CT Impression: areas of parenchymal hemorrhage in the right temporal and parietal lobe. Probably hypertensive, traumatic or other causes of bleed rather than related to ischemic change. Not in typical location of aneurysm. - Noted he was taking ibuprofen 600 mg BID prior to admission. - Discharged on enoxaparin until CT follow-up wi th stable. Followed by Dr. Boyd. - Complication report filed. /karen/ ADONIS FRAIRE ANTICOAGULATION CLINICAL PHARMACIST PROVIDER Signed: 05/22/2021 14:15
--- OUTSIDE RECORDS SUMMARY | 2021-11-30 10:20 | External Medical Summary | Encounter Summary ---
:1945 Author Organization [facility] rs Address [address] [place] [address] 44[address] Care Team Providers Name Role Phone LG [...] MEDICARE MEDICARE PART Dec 11, PART A [id number] DEONTE, PATIENT (WNR) (M) A 1996 56A 8431 [place] MEDICARE MEDICARE PART Dec 11, PART B [id number] DEONTE, PATIENT (WNR) (M) B 1996 56A 8431 [place] MEDICARE MEDICARE PART Dec 11, PART A [id number] [phone] LEM[place] ER, PATIENT (WNR) (M) A 1995 56A 227 [place] MEDICARE MEDICARE PART Dec 11, PART B [id number] [place] ER, PATIENT (WNR) (M) B 1996 56A 227 [place] MEDICARE MEDICARE PART Dec 11, PART A [id number] [phone] [place] ER, PATIENT (WNR) (M) A 1996 227 [place] MEDICARE MEDICARE PART Dec 11, PART B [id number] [phone] [place] ER, PATIENT (WNR) (M) B [id number] 227 [place] MEDICARE MEDICARE PART Apr 13, PART A [id number] DEONTE, PATIENT (WNR) (M) A 1982 56A 1213 [place] MEDICARE MEDICARE PART Apr 13, PART B [id number] DEONTE, PATIENT (WNR) (M) B 1983 56A 1213 [place] -FO [place] November 04, TFL [id number] [phone], PATIENT R-LIFE RE-FO 2014 56 404 [place] R-LIF E -FO [place] Dec 11, [id number] [phone] MERLY STER, PATIENT R-LIFE WNR RE-FO 2014 -FORLI 56 404 [place] R-LIF FE E -FO [place] Jun 13, TFL [id number] [phone], PATIENT R-LIFE WNR RE 2000 56 404 [place] FOR LIFE ZZWPS [place] Jun 09, STANDAR [id number] [phone] DEONTE , PATIENT TRIWEST RE 2001 D 56 378 [place] Selected Encounter This section includes the information on record at [place] for the Encounter. Date/Time Encounter Type Encounter Reason Provider Source Description May 01, 2021 Outpatient TELEPHONE/GERIATR ICD-10-CM Z74.1 Caden RAMSEY LBE 10:54 AM Encounter ICS Need for RTO assistance with personal care with Provider Comments: Need for Assistance with Personal Care IHE Encounter Template Text not used by [place] Assessments - Encounter Diagnoses This section includes the primary and secondary diagnoses documented for the Encounter. Date/Time Primary/Secondary Diagnosis Name Provider Source Diagnosis May 01, 2021 PRIMARY Need for EMIR RAMSEY 10:54 AM assistance with RTO GABBI Beard [facility] personal care Plan of [...] 09:30 AM AMBULATORY - PSYCHIATRY SUNITA SALAS [facility] May 22, 2021 09:00 AM AMBULATORY - MEDICINE SUNITA ULLOA [facility] Jun 29, 2021 08:00 AM AMBULATORY - NONE SUNITA MCCALL [facility] Sep 15, 2021 12:00 PM AMBULATORY - NONE SUNITA MCCALL [facility] October 19, 2021 01:00 PM AMBULATORY - [...] 06:40 PM TOBACCO SCREEN COMPLETED Kapil Guillaume [facility] 7 hrs Tobacco Use History This section includes a history of the smoking, or tobacco- related health factors, that were collected on or before the date of the Encounter. The data comes from the [place] facility where the Encounter took place. Date/Time Smoking Status/Tobacco Use Comment [facility] Sep 04, 2017 06:40 PM TOBACCO SCREEN COMPLETED [facility] 7 hrs May 15, 2007 09:55 AM QUIT TOBACCO >7 YEARS AGO SUNITA SEO [facility] Feb 12, 1999 10:18 AM TOBACCO PRODUCTS USER (NO) SUNITA SEO [facility] Feb 14, 1998 01:00 AM TOBACCO PRODUCTS USER (NO) SUNITA SEO [facility] Dec 04, 1997 01:01 AM TOBACCO PRODUCTS USER (NO) [facility] Encounter Notes: All associated encounter notes This section contains the clinical notes associated to the Encounter. Date/Time Encounter Note(s) Provider Source May 01, 2021 10:55 AM HOME HEALTH NOTE: THANG RAMSEYWRIGHT LOCAL TITLE: HOMEMAKER HOME HEALTH AIDE NOTE [facility] STANDARD TITLE: HOME HEALTH NOTE DATE OF NOTE: MAY 01, 2021@10:55 ENTRY DATE: MAY 01, 2021@10:55:07 AUTHOR: THANG RAMSEY COSIGNER: URGENCY: STATUS: COMPLETED FEEDER OPERATOR AUTOMATIC Intermodal Dispatcher contacted [place] regarding FEEDER OPERATOR AUTOMATIC & Respite Services. [place] identified self by f ull name and date of . [place] requested a call back to include his spouse for the CM Tool and r equested a phone call back. Plan: follow up with [place] regarding FEEDER OPERATOR AUTOMATIC/Respi te Services /es/ Thang Ramsey LMSW-Clinical H/FEEDER OPERATOR AUTOMATIC Intermodal Dispatcher Signed: 05/01/2021 10:57
--- OUTSIDE RECORDS SUMMARY | 2021-11-30 10:21 | External Medical Summary | Encounter Summary ---
:1945 Author Organization [facility] Address [address] [place] [address] Care Team Providers Name Role Phone HICKEYMALKAON [...] MEDICARE MEDICARE PART Dec 11, PART A [id number] DEONTE, PATIENT (WNR) (M) A [id number] [place] MEDICARE MEDICARE PART Dec 11, PART B [id number] DEONTE, PATIENT (WNR) (M) B [id number] 56A 8431 [place] MEDICARE MEDICARE PART Dec 11, PART A [id number] [phone] LEMAST ER, PATIENT (WNR) (M) A 1995 56A 227 [place] MEDICARE MEDICARE PART Dec 11, PART B [id number] LEMAST ER, PATIENT (WNR) (M) B 1996 56A 227 [place] MEDICARE MEDICARE PART Dec 11, PART A [id number] [phone] LEMAST ER, PATIENT (WNR) (M) A [id number] 227 [place] MEDICARE MEDICARE PART Dec 11, PART B [id number] [phone] LEMAST ER, PATIENT (WNR) (M) B [id number] 227 [place] MEDICARE MEDICARE PART Apr 13, PART A [id number] DEONTE, PATIENT (WNR) (M) A 1983 56A 1213 [place] MEDICARE MEDICARE PART Apr 13, PART B [id number] DEONTE, PATIENT (WNR) (M) B [id number] 56A 1213 [place] -FO [place] November 04, TFL [id number], PATIENT R-LIFE RE-FO 2014 56 404 [place] R-LIF E -FO [place] Dec 11, [id number] [phone] MERLY STER, PATIENT R-LIFE WNR RE-FO 2014 -FORLI 56 404 [place] R-LIF FE E -FO [place] Jun 13, TFL [id number] [phone], PATIENT R-LIFE WNR RE 2000 56 404 [place] FOR LIFE ZZWPS [place] Jun 09, STANDAR [id number] [phone] DEONTE , PATIENT TRIWEST RE 2001 D [id number] 378 [place] Selected Encounter This section includes the information on record at [place] for the Encounter. Date/Time Encounter Type Encounter Description Reason Provider Source Apr 20, 2021 04:01 Outpatient Encounter TELEPHONE/ANCILLARY PM IHE Encounter Template [...] Appointment Type Appointment Facili ty Name Apr 22, 2021 11:30 AM AMBULATORY - MEDICINE [facility] May 05, 2021 09:30 AM AMBULATORY - PSYCHIATRY SUNITA SALAS [facility] May 22, 2021 09:00 AM AMBULATORY - MEDICINE SUNITA ULLOA [facility] Jun 29, 2021 08:00 AM AMBULATORY - NONE SUNITA MCCALL [facility] Sep 15, 2021 12:00 PM AMBULATORY - NONE SUNITA MCCALL [facility] Active, Pending, and Scheduled Orders This [...] AM Laboratory - Chemistry EXPANDED URINE DRUG [facility] Order SCREEN URINE SP Mar 06, 2021 12:00 AM Laboratory - Chemistry VA OPIATE PANEL WIT H [facility] Order NALOXONE URINE SP Mar 06, 2021 12:00 AM Laboratory - Chemistry URINALYSIS (IRIS) L [facility] Order URINE SP Social History: Smoking Status [...] 2017 06:40 PM TOBACCO SCREEN COMPLETED [facility] 7 hrs Tobacco Use History This section includes a history of the smoking, or tobacco- related health factors, that were collected on or before the date of the Encounter. The data comes from the [place] facility where the Encounter took place. Date/Time Smoking Status/Tobacco Use Comment [facility] Sep 04, 2017 06:40 PM TOBACCO SCREEN COMPLETED [facility] 7 hrs May 15, 2007 09:55 AM QUIT TOBACCO >7 YEARS AGO SUNITA SEO [facility] Feb 12, 1999 10:18 AM TOBACCO PRODUCTS USER (NO) SUNITA SEO [facility] Feb 14, 1998 01:00 AM TOBACCO PRODUCTS USER (NO) SUNITA SEO [facility] Dec 04, 1997 01:01 AM TOBACCO PRODUCTS USER (NO) [facility] Encounter Notes: All associated encounter notes This section contains the clinical notes associated to the Encounter. Date/Time Encounter Note(s) Provider Source Apr 20, 2021 04:01 PM E & M OF ANTICOAGULATION NOTE: DERECK ORTA LOCAL TITLE: ANTICOAGULATION NOTE [facility] STANDARD TITLE: E & M OF ANTICOAGULATION NOTE DATE OF NOTE: APR 20, 2021@16:01 ENTRY DATE: APR 20, 2021@16:01:14 AUTHOR: RAFIQ ORTA COSIGNER: URGENCY: STATUS: COMPLETED ANTICOAGULATION NOTE Has ADDENDA DOAC MONITORING REPORT ALERT: GREATER THAN FOUR WEEKS OVERDUE FOR REFILL [place] CLEOMNS contacted at: . Patient identification is confirm ed by full name and date of prior to interview. Patient interview 1. [facility] records indicate you are prescribed the an ticoagulant or blood thinning medication, apixaban that was last lesley led on 10/21/20 for a 90 day supply. Are you still taking this medication? [ x ] YES --REFER TO ACT PROVIDER IF THE OPTION BELOW I S SELECTED [ ] NO, inquire when, by whom, and for what gabriel son the medication was stopped. 2. How much of apixaban are you taking and how o ften? [ ] Taking the prescribed dose and frequency: --REFER TO ACT PROVIDER IF OPTION BELOW IS SE LECTED [ x ] Taking medication at a different dose/sakshi quency than prescribed: - Inquire when, by whom, and for what reason th e medication dose or frequency was changed. Dr. Lg Hickey, [facility] Jul 15 stroke 3. How often do you miss a dose of apixaban? [ x ] Never or rarely [ ] Multiple times per month --REFER TO ACT PROVIDER IF THE OPTIONS BELOW IS SELECTED [ ] Multiple times per week 4. Are you getting apixaban from someplace else? (i.e., non-VA pharmacy, hospital, assistive living facility, rehabilitation) [ ] Yes - if so where and do you need to receiv e this medication from the [facility] now? [ x ] No 5. How much supply of apixaban do you have bang is[place] at home? Quantity: 4 full bottles PLAN: [ x ] PROVIDER FOLLOW-UP NEEDED [ ] Patient is no longer taking a DOAC - request records when indicated [ x ] Patient is taking a DOAC differently than prescribed - request records when indicated [ ] Patient is missing multiple doses of DOAC w [facility] [ ] NO PROVIDER FOLLOW-UP NEEDED [ ] Patient consistently taking DOAC as prescri bed. [ ] Patient is receiving DOAC from another sour ce. - prescription discontinued and added as non-VA medication EDUCATION: Taking your blood thinning medication every day as instructed lowers your risk for developing blood clots and strokes. Requesting records /karen/ RAFIQ ORTA Clinical siebel crm developer Anticoagulation Signed: 04/20/2021 16:07 Receipt Acknowledged By: 04/21/2021 08:59 /karen/ ADONIS FRAIRE ANTICOAGULATION CLINICAL PHARMACIST PROVIDER 04/21/2021 ADDENDUM STATUS: COMPLETED Per discussion with [facility] technical services coordinator, tracy townsend reported taking apixaban 2.5 mg BID. Will await receipt of non-VA notes to evaluate clinical justification for stroke reduction. /karen/ ADONIS FRAIRE ANTICOAGULATION CLINICAL PHARMACIST PROVIDER Signed: 04/21/2021 09:00 04/22/2021 ADDENDUM STATUS: COMPLETED Adonis please clarify with dosage apxiaban 2.5mg BID which vet states is currently taking. He said was decreased from 5mg B ID to 2.5mg BID after CVA? in Jul poor historian and no notes during visit today sorry. History of vascular procedure Dr Jose Roberto arroyo in pas t Atrial fibrillation, Permanent last note Dr Arsen yepez mar 2021 will request last note. only note in chart 2018 Dr David Wilkerson request last note Dr Gordon Yepez /karen/ Lg PARKER Nurse Practitioner Signed: 04/22/2021 13:11 Receipt Acknowledged By: * AWAITING SIGNATURE * CONSTANTINE SOTO * AWAITING SIGNATURE * ADONIS FRAIRE 04/22/2021 ADDENDUM STATUS: COMPLETED [facility] Jul 2020 /karen/ Lg PARKER Nurse Practitioner Signed: 04/22/2021 13:12 Receipt Acknowledged By: * AWAITING SIGNATURE * ADONIS FRAIRE
--- OUTSIDE RECORDS SUMMARY | 2021-11-30 10:21 | External Medical Summary | Encounter Summary ---
:1945 Author Organization [facility] Address [address] [place] [address] Care Team Providers Name Role Phone DE [...] MEDICARE MEDICARE PART Dec 11, PART A [id number] DEONTE, PATIENT (WNR) (M) A [id number] [id number] [place] MEDICARE MEDICARE PART Dec 11, PART B [id number] DEONTE, PATIENT (WNR) (M) B 1996 56A 8431 [place] MEDICARE MEDICARE PART Dec 11, PART A [id number] [phone] LEMAST ER, PATIENT (WNR) (M) A 1995 56A 227 [place] MEDICARE MEDICARE PART Dec 11, PART B [id number] L[place] ER, PATIENT (WNR) (M) B 1996 56A 227 [place] MEDICARE MEDICARE PART Dec 11, PART A [id number] [phone] [place] ER, PATIENT (WNR) (M) A [id number] 227 [place] MEDICARE MEDICARE PART Dec 11, PART B [id number] [phone] LEM[place] ER, PATIENT (WNR) (M) B [id number] 227 [place] MEDICARE MEDICARE PART Apr 13, PART A [id number] DEONTE, PATIENT (WNR) (M) A 1983 56A 1213 [place] MEDICARE MEDICARE PART Apr 13, PART B [id number] DEONTE, PATIENT (WNR) (M) B [id number] 56A 1213 [place] -FO [place] November 04, TFL [id number] [phone], PATIENT R-LIFE RE-FO 2014 56 404 [place] R-LIF E -FO [place] Dec 11, [id number] [phone] MERLY STER, PATIENT R-LIFE WNR RE-FO 2014 -FORLI 56 404 [place] R-LIF FE E -FO [place] Jun 13, TFL [id number] [phone], PATIENT R-LIFE WNR RE 2000 56 404 [place] FOR LIFE ZZWPS [place] Jun 09, STANDAR [id number] [phone] DEONTE , PATIENT TRIWEST RE 2001 D [id number] 378 [place] Selected Encounter This section includes the information on record at [place] for the Encounter. Date/Time Encounter Type Encounter Description Reason Provider Source Apr 02, 2021 10:37 Outpatient Encounter GENERAL INTERNAL AM MEDICINE IHE Encounter Template Text not used by [...] 22, 2021 11:30 AM AMBULATORY - MEDICINE [facility] May 05, 2021 09:30 AM AMBULATORY - PSYCHIATRY SUNITA SALAS [facility] May 22, 2021 09:00 AM AMBULATORY - MEDICINE SUNITA ULLOA [facility] Jun 29, 2021 08:00 AM AMBULATORY - NONE SUNITA KatherineKadi MCCALL [facility] Sep 15, 2021 12:00 PM AMBULATORY - NONE SUNITA KatherineKadi MCCALL [facility] Active, Pending, and Scheduled Orders This section includes a listing of several types of active, pending, and scheduled orders, including clinic medications orders, diagnostic test orders, procedure orders and consult orders; where the start date of the order is 45 days before the date of the Encounter or 45 days after the date of the Encounter. The data comes from all [place] treatment facilities. Test Date/Time Test Type Test Details Facility Name Mar 06, 2021 12:00 AM Laboratory - Chemistry EXPANDED URINE DRUG [facility] Order SCREEN URINE SP Mar 06, 2021 12:00 AM Laboratory - Chemistry VA OPIATE PANEL WIT H [facility] Order NALOXONE URINE SP Mar 06, 2021 12:00 AM Laboratory - Chemistry URINALYSIS (IRIS) L [facility] Order URINE SP Lab Results: +/- 30 days of the encounter This section includes the Chemistry and Hematology Lab Results on record with [place] for the patient. Radiology Reports and Pathology Reports are provided separately, in subsequent sections.Lab Results This section contains the Chemistry/Hematology Results that were resulted 30 days before or 30 daysafter the date of the Encounter. Date/Time Source Result Type Result - Unit Interpretation Reference Range Comment Mar 05, 2021 11:27 AM [facility] BNP, NT-PRO Specim en Type: SERUM Comment: High d oses of Biotin supplements (>5 mg/day) may falsely decrease Total PSA, Free PSA, Pro-BNP, AFP, C-Peptide and Ferritin results. Test specimens should be collected at least 8 hours afte r the last inges tion of high dose biotin. CAUTION REGARDING BNP, NT-PRO: This is an N-Terminal ProBNP assay. While hiw-A-Wybegoji BNP assays have roughly the same predictive power for accessing heart fa ilure, reference ranges are different and results obtained between the two assays cannot be used interchangeably. Ordering Provid er: LG DE JESUS Report Released Date/Time: Jan 10, 2021 10:40 PM Reporting Lab: SUNITA SEO [address] [place] [address] Performing Lab: SUNITA SEO [address] [place] [address] BNP, NT-PRO 1926 pg/mL H 0-124 Mar 05, 2021 11:27 [facility] CBC & MORPHOLOGY (WITH Sp ecimen Type: BLOOD AM DIFF) No comment enter ed. Ordering Provid er: LG DE JESUS Report Released Date/Time: Jan 10, 2021 10:40 PM Reporting Lab: SUNITA SEO [place] [address] [place] [address] Performing Lab: SUNITA MCCALL[address] [address] WBC (TOTAL WBC COUNT) 6.4 3.0-10.6 RBC [...] ABSOLUTE 0.03 0-0.07 Mar 05, 2021 11:27 [facility] THYROID STIMULATING Speci men Type: SERUM AM HORMONE No comment enter ed. Ordering Provid er: LG DE JESUS Report Released Date/Time: Jan 10, 2021 10:40 PM Reporting Lab: SUNITA MCCALL[address] [place] [address] Performing Lab: [place]ITA [place] [address] [place] [address] THYROID STIMULATING HORMONE 10.7 H 0. 300-4.25 Mar 05, 2021 [facility] COMPREHENSIVE METABOLIC Spec imen Type: SERUM 11:27 AM PANEL No comment enter ed. Ordering Provid er: LG DE JESUS Report Released Date/Time: Jan 10, 2021 10:40 PM Reporting Lab: SUNITA COLEMAN[address] [place] [address] Performing Lab: SUNITA Guillaume [facility] [address] GLUCOSE 137 mg/dL H 71-109 BUN/UREA (BLOOD [...] smoking and tobacco-related health factors from the [facility] where the Encounter took place.Current Smoking Status This section includes the most current smoking, or tobacco-related health factor, from the [place] facility where the Encounter took place. Date/Time Current Smoking Status Comment Facility Sep 04, 2017 06:40 PM TOBACCO SCREEN COMPLETED Kapil Guillaume ON LICENSE OF [facility] 7 hrs Tobacco Use History This section includes a history of the smoking, or tobacco- related health factors, that were collected on or before the date of the Encounter. The data comes from the [place] facility where the Encounter took place. Date/Time Smoking Status/Tobacco Use Comment [facility] veronica Sep 04, 2017 06:40 PM TOBACCO SCREEN COMPLETED Kapil CRUZDESIRAE Markell [facility] 7 hrs May 15, 2007 09:55 AM QUIT TOBACCO >7 YEARS AGO [facility] Feb 12, 1999 10:18 AM TOBACCO PRODUCTS USER (NO) SUNITA SEO [facility] Feb 14, 1998 01:00 AM TOBACCO PRODUCTS USER (NO) SUNITA SEO [facility] Dec 04, 1997 01:01 AM TOBACCO PRODUCTS USER (NO) SUNITA Guillaume ON LICENSE OF [facility] Encounter Notes: All associated encounter notes This section contains the clinical notes associated to the Encounter. Date/Time Encounter Note(s) Provider Source Apr 02, 2021 10:37 AM INFECTIOUS DISEASE RISK ASSESSMENT SCR EENING NOTE: RICHMOND VALDOVINOS [facility] LOCAL TITLE: SCREENING COVID [facility] STANDARD TITLE: INFECTIOUS DISEASE RISK ASSESSME NT SCREENING NOT DATE OF NOTE: APR 02, 2021@10:37 ENTRY DATE: APR 02, 2021@10:37:36 AUTHOR: RICHMOND VALDOVINOS EXP COSIGNER: URGENCY: STATUS: COMPLETED Coronavirus Disease 2019 (COVID-19) Screen The patient was asked if in the last 14 days the y have had new onset of any COVID-19 symptoms. They report the following: No symptoms Within the past 14 days, the patient reports no exposure to someone with a febrile/respiratory illness or someone with a kn own or suspected case of COVID-19 (within 6 feet for > 15 minutes). Result: Screen is negative. /karen/ RICHMOND VALDOVINOS [employer]ER Signed: 04/02/2021 10:37
--- OUTSIDE RECORDS SUMMARY | 2021-11-30 10:21 | External Medical Summary | Encounter Summary ---
:1945 Author Organization [facility] Address [address] [place] [id number] Care Team Providers Name Role Phone LG [...] MEDICARE MEDICARE PART Dec 11, PART A [id number] DEONTE, PATIENT (WNR) (M) A 1996 56A [id number] [place] MEDICARE MEDICARE PART Dec 11, PART B [id number] DEONTE, PATIENT (WNR) (M) B 1996 56A 8431 [place] MEDICARE MEDICARE PART Dec 11, PART A [id number] [phone] LEMAST ER, PATIENT (WNR) (M) A 1996 56A 227 [place] MEDICARE MEDICARE PART Dec 11, PART B [id number] [place] ER, PATIENT (WNR) (M) B 1996 56A 227 [place] MEDICARE MEDICARE PART Dec 11, PART A [id number] [phone] [place] ER, PATIENT (WNR) (M) A 1996 227 [place] MEDICARE MEDICARE PART Dec 11, PART B [id number] [phone] LEM[place] ER, PATIENT (WNR) (M) B [id number] 227 [place] MEDICARE MEDICARE PART Apr 13, PART A [id number] DEONTE, PATIENT (WNR) (M) A 1983 56A 1213 [place] MEDICARE MEDICARE PART Apr 13, PART B [id number] DEONTE, PATIENT (WNR) (M) B 1983 56A 1213 [place] -FO TRICA November 04, TFL [id number] [id number], PATIENT R-LIFE RE-FO 2014 56 404 [place] R-LIF E -FO [place] Dec 11, [id number] [phone] MERLY STER, PATIENT R-LIFE WNR RE-FO 2014 -FORLI 56 404 [place] R-LIF FE E -FO [place] Jun 13, TFL [id number] [phone], PATIENT R-LIFE WNR RE 2000 56 404 [place] FOR LIFE ZZWPS [place] Jun 09, STANDAR [id number] [phone] DEONTE , PATIENT TRIWEST RE 2001 D 56 378 [place] Selected Encounter This section includes the information on record at [place] for the Encounter. Date/Time Encounter Type Encounter Description Reason Provider Source Apr 07, 2021 12:00 Outpatient Encounter EVENT (HISTORICAL) AM IHE Encounter Template Text not used by [...] 11:30 AM AMBULATORY - MEDICINE [facility] May 05, 2021 09:30 AM AMBULATORY - PSYCHIATRY SUNITA SALAS [facility] May 22, 2021 09:00 AM AMBULATORY - MEDICINE SUNITA ULLOA [facility] Jun 29, 2021 08:00 AM AMBULATORY - NONE SUNITA MCCALL [facility] Sep 15, 2021 12:00 PM AMBULATORY - NONE SUNITA MCCALL [facility] Active, Pending, and Scheduled Orders This [...] AM Laboratory - Chemistry EXPANDED URINE DRUG [facility] Order SCREEN URINE SP Mar 06, 2021 12:00 AM Laboratory - Chemistry VA OPIATE PANEL WIT H [facility] Order NALOXONE URINE SP Mar 06, 2021 12:00 AM Laboratory - Chemistry URINALYSIS (IRIS) L [facility] Order URINE SP Immunizations: All administered on the encounter date This section contains immunizations associated to the Encounter. Immunization Series Date Issued Reaction Comments INFLUENZA, UNSPECIFIED FORMULATION Apr 07, 2021 Social History: Smoking Status (Most current) and [...] 2017 06:40 PM TOBACCO SCREEN COMPLETED [facility] Tobacco Use History This section includes a history of the smoking, or tobacco- related health factors, that were collected on or before the date of the Encounter. The data comes from the [place] facility where the Encounter took place. Date/Time Smoking Status/Tobacco Use Comment [facility] Sep 04, 2017 06:40 PM TOBACCO SCREEN COMPLETED [facility] 7 hrs May 15, 2007 09:55 AM QUIT TOBACCO >7 YEARS AGO SUNITA SEO [facility] Feb 12, 1999 10:18 AM TOBACCO PRODUCTS USER (NO) [facility] Feb 14, 1998 01:00 AM TOBACCO PRODUCTS USER (NO) [facility] Dec 04, 1997 01:01 AM TOBACCO PRODUCTS USER (NO) SUNITA Guillaume [facility]
--- OUTSIDE RECORDS SUMMARY | 2021-11-30 10:22 | External Medical Summary | Encounter Summary ---
:1945 Author Organization [facility] Address [address] [place] [address] Care Team Providers Name Role Phone MALKA DE JESUSON Primary Care Provider Unavailable Insurance Providers: All [...] MEDICARE MEDICARE PART Dec 11, PART A [id number] DEONTE, PATIENT (WNR) (M) A 1996 56A [id number] [place] MEDICARE MEDICARE PART Dec 11, PART B [id number] DEONTE, PATIENT (WNR) (M) B 1996 56A 8431 [place] MEDICARE MEDICARE PART Dec 11, PART A [id number] LEM[place] ER, PATIENT (WNR) (M) A 1996 56A 227 [place] MEDICARE MEDICARE PART Dec 11, PART B [id number] [place] ER, PATIENT (WNR) (M) B 1996 56A 227 [place] MEDICARE MEDICARE PART Dec 11, PART A [id number] [phone] [place] ER, PATIENT (WNR) (M) A [id number] 227 [place] MEDICARE MEDICARE PART Dec 11, PART B [id number] [phone] [place] ER, PATIENT (WNR) (M) B [id number] [place] MEDICARE MEDICARE PART Apr 13, PART A [id number] DEONTE, PATIENT (WNR) (M) A 1983 56A 1213 [place] MEDICARE MEDICARE PART Apr 13, PART B [id number] DEONTE, PATIENT (WNR) (M) B 1983 56A 1213 [place] -FO [place] November 04, TFL [id number] [id number], PATIENT R-LIFE RE-FO 2014 56 404 [place] R-LIF E -FO [place] Dec 11, [id number] [phone] MERLY STER, PATIENT R-LIFE WNR RE-FO 2014 -FORLI 56 404 [place] R-LIF FE E -FO [place] Jun 13, TFL [id number] [phone], PATIENT R-LIFE WNR RE 2000 56 404 [place] FOR LIFE ZZWPS [place] Jun 09, STANDAR [id number] [phone] DEONTE , PATIENT TRIWEST RE 2001 D 56 378 [place] Selected Encounter This section includes the information on record at [place] for the Encounter. Date/Time Encounter Type Encounter Description Reason Provider Source Aug 10, 2021 12:22 Outpatient Encounter TELEPHONE TRIAGE PM IHE Encounter Template Text not used by [place] Plan of Treatment: Future Appointments (+ 6 months) and Future Tests (+/- 45 days) The Plan of Treatment section includes future care activities for the patient from all [place] treatmentfacilities. This section includes future appointments and future orders which are active, pending orscheduled.Future Appointments This section includes appointments that were scheduled to occur 6 months from the date of the Encounter, up to a maximum of 20 appointments. The data comes from all [place] treatment facilities. Appointment Date/Time Appointment Type Appointment Facili ty Name Sep 15, 2021 12:00 PM AMBULATORY - NONE SUNITA MCCALL [facility] October 19, 2021 01:00 PM AMBULATORY - MEDICINE [facility] October 26, 2021 01:30 PM AMBULATORY - MEDICINE [facility] Social History: Smoking Status (Most current) and Tobacco Use (All prior to encounter date) This section includes the most current, and the historical, smoking and tobacco-related health factors from the [place] facility where the Encounter took place.Current Smoking Status This section includes the most current smoking, or tobacco-related health factor, from the [place] facility where the Encounter took place. Date/Time Current Smoking Status Comment Facility Sep 04, 2017 06:40 PM TOBACCO SCREEN COMPLETED Kapil CRUZDESIRAE [facility] 7 hrs Tobacco Use History This section includes a history of the smoking, or tobacco- related health factors, that were collected on or before the date of the Encounter. The data comes from the [facility] where the Encounter took place. Date/Time Smoking Status/Tobacco Use Comment [facility] Sep 04, 2017 06:40 PM TOBACCO SCREEN COMPLETED [facility] May 15, 2007 09:55 AM QUIT TOBACCO >7 YEARS AGO SUNITA Guillaume [facility] Feb 12, 1999 10:18 AM TOBACCO PRODUCTS USER (NO) SUNITA Guillaume [facility] Feb 14, 1998 01:00 AM TOBACCO PRODUCTS USER (NO) SUNITA Guillaume [facility] Dec 04, 1997 01:01 AM TOBACCO PRODUCTS USER (NO) SUNITA M. [facility] Encounter Notes: All associated encounter notes This section contains the clinical notes associated to the Encounter. Date/Time Encounter Note(s) Provider Source Aug 10, 2021 12:22 PM PRIMARY CARE MEDICATION MGT NOTE: Chandrika EISENBERG [facility] LOCAL TITLE: MEDICATION RENEWAL REQUEST STANDARD TITLE: PRIMARY CARE MEDICATION MGT NOTE DATE OF NOTE: AUG 10, 2021@12:22 ENTRY DATE: AUG 10, 2021@12:22:10 AUTHOR: RAFAEL EISENBERG EXP COSIGNER: URGENCY: STATUS: COMPLETED Pharmacy has received a refill request that marisabel ot be processed unless acted upon by the prescriber. Please expedite an assessment for concurrence, and if appropriate, generate a [facility] medication order for the following: CHOLECALCIF 50MCG (D3-2,000UNIT) TAB Issue Date 08/24/2019 SIG TAKE ONE TABLET BY MOUTH EVERY DAY FOR VITAMIN D SUPPLEMENT If you do not concur with the patient's request to refill this medication, please communicate your decision directly to the patient. /karen/ RAFAEL EISENBERG HEAD CAGER Signed: 08/10/2021 12:22 Receipt Acknowledged By: * AWAITING SIGNATURE * ERWIN JACOBSEN * AWAITING SIGNATURE * LG DE JESUS
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
--- OUTSIDE RECORDS SUMMARY | 2021-11-30 10:22 | External Medical Summary | Encounter Summary ---
:1945 Author Organization [facility] rs Address [address] [place] [address] 16665 Care Team Providers Name Role Phone LG [...] MEDICARE MEDICARE PART Dec 11, PART A [id number] DEONTE, PATIENT (WNR) (M) A 1995 [id number] [id number] [place] MEDICARE MEDICARE PART Dec 11, PART B [id number] DEONTE, PATIENT (WNR) (M) B [id number] 8431 [place] MEDICARE MEDICARE PART Dec 11, PART A [id number] [phone] LEMAST ER, PATIENT (WNR) (M) A 1995 56A 227 [place] MEDICARE MEDICARE PART Dec 11, PART B [id number] LEM[place] ER, PATIENT (WNR) (M) B [id number] 56A 227 [place] MEDICARE MEDICARE PART Dec 11, PART A [id number] [phone] L[place] ER, PATIENT (WNR) (M) A 1996 227 [place] MEDICARE MEDICARE PART Dec 11, PART B [id number] [phone] LEMAST ER, PATIENT (WNR) (M) B 1996 227 [place] MEDICARE MEDICARE PART Apr 13, PART A [id number] DEONTE, PATIENT (WNR) (M) A 1982 56A 1213 [place] MEDICARE MEDICARE PART Apr 13, PART B [id number] DEONTE, PATIENT (WNR) (M) B [id number] 56A 1213 [place] -FO TRICA November 04, TFL [id number] [phone], PATIENT R-LIFE RE-FO 2014 56 404 [place] R-LIF E -FO [place] Dec 11, [id number] [phone] MERLY STER, PATIENT R-LIFE WNR RE-FO 2014 -FORLI 56 404 [place] R-LIF FE E -FO [place] Jun 13, TFL [id number] [phone], PATIENT R-LIFE WNR RE 2000 56 404 [place] FOR LIFE ZZWPS [place] Jun 09, STANDAR [id number] [phone] DEONTE , PATIENT TRIWEST RE 2001 D 56 378 [place] Selected Encounter This section includes the information on record at [place] for the Encounter. Date/Time Encounter Type Encounter Description Reason Provider Source Jan 26, 2021 12:00 Outpatient Encounter EVENT (HISTORICAL) AM IHE Encounter Template Text not used by [place] Plan of Treatment: Future Appointments (+ 6 months) and Future Tests (+/- 45 days) The Plan of Treatment section includes future care activities for the patient from all [place] treatmentfacilities. This section includes future appointments and future orders which are active, pending orscheduled.Future Appointments This section includes appointments that were scheduled to occur 6 months from the date of the Encounter, up to a maximum of 20 appointments. The data comes from all [place] treatment facilities. Appointment Date/Time Appointment Type Appointment Facili ty Name Mar 05, 2021 11:30 AM AMBULATORY - MEDICINE [facility] Mar 05, 2021 12:00 PM AMBULATORY - MEDICINE [facility] Mar 12, 2021 01:00 PM AMBULATORY - MEDICINE [facility] Apr 02, 2021 11:00 AM AMBULATORY - MEDICINE SUNITA ULLOA [facility] Apr 22, 2021 11:30 AM AMBULATORY - MEDICINE [facility] May 05, 2021 09:30 AM AMBULATORY - PSYCHIATRY SUNITA TOBINXUAN [facility] May 22, 2021 09:00 AM AMBULATORY - MEDICINE SUNITA ULLOA [facility] Jun 29, 2021 08:00 AM AMBULATORY - NONE SUNITA MCCALL [facility] Active, Pending, and Scheduled Orders This section includes a listing of several types of active, pending, and scheduled orders, including clinic medications orders, diagnostic test orders, procedure orders and consult orders; where the start date of the order is 45 days before the date of the Encounter or 45 days after the date of the Encounter. The data comes from all [place] treatment facilities. Test Date/Time Test Type Test Details Facility Name Jan 07, 2021 03:46 PM Consult Order COMMUNITY CARE-DENTAL CARL [place] Cons [facility] Educational Aide's Choice Mar 06, 2021 12:00 AM Laboratory - Chemistry EXPANDED URINE DRUG [facility] Order SCREEN URINE SP Mar 06, 2021 12:00 AM Laboratory - Chemistry [place] OPIATE PANEL WIT H [facility] Order NALOXONE URINE SP Mar 06, 2021 12:00 AM Laboratory - Chemistry URINALYSIS (IRIS) L [facility] Order URINE SP Lab Results: +/- 30 days of the encounter This section includes the Chemistry and Hematology Lab Results on record with [place] for the patient. Radiology Reports and Pathology Reports are provided separately, in subsequent sections.Lab Results This section contains the Chemistry/Hematology Results that were resulted 30 days before or 30 daysafter the date of the Encounter. Date/Time Source Result Type Result - Unit Interpretation Reference Range Comment Dec 30, 2020 10:38 [facility] THYROID STIMULATING Speci men Type: SERUM AM HORMONE No comment enter ed. Ordering Provid er: LG DE JESUS Report Released Date/Time: Dec 14, 2020 02:26 PM Reporting Lab: SUNITA Guillaume [address] [place] [address] Performing Lab: SUNITA [address]ARCUS[address] [place] [address] THYROID STIMULATING HORMONE 16.6 H 0. 300-4.25 Immunizations: All administered on the encounter date This section contains immunizations associated to the Encounter. Immunization Series Date Issued Reaction Comments COVID-19 (PFIZER), MRNA, LNP-S, PF, 30 MCG/0.3 2 Jan 26, 2021 ML DOSE Social History: Smoking Status (Most current) and Tobacco Use (All prior to encounter date) This section includes the most current, and the historical, smoking and tobacco-related health factors from the [place] facility where the Encounter took place.Current Smoking Status This section includes the most current smoking, or tobacco-related health factor, from the [place] facility where the Encounter took place. Date/Time Current Smoking Status Comment Facility Sep 04, 2017 06:40 PM TOBACCO SCREEN COMPLETED Kapil Guillaume [facility] 7 hrs Tobacco Use History This section includes a history of the smoking, or tobacco- related health factors, that were collected on or before the date of the Encounter. The data comes from the [place] facility where the Encounter took place. Date/Time Smoking Status/Tobacco Use Comment [facility] Sep 04, 2017 06:40 PM TOBACCO SCREEN COMPLETED [facility] 7 [facility] May 15, 2007 09:55 AM QUIT TOBACCO >7 YEARS AGO SUNITA SEO [facility] Feb 12, 1999 10:18 AM TOBACCO PRODUCTS USER (NO) SUNITA SEO [facility] Feb 14, 1998 01:00 AM TOBACCO PRODUCTS USER (NO) SUNITA SEO [facility] Dec 04, 1997 01:01 AM TOBACCO PRODUCTS USER (NO) [facility]
--- OUTSIDE RECORDS SUMMARY | 2021-11-30 10:22 | External Medical Summary | Encounter Summary ---
:1945 Author Organization [facility] rs Address [address] [place] [id number] Care Team Providers Name Role Phone LG [...] MEDICARE MEDICARE PART Dec 11, PART A [id number] DEONTE, PATIENT (WNR) (M) A [id number] [place] MEDICARE MEDICARE PART Dec 11, PART B [id number] DEONTE, PATIENT (WNR) (M) B 1996 56A [id number] [place] MEDICARE MEDICARE PART Dec 11, PART A [id number] [phone] LEMAST ER, PATIENT (WNR) (M) A 1995 56A 227 [place] MEDICARE MEDICARE PART Dec 11, PART B [id number] LEMAST ER, PATIENT (WNR) (M) B 1996 56A 227 [place] MEDICARE MEDICARE PART Dec 11, PART A [id number] [phone] LEMAST ER, PATIENT (WNR) (M) A 1996 227 [place] MEDICARE MEDICARE PART Dec 11, PART B [id number] [phone] LEMAST ER, PATIENT (WNR) (M) B 1996 227 [place] MEDICARE MEDICARE PART Apr 13, PART A [id number] DEONTE, PATIENT (WNR) (M) A [id number] 56A [id number] [place] MEDICARE MEDICARE PART Apr 13, PART B [id number] DEONTE, PATIENT (WNR) (M) B [id number] [id number] [place] -FO [place] November 04, TFL [id number] [phone], PATIENT R-LIFE RE-FO 2014 56 404 [place] R-LIF E -FO [place] Dec 11, [id number] [phone] MERLY STER, PATIENT R-LIFE WNR RE-FO 2014 -FORLI 56 404 [place] R-LIF FE E -FO [place] Jun 13, TFL [id number] [phone], PATIENT R-LIFE WNR RE 2000 56 404 [place] FOR LIFE ZZWPS [place] Jun 09, STANDAR [id number] [phone] DEONTE , PATIENT TRIWEST RE 2001 D [id number] [place] Selected Encounter This section includes the information on record at [place] for the Encounter. Date/Time Encounter Type Encounter Description Reason Provider Source Jan 05, 2021 12:00 Outpatient Encounter EVENT (HISTORICAL) AM IHE Encounter Template Text not used by [place] Plan of Treatment: Future Appointments (+ 6 months) and Future Tests (+/- 45 days) The Plan of Treatment section includes future care activities for the patient from all [place] treatmentfacilities. This section includes future appointments and future orders which are active, pending orscheduled.Future Appointments This section includes appointments that were scheduled to occur 6 months from the date of the Encounter, up to a maximum of 20 appointments. The data comes from all [place] treatment facilities. Appointment Date/Time Appointment Type Appointment Facili ty Name Jan 08, 2021 11:00 AM AMBULATORY - MEDICINE [facility] Mar 05, 2021 11:30 AM AMBULATORY - MEDICINE [facility] Mar 05, 2021 12:00 PM AMBULATORY - MEDICINE [facility] Mar 12, 2021 01:00 PM AMBULATORY - MEDICINE [facility] Apr 02, 2021 11:00 AM AMBULATORY - MEDICINE [facility] ULLOA [facility] Apr 22, 2021 11:30 AM AMBULATORY - MEDICINE [facility] May 05, 2021 09:30 AM AMBULATORY - PSYCHIATRY SUNITA SALAS [facility] May 22, 2021 09:00 AM AMBULATORY - MEDICINE SUNITA MARCUS ULLOA [facility] Jun 29, 2021 08:00 AM AMBULATORY - NONE SUNITA MCCALL [facility] Active, Pending, and Scheduled Orders This section includes a listing of several types of active, pending, and scheduled orders, including clinic medications orders, diagnostic test orders, procedure orders and consult orders; where the start date of the order is 45 days before the date of the Encounter or 45 days after the date of the Encounter. The data comes from all [place] treatment facilities. Test Date/Time Test Type Test Details Facility Name Jan 07, 2021 03:46 PM Consult Order [facility] CARL [facility] Cons [facility] Lab Results: +/- 30 days of the encounter This section includes the Chemistry and Hematology Lab Results on record with [place] for the patient. Radiology Reports and Pathology Reports are provided separately, in subsequent sections.Lab Results This section contains the Chemistry/Hematology Results that were resulted 30 days before or 30 daysafter the date of the Encounter. Date/Time Source Result Type Result - Unit Interpretation Reference Range Comment Dec 30, 2020 10:38 [facility] THYROID STIMULATING Speci men Type: SERUM AM HORMONE No comment enter ed. Ordering Provid er: LG DE JESUS Report Released Date/Time: Dec 14, 2020 02:26 PM Reporting Lab: SUNITA [address]ARCUS[address] [place] [address] Performing Lab: SUNITA [facility] [facility] [place] [address] THYROID STIMULATING HORMONE 16.6 H 0. 300-4.25 Immunizations: All administered on the encounter date This section contains immunizations associated to the Encounter. Immunization Series Date Issued Reaction Comments COVID-19 (PFIZER), MRNA, LNP-S, PF, 30 MCG/0.3 1 Jan 05, 2021 ML DOSE Social History: Smoking Status (Most current) and Tobacco Use (All prior to encounter date) This section includes the most current, and the historical, smoking and tobacco-related health factors from the [place] facility where the Encounter took place.Current Smoking Status This section includes the most current smoking, or tobacco-related health factor, from the [place] facility where the Encounter took place. Date/Time Current Smoking Status Comment Facility Sep 04, 2017 06:40 PM TOBACCO SCREEN COMPLETED [facility] Tobacco Use History This section includes a history of the smoking, or tobacco- related health factors, that were collected on or before the date of the Encounter. The data comes from the [place] facility where the Encounter took place. Date/Time Smoking Status/Tobacco Use Comment [facility] Sep 04, 2017 06:40 PM TOBACCO SCREEN COMPLETED Kapil SEO [facility] 7 hrs May 15, 2007 09:55 AM QUIT TOBACCO >7 YEARS AGO SUNITA SEO [facility] Feb 12, 1999 10:18 AM TOBACCO PRODUCTS USER (NO) SUNITA SEO [facility] Feb 14, 1998 01:00 AM TOBACCO PRODUCTS USER (NO) SUNITA SEO [facility] Dec 04, 1997 01:01 AM TOBACCO PRODUCTS USER (NO) SUNITA SEO [facility]
--- OUTSIDE RECORDS SUMMARY | 2021-11-30 10:23 | External Medical Summary ---
:1945 Author Care Team Providers Name Role Phone CHASTITY LIZA BROUSSARD Primary Care Provider [phone] PATRICK BARRIOS MD Interventional Radiologist [phone] Allergies Code Code System Name Reaction Severity Status Onset 65821 RxNorm Atorvastatin Myalgias (Muscle Moderate Active Pain) 8002 RxNorm Talwin Confusion Moderate to Active Severe Medications Name Status Start Date Stop Date ammonium lactate 12 % topical cream Active Not available amoxicillin 500 mg capsule Completed 07/28 amoxicillin 875 mg-potassium clavulanate 125 mg Completed 09/21/2020 tablet aspirin 81 mg tablet,delayed release Active Not available Take 1 tablet every day by oral route for 120 days. Bacillus coagulans Completed 07/23/2021 Boostrix Tdap 2.5 Lf unit-8 mcg-5 Lf/0.5 mL Completed 04/28/2020 intramuscular syringe cholecalciferol (vitamin D3) 50 mcg (2,000 Active Not available unit) tablet ciprofloxacin 0.3 % eye drops Active No t available ciprofloxacin 500 mg tablet Completed 08/12 clindamycin HCl 300 mg capsule Completed 06/28/2019 compound drug Completed 04/28/2020 testosterone cypionate 200 mg/mL intramuscular oil Completed 02/11/2015 03/08/2016 200 mg by intramusc. route. diclofenac 1 % topical gel Completed 04/28 diltiazem CD 240 mg capsule,extended release 24 Completed 04/28/2020 hr diltiazem ER 240 mg capsule,24 hr,extended Active Not available release diltiazem ER 240 mg tablet,extended release 24 hr Completed 10/01/2021 Take 1 tablet every day by oral route. donepezil 10 mg tablet Completed 8 doxycycline hyclate 100 mg capsule Completed 07/23/2021 TAKE ONE CAPSULE BY MOUTH TWICE DAILY FOR FOURTEEN DAYS Eliquis 2.5 mg tablet Completed 09/06/2017 Take 1 tablet twice a day by oral route. Eliquis 5 mg tablet Active Not availabl e enoxaparin 100 mg/mL subcutaneous syringe Completed 07/23/2021 Fluad Quad 1420-1567(65yr up)(PF) 60 mcg (15 Completed 04/28/2020 mcg x 4)/0.5mL IM syringe fluocinolone 0.01 % topical solution Completed 07/28/2017 Fluzone High-Dose 9617-8352 (PF) 180 mcg/0.5 mL Completed 07/28/2017 intramuscular syringe Fluzone High-Dose 8675-5316 (PF) 180 mcg/0.5 mL Completed 03/30/2018 intramuscular syringe hydrocodone 10 mg-acetaminophen 325 mg tablet Completed 10/01/2021 take one tablet by mouth two to three t imes daily as needed for breakthrough pain max 3 tablets per day hydrocortisone 2.5 % topical cream Completed 03/30/2018 04/28/2020 APPLY A THIN LAYER TO THE AFFECTED AREA(S) BY TOPICAL ROUTE 2 T IMES PER DAY hydrocortisone 2.5 % topical ointment Completed 07/23/2021 APPLY A THIN LAYER TO THE AFFECTED AREA(S) BY TOPICAL ROUTE 2 T IMES PER DAY ibuprofen Completed 07/28/2017 600 MG TAB, TWICE DAILY ibuprofen 600 mg tablet Completed 07/24/19 22 Take 1 tablet 4 times a day by oral route as needed. levetiracetam 250 mg tablet Completed 07/14 TAKE 1 TABLET BY MOUTH TWICE DAILY levofloxacin 750 mg tablet Completed 04/28 levothyroxine 137 mcg tablet Completed 04/2021 levothyroxine 150 mcg capsule Completed 04/28/2020 150 micrograms by oral route. levothyroxine 150 mcg tablet Active Not available TAKE 1 TABLET (150 MCG) BY MOUTH ONCE DAILY levothyroxine 25 mcg tablet Completed 04/28/201604/14 25 micrograms by oral route. lidocaine 5 % topical patch Completed 09/12 linezolid 600 mg tablet Completed 09/01/19 19 Take 1 tablet every day by oral route in the morning for 30 day s. metoprolol succinate ER 50 mg tablet,extended Active Not available release 24 hr morphine ER 100 mg tablet,extended release Completed 04/2809/20/2019 100 mg by oral route. morphine ER 20 mg capsule,extended release pellets Completed 04/28/2020 TAKE ONE CAPSULE BY MOUTH TWICE DAILY TAKE WITH 60MG START 328 PICKUP 327 morphine ER 30 mg capsule,extended release 24 hr multiphase Completed 06/27/2019 02/28/2020 30 mg by oral route. morphine ER 30 mg capsule,extended release Completed 04/28/2020 pellets morphine ER 50 mg capsule,extended release Completed 08/31/2018 pellets morphine ER 60 mg tablet,extended release Active Not available take one tablet by mouth three times da andres MDD 3; MUST LAST 30 DAYS P/U 09/05 Start 09/06 Multivitamin 50 Plus tablet Active Not available Take 1 tablet every day by oral route in the morning. naloxone 4 mg/actuation nasal spray Completed 07/24/2021 Take by nasal route. omeprazole 20 mg capsule,delayed release Active 021 Not available 20 mg by oral route. omeprazole 20 mg tablet,delayed release Completed 10/01/2021 Take 1 tablet every day by oral route. penicillin V potassium 500 mg tablet Completed 04/28/2020 Pneumovax-23 25 mcg/0.5 mL injection syringe Completed 07/28/2017 polyethylene glycol 3350 17 gram oral powder packet Active 04/28/2016 Not available 17 g by oral route. polyethylene glycol 3350 17 gram/dose oral Active Not available powder pravastatin 20 mg tablet Completed 022 pravastatin 40 mg tablet Active Not kira ilable Take 1 tablet every day by oral route for 90 days. Probiotic 10 billion cell capsule Completed 04/28/2020 Take 1 capsule every day by oral route in the morning. Refresh Plus 0.5 % eye drops in a dropperette Completed 10/01/2021 Shingrix (PF) 50 mcg/0.5 mL intramuscular Completed 03/30/2018 suspension, kit sulfamethoxazole 800 mg-trimethoprim 160 mg Completed 03/30/2018 tablet terbinafine HCl 250 mg tablet Completed 11/10/2018 250 mg by oral route. testosterone cypionate 100 mg/mL intramuscular oil Completed 01/21/2015 03/08/2016 200 mg by intramusc. route. testosterone cypionate 200 mg/mL intramuscular kit Completed 07/24/2021 Inject 0.25 mL every 2 weeks by intramuscular route. tramadol 50 mg tablet Completed 04/28/2020 Vitamin D3 Completed 07/24/2021 50 mcg QD warfarin 5 mg tablet Completed 04/28/2016 05/08/2018 12.5 mg by oral route. zolpidem 10 mg tablet Completed 10/01/2021 Take 1 tablet every day by oral route. Notes: Reviewed list verbally at today 's appointment. 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 Methicillin Resistant Staphylococcus Aureus Infection Active External Acquired Hypothyroidism Active External Hearing Loss Active External Intracranial Hemorrhage Active External Abdominal Aortic Aneurysm Active Track Superintendent al 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 Hemorrhoids Active External Peripheral Venous Insufficiency Active External Bruit Active External Injury of Lower Limb Active External Diverticulosis of Colon Active External Peripheral Arterial Disease Active Exte rnal Procedures Date Name Performed by 08/07/2021 Cerebral Angiogram Information not avai lable 08/12/2017 AAA Repair Information not avai lable 02/15/2017 Other Information not avai lable Notes: Saphenous vein ablation X2 02/11/2007 Cardiac Catheterization Information not available 06/13/2005 Cardioversion Electric Ext Information n ot available Cardiac Ablation Information not avai lable Shoulder Surgery Information not avai lable Notes: RIGHT Tonsillectomy Information not avai lable Total Knee Arthroplasty Information not available Notes: LEFT Hip Surgery Information not avai lable Notes: extensive for R hip fracture 07/14/2017 Unlisted Imaging Order [facility] [address] [facility] [place] [address] ([address]) 07/14/2017 US, Duplex, Venous, Lower Extremity [facility] [address] [facility] [place] [address] (Work Place) 09/04/2018 US, Duplex, Venous, Extremity, Complete [facility] [address] [facility] [place] [address] (Work Place) 07/24/2021 CT, Angiogram, Abdomen + Pelvis, W/wo [facility] Contrast [address] [place] [address] (Work Place) 11/25/2021 US, Duplex, Arterial, Lower Extremity, [facility] Complete [address] [facility] [place] [address] (Work Place) 11/25/2021 US, Duplex, Venous, Extremity, Complete [facility] [address] [facility] [place] [address] (Work Place) 11/11/2021 CT, Angiogram, Abdomen + Pelvis, W/wo [facility] Contrast [address] [facility] [place] [address] (Work Place) Results Lab Results Date Name Specimen Result Interpretation Description Value Range Status Address 11/20/2021 Bun/creatinine, Plasma High Blood Urea 28 8-23 Final Pathologists' Ratio, Serum Nitrogen mg/dL mg/dL Re gional Lab: [address] [place] [address] Plasma Creatinine 1.0 0.7-1. Final Patho logists' mg/dL 2 Regional L ab: mg/dL [address] [place] [address] Plasma High BUN/creati 28 8-20 Final Patho logists' nine Ratio Region al Lab: [address] [place] [address] 08/03/2021 Bun/creatinine, Plasma High Blood Urea 27 8-23 Final Pathologists' Ratio, Serum Nitrogen mg/dL mg/dL Re gional Lab: [address] [place] [address] 08/03/2021 Bun/creatinine, Plasma Creatinine 1.1 0.7-1. Final Pathologists' Ratio, Serum mg/dL 2 Stefany onal Lab: mg/dL [address] [place] [address] Plasma Glomerular 65 Final Patho logists' Filtration Region al Lab: Rate [address] [place] [address] 07/25/2017 Bun (Blood Urea High Blood Urea 25 8-23 Final Pathologists' Nitrogen), Serum Nitrogen mg/dL mg/dL Regional Lab: or Plasma [address] [place] [address] 07/25/2017 Creatinine W/ Glomerula Creatinine 1.1 0.7-1 . Final Pathologists' Estimated GFR r mg/dL 2 Reg ional Lab: (eGFR), Serum or filtratio mg/dL 415 [facility], Plasma n [place] rate/1.73 sq m.predict ed by creatinin e-based formula (mdrd) Glomerula Glomerular 67 Final Pa thologists' r Filtration Region al Lab: filtratio Rate 415 [facility], n [place] rate/1.73 sq m.predict ed by creatinin e-based formula (mdrd) Glomerula Results Patho logists' r Regional L ab: filtratio [address] , n [place] rate/1.73 sq m.predict ed by creatinin e-based formula (mdrd) Past Encounters 10/01/2021 Abdominal Aortic Aneurysm; Venous Stasis Ulcer of Leg; Peripheral Vascular Disease Patrick Barrios MD: [address] [place] [address], [place] [address], Ph. 07/24/2021 Abdominal Aortic Aneurysm; Intracranial Hemorrhage Patrick Barrios MD: [address] [place] [address], [place] [address], Ph. 10/01/2020 Open Wound of Lower Leg; Venous Insuffic iency of Leg; Edema of Lower Extremity; Methicillin Resistant Staphylococcus Aureus Carrier Sai Warner MD: [address] [place] [address], [place] [phone], Ph. Social History Tobacco Smoking Status Former Smoker (1.5 PPD) Notes: QUIT 04-20-1980 Vaccine List Vaccine Type influenza, injectable, quadrivalent 03/07/2017 03/24/2018 02/20/2020 pneumococcal polysaccharide PPV23 03/24/2018 zoster, unspecified formulation 09/20/2017 Notes: PNEUMOVAX Some vaccines listed in Documents: #[id number], #[id number] could not be added to this patient's chart. Please review these documents and add these vaccines to the patient's chart manually as needed. Plan of Care Reminders Provider Appointments None recorded. Lab None recorded. Referral None recorded. Procedures None recorded. Surgeries None recorded. Imaging None recorded. Vitals 10/01/2021 02:20PM IR- ESTABLISHED Height Weight BMI Blood Pressure 6 ft 4 in 180 lbs 21.9 kg/m2 108/72 mm[Hg] 07/24/2021 10:00AM IR- ESTABLISHED Height Weight BMI Blood Pressure 6 ft 4 in 182 lbs 22.2 kg/m2 (1) 134/86 mm[H g] (2) 108/56 mm[Hg ] 10/01/2020 03:30PM Established Patient 30 Height Weight BMI Blood Pressure 6 ft 4 in 255 lbs 31 kg/m2 130/70 mm[Hg] 04/28/2020 01:30PM New Patient 60 Height Weight BMI Blood Pressure 6 ft 4 in 202 lbs 24.6 kg/m2 150/84 mm[Hg] 08/31/2018 01:15PM Established Patient 15 Height Weight BMI Blood Pressure 6 ft 4 in 212 lbs 25.8 kg/m2 (1) 142/71 mm[H g] (2) 134/76 mm[Hg ] 03/30/2018 11:45AM Any 30 Height Weight BMI Blood Pressure 6 ft 4 in 212 lbs 25.8 kg/m2 (1) 141/75 mm[H g] (2) 148/80 mm[Hg ] 10/03/2017 04:30PM Any 15 Height Weight BMI Blood Pressure 6 ft 4 in 216 lbs 26.3 kg/m2 146/83 mm[Hg] 07/28/2017 09:30AM Any 30 Height Weight BMI Blood Pressure 6 ft 4 in 233 lbs 28.4 kg/m2 (1) 124/66 mm[H g] (2) 126/64 mm[Hg ] 03/22/2017 Weight Blood Pressure 233 lbs (1) 118/61 mm[Hg] (2) 110/61 mm[Hg]
--- OUTSIDE RECORDS SUMMARY | 2021-11-30 10:23 | External Medical Summary | Encounter Summary ---
:1945 Author Care Team Providers Name Role Phone Dotty Hickey NP Primary Care Provider [phone] Mario Cid MD Interventional Radiologist [phone] Reason for Visit Abdominal aortic aneurysm; Procedure Fol low-up Patient is here to f/u with Dr. Cid for t he Cerebral Angio Procedure on 08/07/21. Assessment and Plan Assessment Note Medardo Rod is a very pleasant 76- year-old gentleman who likely has a venous stasis ulcer of the left lower extremity. As you recall he has had venous intervention in the past. I suspect he has se veral varicose veins which coursed under neath the ulcer bed. I will obtain a venous study to evaluate for varicose veins around his ulcer. He had endovascular pair of abdominal ao rtic aneurysm. He has had only a single follow-up CT. I will obtain at least another CTA of the abdomen pelvis. Thank you for the pleasure of participat ing in his care and I will keep you updated with any progress. 1. Abdominal aortic aneurysm Follow-up CTA 2. Venous stasis ulcer of leg 3. Peripheral vascular disease Arterial ultrasound and ankle-brachial index will be obtained. Discussion Note: None recorded.Patient educational handouts: No information available. Plan of Care Reminders Provider Appointments Ir- Telephonic Visit 01/11/2022 1:20PM Mario Cid MD Lab None recorded. Referral None recorded. Procedures None recorded. Surgeries None recorded. Imaging None recorded. Medications Name Start Date ammonium lactate 12 % topical cream aspirin 81 mg tablet,delayed release Take 1 tablet every day by oral route for 120 days. cholecalciferol (vitamin D3) 50 mcg (2,000 unit) table t Take 1 tablet every day by oral route for 90 days. Eliquis 5 mg tablet Take 1 tablet twice a day by oral route. levothyroxine 150 mcg tablet TAKE 1 TABLET (150 MCG) BY MOUTH ONCE DAILY metoprolol succinate ER 50 mg tablet,extended release 24 hr TAKE ONE TABLET BY MOUTH ONE TIME DAILY morphine ER 60 mg tablet,extended release take one tablet by mouth three times geraldo campos MDD 3; MUST LAST 30 DAYS P/U 09/05 Start 09/06 Multivitamin 50 Plus tablet Take 1 tablet every day by oral route in the morning. polyethylene glycol 3350 17 gram/dose oral powder Take 17 g every day by oral route at bedtime for 90 d ays. pravastatin 40 mg tablet Take 1 tablet every day by oral route for 90 days. Notes: Reviewed list verbally at today 's appointment. 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 Vitals Height Weight BMI Blood Pressure 6 ft 4 in 180 lbs 21.9 kg/m2 108/72 mm[Hg] Results Lab Results None recorded. 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 Please review these documents and add these vaccines to the patient's chart manually as needed. Social History Tobacco Smoking Status Former Smoker (1.5 PPD) Notes: QUIT 04-20-1980 What type of diet are you REGULAR following? Are you able to walk? 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 N Are you able to care for Y yourself? Have you processed blood or N body fluids from an Ebola virus disease patient without appropriate PPE? How much tobacco do you chew? none What is your level of alcohol None consumption? Do you have any pets? N Education 12 Which illicit or recreational NONE drugs have you used? Have you been to an area known N to be high risk for COVID-19? What type of child caregiver private home do you none use? Are you deaf or do you have N serious difficulty hearing? Are you passively exposed to N smoke? Do you use your seat belt or Y car seat routinely? swimming/diving Y Do you or have you ever used N any other forms of tobacco or nicotine? Seat belts used routinely Y Smoke alarm in home Y At what age did you start 17 smoking tobacco? Legally blind in one or both N eyes? What is the highest grade or [id number] level of school you have completed or the highest degree you have received? How many children do you have? 3 Has tobacco cessation Y counseling been provided? Do you have smoke and carbon Y monoxide detectors in your home? In the 14 days before symptom N onset, have you had close contact with a person who is under investigation for COVID-19 while that person was ill? Do you reside in or have you N traveled to an area where Ebola virus transmission is active? What was the date of your most 10/01/2021 recent tobacco screening? Do you use sunscreen routinely? Y Do you have an advanced Y directive? General stress level Low Do you use any illicit or N recreational drugs? What is your exercise level? None In the 14 days before symptom N onset, have you had close contact with a laboratory-confirmed COVID-19 while that case was ill? How many years have you smoked 10 tobacco? Live alone or with others? with others On what date was tobacco 10/01/2021 cessation counseling provided? Hard of hearing or deaf in one Y Notes: SLIGHT AKUTAN or both ears? What is your level of caffeine Occasional Notes: 1 CAN POP/DAY consumption? 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 Family History Relation Problem Onset Age of Age Notes Mother Alzheimer's disease (No Information) 86 Father Cerebrovascular accident (No Information) 86 Functional Status No Impairment. Past Encounters 10/01/2021 Abdominal Aortic Aneurysm; Venous Stasis Ulcer of Leg; Peripheral Vascular Disease Mario Cid MD: [address] [place] [address], [place] [id number], Ph. History of Present Illness Note: <p>The patient is a very pleasant 72 year-old male who presents here for followup. He has a history of AAA, PVD, and venous insufficiency. He received bilateral G SV ablation procedures from in 2016 and EVAR in August 2017. Last March, the patient reports recurrence of bilateral lower extremity wounds 3 months prior to presentation.. He reports the wounds were started small from minor injuries but they became larger. He believes the wounds occur due to trauma secondary to moving in and out of a vehicle. They are usually anterior and right about mid calf. He has been to wound care forthe last several months. The wounds have slowly started to heal. He had similar issues prior to our greater saphenous vein ablation procedures.</p><div>July 24, 2021: Medardo Rod is a very pleasant 76-year-old gentleman who had abdominal aortic aneurysm repair. His endograft repair occurred on August 12, 2017. He had a single follow-up CTA of the abdomen pelvis which was performed on June 20, 2018. Since then he has had no further follow-up CTAs. It has been almost 4 years sincehis repair. I will obtain a follow-up CTA and if the aneurysm appears to be stable without endoleak we will quit following this.</div><div>
</div><div>In July of last year I reviewed several of his CT scans. It appears that he had a intracranial hemorrhage on July 20, 2020. The etiology of his intracranial hemorrhage is in the white matter the deep right parietal location. This is a atypical spot for intracranial hemorrhage due to hypertension. Due to the hematoma the MRA is nondiagnostic. It would likely fail to demonstrate an compressed aneurysm.</div><div>
</div><div>October 01, 2021: Medardo is a very pleasant 76-year-old gentleman who had abdominal aortic endovascular repair on August 2017. A single field follow-up CT scandemonstrates no evidence of endoleak. However he did not have any follow-up CTAs of his aneurysm. I ordered 1 last time I saw him and still this was not done.

He has new onset of a left anterior suarez wound. As you recall I initially saw him due to venous wounds on both lower extremities. He states that this wound is has been there for at least 2 weeks.

</div> Review of Systems Comprehensive General Adult Interventional Radiology ROS Reported By: Patient Constitutional: Constitutional: no fever, no night sweats, no significant weight gain, no significant weight loss, no exercise intolerance, no chills, no m alaise Eyes: Eyes: no vision change, no i rritation, no eye disease/injury, wears glasses/contact lenses ENMT: Ears: no ear pain, difficult y hearing. Nose: no frequent nosebleeds, no nose problems , no sinus problems. Mouth/Throat: no sore throat, no bleeding gums, no snoring, no dry mouth, no mouth ulcers, no oral abnorm alities, no teeth problems, no sinusitis Cardiovascular: Cardiovascular: no chest brooke n, no arm pain on exertion, no shortness of breath when wal adolfo, no shortness of breath when lying down, no known heart m urmur, palpitations. Pulses Left DP D, Left PT D, Right DP D, Right PT D Respiratory: Respiratory: no cough, no wh eezing, no shortness of breath, no coughing up blood, no sleep apnea Gastrointestinal: Gastrointestinal: no abdomin al pain, no nausea, no vomiting, normal appetite, no diarrhea , not vomiting blood, no dyspepsia, no GERD Genitourinary: Genitourinary: no incontinen ce, no difficulty urinating, no hematuria, no increased freq uency Musculoskeletal: Musculoskeletal: no muscle a ches, no muscle weakness, no neck pain, no osteoporosis, no fr actures, arthralgias/joint pain, difficulty walking, cramps Integumentary: Skin: no abnormal mole, no j aundice, no rashes, no laceration, no changes in hair/nails, no psoriasis, no change in skin color, no breast lump, non-h ealing areas, change in skin color; BILAT LOWER LEGS - WO UND CARE 2 X/WK Neurologic: Neurologic: no loss of consc iousness, no weakness, no seizures, no dizziness, no m igraines, no headaches, no tremor, no gait dysfunction, no para lysis Psychiatric: Psych: no depression, no sle ep disturbances, feeling safe in a relationship, no alcohol abu se, no anxiety, no hallucinations, no suicidal thoughts, no moo d swings, no memory loss, no agitation, no dementia, no d elirium Endocrine: Endocrine: no fatigue Hematologic/Lymphatic: Hematologic/Lymphatic no swo llen glands, no bruising, no excessive bleeding, no anemi a, no phlebitis Allergic/Immunologic: Allergy/Immunologic: no runn y nose, no sinus pressure, no itching, no hives, no freque nt sneezing Physical Exam Interventional Radiology Exa m Reported By: Patient Constitutional: General Appearance: well-nou rished, well-developed, appears stated age. Level of Distress: comf ortable Psychiatric: Mental Status: alert, normal affect. Orientation: oriented to time, place, and person. Ins ight: good judgment Eyes: Lids and Conjunctivae: non-i njected, anicteric, no discharge, no pallor, no arcus senilis, no xanthelasma. Pupils: PERRLA ENMT: Lips, Teeth, and Gums: steven l dentition. Ears: no lesions on external ear, EACs clear, TM s clear, TM mobility normal. Nose: no lesions on external nose, na res patent, no septal deviation, nasal passages clear, no sinus ten derness, no nasal discharge. Oropharynx: no cyanosis, no pallor Neck: Neck: suppleness, trachea mi dline, no masses, FROM. Carotid Arteries: bilateral normal u pstroke, no bruits, no thrills. Jugular Veins: normal jugula r venous pressure, Kussmaul's sign absent. Cervical Lymph Nodes : non tender, not enlarged. Thyroid: not enlarged, non tender, no nodules Lungs: Respiratory Effort: unlabore d. Chest Exam: normal curvature, no thoracic deformity, no chest wall tenderness. Percussion: resonant. Auscultation: amish r, no wheezing, no rales, no rhonchi Cardiovascular: Rate And Rhythm: regular. He art Sounds: normal S1, no rub, no murmurs, no gallop, no click . Extremities: no cyanosis, no edema, no peripheral signs of embol i Peripheral Pulses: Dorsalis Pedis Pulse: Right Doppler Exam: biphasic, Left Doppler Exam: biphasic. Posterior Ti bialis Pulse Left Doppler Exam: biphasic Abdomen: Inspection and Palpation: so ft, non distended, normal aorta, no bruit, non tender, no masses . Liver: non tender, no hepatomegaly. Spleen: non tender, no splen omegaly Musculoskeletal: Inspection: no joint tendern ess, no joint swelling, no erythema Neurologic: Gait: normal gait. Motor: no rmal strength, normal tone. Sensation no lateralizing focal sensor y or motor deficits, normal speech Skin: Inspection and Palpation: wa rm and dry, ulcer; Single large anterior tibial wound left s cody. Nails: no clubbing
--- OUTSIDE RECORDS SUMMARY | 2021-11-30 10:23 | External Medical Summary | Encounter Summary ---
:1945 Author Organization [facility] Address [address] [place] [address] Care Team Providers Name Role Phone DE [...] MEDICARE MEDICARE PART Dec 11, PART A [id number] DEONTE, PATIENT (WNR) (M) A [id number] [place] MEDICARE MEDICARE PART Dec 11, PART B [id number] DEONTE, PATIENT (WNR) (M) B [id number] [place] MEDICARE MEDICARE PART Dec 11, PART A [id number] [id number] LEMAST ER, PATIENT (WNR) (M) A [id number] [place] MEDICARE MEDICARE PART Dec 11, PART B [id number] LEMAST ER, PATIENT (WNR) (M) B [id number] [place] MEDICARE MEDICARE PART Dec 11, PART A [id number] [phone] LEMAST ER, PATIENT (WNR) (M) A [id number] RICHARD MEDICARE MEDICARE PART Dec 11, PART B [id number] [phone] LEMAST ER, PATIENT (WNR) (M) B [id number] [place] MEDICARE MEDICARE PART Apr 13, PART A [id number] DEONTE, PATIENT (WNR) (M) A [id number] [place] MEDICARE MEDICARE PART Apr 13, PART B [id number] DEONTE, PATIENT (WNR) (M) B [id number] [place] -FO TRICA November 04, TFL [id number] [phone], PATIENT R-LIFE RE-FO 2014 56 404 [place] R-LIF E -FO [place] Dec 11, [id number] [phone] MERLY STER, PATIENT R-LIFE WNR RE-FO 2014 -FORLI 56 404 [place] R-LIF FE E -FO [place] Jun 13, TFL [id number] [phone], PATIENT R-LIFE WNR RE 2000 56 404 [place] FOR LIFE ZZWPS TRICA Jun 09, STANDAR [id number] [phone] DEONTE , PATIENT TRIWEST RE 2001 D [id number] [place] Selected Encounter This section includes the information on record at [facility] for the Encounter. Date/Time Encounter Type Encounter Description Reason Provider Source Jun 29, 2021 09:20 Outpatient Encounter COMMUNITY CARE CONSULT IHE Encounter Template Text not used by [facility] Plan of Treatment: Future Appointments (+ 6 months) and Future Tests (+/- 45 days) The Plan of Treatment section includes future care activities for the patient from all [facility] treatmentfacilities. This section includes future appointments and future orders which are active, pending orscheduled.Future Appointments This section includes appointments that were scheduled to occur 6 months from the date of the Encounter, up to a maximum of 20 appointments. The data comes from all [facility] treatment facilities. Appointment Date/Time Appointment Type Appointment Facili ty Name Sep 15, 2021 12:00 PM AMBULATORY - NONE SUNITA MCCALL [facility] October 19, 2021 01:00 PM AMBULATORY - MEDICINE [facility] October 26, 2021 01:30 PM AMBULATORY - MEDICINE [facility] Social History: Smoking Status (Most current) and Tobacco Use (All prior to encounter date) This section includes the most current, and the historical, smoking and tobacco-related health factors from the [facility] facility where the Encounter took place.Current Smoking Status This section includes the most current smoking, or tobacco-related health factor, from the [facility] facility where the Encounter took place. Date/Time Current Smoking Status Comment Facility Sep 04, 2017 06:40 PM TOBACCO SCREEN COMPLETED Kapil Guillaume [facility] 7 hrs Tobacco Use History This section includes a history of the smoking, or tobacco- related health factors, that were collected on or before the date of the Encounter. The data comes from the [facility] facility where the Encounter took place. Date/Time Smoking Status/Tobacco Use Comment Paola rojas Sep 04, 2017 06:40 PM TOBACCO SCREEN COMPLETED Kapil Guillaume [facility] 7 hrs May 15, 2007 09:55 AM QUIT TOBACCO >7 YEARS AGO [facility] Feb 12, 1999 10:18 AM TOBACCO PRODUCTS USER (NO) [facility] Feb 14, 1998 01:00 AM TOBACCO PRODUCTS USER (NO) [facility] Dec 04, 1997 01:01 AM TOBACCO PRODUCTS USER (NO) USNITA Guillaume [facility] Encounter Notes: All associated encounter notes This section contains the clinical notes associated to the Encounter. Date/Time Encounter Note(s) Provider Source Jun 29, 2021 09:20 AM NONVA CONSULT: DOMINGO VILLAGOMEZ LOCAL TITLE: COMMUNITY CARE-CONSULT RESULT NOTE [facility] STANDARD TITLE: NONVA CONSULT DATE OF NOTE: JUN 29, 2021@09:20 ENTRY DATE: AUG 17, 2021@09:20:54 AUTHOR: DOMINGO VILLAGOMEZ EXP COSIGNER: URGENCY: STATUS: COMPLETED The following Non [facility] Care consult has be en completed. See scanned document for report. 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
[2021-11-30] MEDS: cefTRIAXone 2 GM in DEXTROSE 5% IN WATER 50 ML IV SCH (10:51)
[2021-11-30] MEDS: morphine 30 MG TAB.SR.12H PO SCH ×4 (10:51→21:04)
[2021-11-30] MEDS: AMMONIUM LACTATE 12% TOPICAL SCH (13:44)
--- NOTE | 2021-11-30 13:57 | EKG ---
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 Measurements Intervals [place] Rate: 109 P: NC: QRS: -26 QRSD: 86 T: 38 QT: 352 QTc: 475 Interpretive Statements Atrial fibrillation Ventricular premature complex Borderline left axis deviation Electronically Signed On 11-30-2021 13:57:45 PDT by Mario Plaza M.D. /store/[id number]
[2021-11-30] MEDS: ASPIRIN 81 MG TAB.CHEW PO SCH (15:10)
[2021-11-30] MEDS: LIDOCAINE PATCH TOPICAL SCH (15:10)
[2021-12-01] MEDS: 0.9 % SODIUM CHLORIDE 10 ML SYRINGE IV SCH ×3 (04:24→21:17)
[2021-12-01] MEDS: morphine 30 MG TAB.SR.12H PO SCH ×3 (07:52→21:15)
--- NOTE | 2021-12-01 08:02 | Internal Med Progress Note ---
SUBJECTIVE Subjective Patient information: Note initiated : 12/01/21 at 8:00 am Service Date, if different from initiated Date: [] Patient: Medardo Curry 76 y/o M admitted on 11/29/21 for oozing skin graft. Chief Complaint: [] Interval history: History of present illness: Mr. Curry is a 76 year old M Presents to the ED with redness of his left leg and clear liquid oozing from her recent skin graft placed yesterday. This was done by Dr. Herr who talked to ED provider. Patient says that after the procedure started developing some redness near his ankle. This did progress to increased swelling and redness and warmth. Given the appearance of cellulitis patient was started on IV antibiotics. In the ED was also found to have acute kidney injury. 11/30 No overnight event or new complaints. Continue IV antibiotics. Awaiting Dr. Herr recommendations. 12/[address] Herr and wound cleaned by him at bedside. Renal function improved. Likely discharge today and follow-up with Dr. Herr. Review of Systems: denies headache/fever/chills/nausea/vomiting/chest or abdominal pain/cough/dyspnea/diarrhea. Otherwise see above. Constitutional Vitals: Vital Signs Temp Pulse Resp BP Pulse Ox 97.9 F 100 H 12 162/75 96 12/01/21 03:56 12/01/21 03:56 12/01/21 03:56 12/01/21 03:56 12/01/21 03:56 Period Temp Pulse Resp BP Sys/Estrada Pulse Ox Last 24 Hr 97.2 F-98.2 F 84-113 12-17 129-162/71-84 95-99 Intake and Output 11/30/21 12/01/21 12/01/21 21:59 05:59 13:59 Intake Total 240 200 Output Total 675 525 200 Balance -435 -325 -200 Weight 93.531 kg Intake & Output: Intake & Output 11/30/21 12/01/21 12/01/21 21:59 05:59 13:59 Intake Total 240 200 Output Total 675 525 200 Balance -435 -325 -200 Weight 93.531 kg Intake: Oral 240 200 Output: Void Amount 675 525 200 Other: Meal Dinner Percent of Meal Consumed 50% Urine Appearance Clear Clear Urine Color Dark Mikki Dark Yellow Dark Yellow Urine Odor Normal Strong Exam: General: Alert, Awake, No acute Distress Eyes/N/T: EOMI, , Head/Neck: neck supple, CV: RRR, 2/6SM, Pulm: Clear b/l, no wheezing/rhonchi/rales Abd: soft, nontender, +BS x4 Ext: no clubbing/cyanosis, mild chronic b/l LE edema. LLE with dressing in place, erythema from suarez to ankle and warmth - improving. Neuro: Alert, no focal deficits, moves all extremities, Skin: warm/dry OBJ DATA Labs CBC & Chem 7: 11/30/21 05:19 11/30/21 05:19 Labs: Abnormal Lab Results 11/30/21 11/30/21 11/28/21 05:19 05:19 21:50 RBC 3.70 L Hgb 10.9 L Hct 35.3 L MCHC 30.9 L RDW 15.8 H Neut % (Auto) Lymph % (Auto) 14.7 L Lymph # (Auto) 0.91 L Seg Neutrophils % 80 H Lymphocytes % 7 L RBC Morphology Abnormal A Anisocytosis 1+ A Chloride 109 H Anion Gap BUN Creatinine Glucose Direct Bilirubin 0.3 H AST ALT Lactate Dehydrogenase 131 L Total Protein 5.6 L Albumin 2.7 L Albumin/Globulin Ratio 0.9 L 11/28/21 11/28/21 21:50 21:50 RBC 3.77 L Hgb 11.6 L Hct 35.8 L MCHC RDW 15.8 H Neut % (Auto) 84.1 H Lymph % (Auto) 8.4 L Lymph # (Auto) 0.60 L Seg Neutrophils % Lymphocytes % RBC Morphology Anisocytosis Chloride Anion Gap 7.0 L BUN 54 H Creatinine 1.7 H Glucose 123 H Direct Bilirubin AST 50 H ALT 47 H Lactate Dehydrogenase Total Protein Albumin 3.0 L Albumin/Globulin Ratio 0.9 L Meds: Medications Acetaminophen (Acetaminophen 325 Mg Tablet) 650 mg PO Q6HP PRN; Protocol PRN Reason: Per Pain Protocol/Fever > 101 Acetaminophen (Acetaminophen 325 Mg Tablet) 650 mg PO Q6HP PRN; Protocol PRN Reason: Per Pain Protocol/Fever > 101 Albuterol/Ipratropium (Ipratropium/Albuterol 3 Ml Ampul.Neb) 3 ml NEB Q4HP PRN PRN Reason: Shortness Of Breath Apixaban (Apixaban 5 Mg Tablet) 5 mg PO BID [facility] Last Admin: 11/30/21 21:04 Dose: 5 mg Documented by: Aspirin (Aspirin 81 Mg Tab.Chew) 81 mg PO DAILY [facility] Last Admin: 11/30/21 15:10 Dose: 81 mg Documented by: Diltiazem HCl (Diltiazem 240 Mg Cap.Xl.24h) 240 mg PO QDAY [facility] Last Admin: 11/30/21 09:49 Dose: 240 mg Documented by: Docusate Sodium (Docusate Sodium 100 Mg Capsule) 100 mg PO BID [facility] Last Admin: 11/30/21 21:04 Dose: 100 mg Documented by: Potassium Chloride 40 meq/ (Dextrose) 520 mls @ 130 mls/hr IV UD PRN PRN Reason: Potassium < 3 Magnesium Sulfate (Magnesium Sulfate) 2 gm in 50 mls @ 50 mls/hr IV UD PRN PRN Reason: Magnesium </= 1.6 Ceftriaxone Sodium 2 gm/ (Dextrose) 50 mls @ 100 mls/hr IV Q24H [facility]; Protocol Last Infusion: 11/30/21 11:25 Dose: Infused Documented by: Lactobacillus Rhamnosus (Lactobacillus 1 Capsule) 1 cap PO QAM [facility] Last Admin: 11/30/21 09:49 Dose: 1 cap Documented by: Levothyroxine Sodium (Levothyroxine 150 Mcg Tablet) 150 mcg PO Q48H [facility] Last Admin: 11/29/21 09:42 Dose: 150 mcg Documented by: Lidocaine (Lidocaine Patch) 1 patch TOPICAL QDAY [facility] Last Admin: 11/30/21 15:10 Dose: 1 patch Documented by: Metoclopramide HCl (Metoclopramide 10 Mg/2 Ml Vial) 10 mg IV Q6HP PRN PRN Reason: Nausea And Vomiting Metoprolol Succinate (Metoprolol Succinate 50 Mg Tab.Xl.24h) 50 mg PO QDAY [facility] Last Admin: 11/30/21 09:49 Dose: 50 mg Documented by: Metoprolol Tartrate (Metoprolol Tartrate 5 Mg/5 Ml Vial) 5 mg IV Q2HP PRN PRN Reason: Tachyarrhythmias HR>110 Morphine Sulfate (Morphine 30 Mg Tab.Sr.12h) 60 mg PO TID [facility] Last Admin: 12/01/21 07:52 Dose: 60 mg Documented by: Morphine Sulfate (Morphine 4 Mg/Ml Vial) 0 mg IV Q3HP PRN PRN Reason: Pain Last Admin: 12/01/21 04:24 Dose: 3 mg Documented by: Ondansetron HCl (Ondansetron 4 Mg/2 Ml Vial) 4 mg IV Q4HP PRN; Protocol PRN Reason: Nausea And Vomiting Ondansetron HCl (Ondansetron 4 Mg/2 Ml Vial) 4 mg IV Q4HP PRN PRN Reason: Nausea And Vomiting Ammonium Lactate 12 (% Cream) 1 dose TOPICAL DAILY [facility] Last Admin: 11/30/21 13:44 Dose: Not Given Documented by: Polyethylene Glycol (Polyethylene Glycol 3350 17 Gm Packet) 17 gm PO DAILYP [facility] Potassium Chloride (Potassium Chloride 20 Meq Tablet) 40 meq PO UD PRN PRN Reason: Potssium is 3-3.5 Potassium Chloride (Potassium Chloride 20 Meq Tablet) 40 meq PO UD PRN PRN Reason: Potassium < 3 Senna (Sennosides 1 Tablet) 2 tab PO DAILYP PRN PRN Reason: Constipation Simvastatin (Simvastatin 20 Mg Tablet) 20 mg PO QDAY [facility] Last Admin: 11/30/21 09:49 Dose: 20 mg Documented by: Sodium Chloride (0.9 % Sodium Chloride 10 Ml Syringe) 10 ml IV Q8 [facility] Last Admin: 12/01/21 04:24 Dose: 10 ml Documented by: A/P Narrative A/P Narrative: A: *LLE Cellulitis: *SHEREE on CKD: resolved *chronic Afib: on apixaban, Dilt/BB *h/o CVA: on ASA/statin *h/o mod : follows with cardiology *Hypothyroidism: *Chronic pain: P: -Rocephin -wound care per Dr. Hendrickson -cont home ASA/Apixaban/statin -cont home Dilt/BB -pt/ot -ppx: apixaban Time Spent With Patient Time: Total time spent is greater than 50% in coordination of care (as documented) at patient's floor/unit and/or counseling patient: QUALITY VTE Deep Vein Thrombosis/Pulmonary Embolism Present on Admission: No
--- NOTE | 2021-12-01 08:26 | Discharge Summary ---
Discharge Provider Provider IMPORTANT FOLLOW-UP INFORMATION FOR PCP: Patient information: Note initiated : 12/01/21 at 8:25 am Service Date, if different from initiated Date: [] Patient: Medardo Curry 76 y/o M admitted on 11/29/21 for oozing skin graft. Chief Complaint: [] Date of admission: 11/29/21 06:25 Discharge date: 12/02/21 Primary care physician: Dotty Hickey Consults: 11/28/21 Consult to Physician [CONS] Stat Comment: E-2 Antoinette cellulitis Consulting Provider: Gavino Womack Reason For Exam: Physician to Consult 11/29/21 Consult to Physician [CONS] Urgent Comment: Consulting Provider: Babak eHrr Reason For Exam: Physician to Consult COURSE Hospital Course Hospital course: Interval history: History of present illness: Mr. Curry is a 76 year old M Presents to the ED with redness of his left leg and clear liquid oozing from her recent skin graft placed yesterday. This was done by Dr. Herr who talked to ED provider. Patient says that after the procedure started developing some redness near his ankle. This did progress to increased swelling and redness and warmth. Given the appearance of cellulitis patient was started on IV antibiotics. In the ED was also found to have acute kidney injury. 11/30 No overnight event or new complaints. Continue IV antibiotics. Awaiting Dr. Herr recommendations. 12/[address] Herr and wound cleaned by him at bedside. Renal function improved. Likely discharge today and follow-up with Dr. Herr. Update per family is that he was acting little differently than usual and similar episode happened last time he had a stroke. CT ordered. CT head done which showed a subacute infarct right temporal lobe and an old infarct in the right frontal lobe. Patient has a history of A. fib and is on Eliquis as well as aspirin. 12/02 No overnight event or new complaints. Patient stable for discharge A: *LLE Cellulitis: *SHEREE on CKD: resolved *h/o CVA and current CT showing subacute CVA Right temporal: on ASA/statin *chronic Afib: on apixaban, Dilt/BB *h/o mod : follows with cardiology *Hypothyroidism: *Chronic pain: P: -Abx -wound care per Dr. Hendrickson, f/u outpt -to SNF Discharge diagnosis: Left lower extremity cellulitis acute on chronic kidney disease Secondary discharge diagnosis: Chronic A. fib history of stroke moderate. Stenosis hypothyroidism chronic pain Time Spent with Patient Time attestation: Total time spent providing and/or coordinating discharge services: Time spent: Greater than 30 minutes EXAM Constitutional Vitals: Temp Pulse Resp BP Pulse Ox 98.2 F 105 H 20 143/87 97 12/01/21 07:58 12/01/21 07:58 12/01/21 07:58 12/01/21 07:58 12/01/21 07:58 Discharge Data Data Completed and Pending Labs on day of discharge: Preliminary micro results at discharge 11/28/21 21:55 Blood Culture - Preliminary Blood 11/28/21 21:50 Blood Culture - Preliminary Blood 11/30/21 12:40 Gram Stain - Preliminary Ankle - Left 11/28/21 21:48 Gram Stain - Preliminary Leg - Lower Left Discharge Plan Patient/Caregiver Discharge Instructions Activity: increase activity as tolerated Diet: Regular Diet Prescriptions: New cephalexin 500 mg tablet 500 mg PO QID Qty: 8 0RF Continued levothyroxine 175 mcg tablet 175 mcg PO QAM Qty: 90 3RF diltiazem HCl 240 mg capsule,extended release 24 hr 240 mg PO QDAY 0RF Rx Instructions: 1 po qday multivitamin Tablet 1 tab PO QDAY 0RF Rx Instructions: 1 po qday Eliquis 5 mg tablet 5 mg PO BID 0RF Rx Instructions: 1 po BID pravastatin 20 mg tablet 40 mg PO QDAY 0RF metoprolol succinate 50 mg tablet extended release 24 hr 50 mg PO QDAY 0RF polyethylene glycol 3350 17 GM packet 17 gm PO HS 0RF lidocaine 5 % adhesive patch,medicated 1 patch topical QDAY 0RF ammonium lactate 12 % cream 1 applic TOPICAL DAILY 0RF Label Comments: [NO ORIGINAL SIG] levothyroxine 150 mcg tablet See Rx Instructions .ROUTE .COMPLEX 0RF Rx Instructions: TAKE 1 150 MG TABLET BY MOUTH EVERY OTHER DAY cholecalciferol (vitamin D3) 50 mcg (2,000 unit) tablet 1 tab PO QDAY 0RF Daily Probiotic 1 TABLET tablet 1 tab PO DAILY 0RF morphine [MS Contin] 60 mg tablet extended release 60 mg PO TID MDD 3 Qty: 20 0RF Rx Instructions: *MUST LAST 30 DAYS* P/U 12/05 Start 12/06 Follow Up Plan Follow up with: Babak Herr MD [Physician] - Dotty Hickey ARNP [Primary Care Provider] - Patient Disposition: Xfer SNF Plan of Treatment: Plan: Continue ongoing wound care. Awaits D/c planning. Will continue following patient. Prognosis: Fair Rehab Potential: Fair I certify that the patient requires SNF services: Yes Overall status at discharge: patient is progressing back to baseline Discharge Orders: Discharge Order (Routine); Ordered 12/02/21 Ordered By: Gavino Womack [facility] VTE Deep Vein Thrombosis/Pulmonary Embolism Present on Admission: No
[2021-12-01] MEDS: METOPROLOL SUCCINATE 50 MG TAB.XL.24H PO SCH (08:56)
[2021-12-01] MEDS: ASPIRIN 81 MG TAB.CHEW PO SCH (08:56)
[2021-12-01] MEDS: LACTOBACILLUS 1 CAPSULE PO SCH (08:56)
[2021-12-01] MEDS: APIXABAN 5 MG TABLET PO SCH ×2 (08:56→21:16)
[2021-12-01] MEDS: DILTIAZEM 240 MG CAP.XL.24H PO SCH (08:56)
[2021-12-01] MEDS: DOCUSATE SODIUM 100 MG CAPSULE PO SCH ×2 (08:56→21:15)
[2021-12-01] MEDS: SIMVASTATIN 20 MG TABLET PO SCH (08:57)
--- NOTE | 2021-12-01 09:50 | Cat Scan Report ---
CLINICAL INFORMATION: Mental status change COMPARISON: Brain MRI 09/30/2016 TECHNIQUE: 2.5 mm helical slices were obtained in the skull base to vertex. Following reconstruction, axial reformatted images were reviewed at bone and parenchymal windows. The exam was performed using radiation dose optimization techniques including, but not limited to, automated exposure control, adjustment of the mA and/or kV according to patient size and use of iterative reconstruction technique. FINDINGS: The ventricles, sulci, fissures, and cisterns are symmetrically enlarged compatible with moderate age-related atrophy. No extra-axial fluid collections are identified. Mild patchy chronic ischemic changes, in the deep cerebral white matter, are expected for age. Moderate subacute cortical infarct of the posterior right temporal lobe appreciated. A 1 cm cm remote lacunar infarct in the deep right frontal white matter also noted There is no hemorrhage, mass effect, or edema. Bone windows show no osseous abnormality. IMPRESSION: Moderate atrophy and chronic ischemic changes in the deep cerebral white matter-expected for age. Moderate subacute appearing cortical based infarct right temporal lobe. 1 cm remote lacunar infarct right frontal white matter Interpreted and Authenticated by: Mario Balderas 12/01/21
[2021-12-01] MEDS: LEVOTHYROXINE 150 MCG TABLET PO SCH (10:02)
[2021-12-01] MEDS: cefTRIAXone 2 GM in DEXTROSE 5% IN WATER 50 ML IV SCH ×2 (10:03→18:29)
[2021-12-01] MEDS ORDERED: cefTRIAXone 2 GM VIAL IM ONE (11:39)
[2021-12-01] MEDS: LIDOCAINE PATCH TOPICAL SCH (11:42)
[2021-12-01] MEDS: AMMONIUM LACTATE 12% TOPICAL SCH (11:43)
[2021-12-01] MEDS ORDERED: CEPHALEXIN 500 MG CAPSULE PO SCH (13:00)
--- NOTE | 2021-12-01 16:16 | General Surgery Progress Note ---
SUBJECTIVE Subjective Patient information: Note initiated : 12/01/21 at 4:04 pm Service Date, if different from initiated Date: [] Patient: Medardo Curry 76 y/o M admitted on 11/29/21 for oozing skin graft. Chief Complaint: [] Additional PMFSH (Level 3 Only): I saw patient along with nursing staff. Examined wound of LEFT leg and ankle. MIST treatment given. NOTED Confusion while taking with patient. Concerning for AMS. Patient with h/o prior CVA / seizure . Constitutional Vitals: Vital Signs Temp Pulse Resp BP Pulse Ox 98.4 F 102 H 20 123/70 95 12/01/21 12:00 12/01/21 12:00 12/01/21 12:00 12/01/21 12:00 12/01/21 12:00 Period Temp Pulse Resp BP Sys/Estrada Pulse Ox Last 24 Hr 97.9 F-98.4 F 100-113 12-20 123-162/70-87 95-99 Intake and Output 12/01/21 12/01/21 12/01/21 05:59 13:59 21:59 Intake Total 200 460 Output Total 525 575 Balance -325 -115 Weight 206 lb 3.2 oz Patient Weight 12/02/21 05:59 Weight 206 lb 3.2 oz Intake & Output: Intake & Output 12/01/21 12/01/21 12/01/21 05:59 13:59 21:59 Intake Total 200 460 Output Total 525 575 Balance -325 -115 Weight 206 lb 3.2 oz Intake: Oral 200 460 Output: Void Amount 525 575 Other: Meal Lunch Percent of Meal Consumed 100% Feeding Ability Assist with Tray Set Up Urine Appearance Clear Urine Color Dark Yellow Dark Yellow Urine Odor Strong Exam: AVSS. No changes SHAYY. LEFT leg wound and VLU sites are stable. MIST treatment given. Reviewed lab results. SHEREE resolved. CT brain reviewed. (Indication AMS) Concerning for sub acute cerebral infarct (Temporal region) Patient awaits D/C planning to SNU / Rehab. Ongoing wound care to LEFT leg VLU sites to continue. (D/W Dr. Womack Hospitalist physician) A/P Narrative A/P Narrative: Assessment: VLU Left mid leg. Lymphatic fluid filled blister LEFT lateral heel. Ongoing wound care. (MIST + absorbant dressings) SHEREE improved. CT head : Sub acute cerebral infarct (Ischemia ?) Plan of Treatment: Plan: Continue ongoing wound care. Awaits D/c planning. Will continue following patient. Time Spent With Patient Time: Total time spent is greater than 50% in coordination of care (as documented) at patient's floor/unit and/or counseling patient: Total time spent with greater than 50% in coordination of care (as documented) at patient's floor/unit and/or counseling patient:: 35 - 50 minutes
[2021-12-02] MEDS: 0.9 % SODIUM CHLORIDE 10 ML SYRINGE IV SCH (05:45)
[2021-12-02] MEDS: ASPIRIN 81 MG TAB.CHEW PO SCH (08:53)
[2021-12-02] MEDS: morphine 30 MG TAB.SR.12H PO SCH (08:53)
[2021-12-02] MEDS: METOPROLOL SUCCINATE 50 MG TAB.XL.24H PO SCH (08:53)
[2021-12-02] MEDS: LACTOBACILLUS 1 CAPSULE PO SCH (08:53)
[2021-12-02] MEDS: APIXABAN 5 MG TABLET PO SCH (08:56)
[2021-12-02] MEDS: CEPHALEXIN 500 MG CAPSULE PO SCH ×3 (09:02→13:51)
[2021-12-02] MEDS: LIDOCAINE PATCH TOPICAL SCH (09:02)
[2021-12-02] MEDS: SIMVASTATIN 20 MG TABLET PO SCH (09:02)
[2021-12-02] MEDS: DOCUSATE SODIUM 100 MG CAPSULE PO SCH (09:03)
[2021-12-02] MEDS: DILTIAZEM 240 MG CAP.XL.24H PO SCH (09:03)
[2021-12-02] MEDS: AMMONIUM LACTATE 12% TOPICAL SCH (10:05)
[2021-12-02] MEDS ORDERED: LEVOFLOXACIN 750 MG TABLET PO ONE (12:04)
== END 2021-12-02 13:45 | DRG 602 ==
LOC: ED 20:03 → MEDSUR 20:03 → OBSVTOIN 11-29 00:21 → MEDSUR 11-29 00:21
PROVIDERS: ADMIT Internal Medicine; ATTEND Internal Medicine